=== PATIENT | female | born 1985 | race Caucasian/White ===

== ENCOUNTER 2023-09-23 21:33 | Emergency (ER) | payer OTHER, SELFPAY ==
[2023-09-23 21:39] VITALS: BP 133/92; PULSE 106; RESP 18; TEMP 36.6; O2SAT 100
--- NOTE | 2023-09-23 22:32 | XR_ITS ---
[facility] [id number] Patient Name: JOSEFINA MOYA MRN: [id number] date: 1985 Sex: F Assigned Patient Location: ER Current Patient Location: ER Accession/Order Number: [id number] Exam Date: 09/23/2023 22:35 Report Date: 09/23/2023 23:09 At the request of: MAURA MARKER Procedure: XR hand LT 2V XR hand LT 2V 09/23/2023 10:35 PM EST CLINICAL INDICATION: Cat bite to thumb COMPARISON: None. TECHNIQUE: 2 views of the left hand. FINDINGS: The bones are intact. The alignment is anatomic. The joints are maintained. There is swelling and increased density involving the thumb pad. XR/XR hand LT 2V IMPRESSION: No acute osseous abnormality of the left hand. Swelling and increased density involving the thumb pad. Electronically authenticated by: CLARI MANZO Date: 09/23/2023 23:09
--- NOTE | 2023-09-23 22:34 | ED.ANIMALBI1 ---
HPI - Animal Bite General Chief Complaint: Animal Bite Stated Complaint: Bite - Cat Time Seen by Provider: 09/23/23 22:15 Source: patient Mode of arrival: walk-in Limitations: no limitations History of Present Illness HPI narrative: This 37-year-old female who is left-hand dominant presents for evaluation after she was bit by her cat on her left thumb. She has a small puncture wound on the pulp of the end of the left thumb and the lateral aspect of the distal phalanx. She states that her cat is an indoor cat and does not go outside and was immunized as a kitten. The heard earlier this evening and when her got home from work he told her to come to the hospital. She had soaked her hand in water and washed off with soap and water and applied some antibiotic ointment to the area. No additional injuries or complaints. She does not know the date of her last tetanus shot. Related Data Home Medications Medication Instructions Recorded Confirmed alprazolam 0.5 mg tablet mg 09/23/23 lisdexamfetamine 70 mg capsule mg 09/23/23 pantoprazole 40 mg tablet,delayed mg PO 09/23/23 release Allergies Allergy/AdvReac Type Severity Reaction Status Date / Time No Known Drug Allergies Allergy Verified 09/23/23 21:38 Review of Systems ROS Status of ROS 10 or more systems reviewed and unremarkable except as noted in history and below [facility] Medical History (Updated 09/23/23 @ 22:34 by Ami Joseph MD) Scoliosis ?M41.9 - Scoliosis, unspecified (ICD-10) Social History Smoking status: Former smoker Exam Narrative Exam Narrative: Nurses note and vital signs reviewed and patient is not hypoxic. She is tachycardic with a pulse of 106. General: The patient appears well and in no apparent distress. Patient is resting comfortably on cart. Skin: Warm, dry, no pallor noted. There is no rash noted. Head: Normocephalic, atraumatic Eye: Normal conjunctiva, no drainage, EOMI. PERRL Ears, Nose, Mouth, and Throat: oral mucosa is moist. Nares patent. Mouth without vesicles. Ear canals patent. Tm's without Erythema Cardiovascular: Regular Rate and Rhythm Respiratory: Patient is in no distress, no accessory muscle use, lungs are clear to auscultation, no wheezing, rales or rhonchi Musculoskeletal: The left thumb has a puncture wound on the lateral aspect of the distal phalanx and on the palmar surface of the distal phalanx. There is no active bleeding. No sign of active infection. Patient is able to approximate thumb and all fingers. Neurological: A&O x4, normal speech Psychiatric: Cooperative Constitutional Vital Signs, click to edit/add: Last Vital Signs Temp 98 F 09/23/23 21:39 Pulse 106 H 09/23/23 21:39 Resp 18 09/23/23 21:39 BP 133/92 H 09/23/23 21:39 Pulse Ox 100 09/23/23 21:39 O2 Del Method Room Air 09/23/23 21:39 Course Vital Signs Vital signs: Vital Signs Temperature 98 F 09/23/23 21:39 Pulse Rate 106 H 09/23/23 21:39 Respiratory Rate 18 09/23/23 21:39 Blood Pressure 133/92 H 09/23/23 21:39 Pulse Oximetry 100 09/23/23 21:39 Oxygen Delivery Method Room Air 09/23/23 21:39 Temperature 98 F 09/23/23 21:39 Pulse Rate 106 H 09/23/23 21:39 Respiratory Rate 18 09/23/23 21:39 Blood Pressure 133/92 H 09/23/23 21:39 Pulse Oximetry 100 09/23/23 21:39 Oxygen Delivery Method Room Air 09/23/23 21:39 MDM - Animal Bite MDM Narrative Medical decision making narrative: This 37-year-old female is left-hand dominant presents for evaluation of 2 puncture wounds from her cat. She has an indoor cat was vaccinated as a kitten. There is little to no risk of rabies in this animal. She presents with 2 small puncture wounds on the left thumb. She does not of the date of her last tetanus shot. She had applied some antibiotic ointment to the thumb after washing her hands with soap and water. Her hand was soaked in betadine solution and an x-ray was ordered. The x-ray does not show any bony deformity or foreign body. She was medicated in the ER with 875mg Augmentin, ibuprofen and Tetanus was updated. A sterile non-stick dressing was applied by the nursing staff and she was discharged home with Rx for Augmentin 875mg BID for the next 7 days. Certainly to come to the emergency department for severe pain, increasing redness swelling or lymphangitic streaking. She was also instructed to soak her hand in warm Betadine solution or epsom salt water for at least 20-30 minutes for at least 3-4 times daily. Discharge Plan Discharge Chief Complaint: Animal Bite Clinical Impression: Cat bite Patient Disposition: Home, Self-Care Time of Disposition Decision: 22:34 Condition: Good Prescriptions / Home Meds: No Action alprazolam 0.5 mg tablet pantoprazole 40 mg tablet,delayed release (DR/EC) PO lisdexamfetamine 70 mg capsule Instructions: Animal Bite (ED) Stand Alone Forms: Portal Instructions Referrals: Sonia Hollingsworth MD [Primary Care Provider] - 1 week
[2023-09-23] MEDS: ADACEL DIPH,PERTUSS(ACELL),TET VAC/PF 0.5 ML ADULT SYRINGE IM (22:52)
[2023-09-23] MEDS: IBUPROFEN 600 MG TABLET PO (22:52)
[2023-09-23] MEDS: AMOXICILLIN/POTASSIUM CLAV 1 TAB TABLET PO (22:52)
[2023-09-23 23:13] VITALS: BP 130/84; PULSE 88; O2SAT 98
== END 2023-09-23 23:15 | disposition home or self-care (01) ==
PROVIDERS: Emergency Provider Emergency Medicine; PCP Family Medicine
DX: S61.052A Open bite of left thumb without damage to nail, initial encounter (principal); W55.01XA Bitten by cat, initial encounter; Z23 Encounter for immunization; Z79.899 Other long term (current) drug therapy; Z87.891 Personal history of nicotine dependence; M41.9 Scoliosis, unspecified
CPT/HCPCS: 73120; 90471; 90715; 99284

== ENCOUNTER 2023-10-22 08:25 | Outpatient (OUT) | payer OTHER, SELFPAY ==
--- OUTSIDE RECORDS SUMMARY | 2023-10-22 08:31 | XMS_ITS | CCD ---
Author Name Unknown Address [address] [facility] [address] [place] [address] Organization [facility] Care Team Providers Care Scientific Software Developer Name Role Phone MD Sonia Stoner Primary Care Provider MD Meera Bolden Admit Provider MD Meera Bolden Attending Provider MD Bairon Saba Other Provider [phone] MD Arturo Kumar Attending Provider [phone] Sonia Stoner Primary Care Unavailable Arturo Kumar Admitting Unavailable Arturo Kumar Attending Unavailable Sonia Stoner Primary Care Unavailable Arturo Kumar Admitting Unavailable Arturo Kumar Attending Unavailable Meera Bolden Attending Unavailable Bairon Saba Consulting Unavailabl e Sonia Stoner Primary Care Unavailable Meera Bolden Admitting Unavailable Arturo Kumar Unavailable Sonia Stoner Unavailable DR LIANNE LUI Admitting Unavailable SANIA, DR LIANNE Marquez Attending Unavailable SANIA, DR LIANNE Marquez Consulting Unavailable HERBIE, DR SONIA Mcdaniel Primary Care Unavailable HERBIE, DR SONIA Mcdaniel Primary Care Unavailable HERBIE, DR SONIA Mcdaniel Admitting Unavailable HERBIE, DR SONIA Mcdaniel Attending Unavailable LU, DR AZEB Ortiz Consulting Unavailable HERBIE, DR SONIA Mcdaniel Consulting Unavailable HERBIE, DR SONIA Mcdaniel Primary Care Unavailable HERBIE, DR SONIA Mcdaniel Admitting Unavailable HERBIE, DR SONIA Mcdaniel Attending Unavailable HERBIE, DR SONIA Mcdaniel Consulting Unavailable Allergies Allergy Classification Reported Allergen(s) Allergy Type Date of Onset Reaction(s) Facility (2 sources) Ibuprofen; Translations: [ibuprofen] Drug Allergy 2 Difficulty Breathing [facility] (3 sources) Ibuprofen; Translations: [Motrin] Drug Allergy anaphylaxis [facility] Medications Current Medications Medication Drug Class(es) Dates Sig (Normalized) Sig (Original) lisdexamfetamine dimesylate 70 mg oral capsule (3 sources) Central Nervous System Stimulant Start: 04-21-2022 take 1 capsule by mouth once daily Lisdexamfetamine (Vyvanse) 70 mg capsule Active 70 MG PO Daily April 21, 2022 12:00am pantoprazole 40 mg delayed release oral tablet (3 sources) Proton Pump Inhibitor Start: 04-22-2022 take 40 mg by mouth once daily Pantoprazole Active 40 MG PO Daily 42 42 April 22, 2022 12:00am take 1 tablet by jane th every twelve hours Pantoprazole Sodium 40 MG 1 tablet Orall y twice a day Active spironolactone 50 mg oral tablet (2 sources) Aldosterone Antagonist take 1 tablet by mouth every twenty-four hours Spironolactone 50 MG 1 tablet Orally Once a day Active Problems Active Problems Problem Classification Problem Date Documented Da te Episodic/Chronic Abdominal pain (1 source) Pelvic and perineal pain Episodic Esophageal disorders (3 sources) Gastroesophageal reflux disease; Translations: [Gastro-esophageal reflux disease without esophagitis] Chronic Esophageal disorders (2 sources) Esophagitis; Translations: [Esophagitis] Episodic Other gastrointestinal disorders (2 sources) Dysphagia; Translations: [Dysphagia, unspecified] Episodic Other gastrointestinal disorders (1 source) Dysphagia, unspecified Episodic Other injuries and conditions due to external causes (1 source) Food lodged in esophagus; Translations: [Food in esophagus causing other injury, initial encounter] 04-22-2022 Episodic Other nutritional; endocrine; and metabolic disorders (2 sources) Body mass index 40+ - severely obese; Translations: [Body mass index (BMI) 45.0-49.9, adult] Chronic Unclassified (1 source) Esophagitis, unspecified without bleeding; Translations: [Esophagitis, unspecified without bleeding] Onset: 2 Unclassified (1 source) Encounter for preprocedural laboratory examination; Translations: [Encounter for preprocedural laboratory examination] Onset: 2 Unclassified (1 source) Food in esophagus causing other injury, initial encounter; Translations: [Food in esophagus causing other injury, initial encounter] Onset: 2 Unclassified (4 sources) CONTACT W/AND (SUSP) EXPOS COVID-19; Translations: [CONTACT W/AND (SUSP) EXPOS COVID-19] Onset: 2 Past or Other Problems Problem Classification Problem Date Documented Da te Episodic/Chronic Other injuries and conditions due to external causes (5 sources) Food in esophagus causing other injury, initial encounter; Translations: [Foreign body in esophagus] Onset: 04-21-2022 04-22-2022 Episodic Screening and history of mental health and substance abuse codes (1 source) Personal history of nicotine dependence; Translations: [PERSONAL HISTORY OF NICOTINE DEPEND] Onset: 04-23-2022 Episodic Unclassified (1 source) Esophagitis K20.90 Unclassified (1 source) CONTACT W/AND (SUSP) EXPOS COVID-19; Translations: [CONTACT W/AND (SUSP) EXPOS COVID-19] Onset: 04-29-2022 Results Test Name Value Interpretation Reference Range Facility US PELVIS AND TRANSVAGon US PELVIS AND TRANSVAG EXAMINATION: US PELVIS AND TRANSVAG HISTORY: Pelvic and perineal pain COMPARISON: No relevant comparison available. FINDINGS: Transabdominal and transvaginal images The uterus is normal in size, contour and myometrial echotexture measuring 9.2 x 5.2 x 4.2 cm. Anteverted. Area of anechoic echogenicity along the right uterus margin, this appears to be external to the uterus, indeterminate. Possibly a mesenteric cyst or loop of bowel The endometrium measures 5.3 mm, normal. Multiple areas of anechoic echogenicity in the cervix largest measuring 2.1 cm, nabothian cysts are favored. The right ovary is normal in size, contour and echotexture measuring 2.9 x 2.2 x 2.0 cm. Normal color and Doppler flow. The left ovary is normal in size, contour and echotexture measuring 3.0 x 2.8 x 2.1 cm. Normal color and Doppler flow No free fluid Identified in the area the patient's palpable abnormality, in the perineum is a 3 cm complex mass with multiple dilated vessels, demonstrating increased flow with Valsalva IMPRESSION: 3 cm complex vascular mass corresponding to the patient's perineum palpable mass with increased flow during Valsalva. CT exam without and with contrast is recommended for further characterization Electronically authenticated by: AZEB LEIGH Date: 2023-02-04 08:55 Normal [facility] HCG,Urineon 06-27-2022 Beta HCG ( test) Ql (U) Negative Normal [facility] Comment on above: Result Comment: PERF ORMED BY: [address] [place] [id number] PATHOLOGIST MANIFEST/ORDER ORGANIZER PRINT ORDERS SHIMA RIVERA M.D. Performed By: #### U HCG #### [place] [id number] [facility] Kwame 06-27-2022 L Specimen: [id number] Received: 06/27/22 Status: MARA Fitzpatrick Num: [id number] Spec Type: Surgical Subm Dr: Arturo Kumar MD Tissues: A Esophagus Biopsy (ESOSPHAGEAL BX) Procedures: HE Stain/2, Gross/Micro L4 Age/ Patient Sex Location Account Attending Physician Josefina Moya/F [id number] Arturo Kumar MD SPEC NUM: [id number] RECD: 06/27/22 STATUS: WILMANNinfa FITZPATRICK NUM: [id number] SACHI: 06/27/22 [facility] DR: Arturo Kumar MD ENTERED: 06/27/22 [facility] DR: SPEC TYPE: Surgical DEPT: S ORDERED: HE Stain/2, Gross/Micro L4 ORDERED: HE Stain/2, Gross/Micro L4 Pathological Diagnosis Esophagus, biopsy: Squamous mucosa with reflux-like esophagitis. Negative for intestinal metaplasia or dysplasia. Negative for eosinophilic or neutrophilic inflammation. Clinical Information Esophagitis Gross Description Received in formalin labeled with the patient's name, number and esophagus biopsy EOE are three fragments of soft tellez tissue each measuring 0.2 cm. Entirely submitted in one cassette labeled A1. Microscopic Description Two glass slides with H E stained material have been examined. The microscopic findings support the above pathologic diagnosis. Specimen: [id number] Received: 06/27/22 Status: MARA Fitzpatrick Num: [id number] Spec Type: Surgical Subm Dr: Arturo Kumar MD Tissues: A Esophagus Biopsy (ESOSPHAGEAL BX) Procedures: HE Stain/2, Gross/Micro L4 Patient: Josefina Moya Yolanda [id number] (Continued) Specimen: [id number] Received: 06/27/22 (Continued) Signed (signature on file) Rosana Lucas MD 06/28/22 1257 Specimen: [id number] Received: 06/27/22 Status: MARA Fitzpatrick Num: [id number] Spec Type: Surgical Subm Dr: Arturo Kumar MD Tissues: A Esophagus Biopsy (ESOSPHAGEAL BX) Procedures: HE Stain/2, Gross/Micro L4 Patient: Josefina Moya Yolanda [id number] (Continued) Specimen: [id number] Received: 06/27/22 (Continued) CPT Codes 71046 Specimen: [id number] Received: 06/27/22 Status: MARA Nanette Num: [id number] Spec Type: Surgical Subm Dr: Arturo Kumar MD Tissues: A Esophagus Biopsy (ESOSPHAGEAL BX) Procedures: HE Stain/2, Gross/Micro L4 Patient: YueChelyJosefina Yolanda [id number] (Continued) Signed (signature on file) Rosana Lucas MD 06/28/22 1257 Normal [facility] SARS-CoV-2 (COVID-19) RNA SANJEEV+probe Ql (Unsp spec) Negative Normal Negative [facility] Comment on above: Order Comment: Healt hcare Worker?: N Result Comment: Testing for SARS-CoV-2 by RT-PCR This test was developed and its performance characteristics determined by [employer] and validated at the [facility]. This test has not been FDA cleared or approved. This test has been authorized by FDA under an Emergency Use Authorization (EUA). This test has been validated in accordance with the FDA's Guidance Document (Policy for Diagnostics Testing in Laboratories Certified to Perform High Complexity Testing under CLIA prior to Emergency Use Authorization for Coronavirus Disease-2019 during the Public Health Emergency) issued on December 23, 2019. This test is only authorized for the duration of time the declaration that circumstances exist justifying the authorization of the emergency use of in vitro diagnostic tests for detection of SARS-CoV-2 virus and/or diagnosis of COVID-19 infection under section 564(b)(1) of the Act, 21 U.S.C. 360bbb-3(b)(1), unless the authorization is terminated or revoked sooner. PERFORMED BY: [facility] [address] [place] [address] PATHOLOGIST MANIFEST/ORDER ORGANIZER PRINT ORDERS SHIMA RIVERA M.D. Performed By: #### C OVID 19 [facility] #### [facility] [address] COVID-19 Positive/NegativeOr dered By: Arturo Kumar on 06-25-2022 SARS-CoV-2 (COVID-19) N gene SANJEEV+probe Ql (Resp) Negative Negative [facility] Comment on above: Testing for SARS-CoV -2 by RT-PCRThis test was developed and its performance characteristics determined by [employer]) and validated at the [facility]. This test has not been FDA cleared or approved. This test has been authorized by FDA under an Emergency Use Authorization (EUA). This test has been validated in accordance with the FDA's Guidance Document (Policy for Diagnostics Testing in Laboratories Certified to Perform High Complexity Testing under CLIA prior to Emergency Use Authorization for Coronavirus Disease-2019 during the Public Health Emergency) issued on December 23, 2019. This test is only authorized for the duration of time the declaration that circumstances exist justifying the authorization of the emergency use of in vitro diagnostic tests for detection of SARS-CoV-2 virus and/or diagnosis of COVID-19 infection under section 564(b)(1) of the Act, 21 U.S.C. 360bbb-3(b)(1), unless the authorization is terminated or revoked sooner. Covid-19 PCR ([facility])on SARS-CoV-2 (COVID-19) RNA SANJEEV+probe Ql (Unsp spec) Not detected Normal NOT DETECTED [facility] Comment on above: Result Comment: This test is not yet approved or cleared by the [place] FDA. When there are no FDA-approved or cleared tests available, and other criteria are met, FDA can make tests available under an emergency access mechanism called an Emergency Use Authorization (EUA). The EUA for this test is supported by the Floral [employer] Teacher of Health and Human Service's (HHS's) declaration that circumstances exist to justify the emergency use of in vitro diagnostics for the detection and/or diagnosis of the virus that causes COVID-19. This EUA will remain in effect (meaning this test can be used) for the duration of the COVID-19 declaration justifying emergency of IVDs, unless it is terminated or revoked by FDA (after which the test may no longer be used). When diagnostic testing is negative, the possibility of a false negative should be considered in the context of a patient's recent exposures and the presence of clinical signs and symptoms consistent with SARS-CoV-2. Performed By: #### [facility] #### [facility] [address] [place] [address] [address] Skyler Saldivar Basic Metabolic Panelon 08-0 Calcium [Mass/Vol] 8.2 mg/dL Normal 8.2-10.2 [facility] Comment on above: Performed By: #### B MP, CBC #### [facility] [address] [place] [address] [place] Chloride [Moles/Vol] 109 mmol/L Normal 95-114 [facility] Comment on above: Performed By: #### B MP, CBC #### [facility] [address] CO2 [Moles/Vol] 25.1 mmol/L Normal 22.0-30.0 [facility] Comment on above: Performed By: #### B MP, CBC #### [facility] [address] Creatinine [Mass/Vol] 1.06 mg/dL High 0.44-1.03 [facility] Comment on above: Performed By: #### B MP, CBC #### [facility] [address] [place] [address] [place] Creatinine Clr Calc Pharmacy 89.25 [facility] Comment on above: Result Comment: PERF ORMED BY: [place] [address] PATHOLOGIST MANIFEST/ORDER ORGANIZER PRINT ORDERS SHIMA RIVERA M.D. Performed By: #### B MP, CBC #### [facility] [address] Estimated GFR ( Nicole > 60 [facility] Comment on above: Result Comment: GFR estimated reference range: According to KDOQI guidelines, <60 ml/min/1.73m2 is sufficient to diagnose a patient with chronic kidney disease. Performed By: #### B MP, CBC #### [facility] [address] [place] [id number] [place] Estimated GFR (Non- Am 58 [facility] Comment on above: Performed By: #### B MP, CBC #### [facility] [address] [place] [address] [place] Glucose [Mass/Vol] 96 mg/dL Normal 70-100 [facility] Comment on above: Result Comment: [facility] Glucose Reference Range is dependent on time and content of last meal. Glucose of more than 200 mg/dL in a nonstressed, ambulatory subject supports the diagnosis of Diabetes Mellitus. ADA recommended reference range Performed By: #### B MP, CBC #### [facility] [address] Potassium Normal 3.5-5.1 [facility] Comment on above: Result Comment: Unac ceptable specimen due to hemolysis. Redraw reordered. Performed By: #### B MP, CBC #### [facility] [address] Sodium [Moles/Vol] 138 mmol/L Normal 136-146 [facility] Comment on above: Performed By: #### B MP, CBC #### [facility] [address] Urea nitrogen [Mass/Vol] 12 mg/dL Normal 9-23 [facility] Comment on above: Performed By: #### B MP, CBC #### [facility] [address] Basophils Auto (Bld) [#/Vol] Ordered By: Meera Bolden on 04-22-2022 Basophils (Bld) [#/Vol] 0.1 10*3/uL 0.0-0.2 [facility] Basophils/100 WBC Auto (Bld) Ordered By: Meera Bolden on 04-22-2022 Basophils/100 WBC (Bld) 0.9 % . F [facility] Blood hemoglobin measurement (mass/volume)Ordered By: Meera Bolden on 04-22-2022 Hemoglobin (Bld) [Mass/Vol] 12.6 g/dL 11.8-15.4 [facility] Blood leukocytes automated c ount (number/volume)Ordered By: Meera Bolden on 04-22-2022 WBC (Bld) [#/Vol] 9.0 10*3/uL 4.5-11.0 [facility] Complete Blood Count Auto Di ffon 04-22-2022 Basophils (Bld) [#/Vol] 0.1 10*3/uL Normal 0.0-0.2 [facility] Comment on above: Result Comment: PERF ORMED BY: [place] [address] PATHOLOGIST MANIFEST/ORDER ORGANIZER PRINT ORDERS SHIMA RIVERA M.D. Performed By: #### B MP, CBC #### [facility] [address] [place] [address] Basophils/100 WBC (Bld) 0.9 % Normal . F [facility] Comment on above: Performed By: #### B MP, CBC #### [facility] [address] [place] [address] Eosinophils (Bld) [#/Vol] 0.7 10*3/uL High 0.0-0.45 [facility] Comment on above: Performed By: #### B MP, CBC #### [address] Eosinophils/100 WBC (Bld) 7.3 % Normal . [facility] Comment on above: Performed By: #### B MP, CBC #### [address] Erythrocyte distribution width (RBC) [Ratio] 14.3 % Normal 11.9-15.3 [facility] Comment on above: Performed By: #### B MP, CBC #### [facility] [address] [place] [address] Hematocrit (Bld) [Volume fraction] 38.0 % Normal 34.0-46.4 [facility] Comment on above: Performed By: #### B MP, CBC #### [facility] [address] [place] [address] [place] Hemoglobin (Bld) [Mass/Vol] 12.6 g/dL Normal 11.8-15.4 [facility] Comment on above: Performed By: #### B MP, CBC #### [place] [address] [place] Lymphocytes (Bld) [#/Vol] 1.9 10*3/uL Normal 1.00-4.8 [facility] Comment on above: Performed By: #### B MP, CBC #### [facility] [address] Lymphocytes/100 WBC (Bld) 21.2 % Normal . [facility] Comment on above: Performed By: #### B MP, CBC #### [facility] [address] MCH (RBC) [Entitic mass] 29.9 pg Normal 24.7-34.3 [facility] Comment on above: Performed By: #### B MP, CBC #### [facility] [address] MCV (RBC) [Entitic vol] 90.0 fL Normal 80-[address] [facility] Comment on above: Performed By: #### B MP, CBC #### [facility] [address] Mean Corpuscular HGB Conc 33.3 g/dL Normal 32.0-35.0 [facility] Comment on above: Performed By: #### B MP, CBC #### [facility] [address] [place] [address] [place] Monocytes (Bld) [#/Vol] 0.5 10*3/uL Normal 0.0-0.8 [facility] Comment on above: Performed By: #### B MP, CBC #### [facility] [address] [place] [address] [place] Monocytes/100 WBC (Bld) 5.6 % Normal . F [facility] Comment on above: Performed By: #### B MP, CBC #### [facility] [address] [place] [address] [place] Neutrophils (Bld) [#/Vol] 5.8 10*3/uL Normal 1.8-7.7 [facility] Comment on above: Performed By: #### B MP, CBC #### [facility] [address] [place] [address] [place] Neutrophils/100 WBC (Bld) 65.0 % Normal . [facility] Comment on above: Performed By: #### B MP, CBC #### [facility] [address] Nucleated RBC/100 WBC (Bld) [Ratio] 0.0 % Normal 0-0.5 [facility] Comment on above: Performed By: #### B MP, CBC #### [facility] [address] Platelet mean volume (Bld) [Entitic vol] 9.9 fL Normal 6.3-10.7 [facility] Comment on above: Performed By: #### B MP, CBC #### [facility] [address] Platelets (Bld) [#/Vol] 243 10*3/uL Normal 150-450 [facility] Comment on above: Performed By: #### B MP, CBC #### [address] RBC (Bld) [#/Vol] 4.22 10*6/uL Normal 3.60-5.00 [facility] Comment on above: Performed By: #### B MP, CBC #### [facility] [address] WBC (Bld) [#/Vol] 9.0 10*3/uL Normal 4.5-11.0 [facility] Comment on above: Performed By: #### B MP, CBC #### [address] Creatinine and Glomerular fi ltration rate.predicted panel (S/P/Bld)Ordered By: Meera Bolden on 04-22-2022 Creatinine [Mass/Vol] 1.06 mg/dL 0.44-1.03 [facility] Eosinophils Auto (Bld) [#/Vo l]Ordered By: Meera Bolden on 04-22-2022 Eosinophils (Bld) [#/Vol] 0.7 10*3/uL 0.0-0.45 [facility] Eosinophils/100 WBC Auto (Bl d)Ordered By: Meera Bolden on 04-22-2022 Eosinophils/100 WBC (Bld) 7.3 % . [facility] Erythrocyte distribution wid th Auto (RBC) [Ratio]Ordered By: Meera Bolden on 04-22-2022 Erythrocyte distribution width (RBC) [Ratio] 14.3 % 11.9-15.3 [facility] Estimated glomerular filtrat ion rate (GFR) non- AmericanOrdered By: Meera Bolden on 04-22-2022 GFR/1.73 sq M.predicted among non-blacks MDRD (S/P/Bld) [Vol rate/Area] 58 mL/Min [facility] Hematocrit Auto (Bld) [Volum e fraction]Ordered By: Meera Bolden on 04-22-2022 Hematocrit (Bld) [Volume fraction] 38.0 % 34.0-46.4 [facility] Laboratory - Hematology and Cell countsOrdered By: Meera Bolden on 04-22-2022 Nucleated RBC/100 WBC (Bld) [Ratio] 0.0 % 0-0.5 [facility] Lymphocytes Auto (Bld) [#/Vo l]Ordered By: Meera Bolden on 04-22-2022 Lymphocytes (Bld) [#/Vol] 1.9 10*3/uL 1.00-4.8 [facility] Lymphocytes/100 WBC Auto (Bl d)Ordered By: Meera Bolden on 04-22-2022 Lymphocytes/100 WBC (Bld) 21.2 % . [facility] MCH Auto (RBC) [Entitic mass ]Ordered By: Meera Bolden on 04-22-2022 MCH (RBC) [Entitic mass] 29.9 pg 24.7-34.3 [facility] MCHC Auto (RBC) [Mass/Vol]Or dered By: Meera Bolden on 04-22-2022 MCHC (RBC) [Mass/Vol] 33.3 g/dL 32.0-35.0 Fir [facility] MCV Auto (RBC) [Entitic vol] Ordered By: Meera Bolden on 04-22-2022 MCV (RBC) [Entitic vol] 90.0 fL 80-[address] [facility] Monocytes Auto (Bld) [#/Vol] Ordered By: Meera Bolden on 04-22-2022 Monocytes (Bld) [#/Vol] 0.5 10*3/uL 0.0-0.8 [facility] Monocytes/100 WBC Auto (Bld) Ordered By: Meera Bolden on 04-22-2022 Monocytes/100 WBC (Bld) 5.6 % . F [facility] Neutrophils Auto (Bld) [#/Vo l]Ordered By: Meera Bolden on 04-22-2022 Neutrophils (Bld) [#/Vol] 5.8 10*3/uL 1.8-7.7 [facility] Neutrophils/100 WBC Auto (Bl d)Ordered By: Meera Bolden on 04-22-2022 Neutrophils/100 WBC (Bld) 65.0 % . [facility] No Panel InformationOrdered By: Meera Bolden on 04-22-2022 Estimated GFR () > 60 mL/Min [facility] Comment on above: GFR estimated refere nce range: According to KDOQI guidelines, <60 ml/min/1.73m2 is sufficient to diagnose a patient with chronic kidney disease. Pharmacy Creatinine Clearance (Chem 89.25 [facility] Platelet mean volume Auto (B ld) [Entitic vol]Ordered By: Meera Bolden on 04-22-2022 Platelet mean volume (Bld) [Entitic vol] 9.9 fL 6.3-10.7 [facility] Platelets Auto (Bld) [#/Vol] Ordered By: Meera Bolden on 04-22-2022 Platelets (Bld) [#/Vol] 243 10*3/uL 150-450 [facility] RBC Auto (Bld) [#/Vol]Ordere d By: Meera Bolden on 04-22-2022 RBC (Bld) [#/Vol] 4.22 10*6/uL 3.60-5.00 [facility] Redraw Potassiumon 2 Potassium [Moles/Vol] 3.3 mmol/L Low 3.5-5.1 [facility] Comment on above: Order Comment: REDRA W Result Comment: PERF ORMED BY: [facility] [address] [place] [address] PATHOLOGIST MANIFEST/ORDER ORGANIZER PRINT ORDERS SHIMA RIVERA M.D. Performed By: #### R DIANA Prajapati #### [facility] [address] Serum or plasma calcium bill urement (mass/volume)Ordered By: Meera Bolden on 04-22-2022 Calcium [Mass/Vol] 8.2 mg/dL 8.2-10.2 [facility] Serum or plasma chloride apple surement (moles/volume)Ordered By: Meera Bolden on 04-22-2022 Chloride [Moles/Vol] 109 mmol/L 95-114 [facility] Serum or plasma glucose bill urement (mass/volume)Ordered By: Meera Bolden on 04-22-2022 Glucose [Mass/Vol] 96 mg/dL 70-100 [facility] Comment on above: ADA recommended refe rence rangeRandom Glucose Reference Range is dependent on time and content of last meal. Glucose of more than 200 mg/dL in a nonstressed, ambulatory subject supports the diagnosis of Diabetes Mellitus. Serum or plasma potassium me asurement (moles/volume)Ordered By: Meera Bolden on 04-22-2022 Potassium [Moles/Vol] 3.3 mmol/L 3.5-5.1 [facility] Serum or plasma sodium measu rement (moles/volume)Ordered By: Meera Bolden on 04-22-2022 Sodium [Moles/Vol] 138 mmol/L 136-146 [facility] Serum or plasma total carbon dioxide measurement (moles/volume)Ordered By: Meera Bolden on 04-22-2022 CO2 [Moles/Vol] 25.1 mmol/L 22.0-30.0 [facility] Serum or plasma urea nitroge n measurement (mass/volume)Ordered By: Meera Bolden on 04-22-2022 Urea nitrogen [Mass/Vol] 12 mg/dL 9-23 [facility] CBC AUTO DIFFon 04-21-2022 BASO # 0.2 103/ul Critically high 0.0-0.1 [facility] Comment on above: Performed By: #### C BC #### [facility] [address] [address] [address] Skyler Saldivar Basophils/100 WBC (Bld) 1.5 % Normal 0.2-2.0 [facility] Comment on above: Performed By: #### C BC #### [facility] [address] [address] [address] Skyler Saldivar EO # 0.7 103/ul Normal 0.0-0.7 [facility] Comment on above: Performed By: #### C BC #### [facility] [address] [address] [address] Skyler Saldivar Eosinophils/100 WBC (Bld) 6.4 % Normal 0.9-7.0 [facility] Comment on above: Performed By: #### C BC #### [facility] [address] [place] [address] Dr. Skyler Saldivar Erythrocyte distribution width (RBC) [Ratio] 13.7 % Normal 11.0-15.0 [facility] Comment on above: Performed By: #### C BC #### [facility] [address] [place] [address] Dr. Skyler Saldivar Hematocrit (Bld) [Volume fraction] 43.3 % Normal 36.0-48.0 [facility] Comment on above: Performed By: #### C BC #### [facility] [address] [place] [address] Dr. Skyler Saldivar Hemoglobin (Bld) [Mass/Vol] 13.9 g/dL Normal 12.0-16.0 [facility] Comment on above: Performed By: #### C BC #### [facility] [address] [place] [address] Dr. Skyler Saldivar IG # 0.03 10e3/ul Normal 0.00-0.03 [facility] Comment on above: Performed By: #### C BC #### [facility] [address] [place] [address] Dr. Skyler Saldivar IG % 0.3 % Normal 0.0-0.5 [facility] Comment on above: Performed By: #### C BC #### [facility] [address] [place] [address] Dr. Skyler Saldivar LYMPH # 2.5 103/ul Normal 1.2-3.8 [facility] Comment on above: Performed By: #### C BC #### [facility] [address] [place] [address] Dr. Skyler Saldivar Lymphocytes/100 WBC (Bld) 24.1 % Normal 20.5-60.0 [facility] Comment on above: Performed By: #### C BC #### [facility] [address] [place] [address] Dr. Skyler Saldivar MANUAL DIFF REQ NO Normal [facility] Comment on above: Performed By: #### C BC #### [facility] [address] [place] [address] Dr. Skyler Saldivar MCH (RBC) [Entitic mass] 28.9 pg Normal 26.7-34.0 [facility] Comment on above: Performed By: #### C BC #### [facility] [address] [place] [address] Dr. Skyler Saldivar MCHC (RBC) [Mass/Vol] 32.1 g/dL Normal 29.9-35.2 [facility] Comment on above: Performed By: #### C BC #### [facility] [address] [place] [address] Dr. Skyler Saldivar MCV (RBC) [Entitic vol] 90.0 fL Normal 81.0-99.0 [facility] Comment on above: Performed By: #### C BC #### [facility] [address] [place] [address] Dr. Skyler Saldivar MONO # 0.4 103/ul Normal 0.3-0.8 [facility] Comment on above: Performed By: #### C BC #### [facility] [address] [place] [address] Dr. Skyler Saldivar Monocytes/100 WBC (Bld) 4.3 % Normal 1.7-12.0 [facility] Comment on above: Performed By: #### C BC #### [facility] [address] [place] [address] Dr. Skyler Saldivar NEUT # 6.6 103/ul Critically high 1.4-6.5 [facility] Comment on above: Performed By: #### C BC #### [facility] [address] [place] [address] Dr. Skyler Saldivar Neutrophils/100 WBC (Bld) 63.4 % Normal 43.0-75.0 [facility] Comment on above: Performed By: #### C BC #### [facility] [address] [place] [address] Dr. Skyler Saldivar Platelet mean volume (Bld) [Entitic vol] 11.3 fL Normal 9.5-13.5 [facility] Comment on above: Performed By: #### C BC #### [facility] [address] [place] [address] Dr. Skyler Saldivar PLT 317 103/ul Normal 150-450 [facility] Comment on above: Performed By: #### C BC #### [facility] [address] [place] [address] Dr. Skyler Saldivar RBC 4.81 106/ul Normal 4.20-5.40 [facility] Comment on above: Performed By: #### C BC #### [facility] [address] [place] [address] Dr. Skyler Saldivar WBC 10.3 103/ul Normal 4.0-11.0 [facility] Comment on above: Performed By: #### C BC #### [facility] [address] [place] [address] Dr. Skyler Saldivar [facility] SARS-CoV-2 (COVID-19) RNA SANJEEV+probe Ql (Unsp spec) Not detected Normal NOT DETECTED [facility] Comment on above: Result Comment: When diagnostic testing is negative, the possibility of a false negative should be considered in the context of a patient's recent exposures and the presence of clinical signs and symptoms consistent with SARS-CoV-2. This test is not yet approved or cleared by the [place] FDA. When there are no FDA-approved or cleared tests available, and other criteria are met, FDA can make tests available under an emergency access mechanism called an Emergency Use Authorization (EUA). The EUA for this test is supported by the [employer] of Health and Human Service's declaration that circumstances exist to justify the emergency use of in vitro diagnostics for the detection and/or diagnosis of the virus that causes COVID-19. This EUA will remain in effect for the duration of the COVID-19 declaration justifying emergency of IVDs, unless it is terminated or revoked by the FDA (after which the test may no longer be used). Performed By: #### C VDTB #### [facility] [address] [place] [address] Dr. Skyler Saldivar PROF 14(COMP METB)on 022 Albumin [Mass/Vol] 3.9 g/dL Normal 3.4-5.0 [facility] Comment on above: Performed By: #### C MP #### [facility] [address] [place] [address] Dr. Skyler Saldivar Albumin/Globulin [Mass ratio] 0.9 {ratio} Normal [facility] Comment on above: Performed By: #### C MP #### [facility] [address] [place] [address] Dr. Skyler Saldivar ALP [Catalytic activity/Vol] 73 U/L Normal 46-116 [facility] Comment on above: Performed By: #### C MP #### [facility] [address] [place] [address] Dr. Skyler Saldivar ALT [Catalytic activity/Vol] 20 U/L Normal 14-59 [facility] Comment on above: Performed By: #### C MP #### [facility] [address] [place] [address] Dr. Skyler Saldivar Anion gap [Moles/Vol] 13.8 mmol/L Normal [facility] Comment on above: Performed By: #### C MP #### [facility] [address] [place] [address] Dr. Skyler Saldivar AST [Catalytic activity/Vol] 14 U/L Critically low 15-37 [facility] Comment on above: Performed By: #### C MP #### [facility] [address] [address] [address] Skyler Saldivar Bilirubin [Mass/Vol] 0.3 mg/dL Normal 0.2-1.0 [facility] Comment on above: Performed By: #### C MP #### [facility] [address] [address] [address] Skyler Saldivar Calcium [Mass/Vol] 9.1 mg/dL Normal 8.5-10.1 [facility] Comment on above: Performed By: #### C MP #### [facility] [address] [address] [address] Skyler Saldivar Chloride [Moles/Vol] 105 mmol/L Normal 98-107 [facility] Comment on above: Performed By: #### C MP #### [facility] [address] [address] [address] Skyler Saldivar CO2 [Moles/Vol] 23.8 mmol/L Normal 21.0-32.0 [facility] Comment on above: Performed By: #### C MP #### [facility] [address] [address] [address] Skyler Saldivar Creatinine [Mass/Vol] 1.11 mg/dL Critically high 0.55-1.02 [facility] Comment on above: Performed By: #### C MP #### [facility] [address] [address] [address] Skyler Saldivar EGFR-AF [place] >60 Normal >=60 [facility] Comment on above: Performed By: #### C MP #### [facility] [address] [address] [address] Skyler Saldivar EGFR-NON AF [place] 55 mL/min/1.73m2 Critically low >=60 [facility] Comment on above: Performed By: #### C MP #### [facility] [address] [address] [address] Skyler Saldivar Globulin (S) [Mass/Vol] 4.2 g/dL Normal T [facility] Comment on above: Performed By: #### C MP #### [facility] [address] [address] [address] Skyler Saldivar Glucose [Mass/Vol] 94 mg/dL Normal 74-106 [facility] Comment on above: Performed By: #### C MP #### [facility] [address] [address] [address] Skyler Saldivar Potassium [Moles/Vol] 3.6 mmol/L Normal 3.5-5.1 [facility] Comment on above: Performed By: #### C MP #### [facility] [address] [address] [address] Skyler Saldivar Protein [Mass/Vol] 8.1 g/dL Normal 6.4-8.2 [facility] Comment on above: Performed By: #### C MP #### [facility] [address] [address] [address] Skyler Saldivar Sodium [Moles/Vol] 139 mmol/L Normal 136-145 [facility] Comment on above: Performed By: #### C MP #### [facility] [address] [address] [address] Skyler Saldivar Urea nitrogen [Mass/Vol] 15.0 mg/dL Normal 7.0-18.0 [facility] Comment on above: Performed By: #### C MP #### [facility] [address] [address] [address] Skyler Saldivar Urea nitrogen/Creatinine [Mass ratio] 13.5 mg/mg Normal [facility] Comment on above: Performed By: #### C MP #### [facility] [address] [address] [address] Skyler Saldivar Comprehensive Metabolic Empo n 07-27-2021 Albumin [Mass/Vol] 3.6 g/dL Normal 3.2-5.5 [facility] Comment on above: Performed By: #### E BS LIPID, EBS CMP #### [facility] [address] Albumin/Globulin [Mass ratio] 1.1 {ratio} Normal [facility] Comment on above: Performed By: #### E BS LIPID, EBS CMP #### [facility] [address] [place] [address] [place] ALP [Catalytic activity/Vol] 52 U/L Normal 32-92 [facility] Comment on above: Performed By: #### E BS LIPID, EBS CMP #### [facility] [address] [id number] [place] ALT [Catalytic activity/Vol] 31 U/L Normal 10-60 [facility] Comment on above: Performed By: #### E BS LIPID, EBS CMP #### [facility] [address] [place] [address] [place] AST [Catalytic activity/Vol] 23 U/L Normal 10-42 [facility] Comment on above: Performed By: #### E BS LIPID, EBS CMP #### [facility] [address] [place] [address] [place] Bilirubin [Mass/Vol] 0.5 mg/dL Normal 0.3-1.2 [facility] Comment on above: Performed By: #### E BS LIPID, EBS CMP #### [facility] [address] [place] [address] [place] Calcium [Mass/Vol] 9.0 mg/dL Normal 8.2-10.2 [facility] Comment on above: Performed By: #### E BS LIPID, EBS CMP #### [facility] [address] [id number] [place] Chloride [Moles/Vol] 103 mmol/L Normal 95-114 [facility] Comment on above: Performed By: #### E BS LIPID, EBS CMP #### [facility] [address] [id number] [place] CO2 [Moles/Vol] 22.9 mmol/L Normal 22.0-30.0 [facility] Comment on above: Performed By: #### E BS LIPID, EBS CMP #### [facility] [address] [id number] [place] Creatinine [Mass/Vol] 0.93 mg/dL Normal 0.44-1.03 [facility] Comment on above: Performed By: #### E BS LIPID, EBS CMP #### [facility] [address] [place] [address] [place] Estimated GFR ( Nicole > 60 Normal [facility] Comment on above: Result Comment: GFR estimated reference range: According to KDOQI guidelines, <60 ml/min/1.73m2 is sufficient to diagnose a patient with chronic kidney disease. Performed By: #### E BS LIPID, EBS CMP #### [facility] [address] [place] [address] [place] Estimated GFR (Non- Am > 60 Normal [facility] Comment on above: Performed By: #### E BS LIPID, EBS CMP #### [address] Globulin (S) [Mass/Vol] 3.3 g/dL Normal F [facility] Comment on above: Performed By: #### E BS LIPID, EBS CMP #### [address] Glucose [Mass/Vol] 80 mg/dL Normal 70-100 [facility] Comment on above: Performed By: #### E BS LIPID, EBS CMP #### [place] [address] [place] Potassium [Moles/Vol] 4.1 mmol/L Normal 3.5-5.1 [facility] Comment on above: Performed By: #### E BS LIPID, EBS CMP #### [place] [address] [place] Protein [Mass/Vol] 6.9 g/dL Normal 6.1-7.9 [facility] Comment on above: Performed By: #### E BS LIPID, EBS CMP #### [place] [address] [place] Sodium [Moles/Vol] 135 mmol/L Low 136-146 [facility] Comment on above: Performed By: #### E BS LIPID, EBS CMP #### [place] [address] [place] Urea nitrogen [Mass/Vol] 11 mg/dL Normal 9-23 [facility] Comment on above: Performed By: #### E BS LIPID, EBS CMP #### [facility] [address] Lipid Profileon 07-27-2021 Cholesterol [Mass/Vol] 173 mg/dL Normal 140-200 [facility] Comment on above: Result Comment: Chol less than 200 mg/dl low risk Chol 201-239 mg/dl borderline risk Chol 240 mg/dl and greater high risk Performed By: #### E BS LIPID, EBS CMP #### [facility] [address] Cholesterol in HDL [Mass/Vol] 46 mg/dL Normal 35-85 [facility] Comment on above: Result Comment: HDL CHOL ATP-III CLASSIFICATION Cardiovascular Risk HDL > or equal to 60 mg/dL LOW HDL < 40 mg/dL HIGH Performed By: #### E BS LIPID, EBS CMP #### [facility] [address] Cholesterol.total/Rachel sterol in HDL [Mass ratio] 3.8 {ratio} Normal <5.0 [facility] Comment on above: Result Comment: PERF ORMED BY: [place] [address] PATHOLOGIST MANIFEST/ORDER ORGANIZER [employer]DERS SHIMA RIVERA M.D. Performed By: #### E BS LIPID, EBS CMP #### [facility] [address] LDL Cholesterol,Calculated 109 mg/dL High 0-100 [facility] Comment on above: Result Comment: LDL ATP III CLASSIFICATION LDL less than 100 mg/dL Optimal LDL 100-129 mg/dL Near or above optimal LDL 130-159 mg/dL Borderline high LDL 160-189 mg/dL High LDL greater than 189 mg/dL Very high Performed By: #### E BS LIPID, EBS CMP #### [facility] [address] [place] [address] [place] Triglyceride w/Reflex 90 mg/dL Normal 35-149 [facility] Comment on above: Result Comment: TRIG ATP III CLASSIFICATION TRIG less than 150 mg/dL Normal TRIG 150-199 mg/dL Borderline high TRIG 200-500 mg/dL High TRIG greater than 500 mg/dL Very high Standard traceable to the Center for Disease Conrtrol and Prevention (CDC) test method. Performed By: #### E BS LIPID, EBS CMP #### [facility] [address] VLDL CHOLESTEROL 18 mg/dL Normal [facility] Comment on above: Performed By: #### E BS LIPID, EBS CMP #### [facility] [address] Hep Bs Abon 01-06-2019 HBV surface Ab Ql (S) Reactive [facility] Comment on above: Result Comment: Non Reactive: Inconsistent with immunity, less than 10 mIU/mL Reactive: Consistent with immunity, greater than 9.9 mIU/mL Verified by repeat analysis Performed at: [facility] [id number] PhD William Nelson Performed By: #### 2 [id number] #### [facility] [address] [place] [address] Varic IgGon 01-06-2019 VZV IgG IA Qn (S) 3354 Immune >165 [facility] Comment on above: Result Comment: Nega tive <135 Equivocal 135 - 165 Positive >165 A positive result generally indicates exposure to the pathogen or administration of specific immunoglobulins, but it is not indication of active infection or stage of disease. Performed at: [facility] [id number] PhD William Nelson Performed By: #### 2 [id number] #### [facility] [address] [place] [address] Vital Signs Date Time Vital Sign Value Performing Clinician Facility 10-10-2022 16:30-0500 Body height 163.83 cm Arturo Kumar Other [facility] Other 10-10-2022 16:30-0500 Body mass index (BMI) [Ratio] 38.7 kg/m2 Arturo Kumar Other [facility] [employer] Other 10-10-2022 16:30-0500 Body weight 103.87 kg Arturo Kumar Other [facility] [employer] Other 10-10-2022 16:30-0500 Diastolic blood pressure 90 mm[Hg] Arturo Kumar Other [facility] [employer] Other 10-10-2022 16:30-0500 Systolic blood pressure 129 mm[Hg] Arturo Kumar Other [facility] [employer] Other 04-22-2022 11:40-0400 Body temperature 97.8 [degF] MD Sonia Stoner Work Phone: [facility] 04-22-2022 11:40-0400 Diastolic blood pressure 86 mm[Hg] MD Sonia Stoner Work Phone: [facility] 04-22-2022 11:40-0400 Heart rate 80 /min MD Sonia Stoner Work Phone: [facility] 04-22-2022 11:40-0400 Respiratory rate 22 /min MD Sonia Stoner Work Phone: [facility] 04-22-2022 11:40-0400 SaO2% (BldA) [Mass fraction] 100 % MD Sonia Stoner Work Phone: [facility] 04-22-2022 11:40-0400 Systolic blood pressure 136 mm[Hg] MD Sonia Stoner Work Phone: [facility] 04-22-2022 07:51-0400 Body height 165.1 cm MD Sonia Stoner Work Phone: [facility] 04-22-2022 07:51-0400 Body weight 108.4 kg MD Sonia Stoner Work Phone: [facility] Encounters Encounter Date Encounter Type Care Provider Facility Start: 02-04-2023 End: 02-05-[address] SONIA STONER Facility:[facility] Start: 01-30-2023 End: 01-30-2023 ambulatory Sonia Stoner Other [facility] [employer] Other Start: 01-30-2023 Telephone encounter Sonia Stoner [facility] Start: 10-10-2022 End: 10-10-2022 ambulatory Arturo Kumar Other [facility] [employer] Other Start: 10-10-2022 Patient encounter procedure Arturo Kumar [facility] Start: 06-27-2022 End: 06-27-2022 ambulatory Sonia Stoner Facility:[facility] Start: 06-25-2022 End: 06-25-2022 ambulatory Sonia Stoner Facility:[facility] Start: 06-25-2022 End: 06-25-2022 ambulatory MD Sonia Stoner Work Phone: [facility] Work Phone: Start: 06-25-2022 End: 06-25-2022 Patient encounter procedure MD Sonia Stoner Work Phone: [facility] Start: 04-29-2022 End: 04-29-[address] SONIA STONER Facility:[facility] Start: 04-22-2022 End: 04-22-2022 ambulatory Meera Bolden Facility:[facility] Start: 04-21-2022 End: 04-22-2022 Evaluation and management of inpatient MD Sonia Stoner Work Phone: [facility] Start: 04-21-2022 End: 04-22-[address] LIANNE LUI Facility:[facility] Procedures Date Procedure Procedure Detail Performing Clinician Start: 04-22-2022 Esophagogastroduodenoscopy MD Sonia Stoner Work Phone: Plan of Treatment Date Care Activity Detail Author Start: 04-22-2022 [facility] Start: 04-22-2022 Hospital admission [facility] Start: 04-22-2022 Referral to grab driver [facility] Patient referral [facility] Work Phone: Payers Date Payer Category Payer Self-pay 1985 Unknown [id number] 1985 Unknown [id number] 1985 Unknown [id number] 1960 [employer] ( and others) [id number] Unknown [id number] Unknown [id number] Unknown [id number] Social History Date Type Detail Facility Start: 04-22-2022 Tobacco smoking status NHIS Ex-smoker (finding) [facility] Start: 1985 Sex Assigned At Female F [facility] Sex Assigned At Sex Assigned At Bir th [employer] Other Goals Date Patient Goal Desired Activity /State Functional Status Date Assessment Result Facility 04-22-2022 Functional status Patient at Baseline [facility] Work Phone: Mental Status Date Assessment Result Facility 04-22-2022 Cognitive function Cognitive Sta tus Patient at Baseline [facility] Work Phone: Evaluation note 01-30-2023 Note Date & Type Note Facility 01-30-2023 Evaluation note Encounter Date Diagnosis Assessment Notes January, Pelvic pain (ICD-10 - R10.2) [facility] [employer] Other Evaluation note 10-10-2022 Note Date & Type Note Facility 10-10-2022 Evaluation note Encounter Date Diagnosis Assessment Notes Sep, GERD (gastroesophag eal reflux disease) (ICD-10 - K21.9) Continue Pantoprazole 40mg twice a day Follow up in 1 year Sep, Esophagitis (ICD-10 - K20.90) Sep, Dysphagia (ICD-10 - R13.10) Pt to call if symptoms return [employer] Other Evaluation note Note Date & Type Note Facility Evaluation note Diagnosis Onset Date Food impaction of esophagus acute [facility] Work Phone: History general Narrative - Reported Note Date & Type Note Facility History general Narrative - Reported Type Medical History seizures Medical History polycystic ovaries Surgical History tonsillectomy and adenoidectomy Surgical History wisdom teeth Surgical History CTS b/l Surgical History elbow surgery b/l Surgical History C section Hospitalization History seizures from he ad injury as a child. Has not had seizures since age 8 [employer] Other Summary Purpose Family History No Family History Records Found Relationship Condition Age at Onset Recorded Date/T carlos grandparent Malignant neoplasm of breast Unknown Not Specified Acute Crohn's disease Unknown Advance Directives No Advanced Directives Records Found Advance Directive Response Recorded Date/ Time Advance Directives No April 21 10:54pm Chief Complaint and Reason for Visit Chief Complaint FB Esophagas Esophagitis Reason for Visit Food impaction of es ophagus Additional Source Comments INFORMATION SOURCE (unrecogn ized section and content) DATE CREATED AUTHOR 08/04/2019 [facility] DATE CREATED AUTHOR AUTHOR'S ORGANIZ ATION 07/03/2022 [facility] DATE CREATED AUTHOR AUTHOR'S ORGANIZ ATION 02/05/2023 [facility] Care Teams (unrecognized sec tion and content) Team Status: Inactive Member Role Status Dates Sonia Stoner MD Primary Care Provider Active Arturo Kumar MD Attending Provider Active Team Status: Inactive Member Role Status Dates Sonia Stoner MD Primary Care Provider Active Meera Bolden MD Admit Provider, Attending Provider A ctrebekah Saba MD Other Provider Active Team Status: Active Member Role Status Dates Sonia Stoner MD Primary Care Provider Active REASON FOR VISIT (unrecogniz ed section and content) PATIENT HERE FOR 3 MONTH FOL LOW UP EGD.No Information FOR RECORDS PERTAINING TO PATIENTS WHO ARE OR HAVE BEEN ENROLLED IN A CHEMICAL DEPENDENCY/SUBSTANCEABUSE PROGRAM, SOME INFORMATION MAY BE OMITTED. This clinical summary was aggregated from multiple sources. Caution should be exercised in using it in the provision of clinical care. This summary normalizes information from multiple sources, and as a consequence, information in this document may materially change the coding, format and clinical context of patient data. In addition, data may be omitted in some cases. CLINICAL DECISIONS SHOULD BE BASED ON THE PRIMARY CLINICAL RECORDS. [facility]. provides no warranty or guarantee of the accuracy or completeness of information in this document.
[2023-10-22 08:50] LABS: Basophils Absolute Auto 0.2 10^3/uL (0.0-0.1); Basophils Percent Auto 2.5 % (0.2-2.0); Eosinophils Absolute Auto 0.9 10^3/uL (0.0-0.7); Eosinophils Percent Auto 11.8 % (0.9-7.0); Hematocrit 41.5 % (36.0-48.0); Hemoglobin 13.3 g/dL (12.0-16.0); Immature Granulocytes Abs Auto 0.02 10^3/uL (0.00-0.03); Immature Granulocytes Pct Auto 0.3 % (0.0-0.5); Lymphocytes Percent Auto 26.1 % (20.5-60.0); Mean Corpuscular Volume 93.7 fL (81.0-99.0); Mean Platelet Volume 10.6 fL (9.5-13.5); Monocytes Absolute Auto 0.3 10^3/uL (0.3-0.8); Monocytes Percent Auto 4.4 % (1.7-12.0); Neutrophils Absolute Auto 4.2 10^3/uL (1.4-6.5); Neutrophils Percent Auto 54.9 % (43.0-75.0); Platelet Count 297 10^3/uL (150-450); Red Blood Count 4.43 10^6/uL (4.20-5.40); White Blood Count 7.7 10^3/uL (4.0-11.0)
[2023-10-22 11:47] LABS: Alanine Aminotransferase 26 U/L (14-59); Albumin Globulin Ratio 0.8; Albumin Level 3.1 g/dL (3.4-5.0); Alkaline Phosphatase 67 U/L (46-116); Anion Gap 11.7; Aspartate Amino Transferase 14 U/L (15-37); BUN Creatinine Ratio 8.5; Bilirubin Total 0.4 mg/dL (0.2-1.0); Calcium 8.2 mg/dL (8.5-10.1); Carbon Dioxide 27.1 mmol/L (21.0-32.0); Chloride 105 mmol/L (98-107); Chol HDL Ratio 2.6; Cholesterol 191 mg/dL (<=200); Estimated GFR (African America >60 (>=60); Estimated GFR (Non-African Ame 58 (>=60); Globulin 3.9 g/dL; Glucose 92 mg/dL (74-106); HDL Cholesterol 74 mg/dL (40-60); Potassium 3.8 mmol/L (3.5-5.1); Sodium 140 mmol/L (136-145); Triglycerides 53 mg/dL (<=150); VLDL CHOLESTEROL 10.6 mg/dL
[2023-10-22 12:32] LABS: Estimated Average Glucose 105 mg/dL; Glycohemoglobin A1C 5.3 % (4.5-6.2)
== END 2023-10-22 08:26 | disposition home or self-care (01) ==
LOC: LAB 08:28
PROVIDERS: PCP Family Medicine; Visit Provider Family Medicine
DX: Z00.00 Encounter for general adult medical examination without abnormal findings (principal)
CPT/HCPCS: 36415; 80053; 80061; 83036; 84443; 85025

== ENCOUNTER 2023-11-17 11:11 | Outpatient (OUT) | payer OTHER, SELFPAY ==
[2023-11-17 11:53] LABS: Creatine Kinase 48 U/L (26-192); Myoglobin 42 ng/mL (9-82)
[2023-11-18 14:09] LABS: ANA Direct Negative (Negative)
== END 2023-11-17 11:12 | disposition home or self-care (01) ==
LOC: LAB 11:13
PROVIDERS: PCP Family Medicine; Visit Provider Psychiatry & Neurology Neurology
DX: Z79.899 Other long term (current) drug therapy (principal)
CPT/HCPCS: 36415; 82550; 83874; 86038

== ENCOUNTER 2024-01-06 10:56 | Outpatient (OUT) | payer OTHER, SELFPAY ==
--- NOTE | 2024-01-06 | CONS_ITS ---
CONSULTATION DATE: 01/06/2024 TO: Sonia Hollingsworth M.D. CHIEF COMPLAINT: Includes severe mid thoracic pain, as well as lower back pain HISTORY: She reports the pain as starting in 2019. It occurs suddenly and spontaneously, and progressed to the point it altered her quality of life, level of functioning and at times her sleep pattern. Rates it between 3-7/10 pain, described as a deep aching pain, increased with standing and walking, usually worse in the evening time. She feels most comfortable laying with a pillow. Lifting maneuvers are also quite uncomfortable, and she has significant improvement with the application of heat. She denies any change in bowel and bladder habits or new sensorimotor changes in the lower extremities. Her SHANNAN on today?s visit was 25%. EXAMINATION: Notable for patient having mild dysesthesia and/or hyperesthesia along the distribution of T7 dermatome, occurring bilaterally. She had a moderate amount of myofascial spasm of the thoracic paravertebral muscles, mainly the thoracic iliocostalis muscle. It appeared to be most severe again at approximately T7-T8 level. She had no clinical signs consistent with myelopathy or radiculopathy involving the lower extremities. 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 RECOMMENDATIONS: I recommend she consider trialing a TENS unit. Placed her on Zonegran 50 mg 1-2 at h.s. as tolerated, baclofen 10 mg pills, half to one at h.s. as tolerated. She is to follow up via telephone in 10 days time to update us on her response to the medication added to her regimen. As part of providing excellent, safe, comprehensive care, the following was completed at our patient's visit: 1. A medication reconciliation and review to ensure accurate knowledge of current/active medications, including asking our patients to inform us about any [id number] medications or herbal remedies/nutritional supplements/alternative remedies. 2. A review to specifically ensure our patients have had annual screening for: elevated body mass index (BMI, see intake chart for exact total), tobacco use, screening for depression, and screening for unhealthy alcohol use. When screening is concerning, patients are provided with education and the specific recommendation to discuss the concerning health issue and treatment options with their primary care provider. RITA
== END 2024-01-06 10:57 | disposition home or self-care (01) ==
LOC: PM 10:57
PROVIDERS: PCP Family Medicine; Visit Provider Anesthesiology Pain Medicine
DX: M51.14 Intervertebral disc disorders with radiculopathy, thoracic region (principal); G89.29 Other chronic pain; M62.830 Muscle spasm of back
CPT/HCPCS: G0463

== ENCOUNTER 2024-01-09 18:55 | Emergency (ER) | payer OTHER, SELFPAY ==
--- OUTSIDE RECORDS SUMMARY | 2024-01-09 19:01 | XMS_ITS | CCD ---
Author Organization [facility] Care Team Providers Care Flour Broker Name Role Phone MD Sonia Stoner Primary Care Provider MD Meera Bolden Admit Provider MD Meera Bolden Attending Provider MD Bairon Saba Other Provider MD Arturo Kumar Attending Provider Arturo Kumar Unavailable Sonia Stoner Unavailable DR LIANNE LUI Admitting Unavailable SANIA, DR LIANNE Marquez Attending Unavailable SANIA, DR LIANNE Marquez Consulting Unavailable HERBIE, DR SONIA Mcdaniel Primary Care Unavailable HERBIE, DR SONIA Mcdaniel Primary Care Unavailable HERBIE, DR SONIA Mcdaniel Admitting Unavailable HERBIE, DR SONIA Mcdaniel Attending Unavailable EARLIMART, DR AZEB Ortiz Consulting Unavailable HERBIE, DR SONIA Mcdaniel Consulting Unavailable HERBIE, DR SONIA Mcdaniel Primary Care Unavailable HERBIE, DR SONIA Mcdaniel Admitting Unavailable STONER, DR SONIA Mcdaniel Attending Unavailable HERBIE, DR SONIA Mcdaniel Consulting Unavailable MD Sonia Stoner Primary Care Provider MD Sonia Stoner Attending Provider MD Sonia Stoner Primary Care Provider MD Sonia Stoner Attending Provider DO Rohit Ortiz Attending Provider [phone] JOCELYN Stout-Christy Mcdaniel Attending Provider Sonia Stoner Admitting Unavailable Sonia Stoner Primary Care Unavailable Sonia Stoner Attending Unavailable Rohit Ortiz Admitting UnavailRohit Guo Attending UnavailSonia Rodriguez Primary Care Unavailable Tania Stout Attending Unavailable Sonia Stoner Primary Care Unavailable Tania Stout Admitting Unavailable Allergies Allergy Classification Reported Allergen(s) Allergy Type Date of Onset Reaction(s) Facility (5 sources) Ibuprofen; Translations: [ibuprofen] Drug Allergy 2 Difficulty Breathing, Unknown [facility] (6 sources) Ibuprofen; Translations: [Motrin] Drug Allergy anaphylaxis [facility] Rep[facility] (3 sources) Allergies Reconciled Propensity to adverse reactions Unknown [facility] Other Medications Current Medications Medication Drug Class(es) Dates Sig (Normalized) Sig (Original) lisdexamfetamine dimesylate 70 mg oral capsule (8 sources) Central Nervous System Stimulant Start: 04-21-2022 take 1 capsule by mouth once daily Lisdexamfetamine (Vyvanse) 70 mg capsule Active 70 MG PO Daily April 21, 2022 12:00am pantoprazole 40 mg delayed release oral tablet (10 sources) Proton Pump Inhibitor Start: 06-27-2022 take 40 mg by mouth twice daily Pantoprazole Active 40 MG PO Twice daily 60 June 27, 2022 12:00am Start: 04-22-2022 End: 06-27-2022 take 40 mg by mouth once daily Pantoprazole Discontinu ed 40 MG PO Daily 42 42 April 22, 2022 12:00am June 27, 2022 9:19am spironolactone 50 mg oral tablet (3 sources) Aldosterone Antagonist take 1 tablet by mouth every twenty-four hours Spironolactone 50 MG 1 tablet Orally Once a day Active Problems Active Problems Problem Classification Problem Date Documented Da te Episodic/Chronic Abdominal pain (1 source) Pelvic and perineal pain Episodic Acute bronchitis (3 sources) Acute bronchitis; Translations: [Acute bronchitis, unspecified] Episodic Anxiety disorders (3 sources) Generalized anxiety disorder; Translations: [Generalized anxiety disorder] Chronic Esophageal disorders (6 sources) Gastroesophageal reflux disease; Translations: [Gastro-esophageal reflux disease without esophagitis] Chronic Esophageal disorders (5 sources) Esophagitis; Translations: [Esophagitis] Episodic Nonmalignant breast conditions (3 sources) Lump in left breast; Translations: [Unspecified lump in the left breast, unspecified quadrant] Episodic Other acquired deformities (1 source) Scoliosis deformity of spine; Translations: [Scoliosis, unspecified] 12-26-2023 Chronic Other circulatory disease (3 sources) Elevated blood-pressure reading without diagnosis of hypertension; Translations: [Elevated blood-pressure reading, without diagnosis of hypertension] Episodic Other connective tissue disease (2 sources) Other symptoms and signs involving the musculoskeletal system; Translations: [Other symptoms and signs involving the musculoskeletal system] Onset: 4 Episodic Other endocrine disorders (3 sources) Polycystic ovaries; Translations: [Polycystic ovarian syndrome] Chronic Other gastrointestinal disorders (5 sources) Dysphagia; Translations: [Dysphagia, unspecified] Episodic Other gastrointestinal disorders (1 source) Dysphagia, unspecified Episodic Other injuries and conditions due to external causes (3 sources) Food lodged in esophagus; Translations: [Food in esophagus causing other injury, initial encounter] 04-22-2022 Episodic Other injuries and conditions due to external causes (3 sources) Esophageal injury; Translations: [Food in esophagus causing other injury, initial encounter] Episodic Other nervous system disorders (2 sources) Paresthesia; Translations: [Paresthesia of skin] Episodic Other nervous system disorders (2 sources) Paresthesia of skin; Translations: [Paresthesia of skin] Onset: 4 Episodic Other nutritional; endocrine; and metabolic disorders (11 sources) Body mass index 40+ - severely obese; Translations: [Body mass index (BMI) 45.0-49.9, adult] Chronic Other upper respiratory infections (3 sources) Chronic sinusitis; Translations: [Chronic sinusitis, unspecified] Chronic Spondylosis; intervertebral disc disorders; other back problems (6 sources) Low back pain; Translations: [Low back pain, unspecified] Episodic Unclassified (4 sources) CONTACT W/AND (SUSP) EXPOS [...] Test Name Value Interpretation Reference Range Facility XR pre/post mri xrayon 12-30 XR pre/post mri xray [facility] Main [place] [address] [place] [address] MRI Report Signed Patient: Heidi Turner MR#: [id number] : 1985 Acct:[id number] Age/Sex: 38 / F ADM Date: 12/31/23 Loc: MR Room: Type: [facility] Attending Dr: Tania MCFADDEN Copies to: BOGDAN Love Ordering Provider: BOGDAN Love Date of Service: 12/31/23 MR/MR lumbar spine wo/w con: R29.898 ([id number]) XR/XR pre/post mri xray: R29.898 MR lumbar spine wo/w con, XR pre/post mri xray 12/31/2023 6:49 PM SIGNS AND SYMPTOMS: Chronic low back pain PROTOCOL: Multiplanar multisequence MR images of the lumbar spine were obtained with and without IV contrast. Frontal and lateral graphs of the lumbar spine were obtained. CONTRAST: 20 mL of intravenous ProHance COMPARISON: None. FINDINGS: Radiograph the lumbar spine: There is a mild levoconvex curvature. There is preservation of vertebral body heights. There is mild disc height loss at L5-S1. No fracture or subluxation. The sacroiliac joints are preserved. MRI lumbar spine: Alignment is as noted above. There is preservation of vertebral body heights. There is disc desiccation and mild disc height loss at L5-S1. The marrow signal is within normal limits. The conus terminates at the superior endplate of the L1 vertebral body level. No epidural or paraspinous fluid collection is appreciated. There is no abnormal postcontrast enhancement. At T12-L1: There is a normal disc, central canal, and neural foramen. At L1-L2: There is a normal disc, central canal, and neural foramen. At L2-L3: There is a normal disc, central canal, and neural foramen. At L3-L4: There is a normal disc, central canal, and neural foramen. At L4-L5: There is a normal disc, central canal, and neural foramen. At L5-S1: There is a mild broad-based disc bulge. There is mild facet hypertrophy with a small right-sided facet effusion. There is no significant stenosis. MR/MR lumbar spine wo/w con IMPRESSION: No significant spinal canal or neural foraminal narrowing. No abnormal postcontrast enhancement. At L5-S1: There is a mild broad-based disc bulge. There is mild facet hypertrophy with a small right-sided facet effusion. There is no significant stenosis. Impression dictated by: Lianne Barillas M.D.12/31/2023 8:04 PM Dictation Location: [place] [address] Transcribed By: [facility] 12/31/232003 Dictated By: Lianne Barillas II, MD 12/31/231955 Signed By: 12/31/232003 Normal [facility] MR thoracic spine wo/w conon 11-30-2023 MR thoracic spine wo/w con [facility] [place] [address] MRI Report Signed Patient: Heidi Turner MR#: [id number] : 1985 Acct:[id number] Age/Sex: 38 / F ADM Date: 11/29/23 Loc: MR Room: Type: [facility] Attending Dr: Rohit Ortiz DO Copies to: Rohit Ortiz DO Ordering Provider: Rohit Ortiz DO Date of Service: 11/29/23 MR/MR thoracic spine wo/w con: R29.898 MRI THORACIC SPINE WITHOUT AND WITH IMAGES CONTRAST CLINICAL DATA: Numbness and tingling at the back, arms, legs and face. COMPARISON: None Multiecho imaging in the axial and sagittal plane was performed before and after intravenous administration of 20 mL of ProHance. There is artifact on the axial T1 pre and post gadolinium sequences. There is normal alignment of the vertebral bodies on the sagittal sequences. There are no acute compression fractures or marrow edema. There is minor left parasagittal disc bulging at T7-8 with subtle thecal sac effacement. No additional significant disc disease or stenosis is noted. The thoracic cord is normal in caliber, position and signal intensity throughout its imaged course. No abnormal enhancement is identified. No paraspinal soft tissue abnormalities are present. MR/MR thoracic spine wo/w con IMPRESSION: NO SIGNIFICANT DISC DISEASE OR STENOSIS. NO OBVIOUS CORD ABNORMALITIES. Impression dictated by: Angela Murillo M.D.11/30/2023 12:54 PM Dictation Location: [place] [address] Transcribed By: KITTY 11/30/23 1254 Dictated By: Angela Murillo MD 11/30/23 1248 Signed By: 11/30/23 1254 Normal [facility] Laboratory - Chemistry and C hemistry - challengeon 11-17-2023 CK [Catalytic activity/Vol] 48 U/L 26192 [facility] Serum or plasma free cefurox carlos measurement (mass/volume)on 11-17-2023 Cefuroxime free [Mass/Vol] Negative Negative [facility] Comment on above: Performed at: [address] Director: Omar Thomas PhD, Phone: [phone] Serum or plasma myoglobin me asurement (mass/volume)on 11-17-2023 Myoglobin [Mass/Vol] 42 ng/mL [facility] MR head/brain wo/w conon MR head/brain wo/w con [place] [address] MRI Report Signed Patient: Heidi Turner MR#: [id number] : 1985 Acct:[id number] Age/Sex: 38 / F ADM Date: 11/08/23 Loc: Room: Type: [facility] Attending Dr: Sonia Stoner MD Copies to: Sonia Stoner MD Ordering Provider: Sonia Stoner MD Date of Service: 11/08/23 MR/MR head/brain wo/w con: Paresthesias MRI brain with and without IV contrast. Reason for exam: Numbness into going to thoracic spine area arms and face since 2019. COMPARISON: None. TECHNIQUE: Multisequence, multiplanar imaging of the brain was performed with and without IV contrast. FINDINGS: No evidence of restriction diffusion is an diffusion-weighted imaging. No evidence of blood products are seen on susceptibility weighted imaging. Subtle punctate areas of abnormal white matter signal is seen on the T2 FLAIR imaging. Midbrain, jose, medulla and cerebellum all appear unremarkable. Intraorbital contents appear grossly unremarkable. Partially visualized maxillary sinus disease. Postcontrast imaging demonstrates no abnormal enhancement. MR/MR head/brain wo/w con IMPRESSION: Subtle punctate areas of abnormal white matter signal is seen on the T2 FLAIR imaging. Finding is nonspecific in this age group. Demyelinating process cannot BE excluded given the history. Impression dictated by: Mt Smith Jr., D.O.11/08/2023 1:41 PM Dictation Location: [place] [address] Transcribed By: [facility] 11/08/23 1341 Dictated By: Mt Smith Jr, DO 11/08/23 1338 Signed By: 11/08/23 1341 Normal [facility] US PELVIS AND TRANSVAGon US PELVIS AND [...] by: AZEB LEIGH Date: 2023-02-04 08:55 Normal [facility] COVID-19 Positive/NegativeOr dered By: Arturo Kumar on 06-25-2022 SARS-CoV-2 (COVID-19) N gene SANJEEV+probe Ql (Resp) Negative Negative [facility] Comment on above: Testing for SARS-CoV -2 by RT-PCRThis test was developed and its performance characteristics determined by [employer] [facility] and validated at the [facility]. This test has not been FDA cleared [...] is terminated or revoked sooner. Covid-19 PCR ([facility])on SARS-CoV-2 (COVID-19) RNA SANJEEV+probe Ql (Unsp spec) Not detected Normal NOT DETECTED [facility] Comment on above: Result Comment: This test is not yet approved or cleared by the [place] FDA. When there are no FDA-approved or cleared tests available, and other criteria are met, FDA can make tests available under an emergency access mechanism called an Emergency Use Authorization (EUA). The EUA for this test is supported by the [place] of Health and Human Service's (HHS's) declaration [...] consistent with SARS-CoV-2. Performed By: #### C [facility] #### [facility] [address] [place] [address] Dr. Skyler Saldivar Basophils Auto (Bld) [#/Vol] Ordered By: Meera Bolden on 04-22-2022 Basophils (Bld) [#/Vol] 0.1 10*3/uL 0.0-0.2 [facility] Basophils/100 WBC Auto (Bld) Ordered By: Meera Bolden on 04-22-2022 Basophils/100 WBC (Bld) 0.9 % . [facility] Blood hemoglobin measurement (mass/volume)Ordered By: Meera Bolden on 04-22-2022 Hemoglobin (Bld) [Mass/Vol] 12.6 g/dL 11.8-15.4 [facility] Blood leukocytes automated c ount (number/volume)Ordered By: Meera Bolden on 04-22-2022 WBC (Bld) [#/Vol] 9.0 10*3/uL 4.5-11.0 [facility] Creatinine and Glomerular fi ltration rate.predicted panel (S/P/Bld)Ordered By: Meera Bolden on 04-22-2022 Creatinine [Mass/Vol] 1.06 mg/dL 0.44-1.03 [facility] Eosinophils Auto (Bld) [#/Vo l]Ordered By: Meera Bolden on 04-22-2022 Eosinophils (Bld) [#/Vol] 0.7 10*3/uL 0.0-0.45 [facility] Eosinophils/100 WBC Auto (Bl d)Ordered By: Meera Bolden on 04-22-2022 Eosinophils/100 WBC (Bld) 7.3 % . [facility] Erythrocyte distribution wid th Auto (RBC) [Ratio]Ordered By: Meera Bolden on 04-22-2022 Erythrocyte distribution width (RBC) [Ratio] 14.3 % 11.9-15.3 [facility] Estimated glomerular filtrat ion rate (GFR) non- AmericanOrdered By: Meera Bolden on 04-22-2022 GFR/1.73 sq M.predicted among non-blacks MDRD (S/P/Bld) [Vol rate/Area] 58 mL/Min [facility] Hematocrit Auto (Bld) [Volum e fraction]Ordered By: Meera Bolden on 04-22-2022 Hematocrit (Bld) [Volume fraction] 38.0 % 34.0-46.4 [facility] Laboratory - Hematology and Cell countsOrdered By: Meera Bolden on 04-22-2022 Nucleated RBC/100 WBC (Bld) [Ratio] 0.0 % 0-0.5 [facility] Lymphocytes Auto (Bld) [#/Vo l]Ordered By: Meera Bolden on 04-22-2022 Lymphocytes (Bld) [#/Vol] 1.9 10*3/uL 1.00-4.8 [facility] Lymphocytes/100 WBC Auto (Bl d)Ordered By: Meera Bolden on 04-22-2022 Lymphocytes/100 WBC (Bld) 21.2 % . [facility] MCH Auto (RBC) [Entitic mass ]Ordered By: Meera Bolden on 04-22-2022 MCH (RBC) [Entitic mass] 29.9 pg 24.7-34.3 [facility] MCHC Auto (RBC) [Mass/Vol]Or dered By: Meera Bolden on 04-22-2022 MCHC (RBC) [Mass/Vol] 33.3 g/dL 32.0-35.0 [facility] MCV Auto (RBC) [Entitic vol] Ordered By: Meera Bolden on 04-22-2022 MCV (RBC) [Entitic vol] 90.0 fL 80-100 [facility] Monocytes Auto (Bld) [#/Vol] Ordered By: Meera Bolden on 04-22-2022 Monocytes (Bld) [#/Vol] 0.5 10*3/uL 0.0-0.8 [facility] Monocytes/100 WBC Auto (Bld) Ordered By: Meera Bolden on 04-22-2022 Monocytes/100 WBC (Bld) 5.6 % . [facility] Neutrophils Auto (Bld) [#/Vo l]Ordered By: Meera Bolden on 04-22-2022 Neutrophils (Bld) [#/Vol] 5.8 10*3/uL 1.8-7.7 [facility] Neutrophils/100 WBC Auto (Bl d)Ordered By: Meera Bolden on 04-22-2022 Neutrophils/100 WBC (Bld) 65.0 % . [facility] No Panel InformationOrdered By: Meera Bolden on 04-22-2022 Estimated GFR () > 60 mL/Min [facility] Comment on above: GFR estimated refere nce range: According to KDOQI guidelines, <60 ml/min/1.73m2 is sufficient to diagnose a patient with chronic kidney disease. Pharmacy Creatinine Clearance (Chem 89.25 [facility] Platelet mean volume Auto (B ld) [Entitic vol]Ordered By: Meera Bolden on 04-22-2022 Platelet mean volume (Bld) [Entitic vol] 9.9 fL 6.3-10.7 [facility] Platelets Auto (Bld) [#/Vol] Ordered By: Meera Bolden on 04-22-2022 Platelets (Bld) [#/Vol] 243 10*3/uL 150-450 [facility] RBC Auto (Bld) [#/Vol]Ordere d By: Meera Bolden on 04-22-2022 RBC (Bld) [#/Vol] 4.22 10*6/uL 3.60-5.00 [facility] Serum or plasma calcium bill urement (mass/volume)Ordered By: Meera Bolden on 04-22-2022 Calcium [Mass/Vol] 8.2 mg/dL 8.2-10.2 [facility] Serum or plasma chloride apple surement (moles/volume)Ordered By: Meera Bolden on 04-22-2022 Chloride [Moles/Vol] 109 mmol/L 95-114 [facility] Serum or plasma glucose bill urement (mass/volume)Ordered By: Meera Bolden on 04-22-2022 Glucose [Mass/Vol] 96 mg/dL 70-100 [facility] Comment on above: ADA recommended refe rence rangeRandom Glucose Reference Range is dependent on time and content of last meal. Glucose of more than 200 mg/dL in a nonstressed, ambulatory subject supports the diagnosis of Diabetes Mellitus. Serum or plasma potassium me asurement (moles/volume)Ordered By: Meera Bolden on 04-22-2022 Potassium [Moles/Vol] 3.3 mmol/L 3.5-5.1 [facility] Serum or plasma sodium measu rement (moles/volume)Ordered By: Meera Bolden on 04-22-2022 Sodium [Moles/Vol] 138 mmol/L 136-146 [facility] Serum or plasma total carbon dioxide measurement (moles/volume)Ordered By: Meera Bolden on 04-22-2022 CO2 [Moles/Vol] 25.1 mmol/L 22.0-30.0 [facility] Serum or plasma urea nitroge n measurement (mass/volume)Ordered By: Meera Bolden on 04-22-2022 Urea nitrogen [Mass/Vol] 12 mg/dL 9-23 [facility] CBC AUTO DIFFon 04-21-2022 BASO # 0.2 103/ul Critically high 0.0-0.1 [facility] Comment on above: Performed By: #### C BC #### [facility] [address] [place], [place] [address] Dr. Skyler Saldivar Basophils/100 WBC (Bld) 1.5 % Normal 0.2-2.0 [facility] Comment on above: Performed By: #### C BC #### [facility] [address] [place], [place] [address] Dr. Skyler Saldivar EO # 0.7 103/ul Normal 0.0-0.7 [facility] Comment on above: Performed By: #### C BC #### [facility] [address] [place] [address] Dr. Skyler Saldivar Eosinophils/100 WBC (Bld) 6.4 % Normal 0.9-7.0 [facility] Comment on above: Performed By: #### C BC #### [facility] [address] [place] [address] Dr. Skyler Saldivar Erythrocyte distribution width (RBC) [Ratio] 13.7 % Normal 11.0-15.0 [facility] Comment on above: Performed By: #### C BC #### [facility] [address] [place] [address] Dr. Skyler Saldivar Hematocrit (Bld) [Volume fraction] 43.3 % Normal 36.0-48.0 [facility] Comment on above: Performed By: #### C BC #### [facility] [address] [place] [address] Dr. Skyler Saldivar Hemoglobin (Bld) [Mass/Vol] 13.9 g/dL Normal 12.0-16.0 [facility] Comment on above: Performed By: #### C BC #### [facility] [address] [place] [address] Dr. Skyler Saldivar IG # 0.03 10e3/ul Normal 0.00-0.03 [facility] Comment on above: Performed By: #### C BC #### [facility] [address] [place] [address] Dr. Skyler Saldivar IG % 0.3 % Normal 0.0-0.5 [facility] Comment on above: Performed By: #### C BC #### [facility] [address] [place] [address] Dr. Skyler Saldivar LYMPH # 2.5 103/ul Normal 1.2-3.8 [facility] Comment on above: Performed By: #### C BC #### [facility] [address] [place] [address] Dr. Skyler Saldivar Lymphocytes/100 WBC (Bld) 24.1 % Normal 20.5-60.0 [facility] Comment on above: Performed By: #### C BC #### [facility] [address] [place] [address] Dr. Skyler Saldivar MANUAL DIFF REQ NO Normal [facility] Comment on above: Performed By: #### C BC #### [facility] [address] [place] [address] Dr. Skyler Saldivar MCH (RBC) [Entitic mass] 28.9 pg Normal 26.7-34.0 [facility] Comment on above: Performed By: #### C BC #### [facility] [address] [place] [address] Dr. Skyler Saldivar MCHC (RBC) [Mass/Vol] 32.1 g/dL Normal 29.9-35.2 [facility] Comment on above: Performed By: #### C BC #### [facility] [address] [place] [address] Dr. Skyler Saldivar MCV (RBC) [Entitic vol] 90.0 fL Normal 81.0-99.0 [facility] Comment on above: Performed By: #### C BC #### [facility] [address] [place] [address] Dr. Skyler Saldivar MONO # 0.4 103/ul Normal 0.3-0.8 [facility] Comment on above: Performed By: #### C BC #### [facility] [address] [place] [address] Dr. Skyler Saldivar Monocytes/100 WBC (Bld) 4.3 % Normal 1.7-12.0 [facility] Comment on above: Performed By: #### C BC #### [facility] [address] [place] [address] Dr. Skyler Saldivar NEUT # 6.6 103/ul Critically high 1.4-6.5 [facility] Comment on above: Performed By: #### C BC #### [facility] [address] [place] [address] Dr. Skyler Saldivar Neutrophils/100 WBC (Bld) 63.4 % Normal 43.0-75.0 [facility] Comment on above: Performed By: #### C BC #### [facility] [address] [place] [address] [address] Skyler Saldivar Platelet mean volume (Bld) [Entitic vol] 11.3 fL Normal 9.5-13.5 [facility] Comment on above: Performed By: #### C BC #### [facility] [address] [place] [address] Dr. Skyler Saldivar PLT 317 103/ul Normal 150-450 [facility] Comment on above: Performed By: #### C BC #### [facility] [address] [place] [address] Dr. Skyler Saldivar RBC 4.81 106/ul Normal 4.20-5.40 [facility] Comment on above: Performed By: #### C BC #### [facility] [address] [place] [address] Dr. Skyler Saldivar WBC 10.3 103/ul Normal 4.0-11.0 [facility] Comment on above: Performed By: #### C BC #### [facility] [address] [place] [address] Dr. Skyler Saldivar Covid-19 PCR [facility]on 03-24 SARS-CoV-2 (COVID-19) RNA SANJEEV+probe Ql (Unsp spec) Not detected Normal NOT DETECTED [facility] Comment on above: Result Comment: When diagnostic [...] for this test is supported by the [place] of Health and Human Service's declaration that [...] longer be used). Performed By: #### C [facility] #### [facility] [address] [place] [address] Dr. Skyler Saldivar PROF 14(COMP METB)on 022 Albumin [Mass/Vol] 3.9 g/dL Normal 3.4-5.0 [facility] Comment on above: Performed By: #### C MP #### [facility] [address] [place] [address] Dr. Skyler Saldivar Albumin/Globulin [Mass ratio] 0.9 {ratio} Normal [facility] Comment on above: Performed By: #### C MP #### [facility] [address] [place] [address] Dr. Skyler Saldivar ALP [Catalytic activity/Vol] 73 U/L Normal 46-116 [facility] Comment on above: Performed By: #### C MP #### [facility] [address] [place] [address] Dr. Skyler Saldivar ALT [Catalytic activity/Vol] 20 U/L Normal 14-59 [facility] Comment on above: Performed By: #### C MP #### [facility] [address] [place] [address] Dr. Skyler Saldivar Anion gap [Moles/Vol] 13.8 mmol/L Normal Th [facility] Comment on above: Performed By: #### C MP #### [facility] [address] [place] [address] Dr. Skyler Saldivar AST [Catalytic activity/Vol] 14 U/L Critically low 15-37 [facility] Comment on above: Performed By: #### C MP #### [facility] [address] [place] [address] Dr. Skyler Saldivar Bilirubin [Mass/Vol] 0.3 mg/dL Normal 0.2-1.0 [facility] Comment on above: Performed By: #### C MP #### [facility] [address] [place] [address] Dr. Skyler Saldivar Calcium [Mass/Vol] 9.1 mg/dL Normal 8.5-10.1 [facility] Comment on above: Performed By: #### C MP #### [facility] [address] [address] [address] Skyler Saldivar Chloride [Moles/Vol] 105 mmol/L Normal 98-107 [facility] Comment on above: Performed By: #### C MP #### [facility] [address] [address] [address] Skyler Saldivar CO2 [Moles/Vol] 23.8 mmol/L Normal 21.0-32.0 [facility] Comment on above: Performed By: #### C MP #### [facility] [address] [address] [address] Skyler Saldivar Creatinine [Mass/Vol] 1.11 mg/dL Critically high 0.55-1.02 [facility] Comment on above: Performed By: #### C MP #### [facility] [address] [address] [address] Skyler Saldivar EGFR-AF JORDANIAN >60 Normal >=60 [facility] Comment on above: Performed By: #### C MP #### [facility] [address] [address] [address] Skyler Saldivar EGFR-NON AF JORDANIAN 55 mL/min/1.73m2 Critically low >=60 [facility] Comment on above: Performed By: #### C MP #### [facility] [address] [address] [address] Skyler Saldivar Globulin (S) [Mass/Vol] 4.2 g/dL Normal [facility] Comment on above: Performed By: #### C MP #### [facility] [address] [address] [address] Skyler Saldivar Glucose [Mass/Vol] 94 mg/dL Normal 74-106 [facility] Comment on above: Performed By: #### C MP #### [facility] [address] [address] [address] Skyler Saldivar Potassium [Moles/Vol] 3.6 mmol/L Normal 3.5-5.1 [facility] Comment on above: Performed By: #### C MP #### [facility] [address] [address] [address] Skyler Saldivar Protein [Mass/Vol] 8.1 g/dL Normal 6.4-8.2 [facility] Comment on above: Performed By: #### C MP #### [facility] [address] [address] [address] Skyler Saldivar Sodium [Moles/Vol] 139 mmol/L Normal 136-145 [facility] Comment on above: Performed By: #### C MP #### [facility] [address] [address] [address] Skyler Saldivar Urea nitrogen [Mass/Vol] 15.0 mg/dL Normal 7.0-18.0 [facility] Comment on above: Performed By: #### C MP #### [facility] [address] [address] [address] Skyler Saldivar Urea nitrogen/Creatinine [Mass ratio] 13.5 mg/mg Normal [facility] Comment on above: Performed By: #### C MP #### [facility] [address] [address] [address] Skyler Saldivar Hep Bs Abon 01-06-2019 HBV surface Ab Ql (S) Reactive [facility] Comment on above: Result Comment: Non Reactive: Inconsistent with immunity, less than 10 mIU/mL Reactive: Consistent with immunity, greater than 9.9 mIU/mL Verified by repeat analysis Performed at: [facility] [address] [place] [address] [id number] PhD William Nelson Performed By: #### 2 [id number] #### [facility] [address] [place] [address] Varic IgGon 01-06-2019 VZV IgG IA Qn (S) 3354 Immune >165 [facility] Comment on above: Result Comment: Nega tive <135 Equivocal 135 - 165 Positive >165 A positive result generally indicates exposure to the pathogen or administration of specific immunoglobulins, but it is not indication of active infection or stage of disease. Performed at: [facility] [address], [place] [id number] PhD William Nelson Performed By: #### 2 [id number], [id number] #### [facility] [address] [place] [address] Vital Signs Date Time Vital Sign Value Performing Clinician Facility 12-31-2023 06:58-0400 Body height 162.56 cm MD Sonia Stoner Work Phone: [facility] 12-31-2023 06:58-0400 Body weight 108.86 kg MD Sonia Stoner Work Phone: [facility] 11-08-2023 08:02-0500 Body height 162.56 cm MD Sonia Stoner Work Phone: [facility] 11-08-2023 08:02-0500 Body weight 107.95 kg MD Sonia Stoner Work Phone: [facility] 10-22-2023 09:00-0500 Body height 163.83 cm Sonia Stoner Other [facility] 10-22-2023 09:00-0500 Body mass index (BMI) [Ratio] 41.16 kg/m2 Sonia Stoner Other [facility] Other 10-22-2023 09:00-0500 Body weight 110.5 kg Sonia Stoner Other [facility] Other 10-22-2023 09:00-0500 Body weight 110.49 kg MD Sonia Stoner Work Phone: [facility] 10-22-2023 09:00-0500 Diastolic blood pressure 85 mm[Hg] Sonia Stoner Other [facility] 10-22-2023 09:00-0500 Systolic blood pressure 137 mm[Hg] Sonia Stoner Other [facility] 10-10-2022 16:30-0500 Body height 163.83 cm Arturo Kumar Other [facility] Other 10-10-2022 16:30-0500 Body mass index (BMI) [Ratio] 38.7 kg/m2 Arturo Kumar Other [facility] Other 10-10-2022 16:30-0500 Body weight 103.87 kg Arturo Kumar Other [facility] Other 10-10-2022 16:30-0500 Diastolic blood pressure 90 mm[Hg] Arturo Kumar Other [facility] Other 10-10-2022 16:30-0500 Systolic blood pressure 129 mm[Hg] Arturo Kumar Other [facility] Other 04-22-2022 11:40-0400 Body temperature 97.8 [degF] MD Sonia Stoner Work Phone: [facility] 04-22-2022 11:40-0400 Diastolic blood pressure 86 mm[Hg] MD Sonia Stoner Work Phone: [facility] 04-22-2022 11:40-0400 Heart rate 80 /min MD Sonia Stoner Work Phone: [facility] 04-22-2022 11:40-0400 Respiratory rate 22 /min MD Sonia Stoner Work Phone: [facility] 04-22-2022 11:40-0400 SaO2% (BldA) [Mass fraction] 100 % MD Sonia Stoner Work Phone: [facility] 04-22-2022 11:40-0400 Systolic blood pressure 136 mm[Hg] MD Sonia Stoner Work Phone: [facility] 04-22-2022 07:51-0400 Body height 165.1 cm MD Sonia Stoner Work Phone: [facility] 04-22-2022 07:51-0400 Body weight 108.4 kg MD Sonia Stoner Work Phone: [facility] Encounters Encounter Date Encounter Type Care Provider Facility Start: 12-31-2023 End: 12-31-2023 ambulatory Tania Stout Facility:[facility] Start: 12-31-2023 End: 12-31-2023 ambulatory MD Sonia Stoner Work Phone: [facility] Work Phone: Start: 12-31-2023 End: 12-31-2023 Patient encounter procedure MD Sonia Stoner Work Phone: [facility] [place] Work Phone: Start: 11-29-2023 End: 11-29-2023 ambulatory Rohit Ortiz Facility:[facility] Start: 11-29-2023 End: 11-29-2023 Patient encounter procedure MD Sonia Stoner Work Phone: [facility] [place] Work Phone: Start: 11-17-2023 Non-patient / Non-visit MD Sonia Stoner Work Phone: [facility] Work Phone: Start: 11-08-2023 End: 11-08-2023 ambulatory Sonia Stoner Facility:[facility] Start: 11-08-2023 End: 11-08-2023 ambulatory MD Sonia Stoner Work Phone: [facility] Work Phone: Start: 11-08-2023 End: 11-08-2023 Patient encounter procedure MD Sonia Stoner Work Phone: [facility] [place] Work Phone: Start: 10-28-2023 End: 10-28-2023 ambulatory Sonia Stoner Other [facility] Other Start: 10-28-2023 Telephone encounter Sonia Stoner [facility] Start: 10-22-2023 End: 10-22-2023 ambulatory Sonia Stoner Other [facility] Other Start: 10-22-2023 Encounter for genera l adult medical examination without abnormal findings Sonia Stoner [facility] Start: 10-22-2023 Periodic preventive med est patient 18-39 yrs Sonia Stoner [facility] Start: 10-22-2023 End: 10-22-2023 Patient encounter procedure MD Sonia Stoner Work Phone: [facility]- Start: 10-21-2023 End: 10-21-2023 ambulatory Sonia Stoner Other [facility] Other Start: 10-21-2023 Encounter for genera l adult medical examination without abnormal findings Sonia Stoner [facility] Start: 10-21-2023 Telephone encounter Sonia Stoner [facility] Start: 02-04-2023 End: 02-05-[address] SONIA STONER Facility: Start: 01-30-2023 End: 01-30-2023 ambulatory Sonia Stoner Other [facility] Other Start: 01-30-2023 Telephone encounter Sonia Stoner [facility] Start: 10-10-2022 End: 10-10-2022 ambulatory Arturo Kumar Other [facility] Other Start: 10-10-2022 Patient encounter procedure Arturo Kumar [facility] Start: 06-25-2022 End: 06-25-2022 ambulatory MD Sonia Stoner Work Phone: [facility] Work Phone: Start: 06-25-2022 End: 06-25-2022 Patient encounter procedure MD Sonia Stoner Work Phone: [facility] Start: 04-29-2022 End: 04-29-[address] SONIA STONER Facility:[facility] Start: 04-21-2022 End: 04-22-2022 Evaluation and management of inpatient MD Sonia Stoner Work Phone: [facility] Start: 04-21-2022 End: 04-22-[address] LIANNE LUI Facility:[facility] Start: 10-18-2020 Adult health examination Sonia Stoner Other [facility] Other Procedures Date Procedure Procedure Detail Performing Clinician Start: 12-31-2023 XR pre/post mri xray MD Sonia Stoner Work Phone: Start: 12-31-2023 MRI of lumbar spine with contrast MD Kenya Stoner Work Phone: Start: 11-29-2023 MRI of thoracic spine with contrast MD Shaunna Stoner Work Phone: Start: 11-08-2023 MRI of head MD Sonia Stoner Work Phone: Start: 04-22-2022 Esophagogastroduodenoscopy MD Sonia bowles Work Phone: Plan of Treatment Date Care Activity Detail Author Start: 04-22-2022 [facility] Start: 04-22-2022 Hospital admission [facility] Start: 04-22-2022 Referral to [employer]icer [employer] [facility] Patient referral [facility] Work Phone: Immunizations Immunization Date Immunization Notes Care Provider Fa cility 09-23-2023 tetanus toxoid, redu leticia diphtheria toxoid, and acellular pertussis vaccine, adsorbed Sonia Stoner Other [facility] Payers Date Payer Category Payer Self-pay 1985 Unknown [id number] 1985 Unknown [id number] 1985 Unknown [id number] 1960 [employer] ( and others) [id number] [employer] ( and others) [id number] 3.19 Unknown [id number] Unknown [id number] Unknown [id number] Social History Date Type Detail Facility Start: 04-22-2022 End: 06-27-2022 Tobacco smoking status NHIS Ex-smoker (finding) [facility] Start: 1985 Sex Assigned At Female F [facility] Sex Assigned At Sex Assigned At Bir [facility] [employer] Other Goals Date Patient Goal Desired Activity /State Functional Status Date Assessment Result Facility 04-22-2022 Functional status Patient at Baseline [facility] Work Phone: Mental Status Date Assessment Result Facility 04-22-2022 Cognitive function Cognitive Sta tus Patient at Baseline [facility] Work Phone: Evaluation note 10-22-2023 Note Date & Type Note Facility 10-22-2023 Evaluation note Encounter Date Diagnosis Assessment Notes Sep, Well adult exam (ICD-10 - Z00.00) We have discussed the necessity of following up with PCP regularly as well as specialists, as needed. Discussed F/U with dentistry and optometry at least yearly. Discussed all preventative measures/ cancer screenings as applicable to this patient. Emphasized the importance of a reduced fat, low carb diet to promote heart health and controlled blood sugars. Reviewed social history and ensured patient is safe within the home today. Pt denies any abuse of alcohol, nicotine, caffeine or recreational drugs. I have ensured patient is of stable mental and physical health today. We have discussed appropriate F/U schedule as well as blood work and vaccinations that apply. All questions answered and patient is sent home pleased, without concerns. 31 Randy, 2024 Paresthesias (ICD-10 - R20.2) Pt agrees to MRI - discussed potential MSMan Does have a family with that problem. See HPI, she has had years of intermittent lumbar issues and now w issues with paresthesias and thoracic pain/numbness. Agrees to Neurology referral as well. [facility] Other Evaluation note 10-21-2023 Note Date & Type Note Facility 10-21-2023 Evaluation note Encounter Date Diagnosis Assessment Notes Sep, Wellness examination (ICD-10 - Z00.00) [facility] Other Evaluation note 01-30-2023 Note Date & Type Note Facility 01-30-2023 Evaluation note Encounter Date Diagnosis Assessment Notes January, Pelvic pain (ICD-10 - R10.2) [facility] Other Evaluation note 10-10-2022 Note Date & Type Note Facility 10-10-2022 Evaluation note Encounter Date Diagnosis Assessment Notes Sep, GERD (gastroesophag eal reflux disease) (ICD-10 - K21.9) Continue Pantoprazole 40mg twice a day Follow up in 1 year Sep, Esophagitis (ICD-10 - K20.90) Sep, Dysphagia (ICD-10 - R13.10) Pt to call if symptoms return [facility] Other Evaluation note Note Date & Type Note Facility Evaluation note Diagnosis Onset Date Food impaction of esophagus acute [facility] Work Phone: Evaluation note Note Date & Type Note Facility Evaluation note No Information [facility] [employer] Other Evaluation note Note Date & Type Note Facility Evaluation note No assessment information availa [facility] Work Phone: History general Narrative - [...] Has not had seizures since age 8 [facility] Other Summary Purpose Family History No Family History Records Found Relationship Condition Age at Onset Recorded Date/T carlos grandparent Malignant neoplasm of breast Unknown Not Specified Acute Crohn's disease Unknown Relationship Condition Age at Onset Recorded Date/T carlos grandparent Malignant neoplasm of breast Unknown Not Specified Acute Crohn's disease Unknown father Heart disease Unknown History of stroke Unknown Advance Directives No Advanced Directives Records Found Advance Directive Response Recorded Date/ Time Advance Directives No April 21 10:54pm Advance Directive Response Recorded Date/ Time Advance Directives No April 21 9:54pm Chief Complaint and Reason for Visit Chief Complaint FB Esophagas Esophagitis Reason for Visit Food impaction of es ophagus Chief Complaint Wellness R20.2 Chief Complaint Wellness R20.2 r29.898 r29.898 Reason for Referral Reason Pt works in [place] - paresthesias, numbness, thoracic and lumbar issues. MRI brain is pending. Diagnosis 1 Paresthesias (R20.2) Referral Organization [facility] sue Referring Provider First Name Sonia Referring Provider Last Name Herbie Referring Provider Specialty Family [facility] Referred Organization [facility] Referred Address [address] [place] [id number] Referred Provider Specialty Neurology Referral Priority Routine Additional Source Comments INFORMATION SOURCE (unrecogn ized section and content) DATE CREATED AUTHOR 08/04/2019 [facility] DATE CREATED AUTHOR AUTHOR'S ORGANIZ ATION 02/05/2023 [facility] DATE CREATED AUTHOR AUTHOR'S ORGANIZ ATION 01/06/2024 [facility] y[facility] Care Teams (unrecognized sec tion and content) [...] Sonia Stoner MD Primary Care Provider Active Team Status: Inactive Member Role Status Dates Sonia Stoner MD Attending Provider Active St art: October 22, 2023 End: October 22, 2023 Team Status: Inactive Member Role Status Dates Sonia Stoner MD Primary Care Provide r, Attending Provider Active Start: November 08, 2023 End: November 08, 2023 Team Status: Active Member Role Status Dates Sonia Stoner MD Primary Care Provide r, Attending Provider Active Start: November 17, 2023 Team Status: Inactive Member Role Status Dates Sonia Stoner MD Primary Care Provider Active Start: November 29, 2023 End: November 29, 2023 Rohit Ortiz DO Attending Provider Active Start: November 29, 2023 End: November 29, 2023 Team Status: Inactive Member Role Status Dates Sonia Stoner MD Primary Care Provider Active Start: December 31, 2023 End: December 31, 2023 Tania Stout APRN-NAILING MACHINE OPERATOR [employer] Attending Provider Active Start: December 31, 2023 End: December 31, 2023 REASON FOR VISIT (unrecogniz ed section and content) PATIENT HERE FOR 3 MONTH FOL LOW UP EGD.No InformationNo InformationWellnesslabs Goals (unrecognized section and content) Goals may be documented in a n alternate section FOR RECORDS PERTAINING TO PATIENTS WHO ARE [...] BE BASED ON THE PRIMARY CLINICAL RECORDS. [facility] [employer] [facility]. provides no warranty or guarantee of the accuracy or completeness of information in this document.
[2024-01-09 19:05] VITALS: BP 140/100; PULSE 98; TEMP 37.2; O2SAT 98; BMI 42.6
[2024-01-09 19:08] VITALS: PULSE 76
--- NOTE | 2024-01-09 19:31 | ECG_ITS ---
The [facility] Test Date: 2024-01-09 Pat Name: JOSEFINA MOYA Department: Room: - Gender: Female Emts: : 1985 Requested By: [id number] Order Number: [id number] Reading MD: KENNEDY FARRAR Measurements Intervals [place] Rate: 76 P: 58 NJ: 156 QRS: 42 QRSD: 90 T: 46 QT: 366 QTc: 397 Interpretive Statements 1100 Sinus rhythm 8102 Low QRS voltage in chest leads 9120 atypical ECG Compared to ECG 04/21/2022 19:19:52 No significant changes Electronically Signed On 01-11-2024 7:25:40 EDT by KENNEDY FARRAR
--- NOTE | 2024-01-09 19:42 | XR_ITS ---
The [address] [address] Patient Name: JOSEFINA MOYA MRN: [id number] date: 1985 Sex: F Assigned Patient Location: ER Current Patient Location: ER Accession/Order Number: [id number] Exam Date: 01/09/2024 19:50 Report Date: 01/09/2024 20:08 At the request of: RACHEL FLORES Procedure: XR chest 1V EXAM: XR chest 1V at 1950 hours HISTORY: chest pain COMPARISON: 10/07/2019 TECHNIQUE: AP upright portable chest x-ray FINDINGS: The heart is not enlarged and the vasculature is not distended. No acute infiltrate, effusion or pneumothorax is identified. The osseous structures are grossly intact. XR/XR chest 1V IMPRESSION: No acute infiltrate or evidence of cardiac decompensation. The overall appearance of the chest is essentially unchanged. Electronically authenticated by: EB RAYO Date: 01/09/2024 20:08
--- NOTE | 2024-01-09 19:44 | ED.GENADUL1 ---
HPI HPI - General Adult General Chief complaint: Chest Pain Stated complaint: Chest Pain Time Seen by Provider: 01/09/24 19:21 Source: patient Mode of arrival: walk-in Limitations: no limitations History of Present Illness HPI narrative: Patient is a 38-year-old female presents to the ER with concerns of left-sided chest pain, she is mainly concerned about a possible medication reaction or side effects. Patient was seen by pain management and placed on baclofen 10 mg at night and Zonegram. Patient notes after taking the Zonegram For the past 2 nights she has noticed chest pain, patient notes pain currently sharp left side of her chest worse with deep breath.Patient reports pain does radiate to the left side of her neck. She denies feeling overly short of breath. She had trouble breathing while eating this evening prompting family to bring her to the ER for evaluation. She currently appears in no distress, she reports a complicated symptom of numbness in her spine and has had MRIs neurology workup and was referred to pain management for possible injections. Patient states her biological father she did not know but believes he had a cardiac history at a younger age. She does not know specifics. She declines the need for any medication at this time and admits that she has some underlying anxiety and does take Vyvanse in the a.m. Patient calm and easily discusses symptoms during medical interview. Onset (ago): day(s) Location: Reports chest Severity: mild Quality: Reports stabbing and sharp Pain Consistency: Reports constant Relieving factors: Reports none Exacerbating factors: Reports other (deep breath) Associated symptoms: Reports chest pain Treatments prior to arrival: Reports none Related Data Home Medications ?Medication ?Instructions ?Recorded ?Confirmed alprazolam 0.5 mg tablet 0.5 mg PO DAILY 09/23/23 01/09/24 lisdexamfetamine 70 mg capsule 70 mg PO DAILY 09/23/23 01/09/24 pantoprazole 40 mg tablet,delayed 40 mg PO Q12H 09/23/23 01/09/24 release baclofen 10 mg tablet 10 mg PO DAILY 01/06/24 01/09/24 spironolactone 50 mg tablet 50 mg PO DAILY 01/06/24 01/09/24 zonisamide 100 mg capsule 100 mg PO DAILY 01/06/24 01/09/24 (Zonegran) Allergies Allergy/AdvReac Type Severity Reaction Status Date / Time No Known Drug Allergies Allergy Verified 09/23/23 21:38 Opioid HPI Opioid Management Most Recent Opioid Data: Last Pain Scale 6 01/09/24 19:28 Last ED Pain Assessment 01/09/24 19:28 Review of Systems ROS Constitutional Denies: fever or chills Ears, nose, mouth, and throat Denies: throat pain or neck pain Cardiovascular Reports: chest pain; Denies: palpitations Respiratory Denies: wheezing Gastrointestinal Denies: abdominal pain, nausea or vomiting Musculoskeletal Reports: back pain (Chronic numbness sensation in her mid thoracic region unchanged from baseli) Integumentary/Breast Denies: rash or itching Neurological Denies: headache Psychiatric Denies: anxiety [facility] Medical History (Updated 01/09/24 @ 20:47 by JESSICA Wong) Scoliosis ?M41.9 - Scoliosis, unspecified (ICD-10) Social History Smoking status: Former smoker Exam Narrative Exam Narrative: Nurses notes and vital signs reviewed and patient is not hypoxic. General: The patient appears well and in no apparent distress. Patient is resting comfortably on cart. Skin: Warm, dry, no pallor noted. Head: Normocephalic, atraumatic Neck: Supple, trachea mid-line, no tenderness, no lymphadenopathy Eye: Pupils are equal, round and reactive to light, EOMI Ears, Nose, Mouth, and Throat: TM are clear, normal light reflex, oral mucosa is moist, no posterior oropharynx erythema or hypertrophy, uvula is mid-line Cardiovascular: Regular Rate and Rhythm Respiratory: Patient is in no distress, no accessory muscle use, lungs are clear to auscultation, no wheezing, rales or rhonchi. Chest Wall: Positive tenderness left chest wall Back: non-tender, no CVA tenderness Musculoskeletal: normal ROM, no tenderness, no swelling GI: Normal bowel sounds, no tenderness to palpation, no masses appreciated. No rebound, guarding, or rigidity noted. Neurological: A&O x4 Psychiatric: Cooperative Constitutional Vital Signs, click to edit/add: Last Vital Signs Temp 98.9 F 01/09/24 19:05 Pulse 93 H 01/09/24 20:32 Resp 16 01/09/24 20:32 BP 132/91 01/09/24 20:32 Pulse Ox 98 01/09/24 20:32 O2 Del Method Room Air 01/09/24 20:32 Course Vital Signs Vital signs: Vital Signs Temperature 98.9 F 01/09/24 19:05 Pulse Rate 98 H 01/09/24 19:05 Respiratory Rate 16 01/09/24 19:05 Blood Pressure 140/100 H 01/09/24 19:05 Pulse Oximetry 98 01/09/24 19:05 Oxygen Delivery Method Room Air 01/09/24 19:05 Temperature 98.9 F 01/09/24 19:05 Pulse Rate 93 H 01/09/24 20:32 Respiratory Rate 16 01/09/24 20:32 Blood Pressure 132/91 01/09/24 20:32 Pulse Oximetry 98 01/09/24 20:32 Oxygen Delivery Method Room Air 01/09/24 20:32 Medical Decision Making MDM Narrative Medical decision making narrative: Patient presents with left-sided chest pain possible medication reaction, patient admits that she has underlying anxiety but with constellation of symptoms felt it was better to come in to get checked out of which I agree. We discussed using the baclofen but holding on the zonogram with her symptoms. Contacting her Pain management doctor to discuss symptoms. Patient had a EKG, chest x-ray and lab evaluation. She declined the need for any medications. She describes pleuritic left-sided chest pain. Patient's labs reviewed, D-dimer within normal limits, she has no significant risk factors for PE. We discussed her stable vitals. Recommend Tylenol for pain, avoid NSAIDs with her kidney function discussed. She will likely hold her Zonegran medication pending follow-up with her pain management doctor to discuss symptoms. Patient had no further concerns The patient is to followup with primary care physician in next 2-3 days or to return to the emergency department should any of the signs or symptoms worsen or new symptoms develop. Patient had questions answered. The patient agrees with the following Diagnosis and Treatment plan and the patient will be discharged home. Lab Data Lab results reviewed: Yes I reviewed the patient's lab results Labs: Lab Results 01/09/24 Range/Units 19:54 WBC 10.4 (4.0-11.0) 10^3/uL RBC 4.55 (4.20-5.40) 10^6/uL Hgb 13.7 (12.0-16.0) g/dL Hct 41.9 (36.0-48.0) % MCV 92.1 (81.0-99.0) fL MCH 30.1 (26.7-34.0) pg MCHC 32.7 (29.9-35.2) g/dL RDW 13.4 (11.0-15.0) % Plt Count 321 (150-450) 10^3/uL MPV 10.9 (9.5-13.5) fL Neut % (Auto) 61.2 (43.0-75.0) % Lymph % (Auto) 24.1 (20.5-60.0) % [place] % (Auto) 5.2 (1.7-12.0) % Eos % (Auto) 7.5 H (0.9-7.0) % Baso % (Auto) 1.7 (0.2-2.0) % Neut # (Auto) 6.3 (1.4-6.5) 10^3/uL Lymph # (Auto) 2.5 (1.2-3.8) 10^3/uL [place] # (Auto) 0.5 (0.3-0.8) 10^3/uL Eos # (Auto) 0.8 H (0.0-0.7) 10^3/uL Baso # (Auto) 0.2 H (0.0-0.1) 10^3/uL Abs Immat Gran (auto) 0.03 (0.00-0.03) 10^3/uL Imm/Tot Granulo (auto) 0.3 (0.0-0.5) % D-Dimer 0.56 (<=0.59) mg/L FEU Sodium 139 (136-145) mmol/L Potassium 3.7 (3.5-5.1) mmol/L Chloride 103 (98-107) mmol/L Carbon Dioxide 27.2 (21.0-32.0) mmol/L Anion Gap 12.5 BUN 13.0 (7.0-18.0) mg/dL Creatinine 1.09 H (0.55-1.02) mg/dL Est GFR ( Amer) >60 (>=60) Est GFR (Non-Af Amer) 56 L (>=60) BUN/Creatinine Ratio 11.9 Glucose 89 (74-106) mg/dL Calcium 9.4 (8.5-10.1) mg/dL Total Bilirubin 0.4 (0.2-1.0) mg/dL AST 10 L (15-37) U/L ALT 21 (14-59) U/L Alkaline Phosphatase 73 (46-116) U/L Troponin I High Sens <4.0 L (4.0-51.3) pg/mL Total Protein 7.1 (6.4-8.2) g/dL Albumin 3.4 (3.4-5.0) g/dL Globulin 3.7 g/dL Albumin/Globulin Ratio 0.9 Lipase 36.0 (16.0-77.0) U/L Serum HCG, Qual Negative (NEGATIVE) Imaging Data Chest x-ray: Radiologist's impression: ITS Impressions Chest X-Ray 01/09/24 19:42 IMPRESSION: No acute infiltrate or evidence of cardiac decompensation. The overall appearance of the chest is essentially unchanged. Electronically authenticated by: EB RAYO Date: 01/09/2024 20:08 ECG Data Attestation: I personally reviewed and interpreted this ECG as follows: Interpretation: EKG interpretation: Emergency Department physician interpretation, normal sinus rhythm 76, no ectopy, no ST segment elevation, normal axis. Discharge Plan Discharge Stand Alone Forms: Portal Instructions Chief Complaint: Chest Pain Clinical Impression: Medication adverse effect, Chest pain, Pleurisy Patient Disposition: Home, Self-Care Time of Disposition Decision: 20:46 Condition: Good Prescriptions / Home Meds: No Action alprazolam 0.5 mg tablet 0.5 mg PO DAILY pantoprazole 40 mg tablet,delayed release (DR/EC) 40 mg PO Q12H lisdexamfetamine 70 mg capsule 70 mg PO DAILY spironolactone 50 mg tablet 50 mg PO DAILY zonisamide [Zonegran] 100 mg capsule 100 mg PO DAILY baclofen 10 mg tablet 10 mg PO DAILY Print Language: Estonian Instructions: Pleurisy (ED) Referrals: Sonia Hollingsworth MD [Primary Care Provider] - 1 week Giana Escobar MD [Physician] - 01/12/24 Discharge Date/Time: 01/09/24 20:53
[2024-01-09 20:06] LABS: Basophils Absolute Auto 0.2 10^3/uL (0.0-0.1); Basophils Percent Auto 1.7 % (0.2-2.0); Eosinophils Absolute Auto 0.8 10^3/uL (0.0-0.7); Eosinophils Percent Auto 7.5 % (0.9-7.0); Hematocrit 41.9 % (36.0-48.0); Hemoglobin 13.7 g/dL (12.0-16.0); Immature Granulocytes Abs Auto 0.03 10^3/uL (0.00-0.03); Immature Granulocytes Pct Auto 0.3 % (0.0-0.5); Lymphocytes Absolute Auto 2.5 10^3/uL (1.2-3.8); Lymphocytes Percent Auto 24.1 % (20.5-60.0); Mean Corpuscular HGB Conc 32.7 g/dL (29.9-35.2); Mean Corpuscular Hemoglobin 30.1 pg (26.7-34.0); Mean Corpuscular Volume 92.1 fL (81.0-99.0); Mean Platelet Volume 10.9 fL (9.5-13.5); Monocytes Absolute Auto 0.5 10^3/uL (0.3-0.8); Monocytes Percent Auto 5.2 % (1.7-12.0); Neutrophils Absolute Auto 6.3 10^3/uL (1.4-6.5); Neutrophils Percent Auto 61.2 % (43.0-75.0); Platelet Count 321 10^3/uL (150-450); Red Blood Count 4.55 10^6/uL (4.20-5.40); Red Cell Distribution Width 13.4 % (11.0-15.0); White Blood Count 10.4 10^3/uL (4.0-11.0)
[2024-01-09 20:15] LABS: HCG Qualitative NEGATIVE (NEGATIVE)
[2024-01-09 20:26] LABS: Alanine Aminotransferase 21 U/L (14-59); Albumin Globulin Ratio 0.9; Albumin Level 3.4 g/dL (3.4-5.0); Alkaline Phosphatase 73 U/L (46-116); Anion Gap 12.5; Aspartate Amino Transferase 10 U/L (15-37); BUN Creatinine Ratio 11.9; Bilirubin Total 0.4 mg/dL (0.2-1.0); Calcium 9.4 mg/dL (8.5-10.1); Carbon Dioxide 27.2 mmol/L (21.0-32.0); Chloride 103 mmol/L (98-107); Estimated GFR (African America >60 (>=60); Estimated GFR (Non-African Ame 56 (>=60); Globulin 3.7 g/dL; Glucose 89 mg/dL (74-106); Potassium 3.7 mmol/L (3.5-5.1); Sodium 139 mmol/L (136-145); Total Protein 7.1 g/dL (6.4-8.2); Troponin I High Sensitivity <4.0 pg/mL (4.0-51.3)
[2024-01-09 20:31] LABS: D Dimer 0.56 mg/L FEU (<=0.59)
[2024-01-09 20:32] VITALS: BP 132/91; PULSE 93; O2SAT 98
== END 2024-01-09 20:53 | disposition home or self-care (01) ==
PROVIDERS: Personal Emergency Response Attendant; Emergency Provider Internal Medicine; PCP Family Medicine
DX: R07.9 Chest pain, unspecified (principal); R09.1 Pleurisy; T42.6X5A Adverse effect of other antiepileptic and sedative-hypnotic drugs, initial encounter; M41.9 Scoliosis, unspecified; Z79.899 Other long term (current) drug therapy; Z87.891 Personal history of nicotine dependence
CPT/HCPCS: 36415; 71045; 80053; 83690; 84484; 84703; 85025; 85378; 93005; 99285

== ENCOUNTER 2025-06-16 07:36 | Outpatient (OUT) | payer OTHER, SELFPAY ==
--- OUTSIDE RECORDS SUMMARY | 2025-06-16 07:41 | XMS_ITS | CCD ---
Author Organization [facility] Care Team Providers Care Sleeve Tailor Name Role Phone MD Kelsey Stoner Primary Care Provider MD Meera Bolden Admit Provider MD Meera Bolden Attending Provider [phone] MD Bairon Saba Other Provider MD Arturo Kumar Attending Provider Arturo Kumar Unavailable Kelsey Stoner Unavailable DR LIANNE LUI Admitting Unavailable SANIA, DR LIANNE Marquez Attending Unavailable SANIA, DR LIANNE Marquez Consulting Unavailable HERBIE, DR KELSEY Mcdaniel Primary Care Unavailable STONER, DR KELSEY Mcdaniel Primary Care Unavailable HERBIE, DR KELSEY Mcdaniel Admitting Unavailable HERBIE, DR KELSEY Mcdaniel Attending Unavailable BELFAST, DR AEZB Ortiz Consulting Unavailable HERBIE, DR KELSEY Mcdaniel Consulting Unavailable HERBIE, DR KELSEY Mcdaniel Primary Care Unavailable HERBIE, DR KELSEY Mcdaniel Admitting Unavailable STONER, DR KELSEY Mcdaniel Attending Unavailable HERBIE, DR KELSEY Mcdaniel Consulting Unavailable MD Kelsey Stoner Primary Care Provider MD Kelsey Stoner Attending Provider MD Kelsey Stoner Primary Care Provider MD Kelsey Stoner Attending Provider DO Yasmin Ortiz Attending Provider PRESLEY Stout-ENVELOPE STUFFER-C Tania Mcdaniel Attending Provider ISABEL Saleem Attending Provider [phone] LAMAR HERMAN Attending Unavailable MELYSSA CAMPBELL Referring Unavailable KELSEY STONER Primary Care Unavailable LAMAR HERMAN Referring Unavailable KELSEY STONER Primary Care Unavailable Roberto Browne Unavailable MD Kelsey Stoner Primary Care Provider [phone] PRESLEY Stout-ENVELOPE STUFFER-C Tania Mcdaniel Attending Provider DO Navjot Mendoza Emergency Provider Tania Stout APRN Unavailable Kelsey Stoner MD Primary Care Provider Kelsey Stoner MD Primary Care Provider Kelsey Stoner MD Primary Care Provider Kelsey Stoner MD Primary Care Provider Thuan Jack PA-C Emergency Provider Merlin Lockhart DO Attending Provider Kelsey Stoner MD Primary Care Provider [phone] Yasmin Ortiz DO Unavailable [phone] TANIA STOUT Attending Unavailable YASMIN ORTIZ Attending Unavailable ROBERTO BROWNE Attending Unavailable KELSEY STONER Referring Unavailable TANIA STOUT Attending Unavailable TANIA STOUT Attending Unavailable YASMIN ORTIZ Attending Unavailable Arturo Kumar MD Attending Provider [phone] Randi Willis CMA Attending Provider Unavail Arturo Uriarte MD Other Provider Baldo Long APRN Attending Provider Kelsey Stoner MD Primary Care Provider Merlin Lockhart DO Attending Provider [phone] Kelsey Stoner Primary Care Unavailable Navjot Mendoza Admitting Unavailable Nvajot Mendoza Attending Unavailable Kelsey Stoner Primary Care Unavailable Thuan Jack Admitting Unavailable Thuan Jack Attending Unavailable Kelsey Stoner Primary Care Unavailable Girish, Tania E Admitting Unavailable Tania Stout E Attending Unavailable Kelsey Stoner Primary Care Unavailable Merlin Lockhart Admitting Unavailable Merlin Lockhart Attending Unavailable Kelsey Stoner Primary Care Unavailable Merlin Lockhart Admitting Unavailable Merlin Lockhart Attending Unavailable Kelsey Stoner Primary Care Unavailable Arturo Kumar Admitting Unavailable Arturo Kumar Attending Unavailable Kelsey Stoner MD Primary Care Provider [phone] Merlin Lockhart DO Attending Provider KELSEY STONER Primary Care Unavailable NAYELY, SAGARIKA M Referring Unavailable NAYELY, SAGARIKA M Attending Unavailable KELSEY STONER Primary Care Unavailable NAYELY, SAGARIKA M Referring Unavailable NAYELY, SAGARIKA M Attending Unavailable TANIA STOUT Referring Unavailable NAYELY, SAGARIKA M Referring Unavailable LULY LEONE Attending Unavailable KELSEY STONER Primary Care Unavailable LULY LEONE Referring Unavailable KELSEY STONER Primary Care Unavailable Allergies Allergy Classification Reported Allergen(s) Allergy Type Date of Onset Reaction(s) Facility (20 sources) Ibuprofen; Translations: [ibuprofen] Drug Allergy 01-04-20 16 Anaphylaxis, Angioedema, Swelling, Facial Swelling [facility] (6 sources) Ibuprofen; Translations: [Motrin] Drug Allergy anaphylaxis [facility] (3 sources) Allergies Reconciled Propensity to adverse reactions Unknown [place] Other (20 sources) Baclofen; Translations: [BACLOFEN] Drug Allergy 01-19-20 24 Diarrhea, GI Upset, Shortness of Breath [facility] Rep[facility] (20 sources) zonisamide; Translations: [ZONISAMIDE] Drug Allergy 01-09-20 24 Cough, Intolerance, Unknown, Shortness of Breath, Headache, Palpitations [facility] (12 sources) DIMETAPP COLD/COUGH; Translations: [DIMETAPP COLD/COUGH] Propensity to adverse reactions to drug (disorder) 07-08-20 16 Angioedema [facility] (8 sources) Dimetapp Children[facility] Cold-Cough Drug Intolerance 07-08-20 16 [facility] Healthcare Work Phone: Medications Current Medications Medication Drug Class(es) Dates Sig (Normalized) Sig (Original) acetylcholine 10% solution - [facility] (2 sources) Start: 06-03-2025 acetylcholine 10% solution - [facility] ALPRAZolam 0.5 mg oral tablet (8 sources) Benzodiazepine Start: 11-22-2023 ALPRAZolam (Xanax) 0.5 MG tablet take 1/2 take 1 tablet by mouth twice a day if needed 11/22/2023 Active cholecalciferol 0.025 mg oral capsule (18 sources) Vitamin D Start: 03-15-2025 take 1 capsule by mouth once daily Cholecalciferol (Vitamin D3) 25 mcg (1,000 unit) capsule Active 25 MCG PO Daily March 15, 2025 12:00am Complies with drug therapy Start: 01-08-2024 End: 06-03-2025 Cholecalciferol, Vitamin D3, 50 mcg (2,000 unit) cap Take 50 mcg by mouth. 01/08/2024 06/03/2025 Discontinued (Course of therapy completed) 2 ml dupilumab 150 mg/ml auto-injector (2 sources) Interleukin-4 Receptor alpha Antagonist DUPIXENT PEN 300 mg/2 mL pen injection Active 120 actuat fluticasone propionate 0.22 mg/actuat metered dose inhaler (12 sources) Corticosteroid Start: 025 take 1 puff(s) by inhalation twice daily Fluticasone Propionate 220 mcg/actuation HFA aerosol inhaler Active 1 PUFF INHALATION Twice daily March 15, 2025 12:00am Complies with drug therapy Start: 09-23-2023 fluticasone (F lonase) 50 MCG/ACT nasal spray USE 2 SPRAYS IN EACH NOSTRIL TODAY, THEN 1 SPRAY IN EACH NOSTRIL DAILY 09/23/2023 Active Start: 05-22-2019 take 1 spray(s) nasa l route once daily fluticasone propionate (FLONASE) 50 mcg/actuation nasal spray USE 1 SPRAY(S) IN EACH NOSTRIL ONCE DAILY FOR 21 DAYS 0 05/22/2019 Active iv contrast (will be provided with radiology test) (1 source) Start: 07-02-2024 End: 07-03-2024 inject 1 dose intravenously once iv contrast (will be provided with radiology test) Indications: Demyelinating disease of central nervous system (HCC) , Paresthesia of skin , Abnormal MRI MRI Brain Inject, intravenously, once for 1 dose.No IV access, insert saline lock prior to beginning of sedation, infusion, injection of imaging exam.Discontinue saline lock post exam. If Pt. has a central line or IVAD, may access for administration according to line specific nursing protocol.Once exam is complete flush line and de-access according to line specific nursing protocol in the MR contrast administration guidelines link 1 Each 07/02/2024 07/03/2024 Active lisdexamfetamine dimesylate 70 mg oral capsule (20 sources) Central Nervous System Stimulant Start: 04-21-2022 take 1 capsule by mouth once daily Lisdexamfetamine (Vyvanse) 70 mg capsule Active 70 MG PO Daily April 21, 2022 12:00am Complies with drug therapy Magnesium (3 sources) Start: 03-15-2025 take 1 tablet by mouth once daily Magnesium 250 mg tablet Active 250 MG PO Daily March 15, 2025 12:00am Complies with drug therapy Start: 03-15-2025 take 1 tablet by mouth once da maxim Multiple Vitamin (multivitamin) tablet (8 sources) take 1 tablet by mouth once daily Multiple Vitamin (multivitamin) tablet Take 1 tablet by mouth Daily Active multivit,calc,mins/iro n/folic (ONE-A-DAY WOMENS FORMULA ORAL) (1 source) multivit,calc,mi ns/ir on/folic (ONE-A-DAY WOMENS FORMULA ORAL) Take by mouth. Active multivit-min/ferrous fumarate (MULTI VITAMIN PO) (2 sources) multivit-min/mark matias fumarate (MULTI VITAMIN PO) Take by mouth. Active omeprazole 40 mg delayed release oral capsule (9 sources) Proton Pump Inhibitor Start: 12-28-19 25 End: 03-15-20 25 take 1 capsule by mouth twice daily Omeprazole 40 mg capsule,delayed release(DR/EC) Active 40 MG PO Twice daily 180 90 March 15, 2025 10:42am Complies with drug therapy omeprazole 40 mg / sodium bicarbonate 1100 mg oral capsule (2 sources) Proton Pump Inhibitor omeprazole sodium bicarbonate (ZEGERID) 40-1.1 mg-gram per capsule Active spironolactone 50 mg oral tablet (7 sources) Aldosterone Antagonist Start: 12-25-19 23 spironolactone (ALDACTONE) 50 mg tablet 12/24/2022 Active Completed/Discontinued Medications Medication Drug Class(es) Dates Sig (Normalized) Sig (Original) cyclobenzaprine hydrochloride 10 mg oral tablet (9 sources) Muscle Relaxant Start: 10-23-2024 End: 12-23-2024 take 1 tablet by mouth three times daily as needed for muscle spasms Cyclobenzaprine 10 mg tablet Discontinued 10 MG PO Three times daily as needed for muscle spasm 03 02October 23, 2024 1:00am December 23, 2024 5:16pm lidocaine 0.05 mg/mg medicated patch (8 sources) Antiarrhythmic, Amide Local Anesthetic Start: 10-23-2024 End: 12-23-2024 apply 1 dose topically once daily Lidocaine 5 % adhesive patch,medicated Discontinued 1 PATCH TOPICAL Daily October 23, 2024 1:00am December 23, 2024 5:16pm leave on most painful area for up to 12 hrs multivitamin with minerals (MULTIPLE VITAMIN-MINERALS) tablet (3 sources) End: 07-02-2024 take 1 tablet by mouth once daily multivitamin with minerals (MULTIPLE VITAMIN-MINERALS) tablet Take 1 tablet by mouth once daily. 07/02/2024 Discontinued (Course of therapy completed) take 1 tablet by mouth once nabil y multivitamin with minerals (MULTIPLE VITAMIN-MINERALS) tablet Take 1 tablet by mouth once daily. Active take 1 tablet by mouth once nabil y multivitamin with minerals (MULTIPLE VITAMIN-MINERALS) tablet Take 1 tablet by mouth once daily. 0 Active naproxen 500 mg oral tablet (9 sources) Nonsteroidal Anti-inflammatory Drug Start: 10-23-2024 End: 12-23-2024 take 1 tablet by mouth twice daily as needed for pain Naproxen 500 mg tablet Discontinued 500 MG PO Twice daily as needed for pain October 23, 2024 1:00am December 23, 2024 5:16pm Nirmatrelvir-Ri tonavir (3 sources) Start: 06-01-2024 End: 10-23-2024 Nirmatrelvir-Riton avir (Paxlovid) 300 mg (150 mg x 2)-100 mg tablets,dose pack Discontinued 0 PO .COMPLEX June 01, 2024 12:00am October 23, 2024 12:05pm take TWO 150 mg tablets of nirmatrelvir with ONE 100 mg tablet of ritonavir twice daily for 5 days PO Nirmatrelvir-Ri tonavir (Paxlovid) 300 mg (150 mg x 2)-100 mg tablets,dose pack (7 sources) Start: 06-01-2024 End: 10-23-2024 Nirmatrelvir-Riton avir (Paxlovid) 300 mg (150 mg x 2)-100 mg tablets,dose pack Discontinued 0 PO .COMPLEX June 01, 2024 12:00am October 23, 2024 12:05pm take TWO 150 mg tablets of nirmatrelvir with ONE 100 mg tablet of ritonavir twice daily for 5 days PO Start: 06-01-2024 End: 10-23-2024 Nirmatrelvir-Ritonavir (Paxl ovid) 300 mg (150 mg x 2)-100 mg tablets,dose pack Discontinued 0 PO .COMPLEX May 31, 2024 11:00pm October 23, 2024 11:05am take TWO 150 mg tablets of nirmatrelvir with ONE 100 mg tablet of ritonavir twice daily for 5 days PO Start: 06-01-2024 Nirmatrelvir-R itonavir (Paxlovid) 300 mg (150 mg x 2)-100 mg tablets,dose pack Active 0 PO .COMPLEX June 01, 2024 12:00am take TWO 150 mg tablets of nirmatrelvir with ONE 100 mg tablet of ritonavir twice daily for 5 days PO pantoprazole 40 mg delayed release oral tablet (20 sources) Proton Pump Inhibitor Start: 06-27-2022 End: 10-23-2024 take 1 tablet by mouth twice daily Pantoprazole 40 mg tablet,delayed release (DR/EC) Discontinued 40 MG PO Twice daily 60 June 27, 2022 12:00am October 23, 2024 12:12pm Start: 04-22-2022 End: 06-27-2022 take 1 tablet by mouth once daily Pantoprazole 40 mg tablet,delayed release (DR/EC) Discontinued 40 MG PO Daily 42 April 22, 2022 12:00am June 27, 2022 9:19am pregabalin 50 mg oral capsule (19 sources) Start: 07-26-2024 End: 03-15-2025 take 1 capsule by mouth once daily at bedtime Pregabalin (Lyrica) 50 mg capsule Discontinued 50 MG PO Daily at bedtime January 17, 2025 12:00am March 15, 2025 10:08am Start: 06-09-2024 End: 06-03-2025 LYRICA 25 mg capsule 024 06/03/2025 Discontinued (Course of therapy completed) vitamin b12 1 mg oral tablet (15 sources) Vitamin B12 End: 06-03-2025 cyanocobalamin (VITAMIN B-12 ) 1,000 mcg tab Take 1,000 mcg by mouth. 06/03/2025 Discontinued (Course of therapy completed) Problems Active Problems Problem Classification Problem Date Documented Da te Episodic/Chronic Abdominal hernia (2 sources) Female perineal hernia; Translations: [Other specified abdominal hernia without obstruction or gangrene] 04-26-2024 Episodic Abdominal pain (7 sources) Pelvic and perineal pain; Translations: [Indigestion] Episodic Acute bronchitis (3 sources) Acute bronchitis; Translations: [Acute bronchitis, unspecified] Episodic Anxiety disorders (3 sources) Generalized anxiety disorder; Translations: [Generalized anxiety disorder] Chronic Esophageal disorders (19 sources) Gastroesophageal reflux disease; Translations: [Gastro-esophageal reflux disease without esophagitis] Resolved: Chronic Esophageal disorders (5 sources) Esophagitis; Translations: [Esophagitis] Episodic Lymphadenitis (15 sources) Inguinal lymphadenopathy; Translations: [Localized enlarged lymph nodes] 01-20-2024 Episodic Malaise and fatigue (12 sources) Asthenia; Translations: [Weakness] Onset: 4 05-29-2024 Episodic Nonmalignant breast conditions (3 sources) Lump in left breast; Translations: [Unspecified lump in the left breast, unspecified quadrant] Episodic Other acquired deformities (16 sources) Scoliosis deformity of spine; Translations: [Scoliosis, unspecified] Onset: 6 12-26-2023 Chronic Other acquired deformities (1 source) Scoliosis of cervical spine; Translations: [Scoliosis, unspecified] 07-02-2024 Chronic Other and ill-defined cerebrovascular disease (1 source) Small vessel cerebrovascular disease; Translations: [Other cerebrovascular disease] 06-03-2025 Chronic Other and ill-defined cerebrovascular disease (1 source) Other cerebrovascular disease; Translations: [Cerebral microvasculopathy] Onset: Chronic Other circulatory disease (3 sources) Elevated blood-pressure reading without diagnosis of hypertension; Translations: [Elevated blood-pressure reading, without diagnosis of hypertension] Episodic Other connective tissue disease (13 sources) Neuralgia; Translations: [Neuralgia and neuritis, unspecified] 01-20-2024 Episodic Other connective tissue disease (2 sources) Neuralgia and neuritis, unspecified; Translations: [Neuralgia, neuritis, and radiculitis, unspecified] 01-20-2024 Episodic Other connective tissue disease (1 source) Female pelvic floor dysfunction; Translations: [Other specified disorders of muscle] 04-26-2024 Episodic Other endocrine disorders (3 sources) Polycystic ovaries; Translations: [Polycystic ovarian syndrome] Chronic Other gastrointestinal disorders (5 sources) Dysphagia; Translations: [Dysphagia, unspecified] Episodic Other gastrointestinal disorders (2 sources) Dysphagia, unspecified; Translations: [Dysphagia, unspecified] Onset: 5 Episodic Other injuries and conditions due to external causes (20 sources) Food lodged in esophagus; Translations: [Food in esophagus causing other injury, initial encounter] 04-22-2022 Episodic Other injuries and conditions due to external causes (3 sources) Esophageal injury; Translations: [Food in esophagus causing other injury, initial encounter] Episodic Other nervous system disorders (3 sources) Demyelinating disease of central nervous system; Translations: [Demyelinating disease of central nervous system, unspecified] 07-02-2024 Chronic Other nervous system disorders (1 source) Demyelinating disease of central nervous system, unspecified; Translations: [Demyelinating disease of central nervous system (HCC)] Onset: 5 Chronic Other nervous system disorders (20 sources) Paresthesia; Translations: [Paresthesia of skin] Onset: 4 05-29-2024 Episodic Other nervous system disorders (6 sources) Numbness; Translations: [Anesthesia of skin] 07-26-2024 Episodic Other non-traumatic joint disorders (12 sources) Derangement of left shoulder joint; Translations: [Other specific joint derangements of left shoulder, not elsewhere classified] 12-27-2024 Chronic Other non-traumatic joint disorders (6 sources) Other specific joint derangements of left shoulder, not elsewhere classified; Translations: [Other specified disorders of joint, shoulder region] Onset: 5 12-27-2024 Chronic Other non-traumatic joint disorders (12 sources) Pain in left shoulder; Translations: [Left shoulder pain] Onset: 5 10-23-2024 Episodic Other nutritional; endocrine; and metabolic disorders (11 sources) Body mass index 40+ - severely obese; Translations: [Body mass index (BMI) 45.0-49.9, adult] Chronic Other screening for suspected conditions (not mental disorders or infectious disease) (4 sources) MRI scan abnormal; Translations: [Abnormal findings on diagnostic imaging of other specified body structures] Onset: 5 07-02-2024 Chronic Other screening for suspected conditions (not mental disorders or infectious disease) (20 sources) Magnetic resonance imaging of brain abnormal; Translations: [Other abnormal findings on diagnostic imaging of central nervous system] Onset: 4 01-20-2024 Episodic Other upper respiratory infections (3 sources) Chronic sinusitis; Translations: [Chronic sinusitis, unspecified] Chronic Prolapse of female genital organs (9 sources) Disorder of rectum; Translations: [Rectocele] Onset: 4 04-26-2024 Chronic Residual codes; unclassified (1 source) Family history of malignant neoplasm of ovary; Translations: [Family history of malignant neoplasm of ovary] Onset: 4 Episodic Residual codes; unclassified (1 source) Family history of malignant neoplasm of breast; Translations: [Family history of malignant neoplasm of breast] Onset: 4 Episodic Residual codes; unclassified (12 sources) FH: Rheumatoid arthritis; Translations: [Family history of arthritis] Onset: 4 01-16-2024 Episodic Spondylosis; intervertebral disc disorders; other back problems (4 sources) Degeneration of thoracic intervertebral disc; Translations: [Other intervertebral disc degeneration, thoracic region] 06-14-2024 Chronic Unclassified (4 sources) CONTACT W/AND (SUSP) EXPOS COVID-19; Translations: [CONTACT W/AND (SUSP) EXPOS COVID-19] Onset: 2 Unclassified (1 source) Gynecologic Exam Onset: 4 Unclassified (1 source) Established Patient Onset: 5 Viral infection (9 sources) Disease caused by 2019-nCoV; Translations: [COVID-19] 06-01-2024 Episodic Past or Other Problems Problem Classification Problem Date Documented Date Episodic/Chronic Mood disorders (1 source) Mood disorders Onset: 04-09-2024 04-09-2024 Other aftercare (7 sources) Long-term current use of drug therapy; Translations: [Other long distance operator (current) drug therapy] Onset: 01-16-2024 01-16-2024 Episodic Other aftercare (1 source) Patient encounter status; Translations: [Other [place] [facility] (current) drug therapy] Onset: 01-16-2024 01-16-2024 Episodic Other connective tissue disease (8 sources) Other symptoms and signs involving the musculoskeletal system; Translations: [Other musculoskeletal symptoms referable to limbs] Onset: 01-16-2024 01-16-2024 Episodic Other female genital disorders (1 source) Pelvic congestion syndrome; Translations: [Other specified conditions associated with female genital organs and menstrual cycle] Onset: 05-01-2023 05-01-2023 Episodic Other injuries and conditions due to external causes (6 sources) Food in esophagus causing other injury, initial encounter; Translations: [Foreign body in esophagus] Onset: 04-21-2022 04-22-2022 Episodic Other nervous system disorders (2 sources) Paresthesia of skin; Translations: [Paresthesia of skin] Onset: 12-06-2024 Episodic Other nervous system disorders (1 source) White matter disease, unspecified; Translations: [White matter disease, unspecified] Onset: 05-21-2024 Episodic Residual codes; unclassified (1 source) Family history of malignant neoplasm of ovary; Translations: [Family history of malignant neoplasm of ovary] 04-09-2024 Episodic Residual codes; unclassified (1 source) Family history of breast cancer; Translations: [Family history of malignant neoplasm of breast] 04-09-2024 Episodic Screening and history of mental health and substance abuse codes (1 source) Personal history of nicotine dependence; Translations: [PERSONAL HISTORY OF NICOTINE DEPEND] Onset: 04-23-2022 Episodic Spondylosis; intervertebral disc disorders; other back problems (20 sources) Low back pain; Translations: [Low back pain, unspecified] Onset: 01-12-2025 01-20-2024 Episodic Unclassified (1 source) Esophagitis K20.90 Unclassified (1 source) CONTACT W/AND (SUSP) EXPOS COVID-19; Translations: [CONTACT W/AND (SUSP) EXPOS COVID-19] Onset: 04-29-2022 Results Test Name Value Interpretation Reference Range Facility [facility] 06-03-2025 CNOV Office Visit (DANELLE ) HEIDI MOYA ([id number]) 1985 F Date Time Provider Department 06/03/25 1:00 PM LULY LEONE During your visit today, we recorded the following information about you: Temperature Pulse Blood pressure Weight 97.4 degrees 79/minute 121/84 120.5 kg Height Last Period 1.655 m 05/17/25 Luly Leone DO 06/03/2025 1:51 PM Signed [facility] New Patient Evaluation Consulting Provider: [facility] Adler [id number] [facility] [address] Individuals who were included in, or assisted with the encounter were: Heidi Moya Luly Leone DO Chief Complaint/Issues: Heidi Moya is a 39 year old female seen in the [facility] for: Former patient of Dr. Adler Seen for abnormal MRI Brain showing remote injury/contusion. MS workup completed and ruled out. 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 MRI Brain w/wo contrast 12/06/2024: MR BRAIN: Parenchymal Findings: Multiple foci of scattered T2/FLAIR white matter parenchymal hyperintensity, nonspecific finding which could reflect prior changes from microvascular ischemia but could also be seen in the setting of underlying demyelinating process. New T2 Lesions: None Site(s) of New/Larger T2 Lesion(s): Not applicable Interval Improvement: None. New Enhancing Lesions: None T2 [place] of Disease: Mild. Parenchymal Volume Loss: None. Other Significant Findings: None. IMPRESSION: Scattered intracranial white matter lesions which are nonspecific. While could be seen in the setting of multiple sclerosis, this could also relate to a remote insult. No new T2 lesions and no new enhancing lesions. No significant parenchymal volume loss. Other Significant Intracranial Findings: None MRI C spine 05/21/2024: MRI cervical spine with and without contrast 05/21/2024 completed at [facility]. There is normal alignment to the sagittal sequences. There are no acute compression fractures or marrow edema. The cord is within normal limits for caliber position and signal intensity. There is no abnormal enhancement. [place] cervical lymph nodes are present. C2-3: No disc disease or stenosis C3-4: Minimal disc osteophyte bulging with subtle thecal sac effacement. There is no foraminal encroachment. C4-5: There is no disc disease or stenosis C5-6: Mild disco osteophytic bulging which is slightly asymmetric in the right parasagittal region extending toward the lateral recess. There is effacement of the thecal sac approaching the not compressing the cord. The neuroforamen are patent. C6-7: There is minor disco-osteophytic bulging without associated stenosis. C7-T1: No MRI abnormalities noted MRI T spine 11/29/2023: Subtle thecal sac effacement at T7-T8 but was otherwise generally unremarkable. MRI L spine 12/31/2023: HPI: LHF Recording using Uanbai software for draft documentation of the visit was discussed with the patient/authorized artist representative; all questions welcomed and answered. Patient/authorized artist representative agreed to proceed The patient is a 39-year-old female with PCOS, depression, anxiety, and eosinophilic esophagitis, presenting for evaluation of progressive thoracic numbness with burning dysesthesias in the bilateral hands, bilateral feet, and facial tingling. The patient is a 39-year-old female with a history of TBI, depression, anxiety, and EoE, presenting for evaluation of numbness and tingling. The patient, who is left-hand dominant, reports numbness in the thoracic region of her back since 2019. She describes an inability to feel pinpricks along her spine, though sensation is intact in the cervical and lumbar areas. She has a known history of scoliosis since eighth grade and was diagnosed with degenerative disc disease and a herniated disc in the lumbar region in 2019. Physical therapy did not alleviate her symptoms, and she declined pain management options, preferring to understand the underlying cause. She also experiences tingling, pressure, and a burning sensation in the back of her neck, accompanied by dull headaches. A tingling sensation described as fingers crawling up extends to her face, causing flushing and warmth. These symptoms began over a year ago and are worse during the day, particularly when looking down or sittin (more content not included)... Normal [facility] Vit B12 SerPl-mCncon 025 Cobalamin (Vitamin B12) [Mass/Vol] 1012 pg/mL Normal 232-1245 [facility] Comment on above: Order Comment: Speci men Type: BLOOD SPECIMEN Ordering Facility: [facility] Address: [address] [place] [address] Performed By: #### 2 132-9 #### [facility] CLIA [id number] [address] [place] [address] [place] [address] [place] MR shoulder LT wo conon - [place] [address] MRI Report Signed Patient: Heidi Moya MR#: [id number] : 1985 Acct:[id number] Age/Sex: 39 / F ADM Date: 03/17/25 Loc: [facility] Room: Type: [facility] CLI Attending Dr: Merlin Lockhart DO Copies to: Merlin Lockhart DO Ordering Provider: Merlin Lockhart DO Date of Service: 03/17/25 MR/MR shoulder LT wo con: eval for any internal derangement MR LEFT SHOULDER CLINICAL INFORMATION: Superior left shoulder pain, recent popping sensation. COMPARISON: 12/27/2024. PROCEDURE: Axial, oblique coronal, and oblique sagittal long TR images of the shoulder were obtained. FINDINGS: ROTATOR CUFF AND ASSOCIATED STRUCTURES Biceps Tendon: The biceps tendon is normally situated within the bicipital groove. No complete or partial biceps tendon tear is present. Rotator cuff: There is no complete or bursal/articular sided partial rotator cuff tear. The subscapularis constituent of the rotator cuff is intact. Subtle increased signal intensity is noted along the bursal surface fibers of the supraspinatus tendon suggesting tendinopathy. Musculature: There is no muscular tear, contusion, or atrophy. Bursa: No bursal effusion or thickening is seen. OSSEOUS STRUCTURES Acromioclavicular joint: There are mild degenerative changes of the acromioclavicular joint. A type 2 acromion configuration is noted. There is no anterior or lateral acromial downsloping. Bones: No Hill-Sachs, reverse Hill-Sachs, or bony Bankart lesions are seen. There are no fractures or regions. There is marrow edema on both sides of the acromioclavicular joint. GLENOHUMERAL JOINT Joint: There is no glenohumeral joint effusion. Cartilage: No focal hyaline cartilage defects are noted. Labrum: The labrum is not optimally evaluated. Other support structures: No capsular or ligamentous abnormality is seen. MR/MR shoulder LT wo con IMPRESSION: 1. Edema is noted in the acromioclavicular joint with mild hypertrophic change. 2. Subtle increased signal intensity is noted along the bursal surface fibers of the supraspinatus tendon suggesting tendinopathy. Impression dictated by: Lianne Barillas M.D. 03/17/2025 9:40 AM Dictation Location: [place] [address] Transcribed By: [facility] 03/17/25 0940 Dictated By: Lianne Barillas II, MD 03/17/25 0918 Signed By: 03/17/25 0940 Normal [facility] Magnetic resonance imaging r eportOrdered By: Lianne Barillas on 03-17-2025 Study report [facility] Main [place] [address] [place] [address] MRI Report Signed Patient: Heidi Moya MR#: [id number] : 1985 Acct:[id number] Age/Sex: 39 / F ADM Date: 5 [facility] Room: Type: REG CLI Attending Dr: Merlin Lockhart DO Copies to: Merlin Lockhart DO~ Ordering Provider: Merlin Lockhart DO Date of Service: 03/17/25 MR/MR shoulder LT wo con: eval for any internal derangement MR LEFT SHOULDER CLINICAL INFORMATION: Superior left shoulder pain, recent popping sensation. COMPARISON: 12/27/2024. PROCEDURE: Axial, oblique coronal, and oblique sagittal long TR images of the shoulder were obtained. FINDINGS: ROTATOR CUFF AND ASSOCIATED STRUCTURES Biceps Tendon: The biceps tendon is normally situated within the bicipital groove. No complete or partial biceps tendon tear is present. Rotator cuff: There is no complete or bursal/articular sided partial rotator cuff tear. The subscapularis constituent of the rotator cuff is intact. Subtle increased signal intensity is noted along the bursal surface fibers of the supraspinatus tendon suggesting tendinopathy. Musculature: There is no muscular tear, contusion, or atrophy. Bursa: No bursal effusion or thickening is seen. OSSEOUS STRUCTURES Acromioclavicular joint: There are mild degenerative changes of the acromioclavicular joint. A type 2 acromion configuration is noted. There is no anterior or lateral acromial downsloping. Bones: No Hill-Sachs, reverse Hill-Sachs, or bony Bankart lesions are seen. There are no fractures or regions. There is marrow edema on both sides of the acromioclavicular joint. GLENOHUMERAL JOINT Joint: There is no glenohumeral joint effusion. Cartilage: No focal hyaline cartilage defects are noted. Labrum: The labrum is not optimally evaluated. Other support structures: No capsular or ligamentous abnormality is seen. MR/MR shoulder LT wo con IMPRESSION: 1. Edema is noted in the acromioclavicular joint with mild hypertrophic change. 2. Subtle increased signal intensity is noted along the bursal surface fibers ofthe supraspinatus tendon suggesting tendinopathy. Impression dictated by: Lianne Barillas M.D. 03/17/2025 9:40 AM Dictation Location: [place] [address] Transcribed By: [facility] 03/17/25 0999 Dictated By: Lianne Barillas II, MD 03/17/2518 Signed By: 03/17/25 0940 [facility] Work Phone: HCG ( test) Emerson garcia Ql (U)Ordered By: Arturo Kumar on 01-25-2025 HCG ( test) Ql (U) Urine human chorionic gonadotropin (hCG) detection by immunoassay [facility] HCG ( test) Ql (U) Negative [facility] HCG,Urineon 01-25-2025 Beta HCG ( test) Ql (U) Negative Normal [facility] Comment on above: Result Comment: PERF ORMED BY: [place] [address] PATHOLOGIST GASOLINE [employer]UCK CRANE OPERATOR VIBHA COPELAND M.D. Performed By: #### U HCG #### [address] 01-25-2025 L -- ---- Specimen: [id number] Received: 01/25/25 Status: MARA Nanette Num: [id number] Spec Type: Surgical Subm Dr: Arturo Kumar MD Tissues: A Esophagus Biopsy (ESOPHAGEAL BX) Procedures: HE/2, Gross/Micro L4, GMS II Dark ---- Age/ Patient Sex Location Account Attending Physician ---- Heidi Moya 39/F [id number] Arturo Kumar MD ---- SPEC NUM: [id number] RECD: 01/25/25 STATUS: MARA EPSINAL NUM: [id number] SACHI: 01/25/25 [facility] DR: Arturo Kumar MD ENTERED: 01/25/25 [facility] DR: ADRIEN TYPE: Surgical DEPT: S ENTERED BY: [id number] RECV BY: [id number] ORDERED: HE/2, Gross/Micro L4, GMS II Dark ORDERED: HE/2, Gross/Micro L4, GMS II Dark Pathological Diagnosis A. Esophagus, NOS (mucosal biopsies): Active esophagitis with marked eosinophilia No glandular epithelium or dysplasia seen See comment and microscopic description Comment: Eosinophils number 30-40/hpf within the biopsy. Areas of surface erosion and microabscess formation are noted. The histologic features are consistent with eosinophilic esophagitis Clinical Information Dysphagia, rule out eosinophilic esophagitis Gross Description Part A is received in formalin labeled with the patients name, date of , and esophagus BX are 3 pale patel, focally erythematous, feathery, 0.2, 0.2 and 0.4 cm in greatest dimension tissue bits. The specimen is entirely submitted in a single cassette. (1, ns, [id number] A) CAMI ---- Specimen: Received: 01/25/25 Status: MARA Espinal Num: [id number] Spec Type: Surgical Subm Dr: Arturo Kumar MD Tissues: A Esophagus Biopsy (ESOPHAGEAL BX) Procedures: HE/2, Gross/Micro L4, S II Dark ---- Patient: Heidi Moya [id number] (Continued) ---- Specimen: Received: 01/25/25 (Continued) Signed (signature on file) Jim Irene Jr., MD 01/28/25 1702 ---- Specimen: Received: 01/25/25 Status: MARA Espinal Num: [id number] Spec Type: Surgical Subm Dr: Arturo Kumar MD Tissues: A Esophagus Biopsy (ESOPHAGEAL BX) Procedures: HE/2, Gross/Micro L4, GMS II Dark ---- Patient: Heidi Moya [id number] (Continued) ---- Specimen: [id number] Received: 01/25/25 (Continued) Microscopic Description A. A GMS stain for fungal organisms is negative. The control stains appropriately. CPT Codes 42424, 99314 ---- ---- Specimen: [id number] Received: 01/25/25 Status: MARA Espinal Num: [id number] Spec Type: Surgical Subm Dr: Arturo Kumar MD Tissues: A Esophagus Biopsy (ESOPHAGEAL BX) Procedures: HE/2, Gross/Micro L4, GMS II Dark ---- Patient: Heidi Moya [id number] (Continued) ---- Signed (signature on file) Jim Irene Jr., MD 01/28/25 1702 Normal [facility] CNCOon 01-12-2025 CNCO Letter Text Normal [facility] CNOVon 01-12-2025 CNOV Office Visit (DANELLE ) HEIDI MOYA ([id number]) 1985 F Date Time Provider Department 01/12/25 12:00 PM HARINI ADLER During your visit today, we recorded the following information about you: Temperature Pulse Blood pressure Weight 98.3 degrees 92/minute 126/77 116.1 kg Height Last Period 1.63 m 12/13/24 Harini Adler MD 01/12/2025 1:51 PM Signed [facility] Follow up/ Established patient visit Individuals who were included in, or assisted with the encounter were: Heidi Moya Harini Adler MD Chief Complaint/Issues: Heidi Moya is a 39 year old female seen in the [facility] for: Abnormal MRI head Most Recent Neurological Assessment and Plan: Last Filed Values Date of Most Recent Assessment and Plan 01/12/25 (P) Specialty General Neurology (P) Assessment C5-6 herniated disc, right of midline that may be causing her upper back pain and paresthesias. 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 Abnormal MRI brain: more likely secondary to remote injury and does not correlate with Multiple Sclerosis. Fatigue but no symptoms of ANSELMO at present, went over blood work. Encouraged her to continue with her exercises and working to lose weight. (P) Plan She does not want injections but she wants to monitor her cervical spine with a general neurology as she already has curvature in her back and she wants to not be disabled which is understandable. Recommend she establish care with Dr. Leone. (P) HPI/Interval History: fatigued lately and on weekends she is sleeping. The numbness and tingling in the upper back is going on. She is borderline low on Vitamin D and has not been anemic since she gave to her daughter. Periods are regular so far. She is sleeping most nights and other nights stays up and her mind is racing. She does not know if she snores and feels rested when she wakes up. If she sits and is not active then she will fall asleep. She had a tear in her left shoulder with trying to reach back had sudden pain and pop. Now that is slowly getting better. She feels a grinding pain when she turns her head at times and she is worried about her sensory symptoms in the neck and radiates down to the thoracic. No recent falls. No new symptoms. She does walk on the treadmill with her daughter everyday. She was looking at losing some weight. 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 She comes home and she is spent. She takes Lyrica 25 mg at hs. Went over the MRI scan of brain and answered her questions and no signs of MS. This is now her second MRI as she had another one previously outside. Went over imaging study of Cspine and she has a herniated disc abutting on to her spinal cord but not denting it much in C5-6 region and more to the right side. This is causing probably some of the numbness and pain in that region and since the PSP muscles interdigitate the symptoms can seem like they are coming from lower down. General Examination: BP 126/77 (BP Site: Right Arm, BP Position: Sitting, BP Cuff Size: Large Adult) Pulse 92 Temp 36.8 ?C (98.3 ?F) (Temporal Artery) Ht 163 cm (5' 4.17 ) Wt 116.1 kg (255 lb 15.3 oz) LMP 12/13/2024 (Approximate) BMI 43.70 kg/m? General: Awake, alert, interactive, no acute distress, good nutritional status, normal development, well-kept Neurological Exam Mental Status Alert, fully oriented, attentive, with normal cognition, memory, speech and affect. Cranial Nerves Visual welch intact. Pupils reactive. Extraocular movements conjugate and full. No ptosis. No nystagmus. Facial sensation intact. Face symmetric and strong. Palate and tongue normal. XI normal. Motor Examination and Coordination Motor examination with normal bulk, strength and tone. No drift. Normal rapid alternating movements and coordination. No adventitious movements or significant tremor. Reflexes Deep tendon reflexes graded by MRC Deep Tendon Reflexes Right Left Biceps 2 2 Triceps 2 2 Brachioradialis 2 2 Patellar 1+ 1+ Achilles 0 0 Plantar Downgoing Downgoing Sensation Sensation intact to light touch, pinprick, proprioception and vibration. She is sensitive to palpation on the left side but feels the pain on the right side at C6-7. Gait Arises easily. Casual gait, tandem, and Romberg are normal. Can rise on heels and toes. CV: RRR without any murmurs and no carotid bruit Assessment AND Plan 01/12/2025 - General Neurology, Harini Adler MD ASSESSMENT C5-6 herniated disc, right of midline that may be causing her upper back pain and paresthesias with PSP radiculopathy but no myelopathy noted at this time. She has changed h (more content not included)... Normal [facility] X-ray reportOrdered By: Tiago Smith on 12-27-2024 Study report [facility] [address] [place] [address] XRay Report Signed Patient: Heidi oMya MR#: [id number] : 1985 Acct:[id number] Age/Sex: 39 / F ADM Date: 5 Loc: [facility] Room: Type: REG CLI Attending Dr: Merlin Lockhart DO Copies to: Merlin Lockhart DO~ Ordering Provider: Merlin Lockhart DO Date of Service: 12/27/24 XR/XR shoulder LT min 2V*: M25.512 - Pain in left shoulder LEFT SHOULDER - - 4 views CLINICAL HISTORY: Left shoulder pain for weeks COMPARISON: None FINDINGS: Mild degenerative changes of the AC joint without acute bony process. XR/XR shoulder LT min 2V* IMPRESSION: MILD DEGENERATIVE CHANGES OF THE AC JOINT WITHOUT ACUTE BONY PROCESS. Impression dictated by: Mt Smith Jr., Gene12/27/2024 3:27 PM Dictation Location: [place] [address] Transcribed By: [facility] 12/27/24 1527 Dictated By: Mt Smith Jr, DO 12/27/24 1527 Signed By: 12/27/24 1527 [facility] XR shoulder LT min 2V*on XR shoulder LT min 2V* [facility] [address] [place] [address] XRay Report Signed Patient: Heidi Moya MR#: [id number] : 1985 Acct:[id number] Age/Sex: 39 / F ADM Date: 12/27/24 Loc: [facility] Room: Type: REG CLI Attending Dr: Merlin Lockhart DO Copies to: Merlin Lockhart DO Ordering Provider: Merlin Lockhart DO Date of Service: 12/27/24 XR/XR shoulder LT min 2V*: M25.512 - Pain in left shoulder LEFT SHOULDER - - 4 views CLINICAL HISTORY: Left shoulder pain for weeks COMPARISON: None FINDINGS: Mild degenerative changes of the AC joint without acute bony process. XR/XR shoulder LT min 2V* IMPRESSION: MILD DEGENERATIVE CHANGES OF THE AC JOINT WITHOUT ACUTE BONY PROCESS. Impression dictated by: Mt Smith Jr., D.OMan12/27/2024 3:27 PM Dictation Location: [place] [address] Transcribed By: [facility] 12/27/24 1527 Dictated By: Mt Smith Jr DO 12/27/24 1527 Signed By: 12/27/24 1527 Normal [facility] BRAIN & CERVICAL SPINE MRI D [facility] 12-06-2024 Brain Enhancing Lesions None C [facility] Brain Interval Improvement None [facility] Brain New T2 Lesions None Site [facility] Brain Other Significant MRI Findings None. [facility] Brain Parenchymal Volume Loss None [facility] Brain T2 [place] of Disease Mild [facility] Radiology Study observation (narrative) [facility] MR Brain WO and W contrast I Von 12-06-2024 IMPRESSION: Scattered intracranial white matter lesions which are nonspecific. While could be seen in the setting of multiple sclerosis, this could also relate to a remote insult. No new T2 lesions and no new enhancing lesions. No significant parenchymal volume loss. Other Significant Intracranial Findings: None Gold Prospector: PSCRivera Transcribe Date/Time: Dec 06 2024 10:04A Dictated by : ZAYDA LUI MD This examination was interpreted and the report reviewed and electronically signed by: ZAYDA LUI MD on Dec 06 2024 10:14AM [facility] DIVISION OF RADIOLOGY * * *Final Report* * * DATE OF EXAM: Dec 06 2024 9:10AM M2M 0295 - MRI BRAIN WO/W IVCON / PROCEDURE REASON: multiple diagnoses * * * * Physician Interpretation * * * * EXAMINATION: MRI BRAIN WO/W IVCON HISTORY: Multiple sclerosis. Routine follow-up TECHNIQUE: Brain MRI with demyelinating disease protocol with and without IV gadolinium. MQ: [id number] Contrast: 10 mL Elucirem IV COMPARISON: MRI brain 05/21/2024. RESULT: MR BRAIN: Parenchymal Findings: Multiple foci of scattered T2/FLAIR white matter parenchymal hyperintensity, nonspecific finding which could reflect prior changes from microvascular ischemia but could also be seen in the setting of underlying demyelinating process. New T2 Lesions: None Site(s) of New/Larger T2 Lesion(s): Not applicable Interval Improvement: None. New Enhancing Lesions: None T2 [place] of Disease: Mild. Parenchymal Volume Loss: None. Other Significant Findings: None. *Note:? The definition of new T2 Lesions includes both new and enlarging plaques on T2-weighted FLAIR images (new lesions greater than or equal to 5mm3 or an increase in diameter of an existing lesion by greater than or equal to 2mm). DIVISION OF RADIOLOGY Provider, [facility] - 12/06/2024 * * *Final Report* * * DATE OF EXAM: Dec 06 2024 9:10AM M2M 0295 - MRI BRAIN WO/W IVCON / PROCEDURE REASON: multiple diagnoses * * * * Physician Interpretation * * * * EXAMINATION: MRI BRAIN WO/W IVCON HISTORY: Multiple sclerosis. Routine follow-up TECHNIQUE: Brain MRI with demyelinating disease protocol with and without IV gadolinium. MQ: [id number]_2 Contrast: 10 mL Elucirem IV COMPARISON: MRI brain 05/21/2024. RESULT: MR BRAIN: Parenchymal Findings: Multiple foci of scattered T2/FLAIR white matter parenchymal hyperintensity, nonspecific finding which could reflect prior changes from microvascular ischemia but could also be seen in the setting of underlying demyelinating process. New T2 Lesions: None Site(s) of New/Larger T2 Lesion(s): Not applicable Interval Improvement: None. New Enhancing Lesions: None T2 [place] of Disease: Mild. Parenchymal Volume Loss: None. Other Significant Findings: None. *Note:? The definition of new T2 Lesions includes both new and enlarging plaques on T2-weighted FLAIR images (new lesions greater than or equal to 5mm3 or an increase in diameter of an existing lesion by greater than or equal to 2mm). IMPRESSION IMPRESSION: Scattered intracranial white matter lesions which are nonspecific. While could be seen in the setting of multiple sclerosis, this could also relate to a remote insult. No new T2 lesions and no new enhancing lesions. No significant parenchymal volume loss. Other Significant Intracranial Findings: None Gold Prospector: GUILLERMO Transcribe Date/Time: Dec 06 2024 10:04A Dictated by : ZAYDA LUI MD This examination was interpreted and the report reviewed and electronically signed by: ZAYDA LUI MD on Dec 06 2024 10:14AM EST [facility] Radiology Study observation (narrative) Helene garcia [facility] MR Brain WO and W contrast I VOrdered By: [facility] Provider on 12-06-2024 [facility] MRI BRAIN WO/W IVCONon 12-06 MRI BRAIN WO/W IVCON * * *Final Report* * * DATE OF EXAM: Dec 06 2024 9:10AM M2M 0295 - MRI BRAIN WO/W IVCON / PROCEDURE REASON: multiple diagnoses * * * * Physician Interpretation * * * * EXAMINATION: MRI BRAIN WO/W IVCON HISTORY: Multiple sclerosis. Routine follow-up TECHNIQUE: Brain MRI with demyelinating disease protocol with and without IV gadolinium. MQ: [id number]_2 Contrast: 10 mL Elucirem IV COMPARISON: MRI brain 05/21/2024. RESULT: MR BRAIN: Parenchymal Findings: Multiple foci of scattered T2/FLAIR white matter parenchymal hyperintensity, nonspecific finding which could reflect prior changes from microvascular ischemia but could also be seen in the setting of underlying demyelinating process. New T2 Lesions: None Site(s) of New/Larger T2 Lesion(s): Not applicable Interval Improvement: None. New Enhancing Lesions: None T2 [place] of Disease: Mild. Parenchymal Volume Loss: None. Other Significant Findings: None. *Note:? The definition of new T2 Lesions includes both new and enlarging plaques on T2-weighted FLAIR images (new lesions greater than or equal to 5mm3 or an increase in diameter of an existing lesion by greater than or equal to 2mm). IMPRESSION: Scattered intracranial white matter lesions which are nonspecific. While could be seen in the setting of multiple sclerosis, this could also relate to a remote insult. No new T2 lesions and no new enhancing lesions. No significant parenchymal volume loss. Other Significant Intracranial Findings: None Gold Prospector: PSCB Transcribe Date/Time: Dec 06 2024 10:04A Dictated by : ZAYDA LUI MD This examination was interpreted and the report reviewed and electronically signed by: ZAYDA LUI MD on Dec 06 2024 10:14AM EST [id number] Normal [facility] CNOVon 07-02-2024 CNOV Office Visit (NUMBHT ) HEIDI MOYA ([id number]) 1985 F Date Time Provider Department 07/02/24 2:00 PM HARINI ADLER During your visit today, we recorded the following information about you: Temperature Pulse Blood pressure Weight 99.7 degrees 98/minute 118/83 112.3 kg Height 1.635 m Harini Adler MD 07/02/2024 4:39 PM S[address] [facility] New Patient Evaluation Consulting Provider: Tania Stout SISAL PICKER [id number] [address] [place] [address] The patient presents with a chief complaint as listed below, and is seen in consultation requested by Dr. Tania Stout for an opinion regarding these symptoms. My final recommendations will be communicated back to the requesting physician by way of shared medical record or letter via US mail. Dear Ms. Stout, Thank you for the referral. Please let me know if you have any questions. Individuals who were included in, or assisted with the encounter were: Heidi Moya Harini Adler MD Chief Complaint/Issues: Heidi Moya is a 38 year old female with ADHD, DJD of the spine and scoliosis, seen in the [facility] for General Neurology for: Second opinion on MS HPI: For one year she has been having numbness in the middle of her back midline to the base of neck. She has tingling from the neck to the head, tingling in the face bilaterally and this is more when she has her head down and working on the computer. 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 More sensitive now. She turns and turns at sleep. 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 Hx of scoliosis. She has had lower back pain and also had lumbar spine and thoracic spine MRI. She has DJD in both cervical and lumbar spine. EMG/NCS done of upper and lower extremities and did not show anything. She had blood work done more recently - CMP, CBC, Vitamin D (19), B12, Folate not done Maternal cousin with diagnosis of MS Reviewed MRI of brain and Cspine as well as T spine. Blood work, Vitamin D slightly low and she is on a supplement B12, TSH, RIVKA all normal. CBC and CMP normal General Examination: BP 118/83 (BP Site: Right Arm, BP Position: Sitting, BP Cuff Size: Extra Large Adult) Pulse 98 Temp 37.6 ?C (99.7 ?F) (Oral) Ht 163.5 cm (5' 4.37 ) Wt 112.3 kg (247 lb 9.2 oz) LMP 03/31/2024 (Exact Date) BMI 42.01 kg/m? General: Awake, alert, interactive, no acute distress, good nutritional status, normal development, well-kept Neurological Exam Mental Status Alert, fully oriented, attentive, with normal cognition, memory, speech and affect. Cranial Nerves Visual welch intact. Fundi with normal discs and vasculature. Pupils reactive. Extraocular movements conjugate and full. No ptosis. No nystagmus. Facial sensation intact. Face symmetric and strong. Palate and tongue normal. XI normal. Hearing is normal Motor Examination and Coordination Motor examination with normal bulk, strength and tone. No drift. Normal rapid alternating movements and coordination. No adventitious movements or significant tremor. Reflexes Deep tendon reflexes graded by MRC Deep Tendon Reflexes Right Left Biceps 2 2 Triceps 2 2 Brachioradialis 2 2 Patellar 1+ 1+ Achilles 0 0 Plantar Downgoing Downgoing Sensation Sensation intact to light touch, pinprick, proprioception and vibration. Gait Arises easily. Casual gait, tandem, and Romberg are normal. Can rise on heels and toes. Assessment AND Plan 07/02/2024 - General Neurology, Harini Adler MD ASSESSMENT 1) Abnormal MRI with Nonspecific T2 lesions, not enhancing and more consistent with head injury as a child or her migraine history. Exam is normal which it can be in MS early on. Went over the MRI brain images and Cspine and Tspine images and do not see any typical lesions. No previous MRI to compare with. No need for LP unless we see progression of the T2 lesions on a future MRI brain. PLAN Repeat MRI of brain with contrast in 6 months on MS protocol, and as discussed with patient if it is MS we should see changes. Has scoliosis, I told her to start Eleazar Chi to get into stretching and better posture. NO pain but more numbness at this time. Encounter Diagnosis ICD-10-CM 1. Demyelinating disease of central nervous system (HCC) G37.9 MRI BRAIN WO/W IVCON Return in about 6 months (around 12/31/2024). Data Review Objective Current Outpatient Medications Medication Sig LYRICA 25 mg capsule Cholecalciferol, Vitamin D3, 50 mcg (2,000 unit) cap Take 50 mcg (more content not included)... Normal [facility] Automated basophil %Ordered By: Navjot Mendoza on 05-29-2024 Basophils/100 WBC (Bld) 1.2 % Normal . [facility] Comment on above: Performed By: #### B MP, CBC #### [address] Automated basophil countOrde red By: Navjot Mendoza on 05-29-2024 Basophils (Bld) [#/Vol] 0.1 10*3/uL Normal 0.0-0.2 [facility] Comment on above: Result Comment: PERF ORMED BY: [place] [address] PATHOLOGIST GASOLINE TRUCK CRANE OPERATOR SHIMA RIVERA M.D. Performed By: #### B MP, CBC #### [facility] [address] [place] [address] Automated blood monocyte cou ntOrdered By: Navjot Mendoza on 05-29-2024 Monocytes (Bld) [#/Vol] 0.3 10*3/uL Normal 0.0-0.8 [facility] Comment on above: Performed By: #### B MP, CBC #### [facility] [address] [place] [address] Automated eosinophil %Ordere d By: Navjot Mendoza on 05-29-2024 Eosinophils/100 WBC (Bld) 5.1 % Normal . [facility] Comment on above: Performed By: #### B MP, CBC #### [address] Automated eosinophil countOr dered By: Navjot Mendoza on 05-29-2024 Eosinophils (Bld) [#/Vol] 0.2 10*3/uL Normal 0.0-0.45 [facility] Comment on above: Performed By: #### B MP, CBC #### [address] Automated monocyte %Ordered By: Navjot Mendoza on 05-29-2024 Monocytes/100 WBC (Bld) 6.0 % Normal . [facility] Comment on above: Performed By: #### B MP, CBC #### [address] Automated neutrophil %Ordere d By: Navjot Mendoza on 05-29-2024 Neutrophils/100 WBC (Bld) 79.9 % Normal . [facility] Comment on above: Performed By: #### B MP, CBC #### [address] Bacteria [Presence] in Urine by AutomatedOrdered By: Navjot Mendoza on 05-29-2024 Bacteria Auto Ql (U) None seen [HPF] None Seen [facility] Basic Metabolic Panelon Creatinine Clr Calc Pharmacy 89.90 Normal [facility] Comment on above: Result Comment: PERF ORMED BY: [place] [address] PATHOLOGIST GASOLINE TRUCK CRANE OPERATOR SHIMA RIVERA M.D. Performed By: #### B MP, CBC #### [address] GFR/1.73 sq M.predicted MDRD (S/P/Bld) [Vol rate/Area] mL/min/{1.73_m2} Normal [facility] Comment on above: Performed By: #### B MP, CBC #### [address] Bilirubin Test strip Ql (U)O rdered By: Navjot Mendoza on 05-29-2024 Bilirubin Ql (U) Negative Negative [facility] Calcium [Mass/volume] in Ser um or PlasmaOrdered By: Navjot Mendoza on 05-29-2024 Calcium [Mass/Vol] 8.6 mg/dL Normal 8.6-10.3 [facility] Comment on above: Performed By: #### B MP, CBC #### [address] Carbon dioxide, total [Moles /volume] in Serum or PlasmaOrdered By: Navjot Mendoza on 05-29-2024 CO2 [Moles/Vol] 27.2 mmol/L Normal 21.0-31.0 [facility] Comment on above: Performed By: #### B MP, CBC #### [address] Chloride [Moles/volume] in S kisha or PlasmaOrdered By: Navjot Mendoza on 05-29-2024 Chloride [Moles/Vol] 104 mmol/L Normal 98-107 [facility] Comment on above: Performed By: #### B MP, CBC #### [address] Color of Urine by AutoOrdere d By: Navjot Mendoza on 05-29-2024 Color (U) Light-yellow Normal Yellow [facility] Comment on above: Order Comment: Name Collection Type:: Clean-Voided Midstream Performed By: #### U HCG, ADDONUAPLUS #### [address] Complete Blood Count Auto Di ffon 05-29-2024 Mean Corpuscular HGB Conc 33.6 g/dL Normal 32.0-35.0 [facility] Comment on above: Performed By: #### B MP, CBC #### [place] [address] [place] Monocytes/100 WBC (Bld) 23.00 % High 0.00-20.00 T [facility] Comment on above: Result Comment: For adults in ED, MDW > 20.0 may be associated with a higher risk of sepsis during the first 12 hrs of hospital admission Performed By: #### B MP, CBC #### [facility] [address] [place] [address] [place] NRBC% 0.1 /100{WBC} Normal 0-0.5 [facility] Comment on above: Performed By: #### B MP, CBC #### [facility] [address] [place] [address] [place] Creatinine [Mass/volume] in Serum or PlasmaOrdered By: Navjot Mendoza on 05-29-2024 Creatinine [Mass/Vol] 1.03 mg/dL Normal 0.60-1.20 [facility] Comment on above: Performed By: #### B MP, CBC #### [facility] [address] [place] [address] [place] Dipstick and Microscopicon 0 05-29-2024 Bacteria,Urine None Seen Normal None Seen [facility] Comment on above: Order Comment: Name Collection Type:: Clean-Voided Midstream Performed By: #### U HCG, ADDONUAPLUS #### [facility] [address] [place] [address] [place] Bilirubin,Urine Negative Normal Negative [facility] Comment on above: Order Comment: Name Collection Type:: Clean-Voided Midstream Performed By: #### U HCG, ADDONUAPLUS #### [facility] [address] [place] [address] [place] Glucose Ql (U) Normal Normal Normal [facility] Comment on above: Order Comment: Name Collection Type:: Clean-Voided Midstream Performed By: #### U HCG, ADDONUAPLUS #### [facility] [address] [place] [address] [place] Hyaline Casts,Urine 0-8 Normal 0-8 [facility] Comment on above: Order Comment: Name Collection Type:: Clean-Voided Midstream Performed By: #### U HCG, ADDONUAPLUS #### [place] [address] [place] Nitrite,Urine Negative Normal Negative [facility] Comment on above: Order Comment: Name Collection Type:: Clean-Voided Midstream Performed By: #### U HCG, ADDONUAPLUS #### [address] Occult Blood,Urine 1+ High Negative [facility] Comment on above: Order Comment: Name Collection Type:: Clean-Voided Midstream Performed By: #### U HCG, ADDONUAPLUS #### [address] Protein,Urine Negative Normal Negative [facility] Comment on above: Order Comment: Name Collection Type:: Clean-Voided Midstream Performed By: #### U HCG, ADDONUAPLUS #### [address] RBC,Urine None Seen Normal 0-4 [facility] Comment on above: Order Comment: Name Collection Type:: Clean-Voided Midstream Performed By: #### U HCG, ADDONUAPLUS #### [address] Specificy [place],Urine 1.010 Normal 1.001-1.030 [facility] Comment on above: Order Comment: Name Collection Type:: Clean-Voided Midstream Performed By: #### U HCG, ADDONUAPLUS #### [address] Squamous Epithelial Cell,Urine 1-2 Normal 0-2 [facility] Comment on above: Order Comment: Name Collection Type:: Clean-Voided Midstream Performed By: #### U HCG, ADDONUAPLUS #### [address] Urobilinogen,Urine Normal Normal Normal [facility] Comment on above: Order Comment: Name Collection Type:: Clean-Voided Midstream Performed By: #### U HCG, ADDONUAPLUS #### [place] [address] [place] WBC,Urine 1-2 Normal 0-4 [facility] Comment on above: Order Comment: Name Collection Type:: Clean-Voided Midstream Performed By: #### U HCG, ADDONUAPLUS #### [facility] [address] [place] [address] [place] Epithelial cells.squamous [# /area] in Urine sediment by Automated countOrdered By: Navjot Mendoza on 05-29-2024 Epithelial cells.squamous Auto (Urine sed) [#/Area] 1-2 [HPF] 0-2 [facility] Erythrocyte distribution wid th [Ratio] by Automated countOrdered By: Navjot Mendoza on 05-29-2024 Erythrocyte distribution width (RBC) [Ratio] 14.2 % Normal 11.9-15.3 [facility] Comment on above: Performed By: #### B MP, CBC #### [place] [address] [place] Erythrocytes [#/area] in Uri ne sediment by Automated countOrdered By: Navjot Mendoza on 05-29-2024 RBC Auto (Urine sed) [#/Area] None seen [HPF] 0-4 [facility] Erythrocytes [#/volume] in B lood by Automated countOrdered By: Navjot Mendoza on 05-29-2024 RBC (Bld) [#/Vol] 4.44 10*6/uL Normal 3.60-5.00 [facility] Comment on above: Performed By: #### B MP, CBC #### [place] [address] [place] Glucose [Mass/volume] in Ser um or PlasmaOrdered By: Navjot Mendoza on 05-29-2024 Glucose [Mass/Vol] 101 mg/dL High 70-100 [facility] Comment on above: ADA recommended refe rence rangeRandom Glucose Reference Range is dependent on time and content of last meal. Glucose of more than 200 mg/dL in a nonstressed, ambulatory subject supports the diagnosis of Diabetes Mellitus. Result Comment: [place] om Glucose Reference Range is dependent on time and content of last meal. Glucose of more than 200 mg/dL in a nonstressed, ambulatory subject supports the diagnosis of Diabetes Mellitus. ADA recommended reference range Performed By: #### B MP, CBC #### [place] [address] [place] Glucose [Mass/volume] in Uri ne by Test stripOrdered By: Navjot Mendoza on 05-29-2024 Glucose Test strip (U) [Mass/Vol] Normal mg/dL Normal [facility] HCG ( test) [place].rapi d Ql (U)Ordered By: Navjot Mendoza on 05-29-2024 HCG ( test) Ql (U) Negative [facility] HCG,Urineon 05-29-2024 Beta HCG ( test) Ql (U) Negative Normal [facility] Comment on above: Order Comment: Name Collection Type:: Clean-Voided Midstream Result Comment: PERF ORMED BY: [place] [address] PATHOLOGIST GASOLINE TRUCK CRANE OPERATOR SHIMA RIVERA M.D. Performed By: #### U HCG, ADDONUAPLUS #### [address] Hematocrit [Volume Fraction] of Blood by Automated countOrdered By: Navjot Mendoza on 05-29-2024 Hematocrit (Bld) [Volume fraction] 39.7 % Normal 34.0-46.4 [facility] Comment on above: Performed By: #### B MP, CBC #### [address] Hemoglobin Test strip Ql (U) Ordered By: Navjot Mendoza on 05-29-2024 Hemoglobin Ql (U) 1+ High Negative [facility] Hemoglobin [Mass/volume] in BloodOrdered By: Navjot Mendoza on 05-29-2024 Hemoglobin (Bld) [Mass/Vol] 13.4 g/dL Normal 11.8-15.4 [facility] Comment on above: Performed By: #### B MP, CBC #### [address] Hyaline casts [#/area] in Ur ine sediment by Automated countOrdered By: Navjot Mendoza on 05-29-2024 Hyaline casts Auto (Urine sed) [#/Area] 0-8 [LPF] 0-8 [facility] Ketones [Presence] in Urine by Test stripOrdered By: Navjot Mendoza on 05-29-2024 Ketones Ql (U) Negative Normal Negative [facility] Comment on above: Order Comment: Name Collection Type:: Clean-Voided Midstream Performed By: #### U HCG, ADDONUAPLUS #### [place] [address] [place] Leukocyte esterase [Presence ] in Urine by Test stripOrdered By: Navjot Mendoza on 05-29-2024 Leukocyte esterase Test strip Ql (U) Negative Normal Negative [facility] Comment on above: Order Comment: Name Collection Type:: Clean-Voided Midstream Performed By: #### U HCG, ADDONUAPLUS #### [place] [address] [place] Leukocytes [#/area] in Urine sediment by Automated countOrdered By: Navjot Mendoza on 05-29-2024 WBC Auto (Urine sed) [#/Area] 1-2 [HPF] 0-4 [facility] Leukocytes [#/volume] correc devan for nucleated erythrocytes in Blood by Automated counOrdered By: Navjot Mendoza on 05-29-2024 WBC corrected for nucl RBC Auto (Bld) [#/Vol] 4.7 10*3/uL 3.8-11.6 [facility] Leukocytes [#/volume] in Blo od by Automated countOrdered By: Navjot Mendoza on 05-29-2024 WBC (Bld) [#/Vol] 4.7 10*3/uL Normal 3.8-11.6 [facility] Comment on above: Performed By: #### B MP, CBC #### [facility] [address] [place] [address] [place] Lymphocytes [#/volume] in Bl ood by Automated countOrdered By: Navjot Mendoza on 05-29-2024 Lymphocytes (Bld) [#/Vol] 0.4 10*3/uL Low 1.00-4.8 [facility] Comment on above: Performed By: #### B MP, CBC #### [facility] [address] [place] [address] [place] Lymphocytes/100 leukocytes i n Blood by Automated countOrdered By: Navjot Mendoza on 05-29-2024 Lymphocytes/100 WBC (Bld) 7.8 % Normal . [facility] Comment on above: Performed By: #### B MP, CBC #### [facility] [address] [place] [address] MCH [Entitic mass] by Automa devan countOrdered By: Navjot Mendoza on 05-29-2024 MCH (RBC) [Entitic mass] 30.1 pg Normal 24.7-34.3 [facility] Comment on above: Performed By: #### B MP, CBC #### [address] MCHC Auto (RBC) [Mass/Vol]Or dered By: Navjot Mendoza on 05-29-2024 MCHC (RBC) [Mass/Vol] 33.6 g/dL 32.0-35.0 [facility] MCV [Entitic volume] by Auto mated countOrdered By: Navjot Mendoza on 05-29-2024 MCV (RBC) [Entitic vol] 89.5 fL Normal 80-100 [facility] Comment on above: Performed By: #### B MP, CBC #### [address] Monocyte distribution width [Entitic volume] in Blood by AutomatedOrdered By: Navjot Mendoza on 05-29-2024 Monocyte distribution width Auto (Bld) [Entitic vol] 23.00 % High 0.00-20.00 [facility] Comment on above: For adults in ED, MD W > 20.0 may be associated with a higher risk of sepsis during the first 12 hrs of hospital admission Neutrophils [#/volume] in Bl ood by Automated countOrdered By: Navjot Mendoza on 05-29-2024 Neutrophils (Bld) [#/Vol] 3.7 10*3/uL Normal 1.8-7.7 [facility] Comment on above: Performed By: #### B MP, CBC #### [facility] [address] [place] [address] Nitrite Test strip Ql (U)Ord ered By: Navjot Mendoza on 05-29-2024 Nitrite Ql (U) Negative Negative [facility] No Panel InformationOrdered By: Navjot Mendoza on 05-29-2024 Estimated GFR (CKD-EPI) > 60.0 mL/Min [facility] Creatinine Clearance (Chem 89.90 [facility] Nucleated erythrocytes [Pres ence] in Blood by Automated countOrdered By: Navjot Mendoza on 05-29-2024 Nucleated RBC Auto Ql (Bld) 0.1 /100{WBC} 0-0.5 [facility] Platelet mean volume [Entiti c volume] in Blood by Automated countOrdered By: Navjot Mendoza on 05-29-2024 Platelet mean volume (Bld) [Entitic vol] 9.6 fL Normal 6.3-10.7 [facility] Comment on above: Performed By: #### B MP, CBC #### [facility] [address] [place] [address] Platelets [#/volume] in Bloo d by Automated countOrdered By: Navjot Mendoza on 05-29-2024 Platelets (Bld) [#/Vol] 227 10*3/uL Normal 150-450 [facility] Comment on above: Performed By: #### B MP, CBC #### [facility] [address] [place] [address] Potassium [Moles/volume] in Serum or PlasmaOrdered By: Navjot Mendoza on 05-29-2024 Potassium [Moles/Vol] 3.5 mmol/L Normal 3.5-5.1 [facility] Comment on above: Performed By: #### B MP, CBC #### [address] Protein Test strip (U) [Mass /Vol]Ordered By: Navjot Mendoza on 05-29-2024 Protein (U) [Mass/Vol] Negative Negative [facility] Serum or plasma anion gap de terminationOrdered By: Navjot Mendoza on 05-29-2024 Anion gap [Moles/Vol] 10.3 mmol/L Normal 6.0-15.0 [facility] Comment on above: Performed By: #### B MP, CBC #### [address] [address] [place] Sodium [Moles/volume] in Ser um or PlasmaOrdered By: Navjot Mendoza on 05-29-2024 Sodium [Moles/Vol] 138 mmol/L Normal 136-145 [facility] Comment on above: Performed By: #### B MP, CBC #### [facility] [address] [place] [address] Specific gravity Test strip (U) [Rel density]Ordered By: Navjot Mendoza on 05-29-2024 Specific gravity (U) [Rel density] 1.010 1.001-1.030 [facility] Urea nitrogen [Mass/volume] in Serum or PlasmaOrdered By: Navjot Mendoza on 05-29-2024 Urea nitrogen [Mass/Vol] 7 mg/dL Normal 7-25 [facility] Comment on above: Performed By: #### B MP, CBC #### [address] Urine appearanceOrdered By: Navjot Mendoza on 05-29-2024 Appearance (U) Clear Normal Clear [facility] Comment on above: Order Comment: Name Collection Type:: Clean-Voided Midstream Performed By: #### U HCG, ADDONUAPLUS #### [address] Urobilinogen Test strip (U) [Mass/Vol]Ordered By: Navjot Mendoza on 05-29-2024 Urobilinogen (U) [Mass/Vol] Normal mg/dL Normal [facility] pH of Urine by Test stripOrd ered By: Navjot Mendoza on 05-29-2024 pH (U) 7.5 [pH] Normal 5.0-9.0 [facility] Comment on above: Order Comment: Name Collection Type:: Clean-Voided Midstream Performed By: #### U HCG, ADDONUAPLUS #### [address] MR cervical spine wo/w conon 05-21-2024 MR cervical spine wo/w con [facility] Main [place] [address] [place] [address] MRI Report Signed Patient: Heidi Moya MR#: [id number] : 1985 Acct:[id number] Age/Sex: 38 / F ADM Date: 05/21/24 Loc: Room: Type: [facility] Attending Dr: Tania MCFADDEN Copies to: BOGDAN Love Ordering Provider: BOGADN Love Date of Service: 05/21/24 MR/MR cervical spine wo/w con: R90.82 MRI CERVICAL SPINE WITHOUT AND WITH INTRAVENOUS CONTRAST COMPARISON: None CLINICAL DATA: Numbness and tingling at the hands, legs and feet. Multiecho imaging in the axial and sagittal plane was performed before and after intravenous administration of 20 mild ProHance. There is normal alignment to the sagittal sequences. There are no acute compression fractures or marrow edema. The cord is within normal limits for caliber, position and signal intensity. There is no abnormal enhancement. Shotty cervical lymph nodes are present. At C2-3, there is no disc disease or stenosis. At C3-4, there is minimal disco-osteophytic bulging with subtle thecal sac effacement. There is no foraminal encroachment. At C4-5, there is no disc disease or stenosis. At C5-6, there is mild disco-osteophytic bulging which is slightly asymmetric in the right parasagittal region extending toward the lateral recess. There is effacement of thecal sac approaching though not compressing the cord. The neural foramen are patent. At C6-7, there is minor disco-osteophytic bulging, without associated stenosis. At the cervicothoracic junction, no MRI abnormalities are noted. MR/MR cervical spine wo/w con IMPRESSION: MINOR DISCOVERTEBRAL DEGENERATIVE CHANGES, GREATEST AT C5-6 . NO SUSPECTED CORD DEMYELINATION. Impression dictated by: Angela Murillo M.D.05/21/2024 8:12 PM Dictation Location: [place] [address] Transcribed By: [facility] 05/21/242011 Dictated By: Angela Murillo MD 05/21/242005 Signed By: 05/21/242011 [facility] MR head/brain wo/w conon MR head/brain wo/w con [facility] Main [place] [address] [place] [address] MRI Report Signed Patient: Heidi Moya MR#: [id number] : 1985 Acct:[id number] Age/Sex: 38 / F ADM Date: 05/21/24 Loc: MR Room: Type: [facility] Attending Dr: Tania MCFADDEN Copies to: BOGDAN Love Ordering Provider: BOGDAN Love Date of Service: 05/21/24 MR/MR head/brain wo/w con: R90.82 MRI BRAIN WITHOUT AND WITH INTRAVENOUS CONTRAST CLINICAL DATA: Follow-up white matter disease. Numbness and tingling at the hands, legs and feet. COMPARISON: 11/08/2023 Multiecho, multiplanar imaging of the brain was performed before and after intravenous administration of 20 mL of ProHance. The ventricles are normal in size and position. Similar foci of increased T2 and FLAIR signal are seen within the white matter. Although nonspecific, in patient's age group, this could be multiple sclerosis plaque. There are no developing areas of abnormal signal intensity or enhancement within the supra or infratentorial brain. There is no restricted diffusion to suggest a recent ischemic event. No extra-axial collections or mass effect are seen. No midline abnormalities are noted. The imaged paranasal sinuses are clear. MR/MR head/brain wo/w con IMPRESSION: SIMILAR WHITE MATTER CHANGES, POTENTIALLY MULTIPLE SCLEROSIS. NO ACUTE INTRACRANIAL FINDINGS. Impression dictated by: Angela Murillo M.D.05/21/2024 7:43 PM Dictation Location: [place] [address] Transcribed By: [facility] 05/21/241942 Dictated By: Angela Murillo MD 05/21/241928 Signed By: 05/21/241942 Normal [facility] RF Gastrointestinal tract up per Views W water soluble contrast Violet 04-26-2024 IMPRESSION: CINEDEFECOGRAPHY DESCRIBED -- SEE SYNOPTIC REPORT FOR DETAILS. Gold Prospector: GUILLERMO Transcribe Date/Time: Apr 26 2024 9:36A Dictated by : HAIM CORLEY MD This examination was interpreted and the report reviewed and electronically signed by: HAIM CORLEY MD on Apr 26 2024 9:45AM [facility] DIVISION OF RADIOLOGY * * *Final Report* * * DATE OF EXAM: Apr 26 2024 9:28AM [id number] - XR DEFECOGRAPHY / PROCEDURE REASON: 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 * * * * Physician Interpretation * * * * CINEDEFECOGRAPHY CLINICAL HISTORY: Perineal bulge/pressure TECHNIQUE: Cinedefecography was performed with vaginal, enteric, and rectal contrast. Recorded real-time fluoroscopy and spot imaging were used, including the following maneuvers: rest, squeeze, strain, evacuation, and post-evacuation. Contrast: ORAL: 500 ml of EZPAQUE RECTAL: 250 ml of EZPAQUE RECTAL: 120 ml of VARIBAR PUDDING Fluoroscopy radiation summary: Fluoroscopy time: 1:54 (min:sec). Air kerma: 97.3 mGy. COMPARISON: None RESULT: Initiation and ease of evacuation: Difficult and slow Change in anorectal angle during defecation: Normal straightening Development of rectocele: Yes Size of rectocele: Medium Emptying of rectocele: Partial, no obvious contributing etiology evident Widening of rectovaginal septum: Enterocele: None Sigmoidocele: None Rectal intussusception: None Post-evacuation recoil: Normal recoil to original position Vaginal length/support: Maintained length and support DIVISION OF RADIOLOGY Provider, [facility] - 04/26/2024 * * *Final Report* * * DATE OF EXAM: Apr 26 2024 9:28AM [id number] - XR DEFECOGRAPHY / PROCEDURE REASON: 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 * * * * Physician Interpretation * * * * CINEDEFECOGRAPHY CLINICAL HISTORY: Perineal bulge/pressure TECHNIQUE: Cinedefecography was performed with vaginal, enteric, and rectal contrast. Recorded real-time fluoroscopy and spot imaging were used, including the following maneuvers: rest, squeeze, strain, evacuation, and post-evacuation. Contrast: ORAL: 500 ml of EZPAQUE RECTAL: 250 ml of EZPAQUE RECTAL: 120 ml of VARIBAR PUDDING Fluoroscopy radiation summary: Fluoroscopy time: 1:54 (min:sec). Air kerma: 97.3 mGy. COMPARISON: None RESULT: Initiation and ease of evacuation: Difficult and slow Change in anorectal angle during defecation: Normal straightening Development of rectocele: Yes Size of rectocele: Medium Emptying of rectocele: Partial, no obvious contributing etiology evident Widening of rectovaginal septum: Enterocele: None Sigmoidocele: None Rectal intussusception: None Post-evacuation recoil: Normal recoil to original position Vaginal length/support: Maintained length and support IMPRESSION IMPRESSION: CINEDEFECOGRAPHY DESCRIBED -- SEE SYNOPTIC REPORT FOR DETAILS. Gold Prospector: PSCB Transcribe Date/Time: Apr 26 2024 9:36A Dictated by : HAIM CORLEY MD This examination was interpreted and the report reviewed and electronically signed by: HAIM CORLEY MD on Apr 26 2024 9:45AM EST [facility] Radiology Study observation (narrative) Helene garcia [facility] RF Gastrointestinal tract up per Views W water soluble contrast POOrdered By: Ccf Provider on 04-26-2024 [facility] MAMM SCREENING BILATERAL W C business continuity specialist 04-20-2024 MAMM SCREENING BILATERAL W CAD MAMM SCREENING BILATERAL W CAD EXAM: MAMM SCREENING BILATERAL W CAD, 04/19/2024 2:19 PM CLINICAL INDICATIONS: Screening, Visit for screening mammogram COMPARISON: 02/14/2023 TECHNIQUE: Bilateral digital tomosynthesis MLO and CC views of the breasts were obtained, with creation of synthetic 2D views. Computer aided detection was utilized. FINDINGS: There are scattered areas of fibroglandular density. There are no suspicious masses, calcifications, or areas of architectural distortion. IMPRESSION: No mammographic evidence of malignancy. BI-RADS: BI-RADS 1 - Negative Recommendation: Recommend supplemental MRI evaluation in addition to annual mammography.. Given personal elevated risk of malignancy greater than 20% lifetime risk (specifically 29 % TC life time risk), MRI may be considered for supplemental screening. This is recommended to be performed at alternating 6 month intervals with screening mammography. Finalized by Siva Bailey MD on 04/20/2024 8:31 AM 1 b BREAST MRI Normal [facility] Serum Ermias Rausch virus cap karey IgG antibody assay (units/volume)Ordered By: Melyssa Saleem on 01-14-2024 EBV capsid IgG Qn (S) 412.0 [arb'U]/mL 0.0-17.9 [facility] Comment on above: Negative <18.0 Equiv ocal 18.0 - 21.9 Positive >21.9 EBV capsid IgG Qn (S) [arb'U]/mL 0.0-35.9 [facility] Comment on above: Negative <36.0 Equiv ocal 36.0 - 43.9 Positive >43.9Performed at: - [facility] [address] [id number] Director: Omar Thomas PhD, Phone: [phone] Serum Ermias Rausch virus nuc lear IgG antibody assay (units/volume)Ordered By: Melyssa Saleem on 01-14-2024 EBV nuclear IgG Qn (S) 80.6 U/mL 0.0-17.9 [facility] Comment on above: Negative <18.0 Equiv ocal 18.0 - 21.9 Positive >21.9 Vitamin D+Metabolites [Mass/ volume] in Serum or PlasmaOrdered By: Melyssa Saleem on 01-14-2024 Vitamin D+Metabolites [Mass/Vol] 19.1 ng/mL 30-100 [facility] Comment on above: Hemolysis is present at a level that could interfere with the result.VITAMIN D STATUS 25(OH)VITAMIN D RANGE (ng/mL) Deficient <20 Insufficient 20 to <30Sufficient 30 to 100Reference: Carlo MF,Linda NC, Saira MCGEE, et al. Evaluation,treatment, and prevention of vitamin D deficiency; an Endocrine Society clinical practice guideline. JCEM. 2010; 96(7):1911-30. Basophils Auto (Bld) [#/Vol] on 01-09-2024 Basophils (Bld) [#/Vol] 0.2 10 3/uL 0.0-0.1 [facility] Basophils/100 WBC Auto (Bld) on 01-09-2024 Basophils/100 WBC (Bld) 1.7 % 0.2-2.0 [facility] Eosinophils/100 WBC Auto (Bl d)on 01-09-2024 Eosinophils/100 WBC (Bld) 7.5 % 0.9-7.0 [facility] Erythrocyte distribution wid th Auto (RBC) [Ratio]on 01-09-2024 Erythrocyte distribution width (RBC) [Ratio] 13.4 % 11.0-15.0 [facility] Estimated glomerular filtrat ion rate (GFR) non- Americanon 01-09-2024 GFR/1.73 sq M.predicted among non-blacks MDRD (S/P/Bld) [Vol rate/Area] 56 mL/min/{1.73_m2} >=60 [facility] Fibrin D-dimer [Presence] in Platelet poor plasma by Latex agglutinationon 01-09-2024 Fibrin D-dimer LA Ql (PPP) 0.56 mg/L FEU <=0.59 [facility] Comment on above: Increases in D-Dimer concentration observed withthromboembolic events can be variable due to localization,size, and age of the thrombus. Therefore, a thromboembolicevent cannot be diagnosed with certainty on the basis of thereference range. D-Dimers may also be elevated for a varietyof disorders including advanced age, , coronarydisease, cancer, liver disease, infection, inflammation,hematoma, DIC, trauma, post-surgery, diabetes, thrombolyticor anticoagulant therapy, stress, and generalizedhospitalization. Globulin Calc (S) [Mass/Vol] on 01-09-2024 Globulin (S) [Mass/Vol] 3.7 g/dL [facility] HCG ( test) IA.rapi d Ql (U)on 01-09-2024 HCG ( test) Ql (U) Negative NEGATIVE [facility] Hematocrit Auto (Bld) [Volum e fraction]on 01-09-2024 Hematocrit (Bld) [Volume fraction] 41.9 % 36.0-48.0 [facility] Hemoglobin [Mass/volume] in Bloodon 01-09-2024 Hemoglobin (Bld) [Mass/Vol] 13.7 g/dL 12.0-16.0 [facility] Laboratory - Chemistry and C hemistry - challengeon 01-09-2024 Albumin [Mass/Vol] 3.4 g/dL 3.4-5.0 [facility] ALP [Catalytic activity/Vol] 73 U/L 46-116 [facility] ALT [Catalytic activity/Vol] 21 U/L 14-59 [facility] AST [Catalytic activity/Vol] 10 U/L 15-37 [facility] Bilirubin [Mass/Vol] 0.4 mg/dL 0.2-1.0 [facility] Calcium [Mass/Vol] 9.4 mg/dL 8.5-10.1 [facility] Chloride [Moles/Vol] 103 mmol/L 98-107 [facility] CO2 [Moles/Vol] 27.2 mmol/L 21.0-32.0 [facility] Creatinine [Mass/Vol] 1.09 mg/dL 0.55-1.02 [facility] GFR/1.73 sq M.predicted MDRD (S/P/Bld) [Vol rate/Area] mL/min/{1.73_m2} >=60 [facility] Glucose [Mass/Vol] 89 mg/dL 74-106 [facility] Lipase [Catalytic activity/Vol] 36.0 U/L 16.0-77.0 [facility] Potassium [Moles/Vol] 3.7 mmol/L 3.5-5.1 [facility] Protein [Mass/Vol] 7.1 g/dL 6.4-8.2 [facility] Sodium [Moles/Vol] 139 mmol/L 136-145 [facility] Urea nitrogen [Mass/Vol] 13.0 mg/dL 7.0-18.0 [facility] Urea nitrogen/Creatinine [Mass ratio] 11.9 mg/mg [facility] Laboratory - Hematology and Cell countson 01-09-2024 Immature granulocytes/100 WBC (Bld) 0.3 % 0.0-0.5 [facility] Leukocytes [#/volume] correc devan for nucleated erythrocytes in Blood by Automated counon 01-09-2024 WBC corrected for nucl RBC Auto (Bld) [#/Vol] 10.4 10 3/uL 4.0-11.0 [facility] Lymphocytes Auto (Bld) [#/Vo l]on 01-09-2024 Lymphocytes (Bld) [#/Vol] 2.5 10 3/uL 1.2-3.8 [facility] Lymphocytes/100 WBC Auto (Bl d)on 01-09-2024 Lymphocytes/100 WBC (Bld) 24.1 % 20.5-60.0 [facility] MCH Auto (RBC) [Entitic mass ]on 01-09-2024 MCH (RBC) [Entitic mass] 30.1 pg 26.7-34.0 [facility] MCHC Auto (RBC) [Mass/Vol]on 01-09-2024 MCHC (RBC) [Mass/Vol] 32.7 g/dL 29.9-35.2 [facility] MCV Auto (RBC) [Entitic vol] on 01-09-2024 MCV (RBC) [Entitic vol] 92.1 fL 81.0-99.0 [facility] Monocytes Auto (Bld) [#/Vol] on 01-09-2024 Monocytes (Bld) [#/Vol] 0.5 10 3/uL 0.3-0.8 [facility] Monocytes/100 WBC Auto (Bld) on 01-09-2024 Monocytes/100 WBC (Bld) 5.2 % 1.7-12.0 [facility] Neutrophils Auto (Bld) [#/Vo l]on 01-09-2024 Neutrophils (Bld) [#/Vol] 6.3 10 3/uL 1.4-6.5 [facility] Neutrophils/100 WBC Auto (Bl d)on 01-09-2024 Neutrophils/100 WBC (Bld) 61.2 % 43.0-75.0 [facility] No Panel Informationon 01-08 Eosinophils # (Auto) 0.8 10 3/uL 0.0-0.7 [facility] Immature Granulocyte # (Auto) 0.03 10 3/uL 0.00-0.03 [facility] Troponin I High Sensitivity <4.0 pg/mL 4.0-51.3 [facility] Comment on above: CUT-OFF POINTS HAVE BEEN ESTABLISHED BASED ON THE FOURTHUNIVERSAL DEFINITION OF MYOCARDIAL INFARCTION. THE UPPERREFERENCE LIMIT (URL) OF TROPONIN, DEFINED THE 99THPERCENTILE OF cTnI DISTRIBUTION IN A REFERENCE POPULATION,HAS BEEN CONFIRMED THE DECISION THRESHOLD FOR MIDIAGNOSIS.99TH PERCENTILE = 51.4 PG/MLNOTE: HIGH-SENSITIVITY TROPONIN ASSAY IS NOT INTENDED TO BEUSED IN ISOLATION BUT SHOULD BE INTERPRETED IN CONJUNCTIONWITH OTHER DIAGNOSTIC AND CLINICAL INFORMATION. Platelet mean volume Auto (B ld) [Entitic vol]on 01-09-2024 Platelet mean volume (Bld) [Entitic vol] 10.9 fL 9.5-13.5 [facility] Platelets Auto (Bld) [#/Vol] on 01-09-2024 Platelets (Bld) [#/Vol] 321 10 3/uL 150-450 [facility] RBC Auto (Bld) [#/Vol]on RBC (Bld) [#/Vol] 4.55 10 6/uL 4.20-5.40 [facility] Serum or plasma albumin/glob ulin mass ratioon 01-09-2024 Albumin/Globulin [Mass ratio] 0.9 {ratio} [facility] Serum or plasma anion gap de terminationon 01-09-2024 Anion gap [Moles/Vol] 12.5 mmol/L [facility] Laboratory - Chemistry and C hemistry - challengeon 11-17-2023 CK [Catalytic activity/Vol] 48 U/L 26192 [facility] Serum or plasma free cefurox carlos measurement (mass/volume)on 11-17-2023 Cefuroxime free [Mass/Vol] Negative Negative [facility] Comment on above: Performed at: [address] [id number] Director: Omar Thomas PhD, Phone: [phone] Serum or plasma myoglobin me asurement (mass/volume)on 11-17-2023 Myoglobin [Mass/Vol] 42 ng/mL [facility] US PELVIS AND TRANSVAGon US PELVIS AND TRANSVAG EXAMINATION: US P CHAZ AND TRANSVAG HISTORY: Pelvic and perineal pain [...] AZEB LEIGH Date: 2023-02-04 08:55 Normal [facility] COVID-19 Positive/NegativeOr dered By: Arturo Kumar on 06-25-2022 SARS-CoV-2 (COVID-19) N gene SANJEEV+probe Ql (Resp) Negative Negative [facility] Comment on above: Testing for SARS-CoV -2 by RT-PCRThis test was developed and its performance characteristics determined by [employer] ([employer]) and validated at the [facility]. This test has not been FDA [...] is terminated or revoked sooner. Covid-19 PCR (CVDTB)on SARS-CoV-2 (COVID-19) RNA SANJEEV+probe Ql (Unsp spec) Not detected Normal NOT DETECTED [facility] Comment on above: Result Comment: This test is not yet approved or cleared by the [place] FDA. When there are no FDA-approved or cleared tests available, and other criteria are met, FDA can make tests available under an emergency access mechanism called an Emergency Use Authorization (EUA). The EUA for this test is supported by the [place] of Health and Human Service's (HHS's) declaration [...] consistent with SARS-CoV-2. Performed By: #### [facility] #### [facility] [address] [place] [address] Dr. Skyler Saldivar Basophils Auto (Bld) [#/Vol] Ordered By: Meera Bolden on 04-22-2022 Basophils (Bld) [#/Vol] 0.1 10*3/uL 0.0-0.2 [facility] Basophils/100 WBC Auto (Bld) Ordered By: Meera Bolden on 04-22-2022 Basophils/100 WBC (Bld) 0.9 % . [facility] Blood hemoglobin measurement (mass/volume)Ordered By: Meera Bolden on 04-22-2022 Hemoglobin (Bld) [Mass/Vol] 12.6 g/dL 11.8-15.4 [facility] Blood leukocytes automated c ount (number/volume)Ordered By: Meera Bolden on 04-22-2022 WBC (Bld) [#/Vol] 9.0 10*3/uL 4.5-11.0 [facility] Creatinine and Glomerular fi ltration rate.predicted panel (S/P/Bld)Ordered By: Meera Bolden on 04-22-2022 Creatinine [Mass/Vol] 1.06 mg/dL 0.44-1.03 [facility] Eosinophils Auto (Bld) [#/Vo l]Ordered By: Meera Bolden on 04-22-2022 Eosinophils (Bld) [#/Vol] 0.7 10*3/uL 0.0-0.45 [facility] Eosinophils/100 WBC Auto (Bl d)Ordered By: Meera Bolden on 04-22-2022 Eosinophils/100 WBC (Bld) 7.3 % . [facility] Erythrocyte distribution wid th Auto (RBC) [Ratio]Ordered By: Meera Bolden on 04-22-2022 Erythrocyte distribution width (RBC) [Ratio] 14.3 % 11.9-15.3 [facility] Estimated glomerular filtrat ion rate (GFR) non- AmericanOrdered By: Meera Bolden on 04-22-2022 GFR/1.73 sq M.predicted among non-blacks MDRD (S/P/Bld) [Vol rate/Area] 58 mL/Min [facility] Hematocrit Auto (Bld) [Volum e fraction]Ordered By: Meera Bolden on 04-22-2022 Hematocrit (Bld) [Volume fraction] 38.0 % 34.0-46.4 [facility] Laboratory - Hematology and Cell countsOrdered By: Meera Bolden on 04-22-2022 Nucleated RBC/100 WBC (Bld) [Ratio] 0.0 % 0-0.5 [facility] Lymphocytes Auto (Bld) [#/Vo l]Ordered By: Meera Bolden on 04-22-2022 Lymphocytes (Bld) [#/Vol] 1.9 10*3/uL 1.00-4.8 [facility] Lymphocytes/100 WBC Auto (Bl d)Ordered By: Meera Bolden on 04-22-2022 Lymphocytes/100 WBC (Bld) 21.2 % . [facility] MCH Auto (RBC) [Entitic mass ]Ordered By: Meera Bolden on 04-22-2022 MCH (RBC) [Entitic mass] 29.9 pg 24.7-34.3 [facility] MCHC Auto (RBC) [Mass/Vol]Or dered By: Meera Bolden on 04-22-2022 MCHC (RBC) [Mass/Vol] 33.3 g/dL 32.0-35.0 [facility] MCV Auto (RBC) [Entitic vol] Ordered By: Meera Bolden on 04-22-2022 MCV (RBC) [Entitic vol] 90.0 fL 80-100 [facility] Monocytes Auto (Bld) [#/Vol] Ordered By: Meera Bolden on 04-22-2022 Monocytes (Bld) [#/Vol] 0.5 10*3/uL 0.0-0.8 [facility] Monocytes/100 WBC Auto (Bld) Ordered By: Meera Bolden on 04-22-2022 Monocytes/100 WBC (Bld) 5.6 % . [facility] Neutrophils Auto (Bld) [#/Vo l]Ordered By: Meera Bolden on 04-22-2022 Neutrophils (Bld) [#/Vol] 5.8 10*3/uL 1.8-7.7 [facility] Neutrophils/100 WBC Auto (Bl d)Ordered By: Meera Bolden on 04-22-2022 Neutrophils/100 WBC (Bld) 65.0 % . [facility] No Panel InformationOrdered By: Meera Bolden on 04-22-2022 Estimated GFR () > 60 mL/Min [facility] Comment on above: GFR estimated refere nce range: According to KDOQI guidelines, <60 ml/min/1.73m2 is sufficient to diagnose a patient with chronic kidney disease. Pharmacy Creatinine Clearance (Chem 89.25 [facility] Platelet mean volume Auto (B ld) [Entitic vol]Ordered By: Meera Bolden on 04-22-2022 Platelet mean volume (Bld) [Entitic vol] 9.9 fL 6.3-10.7 [facility] Platelets Auto (Bld) [#/Vol] Ordered By: Meera Bolden on 04-22-2022 Platelets (Bld) [#/Vol] 243 10*3/uL 150-450 [facility] RBC Auto (Bld) [#/Vol]Ordere d By: Meera Bolden on 04-22-2022 RBC (Bld) [#/Vol] 4.22 10*6/uL 3.60-5.00 [facility] Serum or plasma calcium bill urement (mass/volume)Ordered By: Meera Bolden on 04-22-2022 Calcium [Mass/Vol] 8.2 mg/dL 8.2-10.2 [facility] Serum or plasma chloride apple surement (moles/volume)Ordered By: Meera Bolden on 04-22-2022 Chloride [Moles/Vol] 109 mmol/L 95-114 [facility] Serum or plasma glucose bill urement (mass/volume)Ordered By: Meera Bolden on 04-22-2022 Glucose [Mass/Vol] 96 mg/dL 70-100 [facility] Comment on above: ADA recommended refe rence rangeRandom Glucose Reference Range is dependent on time and content of last meal. Glucose of more than 200 mg/dL in a nonstressed, ambulatory subject supports the diagnosis of Diabetes Mellitus. Serum or plasma potassium me asurement (moles/volume)Ordered By: Meera Bolden on 04-22-2022 Potassium [Moles/Vol] 3.3 mmol/L 3.5-5.1 [facility] Serum or plasma sodium measu rement (moles/volume)Ordered By: Meera Bolden on 04-22-2022 Sodium [Moles/Vol] 138 mmol/L 136-146 [facility] Serum or plasma total carbon dioxide measurement (moles/volume)Ordered By: Meera Bolden on 04-22-2022 CO2 [Moles/Vol] 25.1 mmol/L 22.0-30.0 [facility] Serum or plasma urea nitroge n measurement (mass/volume)Ordered By: Meera Bolden on 04-22-2022 Urea nitrogen [Mass/Vol] 12 mg/dL 9-23 [facility] CBC AUTO DIFFon 04-21-2022 BASO # 0.2 103/ul Critically high 0.0-0.1 [facility] Comment on above: Performed By: #### C BC #### [facility] [address] [address] [address] Skyler Saldivar Basophils/100 WBC (Bld) 1.5 % Normal 0.2-2.0 [facility] Comment on above: Performed By: #### C BC #### [facility] [address] [address] [address] Skyler Saldivar EO # 0.7 103/ul Normal 0.0-0.7 [facility] Comment on above: Performed By: #### C BC #### [facility] [address] [place] [address] Dr. Skyler Saldivar Eosinophils/100 WBC (Bld) 6.4 % Normal 0.9-7.0 [facility] Comment on above: Performed By: #### C BC #### [facility] [address] [place] [address] Dr. Skyler Saldivar Erythrocyte distribution width (RBC) [Ratio] 13.7 % Normal 11.0-15.0 [facility] Comment on above: Performed By: #### C BC #### [facility] [address] [place] [address] Dr. Skyler Saldivar Hematocrit (Bld) [Volume fraction] 43.3 % Normal 36.0-48.0 [facility] Comment on above: Performed By: #### C BC #### [facility] [address] [place] [address] Dr. Skyler Saldivar Hemoglobin (Bld) [Mass/Vol] 13.9 g/dL Normal 12.0-16.0 [facility] Comment on above: Performed By: #### C BC #### [facility] [address] [place] [address] Dr. Skyler Saldivar IG # 0.03 10e3/ul Normal 0.00-0.03 [facility] Comment on above: Performed By: #### C BC #### [facility] [address] [place] [address] Dr. Skyler Saldivar IG % 0.3 % Normal 0.0-0.5 [facility] Comment on above: Performed By: #### C BC #### [facility] [address] [place] [address] Dr. Skyler Saldivar LYMPH # 2.5 103/ul Normal 1.2-3.8 [facility] Comment on above: Performed By: #### C BC #### [facility] [address] [place] [address] Dr. Skyler Saldivar Lymphocytes/100 WBC (Bld) 24.1 % Normal 20.5-60.0 [facility] Comment on above: Performed By: #### C BC #### [facility] [address] [place] [address] Dr. Skyler Saldivar MANUAL DIFF REQ NO Normal [facility] Comment on above: Performed By: #### C BC #### [facility] [address] [place] [address] Dr. Skyler Saldivar MCH (RBC) [Entitic mass] 28.9 pg Normal 26.7-34.0 [facility] Comment on above: Performed By: #### C BC #### [facility] [address] [place] [address] Dr. Skyler Saldivar MCHC (RBC) [Mass/Vol] 32.1 g/dL Normal 29.9-35.2 [facility] Comment on above: Performed By: #### C BC #### [facility] [address] [place] [address] Dr. Skyler Saldivar MCV (RBC) [Entitic vol] 90.0 fL Normal 81.0-99.0 [facility] Comment on above: Performed By: #### C BC #### [facility] [address] [place] [address] Dr. Skyler Saldivar MONO # 0.4 103/ul Normal 0.3-0.8 [facility] Comment on above: Performed By: #### C BC #### [facility] [address] [place] [address] Dr. Skyler Saldivar Monocytes/100 WBC (Bld) 4.3 % Normal 1.7-12.0 [facility] Comment on above: Performed By: #### C BC #### [facility] [address] [place] [address] Dr. Skyler Saldivar NEUT # 6.6 103/ul Critically high 1.4-6.5 [facility] Comment on above: Performed By: #### C BC #### [facility] [address] [place] [address] Dr. Skyler Saldivar Neutrophils/100 WBC (Bld) 63.4 % Normal 43.0-75.0 [facility] Comment on above: Performed By: #### C BC #### [facility] [address] [place] [address] Dr. Skyler Saldivar Platelet mean volume (Bld) [Entitic vol] 11.3 fL Normal 9.5-13.5 [facility] Comment on above: Performed By: #### C BC #### [facility] [address] [place] [address] Dr. Skyler Saldivar PLT 317 103/ul Normal 150-450 [facility] Comment on above: Performed By: #### C BC #### [facility] [address] [place] [address] Dr. Skyler Saldivar RBC 4.81 106/ul Normal 4.20-5.40 [facility] Comment on above: Performed By: #### C BC #### [facility] [address] [place] [address] Dr. Skyler Saldivar WBC 10.3 103/ul Normal 4.0-11.0 [facility] Comment on above: Performed By: #### C BC #### [facility] [address] [place] [address] Dr. Skyler Saldivar Covid-19 PCR ([facility]on 03-24 SARS-CoV-2 (COVID-19) RNA SANJEEV+probe Ql (Unsp spec) Not detected Normal NOT DETECTED [facility] Comment on above: Result Comment: When [...] for this test is supported by the Commanding Officer [employer] of [employer] and Human Service's declaration that [...] longer be used). Performed By: #### [facility] #### [facility] [address] [place] [address] Dr. Skyler Saldivar PROF 14(COMP METB)on 022 Albumin [Mass/Vol] 3.9 g/dL Normal 3.4-5.0 [facility] Comment on above: Performed By: #### C MP #### [facility] [address] [place] [address] Dr. Skyler Saldivar Albumin/Globulin [Mass ratio] 0.9 {ratio} Normal [facility] Comment on above: Performed By: #### C MP #### [facility] [address] [place] [address] Dr. Skyler Saldivar ALP [Catalytic activity/Vol] 73 U/L Normal 46-116 [facility] Comment on above: Performed By: #### C MP #### [facility] [address] [place] [address] Dr. Skyler Saldivar ALT [Catalytic activity/Vol] 20 U/L Normal 14-59 [facility] Comment on above: Performed By: #### C MP #### [facility] [address] [place] [address] Dr. Skyler Saldivar Anion gap [Moles/Vol] 13.8 mmol/L Normal [facility] Comment on above: Performed By: #### C MP #### [facility] [address] [place] [address] Dr. Skyler Saldivar AST [Catalytic activity/Vol] 14 U/L Critically low 15-37 [facility] Comment on above: Performed By: #### C MP #### [facility] [address] [address] [address] Skyler Saldivar Bilirubin [Mass/Vol] 0.3 mg/dL Normal 0.2-1.0 [facility] Comment on above: Performed By: #### C MP #### [facility] [address] [address] [address] Skyler Saldivar Calcium [Mass/Vol] 9.1 mg/dL Normal 8.5-10.1 [facility] Comment on above: Performed By: #### C MP #### [facility] [address] [address] [address] Skyler Saldivar Chloride [Moles/Vol] 105 mmol/L Normal 98-107 [facility] Comment on above: Performed By: #### C MP #### [facility] [address] [address] [address] Skyler Saldivar CO2 [Moles/Vol] 23.8 mmol/L Normal 21.0-32.0 [facility] Comment on above: Performed By: #### C MP #### [facility] [address] [address] [address] Skyler Saldivar Creatinine [Mass/Vol] 1.11 mg/dL Critically high 0.55-1.02 [facility] Comment on above: Performed By: #### C MP #### [facility] [address] [address] [address] Skyler Saldivar EGFR-AF VIET[place]ESE >60 Normal >=60 [facility] Comment on above: Performed By: #### C MP #### [facility] [address] [address] [address] Skyler Saldivar EGFR-NON AF VIET[place]ESE 55 mL/min/1.73m2 Critically low >=60 [facility] Comment on above: Performed By: #### C MP #### [facility] [address] [address] [address] Skyler Saldivar Globulin (S) [Mass/Vol] 4.2 g/dL Normal T [facility] Comment on above: Performed By: #### C MP #### [facility] [address] [place] [address] Dr. Skyler Saldivar Glucose [Mass/Vol] 94 mg/dL Normal 74-106 [facility] Comment on above: Performed By: #### C MP #### [facility] [address] [address] [address] Skyler Saldivar Potassium [Moles/Vol] 3.6 mmol/L Normal 3.5-5.1 [facility] Comment on above: Performed By: #### C MP #### [facility] [address] [place] [address] Dr. Skyler Saldivar Protein [Mass/Vol] 8.1 g/dL Normal 6.4-8.2 [facility] Comment on above: Performed By: #### C MP #### [facility] [address] [place] [address] Dr. Skyler Saldivar Sodium [Moles/Vol] 139 mmol/L Normal 136-145 [facility] Comment on above: Performed By: #### C MP #### [facility] [address] [place] [address] Dr. Skyler Saldivar Urea nitrogen [Mass/Vol] 15.0 mg/dL Normal 7.0-18.0 [facility] Comment on above: Performed By: #### C MP #### [facility] [address] [place] [address] Dr. Skyler Saldivar Urea nitrogen/Creatinine [Mass ratio] 13.5 mg/mg Normal [facility] Comment on above: Performed By: #### C MP #### [facility] [address] [place] [address] Dr. Skyler Saldivar Hep Bs Abon 01-06-2019 HBV surface Ab Ql (S) Reactive [facility] Comment on above: Result Comment: Non Reactive: Inconsistent with immunity, less than 10 mIU/mL Reactive: Consistent with immunity, greater than 9.9 mIU/mL Verified by repeat analysis Performed at: [address] [place] [id number] PhD William Nelson Performed By: #### 2 [id number] #### Roger [facility] [address] [place] [address] Varic IgGon 01-06-2019 VZV IgG IA Qn (S) 3354 Immune >165 [facility] Comment on above: Result Comment: Nega tive <135 Equivocal 135 - 165 Positive >165 A positive result generally indicates exposure to the pathogen or administration of specific immunoglobulins, but it is not indication of active infection or stage of disease. Performed at: [facility] [address] [id number] PhD William Nelson Performed By: #### 2 [id number] #### Dur[place] [facility] [address] [place] [address] Vital Signs Date Time Vital Sign Value Performing Clinician Facility 06-03-2025 12:43-0400 Body height 165.5 cm Luly Leone DO Work Phone: [facility] 06-03-2025 12:43-0400 Body mass index (BMI) [Ratio] 43.99 kg/m2 Luly Leone DO Work Phone: [facility] 06-03-2025 12:43-0400 Body temperature 97.39 [degF] Luly Leone DO Work Phone: [facility] 06-03-2025 12:43-0400 Body weight 120.5 kg Luly Leone DO Work Phone: [facility] 06-03-2025 12:43-0400 Diastolic blood pressure 84 mm[Hg] Luly Leone DO Work Phone: [facility] 06-03-2025 12:43-0400 Heart rate 79 /min Luly Leone DO Work Phone: [facility] 06-03-2025 12:43-0400 Systolic blood pressure 121 mm[Hg] Luly Leone DO Work Phone: [address] [place] [address]-19-2025 15:02-0400 Body height 162.56 cm Kelsey Stoner MD Work Phone: [facility] 05-10-2025 15:02-0400 Body mass index (BMI) [Ratio] 43.9 kg/m2 Kelsey Stoner MD Work Phone: [facility] 05-10-2025 15:02-0400 Body weight 116.11 kg Kelsey Stoner MD Work Phone: [facility] 04-04-2025 15:00-0400 Body height 162.56 cm Kelsey Stoner MD Work Phone: [facility] 04-04-2025 15:00-0400 Body mass index (BMI) [Ratio] 43.4 kg/m2 Kelsey Stoner MD Work Phone: [facility] 04-04-2025 15:00-0400 Body weight 115 kg Kelsey Stoner MD Work Phone: [facility] 03-15-2025 10:07-0400 Body height 162.56 cm Kelsey Stoner MD Work Phone: [facility] 03-15-2025 10:07-0400 Body mass index (BMI) [Ratio] 43.6 kg/m2 Kelsey Stoner MD Work Phone: [facility] 03-15-2025 10:07-0400 Body weight 115.21 kg Kelsey Stoner MD Work Phone: [facility] 03-15-2025 10:07-0400 Diastolic blood pressure 73 mm[Hg] Kelsey Stoner MD Work Phone: [facility] 03-15-2025 10:07-0400 Heart rate 83 /min Kelsey Stoner MD Work Phone: [facility] 03-15-2025 10:07-0400 Systolic blood pressure 130 mm[Hg] Kelsey Stoner MD Work Phone: [facility] 01-25-2025 13:45-0400 Diastolic blood pressure 88 mm[Hg] Kelsey Stoner MD Work Phone: [facility] 01-25-2025 13:45-0400 Heart rate 78 /min Kelsey Stoner MD Work Phone: [facility] 01-25-2025 13:45-0400 Respiratory rate 16 /min Kelsey Stoner MD Work Phone: [facility] 01-25-2025 13:45-0400 SaO2% (BldA) [Mass fraction] 96 % Kelsey Stoner MD Work Phone: [facility] 01-25-2025 13:45-0400 Systolic blood pressure 116 mm[Hg] Kelsey Stoner MD Work Phone: [facility] 01-25-2025 13:15-0400 Inhaled oxygen flow rate 5 L/min Kelsey Stoner MD Work Phone: [facility] 01-25-2025 12:11-0400 Body height 162.56 cm Kelsey Stoner MD Work Phone: [facility] 01-25-2025 12:11-0400 Body weight 112.49 kg Kelsey Stoner MD Work Phone: [facility] 01-12-2025 11:51-0400 Body height 163 cm Hariin Adler MD Work Phone: [facility] 01-12-2025 11:51-0400 Body mass index (BMI) [Ratio] 43.7 kg/m2 Harini Adler MD Work Phone: [facility] 01-12-2025 11:51-0400 Body temperature 98.29 [degF] Harini Adler MD Work Phone: [facility] 01-12-2025 11:51-0400 Body weight 116.1 kg Harini Adler MD Work Phone: [facility] 01-12-2025 11:51-0400 Diastolic blood pressure 77 mm[Hg] Harini Adler MD Work Phone: [facility] 01-12-2025 11:51-0400 Heart rate 92 /min Harini Adler MD Work Phone: [facility] 01-12-2025 11:51-0400 Systolic blood pressure 126 mm[Hg] Harini Adler MD Work Phone: [facility] 01-10-2025 08:25-0400 Body mass index (BMI) [Ratio] 43.67 kg/m2 Tania Stout [employer] Work Phone: [facility] 01-10-2025 08:25-0400 Body weight 115.39 kg Tania Stout [employer] Work Phone: [facility] 01-10-2025 08:25-0400 Diastolic blood pressure 88 mm[Hg] Tania Stout [employer] Work Phone: [facility] 01-10-2025 08:25-0400 Heart rate 104 /min Tania Stout [employer] Work Phone: [facility] 01-10-2025 08:25-0400 SaO2% (BldA) [Mass fraction] 99 % Tania Stout [employer] Work Phone: [facility] 01-10-2025 08:25-0400 Systolic blood pressure 140 mm[Hg] Tania Stout [employer] Work Phone: [facility] 12-27-2024 10:40-0400 Diastolic blood pressure 101 mm[Hg] Kelsey Stoner MD Work Phone: [facility] 12-27-2024 10:40-0400 Systolic blood pressure 138 mm[Hg] Kelsey Stoner MD Work Phone: [facility] 12-23-2024 20:56-0400 Diastolic blood pressure 94 mm[Hg] Kelsey Stoner MD Work Phone: [facility] 12-23-2024 20:56-0400 Heart rate 99 /min Kelsey Stoner MD Work Phone: [facility] 12-23-2024 20:56-0400 Respiratory rate 20 /min Kelsey Stoner MD Work Phone: [facility] 12-23-2024 20:56-0400 SaO2% (BldA) [Mass fraction] 100 % Kelsey Stoner MD Work Phone: [facility] 12-23-2024 20:56-0400 Systolic blood pressure 146 mm[Hg] Kelsey Stoner MD Work Phone: [facility] 12-23-2024 17:16-0400 Body height 162.56 cm Kelsey Stoner MD Work Phone: [facility] 12-23-2024 17:16-0400 Body temperature 98.6 [degF] Kelsey Stoner MD Work Phone: [facility] 12-23-2024 17:16-0400 Body weight 115 kg Kelsey Stoner MD Work Phone: [facility] 10-23-2024 11:12-0500 Body height 162.56 cm [facility] 10-23-2024 11:12-0500 Body mass index (BMI) [Ratio] 43.8 kg/m2 [facility] 10-23-2024 11:12-0500 Body temperature 97.9 [degF] [facility] 10-23-2024 11:12-0500 Body weight 115.89 kg [facility] 10-23-2024 11:12-0500 Diastolic blood pressure 79 mm[Hg] [facility] 10-23-2024 11:12-0500 Heart rate 63 /min [facility] 10-23-2024 11:12-0500 Respiratory rate 19 /min [facility] 10-23-2024 11:12-0500 SaO2% (BldA) [Mass fraction] 97 % [facility] 10-23-2024 11:12-0500 Systolic blood pressure 119 mm[Hg] [facility] 07-26-2024 12:00-0500 Body mass index (BMI) [Ratio] 42.4 kg/m2 Yasmin Ortiz DO Work Phone: [facility] 07-26-2024 12:00-0500 Body weight 112.04 kg Christopher Diana DO Work Phone: [facility] 07-26-2024 12:00-0500 Diastolic blood pressure 82 mm[Hg] Christopher Diana DO Work Phone: [facility] 07-26-2024 12:00-0500 Heart rate 80 /min Christopher Diana DO Work Phone: [facility] 07-26-2024 12:00-0500 SaO2% (BldA) [Mass fraction] 99 % Christopher Diana DO Work Phone: [facility] 07-26-2024 12:00-0500 Systolic blood pressure 129 mm[Hg] Christopher Diana DO Work Phone: [facility] 07-02-2024 13:58-0400 Body height 163.5 cm Harini Adler MD Work Phone: [facility] 07-02-2024 13:58-0400 Body mass index (BMI) [Ratio] 42.01 kg/m2 Harini Adler MD Work Phone: [facility] 07-02-2024 13:58-0400 Body temperature 99.7 [degF] Harini Adler MD Work Phone: [facility] 07-02-2024 13:58-0400 Body weight 112.3 kg Harini Adler MD Work Phone: [facility] 07-02-2024 13:58-0400 Diastolic blood pressure 83 mm[Hg] Harini Adler MD Work Phone: [facility] 07-02-2024 13:58-0400 Heart rate 98 /min Harini Adler MD Work Phone: [facility] 07-02-2024 13:58-0400 Systolic blood pressure 118 mm[Hg] Harini Adler MD Work Phone: [facility] 06-07-2024 10:59-0400 Body height 162.6 cm Tania Stout [employer] Work Phone: [facility] 06-07-2024 10:59-0400 Body mass index (BMI) [Ratio] 42.62 kg/m2 Tania Stout [employer] Work Phone: [facility] 06-07-2024 10:59-0400 Body weight 112.63 kg Tania Stout [employer] Work Phone: [facility] 06-07-2024 10:59-0400 Diastolic blood pressure 82 mm[Hg] Tania Stout [employer] Work Phone: [facility] 06-07-2024 10:59-0400 Heart rate 94 /min Tania Stout [employer] Work Phone: [facility] 06-07-2024 10:59-0400 SaO2% (BldA) [Mass fraction] 98 % Tania Stout [employer] Work Phone: [facility] 06-07-2024 10:59-0400 Systolic blood pressure 138 mm[Hg] Tania Stout [employer] Work Phone: [facility] 06-01-2024 16:31-0400 Body height 162.56 cm MD Kelsey Stoner Work Phone: [facility] 05-29-2024 13:13-0400 Diastolic blood pressure 77 mm[Hg] MD Kelsey Stoner Work Phone: [facility] 05-29-2024 13:13-0400 Heart rate 85 /min MD Kelsey Stoner Work Phone: [facility] 05-29-2024 13:13-0400 Respiratory rate 18 /min MD Kelsey Stoner Work Phone: [facility] 05-29-2024 13:13-0400 SaO2% (BldA) [Mass fraction] 94 % MD Kelsey Stoner Work Phone: [facility] 05-29-2024 13:13-0400 Systolic blood pressure 118 mm[Hg] MD Kelsey Stoner Work Phone: [facility] 05-29-2024 10:42-0400 Body height 162.56 cm MD Kelsey Stoner Work Phone: [facility] 05-29-2024 10:42-0400 Body temperature 99.2 [degF] MD Kelsey Stoner Work Phone: [facility] 05-29-2024 10:42-0400 Body weight 112.1 kg MD Kelsey Stoner Work Phone: [facility] 04-26-2024 11:43-0400 Body height 162.6 cm Eml Otilia DO Work Phone: [facility] 04-26-2024 11:43-0400 Body mass index (BMI) [Ratio] 42.36 kg/m2 Mel Otilia DO Work Phone: [facility] 04-26-2024 11:43-0400 Body temperature 98.29 [degF] Mel Otilia DO Work Phone: [facility] 04-26-2024 11:43-0400 Body weight 111.95 kg Mel Otilia DO Work Phone: [facility] 04-26-2024 11:43-0400 Diastolic blood pressure 86 mm[Hg] Mel Otilia DO Work Phone: [facility] 04-26-2024 11:43-0400 Heart rate 90 /min Mel Otilia DO Work Phone: [facility] 04-26-2024 11:43-0400 SaO2% (BldA) [Mass fraction] 98 % Mel Otilia DO Work Phone: [facility] 04-26-2024 11:43-0400 Systolic blood pressure 118 mm[Hg] Mel Otilia DO Work Phone: [facility] 04-09-2024 08:25-0400 Body height 162.6 cm Lamar PAZ [facility] 04-09-2024 08:25-0400 Body mass index (BMI) [Ratio] 42.72 kg/m2 Lamar Herman [employer] O[employer]ATOR Work Phone: [facility] 04-09-2024 08:25-0400 Body weight 112.95 kg Lamar Herman [employer] MACHINE OPERATOR Work Phone: [facility] 04-09-2024 08:25-0400 Diastolic blood pressure 82 mm[Hg] Lamar Herman [employer] MACHINE OPERATOR Work Phone: [facility] 04-09-2024 08:25-0400 Systolic blood pressure 122 mm[Hg] Lamar Herman [employer]AL [employer] MACHINE OPERATOR Work Phone: [facility] 01-20-2024 14:35-0400 Body height 162.56 cm MD Kelsey Stoner Work Phone: [facility] 12-31-2023 06:58-0400 Body height 162.56 cm MD Kelsey Stoner Work Phone: [facility] 12-31-2023 06:58-0400 Body weight 108.86 kg MD Kelsey Stoner Work Phone: [facility] 11-08-2023 08:02-0500 Body height 162.56 cm MD Kelsey Stoner Work Phone: [facility] 11-08-2023 08:02-0500 Body weight 107.95 kg MD Kelsey Stoner Work Phone: [facility] 10-22-2023 09:00-0500 Body height 163.83 cm Kelsey Stoner Other [facility] 10-22-2023 09:00-0500 Body mass index (BMI) [Ratio] 41.16 kg/m2 Kelsey Stoner Other [facility] [employer] Other 10-22-2023 09:00-0500 Body weight 110.5 kg Kelsey Stoner Other [employer] Other 10-22-2023 09:00-0500 Body weight 110.49 kg MD Kelsey Stoner Work Phone: [facility] 10-22-2023 09:00-0500 Diastolic blood pressure 85 mm[Hg] Kelsey Stoner Other [facility] 10-22-2023 09:00-0500 Systolic blood pressure 137 mm[Hg] Kelsey Stoner Other [facility] 10-10-2022 16:30-0500 Body height 163.83 cm Arturo Kumar Other [employer] [facility] [employer] Other 10-10-2022 16:30-0500 Body mass index (BMI) [Ratio] 38.7 kg/m2 Arturo Kumar Other [employer] Other 10-10-2022 16:30-0500 Body weight 103.87 kg Arturo José Other [employer] Other 10-10-2022 16:30-0500 Diastolic blood pressure 90 mm[Hg] Arturo Linnanniepeter Other [employer] Other 10-10-2022 16:30-0500 Systolic blood pressure 129 mm[Hg] Arturo Linnanniey Other [facility] [employer] Other 04-22-2022 11:40-0400 Body temperature 97.8 [degF] MD Kelsey Stoner Work Phone: [facility] 04-22-2022 11:40-0400 Diastolic blood pressure 86 mm[Hg] MD Kelsey Stoner Work Phone: [facility] 04-22-2022 11:40-0400 Heart rate 80 /min MD Kelsey Stoner Work Phone: [facility] 04-22-2022 11:40-0400 Respiratory rate 22 /min MD Kelsey Stoner Work Phone: [facility] 04-22-2022 11:40-0400 SaO2% (BldA) [Mass fraction] 100 % MD Kelsey Stoner Work Phone: [facility] 04-22-2022 11:40-0400 Systolic blood pressure 136 mm[Hg] MD Kelsey Stoner Work Phone: [facility] 04-22-2022 07:51-0400 Body height 165.1 cm MD Kelsey Stoner Work Phone: [facility] 04-22-2022 07:51-0400 Body weight 108.4 kg MD Kelsey Stoner Work Phone: [facility] Encounters Encounter Date Encounter Type Care Provider Facility Start: 06-04-2025 End: 06-04-2025 Follow-up encounter Luly Leone DO Work Phone: [facility] Start: 06-03-2025 End: 06-03-2025 ambulatory LULY LEONE Facility:[facility] Start: 06-03-2025 End: 06-03-2025 Patient encounter procedure Luly Leone DO Work Phone: [facility] Comment on above: Cerebral microvascul opathy (Primary Dx); Paresthesia of skin Start: 06-03-2025 End: 06-03-2025 ambulatory HARINI ADLER Facility:[facility] Start: 05-10-2025 End: 05-10-2025 ambulatory Kelsey Stoner MD Work Phone: [facility] Work Phone: Start: 05-10-2025 End: 05-10-2025 Patient encounter procedure Baldo Maza APRN -[facility] Work Phone: Start: 04-04-2025 End: 04-04-2025 ambulatory Kelsey Stoner MD Work Phone: [facility] Work Phone: Start: 04-04-2025 End: 04-04-2025 Patient encounter procedure Merlin Lockhart DO -[facility] Work Phone: Start: 03-17-2025 End: 03-17-2025 Patient encounter procedure Merlin Lockhart DO -[facility] [address] Cl[facility] Work Phone: Start: 03-17-2025 End: 03-17-2025 ambulatory Kelsey Stoner MD Work Phone: [facility] Work Phone: Start: 03-15-2025 End: 03-15-2025 Patient encounter procedure Baldo Maza SISAL PICKER -[facility] Work Phone: Start: 01-31-2025 End: 01-31-2025 ambulatory Kelsey Stoner MD Work Phone: [facility] Work Phone: Start: 01-31-2025 End: 01-31-2025 Patient encounter procedure Kelsey Stoner MD Work Phone: [facility] Work Phone: Start: 01-25-2025 Non-patient / Non-visit Kelsey Stoner MD Work Phone: [facility] Work Phone: Start: 01-25-2025 End: 01-25-2025 Admission to same day surgery center Kelsey Stoner MD Work Phone: [facility] Work Phone: Start: 01-25-2025 End: 01-25-2025 ambulatory Kelsey Stoner MD Work Phone: [facility] Work Phone: Start: 01-12-2025 End: 01-12-2025 Patient encounter procedure Harini Adler MD Work Phone: [facility] Comment on above: Spinal stenosis of c ervical region with radiculopathy (Primary Dx) Start: 01-12-2025 End: 01-12-2025 ambulatory KELSEY STONER Facility:[facility] Start: 01-10-2025 End: 01-10-2025 ambulatory TANIA STOUT Not Available Start: 01-10-2025 End: 01-10-2025 Office outpatient visit 15 minutes Tania Girish BUTTERMAKER CONTINUOUS CHURN Work Phone: [facility] Comment on above: DDD (degenerative di sc disease), thoracic (Primary Dx); Numbness; White matter abnormality on MRI of brain; Family history of rheumatoid arthritis Start: 01-02-2025 End: 03-04-2025 Follow-up encounter Harini Adler MD Work Phone: Neurology [facility] Start: 12-28-2024 Non-patient / Non-visit Kelsey tSoner MD Work Phone: [facility] Work Phone: Start: 12-27-2024 End: 12-27-2024 ambulatory Kelsey Stoner MD Work Phone: [facility] Work Phone: Start: 12-27-2024 End: 12-27-2024 Patient encounter procedure Kelsey Stoner MD Work Phone: [facility] Work Phone: Start: 12-27-2024 End: 12-27-2024 Patient encounter procedure Kelsey Stoner MD Work Phone: [facility] Start: 12-27-2024 End: 12-27-2024 ambulatory Kelsey Stoner MD Work Phone: [facility] Work Phone: Start: 12-23-2024 End: 12-23-2024 Emergency department patient visit Kelsey Stoner MD Work Phone: [facility] Work Phone: Start: 12-06-2024 End: 12-06-2024 ambulatory KELSEY STONER Facility:[facility] Start: 12-06-2024 End: 12-06-2024 Subsequent hospital visit by physician Mri [facility] (I-Stat/1.5t) MRI [facility] Comment on above: Demyelinating diseas e of central nervous system (HCC) [G37.9] Start: 10-23-2024 End: 10-23-2024 ambulatory [facility] Work Phone: Start: 10-23-2024 End: 10-23-2024 Patient encounter procedure [facility] Work Phone: Start: 07-26-2024 End: 07-26-2024 Bamboo flowsheet Yasmin Ortiz DO Work Phone: [facility] [address] Start: 07-26-2024 End: 07-26-2024 Bamboo flowsheet Yasmin Ortiz DO Work Phone: [facility] [address] Start: 07-26-2024 End: 07-26-2024 Office outpatient visit 25 minutes Yasmin Ortiz DO Work Phone: [facility] [address] [address] Comment on above: Numbness Start: 07-26-2024 End: 07-26-2024 ambulatory YASMIN ORTIZ Not Available Start: 07-02-2024 End: 07-02-2024 ambulatory HARINI ADLER Facility:[facility] Start: 07-02-2024 End: 07-02-2024 Patient encounter procedure Harini Adler MD Work Phone: [facility] Comment on above: Demyelinating diseas e of central nervous system (HCC) (Primary Dx); Scoliosis of cervical spine, unspecified scoliosis type; Paresthesia of skin; Abnormal MRI Start: 06-07-2024 End: 06-07-2024 Bamboo flowsheet Tania Stout BUTTERMAKER CONTINUOUS CHURN Work Phone: [facility] [address] [address] Start: 06-07-2024 End: 06-07-2024 Bamboo flowsheet Tania Stout BUTTERMAKER CONTINUOUS CHURN Work Phone: [facility] [address] [facility] Start: 06-07-2024 End: 06-07-2024 Office outpatient visit 25 minutes Tania Stout BUTTERMAKER CONTINUOUS CHURN Work Phone: [facility] Comment on above: DDD (degenerative di sc disease), thoracic (Primary Dx); Numbness; White matter abnormality on MRI of brain; Family history of rheumatoid arthritis Start: 06-07-2024 End: 06-07-2024 ambulatory TANIA STOUT Not Available Start: 06-02-2024 End: 06-07-2024 Telephone encounter Neurology Provider Neurology Comment on above: Received Outside Med ical Records (External referral to [facility]) Start: 06-01-2024 End: 06-01-2024 ambulatory MD Kelsey Stoner Work Phone: [facility] Work Phone: Start: 06-01-2024 End: 06-01-2024 Patient encounter procedure MD Kelsey Stoner Work Phone[facility] Work Phone: Start: 05-29-2024 End: 05-29-2024 Emergency department patient visit MD Kelsey Stoner Work Phone: [facility]-Emergency Room Work Phone: Start: 05-21-2024 End: 05-21-2024 Patient encounter procedure MD Kelsey Stoner Work Phone: [facility] [place] Work Phone: Start: 05-21-2024 End: 05-21-2024 ambulatory Kelsey Stoner Facility:[facility] Start: 04-26-2024 End: 04-26-2024 Admission to same day surgery center Sherron Campa APRN.ROLL COATING MACHINE OPERATOR Work Phone: Colorectal Surgery Comment on above: Manometry Start: 04-26-2024 End: 04-26-2024 Patient encounter procedure Sherron Campa APRN.ROLL COATING MACHINE OPERATOR Work Phone: Colorectal Surgery Comment on above: Rectocele (Primary D x) Start: 04-26-2024 End: 04-26-2024 Subsequent hospital visit by physician [facility] Qb[facility] (I-Stat) Radiology Comment on above: Perineal hernia in lucia valdez [K45.8] Start: 04-19-2024 End: 04-19-2024 ambulatory [facility] Start: 04-12-2024 End: 04-12-2024 ambulatory TANIA STOUT Not Available Start: 04-09-2024 End: 04-09-2024 Patient encounter status Lamar Herman SISAL PICKER-ROLL COATING MACHINE OPERATOR Work Phone: [facility] [employer] [facility] Start: 04-09-2024 End: 04-09-2024 Periodic preventive med est patient 18-39 yrs Lamar Herman SISAL PICKER-ROLL COATING MACHINE OPERATOR Work Phone: [facility] Comment on above: Encounter for gyneco logical examination without abnormal finding (Primary Dx); Visit for screening mammogram; Family history of ovarian cancer; Family history of breast cancer Start: 04-09-2024 End: 04-09-2024 ambulatory [facility] Start: 03-09-2024 Orders Only Mel Bingham DO Work Phone: Colorectal Surgery Comment on above: Perineal hernia in lucia valdez (Primary Dx) Start: 02-19-2024 End: 02-19-2024 ambulatory ROBERTO BROWNE Not Available Start: 01-26-2024 End: 01-26-2024 ambulatory MD Kelsey Stoner Work Phone: [facility] Work Phone: Start: 01-26-2024 End: 01-26-2024 Patient encounter procedure MD Kelsey Stoner Work Phone: [facility] [place] Work Phone: Start: 01-20-2024 End: 01-20-2024 ambulatory MD Kelsey Stoner Work Phone: [facility] Work Phone: Start: 01-20-2024 End: 01-20-2024 Patient encounter procedure MD Kelsey Stoner Work Phone: [facility] Work Phone: Start: 01-19-2024 End: 01-19-2024 ambulatory YASMIN ORTIZ Not Available Start: 01-14-2024 End: 01-14-2024 ambulatory MD Kelsey Stoner Work Phone: [facility] Work Phone: Start: 01-14-2024 End: 01-14-2024 Patient encounter procedure MD Kelsey Stoner Work Phone: [facility] [place] Work Phone: Start: 01-09-2024 Non-patient / Non-visit MD Kenya Stoner Work Phone: [facility] Work Phone: Start: 12-31-2023 End: 12-31-2023 ambulatory MD Kelsey Stoner Work Phone: [facility] Work Phone: Start: 12-31-2023 End: 12-31-2023 Patient encounter procedure MD Kelsey Stoner Work Phone: [facility] [place] Work Phone: Start: 11-29-2023 End: 11-29-2023 Patient encounter procedure MD Kelsey Stoner Work Phone: [facility] [place] Work Phone: Start: 11-17-2023 Non-patient / Non-visit MD Kenya Stoner Work Phone: [facility] Work Phone: Start: 11-08-2023 End: 11-08-2023 ambulatory MD Kelsey Stoner Work Phone: [facility] Work Phone: Start: 11-08-2023 End: 11-08-2023 Patient encounter procedure MD Kelsey Stoner Work Phone: [facility] [place] Work Phone: Start: 10-28-2023 End: 10-28-2023 ambulatory Kelsey Stoner Other [employer] Other Start: 10-28-2023 Telephone encounter Kelsey Stoner [facility] Start: 10-22-2023 End: 10-22-2023 ambulatory Kelsey Stoner Other [employer] Other Start: 10-22-2023 Encounter for genera l adult medical examination without abnormal findings Kelsey Stoner [facility] Start: 10-22-2023 Periodic preventive med est patient 18-39 yrs Kelsey Stoner [facility] Start: 10-22-2023 End: 10-22-2023 Patient encounter procedure MD Kelsey Stoner Work Phone: [facility] Start: 10-21-2023 End: 10-21-2023 ambulatory Kelsey Stoner Other [employer] Other Start: 10-21-2023 Encounter for genera l adult medical examination without abnormal findings Kelsey Stoner [facility] Start: 10-21-2023 Telephone encounter Kelesy Stoner [facility] Start: 02-04-2023 End: 02-05-[address] KELSEY STONER Facility: Start: 01-30-2023 End: 01-30-2023 ambulatory Kelsey Stoner Other [employer] Other Start: 01-30-2023 Telephone encounter Kelsey Stoner [facility] Start: 10-10-2022 End: 10-10-2022 ambulatory Arturo Kumar Other [employer] Other Start: 10-10-2022 Patient encounter procedure Arturo Kumar [facility] Gastroenterology Start: 06-25-2022 End: 06-25-2022 ambulatory MD Kelsey Stoner Work Phone: [facility] Work Phone: Start: 06-25-2022 End: 06-25-2022 Patient encounter procedure MD Kelsey Stoner Work Phone: [facility] Start: 04-29-2022 End: 04-29-[address] KELSEY STONER Facility:[facility] Start: 04-21-2022 End: 04-22-2022 Evaluation and management of inpatient MD Kelsey Stoner Work Phone: [facility] Start: 04-21-2022 End: 04-22-[address] LIANNE LUI Facility:[facility] Start: 10-18-2020 Adult health examination Cindy Stoner Other [facility] [employer] Other Procedures Date Procedure Procedure Detail Performing Clinician Start: 03-17-2025 MRI of left shoulder Kelsey Stoner MD Work Phone: Start: 01-25-2025 Esophagogastroduodenoscopy Kelsey Stoner MD Work Phone: Start: 12-27-2024 Plain X-ray of left shoulder Kelsey espinoza MD Work Phone: Start: 12-06-2024 BRAIN & CERVICAL SPINE MRI [facility] [facility] Provider Start: 12-06-2024 Mri brain brain stem w/o w/contrast material Harini Adler MD Work Phone: Start: 05-21-2024 MRI of cervical spine with contrast MD Shaunna Stoner Work Phone: Start: 05-21-2024 MRI of head MD Kelsey Stoner Work Phone: Start: 04-26-2024 ADULT [place] [facility] Sherron huerta SISAL PICKER.ROLL COATING MACHINE OPERATOR Work Phone: Start: 04-26-2024 Radiologic exam colon single contrast study Mel Bingham DO Work Phone: Start: 04-19-2024 Mammography Tania Stout BUTTERMAKER CONTINUOUS CHURN Work Phone: Start: 04-09-2024 Adult depression screening assessment Lamar Herman SISAL PICKER-ROLL COATING MACHINE OPERATOR Work Phone: Start: 01-26-2024 Ultrasonography of abdomen MD Kelsey Evans un Work Phone: Start: 12-31-2023 XR pre/post mri xray MD Kelsey Stoner Work Phone: Start: 12-31-2023 MRI of lumbar spine with contrast MD Kenya Stoner Work Phone: Start: 11-29-2023 MRI of thoracic spine with contrast MD Shaunna Stoner Work Phone: Start: 11-08-2023 MRI of head MD Kelsey Stoner Work Phone: Start: 01-23-2023 Microscopic observation [Identifier] in Cervix by Cyto stain Lamar Herman SISAL PICKER-ROLL COATING MACHINE OPERATOR Work Phone: Start: 04-22-2022 Esophagogastroduodenoscopy MD Kelsey Evans un Work Phone: Plan of Treatment Date Care Activity Detail Author Start: 09-23-2033 DTaP,Tdap and Td Vac cines (8 - Td or Tdap) DTaP,Tdap and Td Vaccines (8 - Td or Tdap) [facility] Start: 09-23-2033 Urine microalbumin profile DTa P,Tdap,Td Vaccine (8 - Td or Tdap) [facility] Start: 01-23-2026 Screening for malign ant neoplasm of cervix Pap Smear [facility] Start: 09-02-2025 End: 09-02-2025 Patient encounter procedure 09/02/2025 11:15 AM EST Office Visit [facility] [address] [place] [address] Lamar Herman APRN-CNP [address] [place] [address] [facility] Start: 07-13-2025 End: 07-13-2025 ambulatory Neurology Comment on above: QSART Start: 06-06-2025 End: 06-06-2025 Patient encounter procedure 06/06/2025 9:40 AM EDT Office Visit [facility] [address] [place] [address] Tania Stout NP [address] [place] [address] [facility] Start: 06-03-2025 End: 09-02-2025 Cobalamin (Vitamin B12) [Mass/volume] in Serum or Plasma [facility] Comment on above: Expected: 06/03/2025 , Expires: 09/02/2025 Start: 06-03-2025 End: 06-03-2025 Patient encounter procedure 06/03/2025 1:00 PM EDT Office Visit Neurology [facility] [address] [place] [address] Luly Leone DO [address] [place], [place] [id number] F/U per Cheli check out Notes Neurology [facility] Comment on above: F/U per Nayaks check out Notes Start: 05-23-2025 Influenza vaccination [facility] Start: 04-19-2025 Screening for malign ant neoplasm of breast [facility] Start: 04-09-2025 Adult BMI Screening Adult BMI Screen ing [facility] Start: 04-09-2025 Depression Screening Depression Scre ening [facility] Start: 04-09-2025 Tobacco Screening Tobacco Screening [facility] Start: 01-31-2025 Urine microalbumin profile [facility] Start: 01-25-2025 [facility] Start: 01-12-2025 End: 01-12-2025 Patient encounter procedure 01/12/2025 12:00 PM EDT Office Visit Neurology [facility] [address] [place] [address] [place] [address] [place] [address] Demyelinating disease of central nervous system Neurology [facility] Comment on above: Demyelinating diseas e of central nervous system Start: 01-10-2025 End: 01-10-2025 Patient encounter procedure 01/10/2025 8:20 AM EDT Office Visit [facility] [address] [place] [address] Tania Stout NP [address] [place] [address] [facility] [address] Start: 12-31-2024 End: 12-31-2024 Patient encounter procedure 12/31/2024 11:30 AM EDT Office Visit Neurology [facility] [address] [place], [place] [id number] [place] [address] [place] [address] Follow up Neurology [facility] Comment on above: Follow up Start: 12-27-2024 Plain X-ray of left shoulder XR shoulder LT min 2V* [facility] Start: 12-27-2024 XR Shoulder - left Views [facility] Start: 11-30-2024 End: 11-30-2024 Patient encounter procedure 11/30/2024 8:00 AM EDT Appointment MRI [facility] [address] [place] [address] Demyelinating disease of central nervous system (HCC) [G37.9] MRI [facility] Comment on above: Demyelinating diseas e of central nervous system (HCC) [G37.9] Start: 07-26-2024 End: 07-26-2024 Patient encounter procedure [facility] [address] Comment on above: Arrived Start: 06-07-2024 End: 06-07-2024 Patient encounter procedure 06/07/2024 11:00 AM EDT Office Visit [facility] [address] [place] [address] Tania Stout NP [address] [place] [address] Arrived [facility] [address] Comment on above: Arrived Start: 05-23-2024 Covid-19 Vaccine ( season) Covid-19 Vaccine ( season) [facility] Start: 05-23-2024 Covid-19 Vaccine ( season) Covid-19 Vaccine ( season) [facility] Start: 05-23-2024 Influenza vaccination [facility] Start: 04-26-2024 End: 04-26-2024 Admission to same day surgery center 04/26/2024 10:00 AM EDT Procedure Colorectal Surgery [address] [address] Sherron Campa APRN.ROLL COATING MACHINE OPERATOR [address] [place] [address] pelvic floor hernia Colorectal Surgery Comment on above: pelvic floor hernia Start: 04-26-2024 End: 04-26-2024 Patient encounter procedure 04/26/2024 9:30 AM EDT Office Visit Colorectal Surgery [address] [address] Mel Bingham DO [address] [place], [place] [id number] pelvic floor hernia Colorectal Surgery Comment on above: pelvic floor hernia Start: 04-26-2024 End: 04-26-2024 Patient encounter procedure 04/26/2024 8:20 AM EDT Appointment Radiology [address] [place] [address] XR DEFECOGRAPHY Radiology Comment on above: XR DEFECOGRAPHY Start: 04-09-2024 End: 04-09-2025 DBT Breast - bilateral screening Mammography screening bilateral with CAD Imaging Routine Visit for screening mammogram Expected: 04/09/2024, Expires: 04/09/2025 [facility] Work Phone: Comment on above: Expected: 04/09/2024 , Expires: 04/09/2025 Start: 01-20-2024 Patient referral [facility] Work Phone: Start: 09-22-2023 Behavioral Health Screening Be havioral Health Screening [facility] Start: 05-23-2023 Covid-19 Vaccine () Covid-19 Vaccine () [facility] Start: 05-23-2023 Covid-19 Vaccine () Covid-19 Vaccine () [facility] Start: 04-21-2023 Screening for malign ant neoplasm of cervix [facility] Start: 04-22-2022 [facility] Start: 04-22-2022 Hospital admission [facility] Start: 04-22-2022 Referral to picu nurse [facility] Start: 2011 HPV Vaccine (1 - 3-d ose SCDM series) HPV Vaccine (1 - 3-dose SCDM series) [facility] Start: 2005 Screening for malign ant neoplasm of cervix [facility] Start: 2003 Hepatitis B Vaccine (1 of 3 - 19+ 3-dose series) Hepatitis B Vaccine (1 of 3 - 19+ 3-dose series) [facility] Start: 2002 Adult BMI Follow Up Plan Adult BMI Follow Up Plan [facility] Start: 2002 Anxiety Screening Anxiety Screening [facility] Start: 2002 [facility] Start: 2002 Hepatitis C screening Hepatitis C Sc keren [facility] Start: 2002 HIV screening HIV Screening [facility] ADULT [place] [facility] ADULT [facility] [facility]OM[facility] Endoscopy Routine Pelvic floor dysfunction in female 04/26/2024 [facility] Work Phone: Ermias Rausch virus c apsid IgG Ab [Units/volume] in Serum [facility] Ermias Rausch virus n uclear IgG Ab [Units/volume] in Serum [facility] End: 08-01-2025 MR Brain WO and W contrast IV MRI BRAIN WO/W IVCON Radiology Routine Demyelinating disease of central nervous system (HCC) Paresthesia of skin Abnormal MRI 1 Occurrences starting 07/02/2024 until 08/01/2025 [facility] Work Phone: Comment on above: 1 Occurrences starti ng 07/02/2024 until 08/01/2025 NEURO QSART NEURO QSART Proc edures Routine Paresthesia of skin Ordered: 06/03/2025 [facility] Comment on above: Ordered: 06/03/2025 Patient Education [facility] Work Phone: Patient referral [facility] Work Phone: End: 04-08-2025 RF Gastrointestinal tract upper Views W water soluble contrast PO XR DEFECOGRAPHY Radiology Routine 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 1 Occurrences starting 03/09/2024 until 04/08/2025 [facility] Work Phone: Comment on above: 1 Occurrences starti ng 03/09/2024 until 04/08/2025 SKIN BIOPSY FOR NEUROPATHY/CNL SKIN BIOPSY FOR NEUROPATHY/CNL Procedures Routine Paresthesia of skin Ordered: 06/03/2025 [facility] Work Phone: Comment on above: Ordered: 06/03/2025 US Abdomen limited [facility] Immunizations Immunization Date Immunization Notes Care Provider Fa cility 09-23-2023 tetanus toxoid, redu leticia diphtheria toxoid, and acellular pertussis vaccine, adsorbed Kelsey Stoner Other [facility] 06-27-2018 influenza virus vaccine, unspecified formulation Lamar Herman SISAL PICKER-ROLL COATING MACHINE OPERATOR Work Phone: [employer] 01-04-2016 RHO(D) immune globul in- IV or IM Lamar Herman SISAL PICKER-ROLL COATING MACHINE OPERATOR Work Phone: [employer] 01-31-2015 tetanus toxoid, redu leticia diphtheria toxoid, and acellular pertussis vaccine, adsorbed Lamar Herman SISAL PICKER-ROLL COATING MACHINE OPERATOR Work Phone: [facility] [employer] Payers Date Payer Category Payer Self-pay 2023 Government (not [facility] care or Medicaid) [id number] 2023 Unknown [place] [id number] 2023-Present [phone] [address] [place] [address] Indemnity [id number] 2020 [employer] ( and others) [id number] 2020 [employer] ( and others) [id number] 2020 () [id number] 2020 [employer] ( and others) [id number] 1984 Unknown [id number] 2.840.1.911562.3.579.2 .593 1984 Unknown [id number] 2.16840.1.030089.3.579.2 .593 1984 Unknown [id number] 2.16840.1.932819.3.579.2 .593 1984 Unknown [id number] 2.16840.1.199309.3.579.2 .1286 1984 Unknown [id number] 2.16840.1.193303.3.579.2 .1286 1984 Unknown [id number] 2.16.840.1.427146.3.579.2 .1259 1984 Unknown [id number] 2.16.840.1.003386.3.579.2 .1259 1984 Unknown [id number] 2.16.840.1.089363.3.579.2 .1259 1984 Unknown [id number] 2.16.840.1.981075.3.579.2 .9 1984 Unknown [id number] 2.16.840.1.755472.3.579.2 .9 1984 Unknown [id number] 2.16.840.1.726567.3.579.2 .9 1959 Department of [facility] ( and others) [id number] Unknown [id number] 2.16.840.1.017291.3.579.2 .531 Unknown [id number] 2.16.840.1.577252.3.579.2 .531 Unknown [id number] 2.16.840.1.017079.3.579.2 .531 Unknown [id number] 2.16.840.1.827989.3.579.2 .531 Unknown [id number] 2.16.840.1.839753.3.579.2 .531 Unknown [id number] 2.16.840.1.801867.3.579.2 .531 Social History Date Type Detail Facility Start: 04-22-2022 End: 06-03-2025 Tobacco smoking status IDIS Ex-sm[facility] (finding) [facility] [facility] Start: 1985 Sex Assigned At Female F [facility] Start: 04-26-2024 End: 06-03-2025 Sex Assigned At [place] Other History of tobacco use Current smoker [facility] History of tobacco use Cigarette Smoker [facility] Start: 04-26-2024 End: 06-03-2025 Tobacco use and exposure Smokeless tobacco non-user [facility] Start: 04-26-2024 End: 06-03-2025 Alcohol intake Current drinker of alcohol (finding) [facility] Start: 04-26-2024 End: 06-03-2025 History of Social function [facility] Start: 02-25-2024 National Score (1-100), lower number is lower risk 76 [facility] Start: 04-26-2024 Alcohol Comment occasionally [facility] Start: 1985 Sex Assigned At Not on file C [facility] Start: 06-09-2024 End: 01-10-2025 Alcoholic beverage intake Ex-drinker (finding) [facility] How often to you hav e a drink containing alcohol? Monthly or less [facility] How many standard drinks containing alcohol do you have on a typical day? 1 or 2 [facility] How often do you hav e 6 or more drinks on 1 occasion? Never [facility] Start: 01-16-2024 Alcohol Comment caffeine: 1-2 cups per day [facility] Start: 02-04-2023 Gender identity Identifies as female gender (finding) [facility] Start: 02-04-2023 Sexual orientation Heterosexual (fin ding) [facility] Tobacco smoking status IDIS Tobacco smoking consumption unknown [facility] Start: 10-23-2024 End: 01-31-2025 Sex Female (finding) [facility] Start: 01-23-2023 Alcohol Comment social [facility] Start: 12-23-2024 Tobacco smoking status NHIS Never smoked tobacco (finding) [facility] History of tobacco use Passive smoker [facility] NEGATED: Highlighted row [facility] NEGATED: Highlighted row N [facility] Goals Date Patient Goal Desired Activity /State Functional Status Date Assessment Result Facility 06-03-2025 Total score [AUDIT-C] 1 06/03/20 25 12:43 PM Elisa Kendrick MA [facility] 04-22-2022 Functional status Patient at Baseline [facility] Work Phone: [facility] Mental Status Date Assessment Result Facility 04-22-2022 Cognitive function Cognitive Sta tus Patient at Baseline [facility] Work Phone: Clinical Notes 10-10-2022 to 06-03-2025 Patient InstructionsLuly Leoen DO - 06/03/2025 1:00 PM EDT Note Date & Type Note Facility 06-03-2025 Instructions Luly Leone DO - 06/03/2025 1:44 PM EDT - Discontinue Lyrica as it was not effective and caused fatigue. - Continue taking your daily multivitamin as before. - Obtain and provide copies of the EMG report from your neurology evaluation. - Schedule and complete both a QSART sweat test and a skin biopsy at the main campus (you can arrange to have both done on the same day) to evaluate for small fiber neuropathy. -Please have vitamin B12 level drawn. documented in this encounter [facility] 06-03-2025 History of Present illness Narrative Images from the original note were not included. [facility] New Patient Evaluation Consulting Provider: Harini Adler [id number] [facility] [address] Individuals who were included in, or assisted with the encounter were: Heidi Moya Luly Leone DO Chief Complaint/Issues: Heidi Moya is a 39 year old female seen in the [facility] for: Former patient of Dr. Adler Seen for abnormal MRI Brain showing remote injury/contusion. MS workup completed and ruled out. 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 MRI Brain w/wo contrast 12/06/2024: MR BRAIN: Parenchymal Findings: Multiple foci of scattered T2/FLAIR white matter parenchymal hyperintensity, nonspecific finding which could reflect prior changes from microvascular ischemia but could also be seen in the setting of underlying demyelinating process. New T2 Lesions: None Site(s) of New/Larger T2 Lesion(s): Not applicable Interval Improvement: None. New Enhancing Lesions: None T2 [place] of Disease: Mild. Parenchymal Volume Loss: None. Other Significant Findings: None. IMPRESSION: Scattered intracranial white matter lesions which are nonspecific. While could be seen in the setting of multiple sclerosis, this could also relate to a remote insult. No new T2 lesions and no new enhancing lesions. No significant parenchymal volume loss. Other Significant Intracranial Findings: None MRI C spine 05/21/2024: MRI cervical spine with and without contrast 05/21/2024 completed at [facility]. There is normal alignment to the sagittal sequences. There are no acute compression fractures or marrow edema. The cord is within normal limits for caliber position and signal intensity. There is no abnormal enhancement. Shotty cervical lymph nodes are present. C2-3: No disc disease or stenosis C3-4: Minimal disc osteophyte bulging with subtle thecal sac effacement. There is no foraminal encroachment. C4-5: There is no disc disease or stenosis C5-6: Mild disco osteophytic bulging which is slightly asymmetric in the right parasagittal region extending toward the lateral recess. There is effacement of the thecal sac approaching the not compressing the cord. The neuroforamen are patent. C6-7: There is minor disco-osteophytic bulging without associated stenosis. C7-T1: No MRI abnormalities noted MRI T spine 11/29/2023: Subtle thecal sac effacement at T7-T8 but was otherwise generally unremarkable. MRI L spine 12/31/2023: HPI: LHF Recording using Uanbai software for draft documentation of the visit was discussed with the patient/authorized artist representative; all questions welcomed and answered. Patient/authorized artist representative agreed to proceed The patient is a 39-year-old female with PCOS, depression, anxiety, and eosinophilic esophagitis, presenting for evaluation of progressive thoracic numbness with burning dysesthesias in the bilateral hands, bilateral feet, and facial tingling. The patient is a 39-year-old female with a history of TBI, depression, anxiety, and EoE, presenting for evaluation of numbness and tingling. The patient, who is left-hand dominant, reports numbness in the thoracic region of her back since 2019. She describes an inability to feel pinpricks along her spine, though sensation is intact in the cervical and lumbar areas. She has a known history of scoliosis since eighth grade and was diagnosed with degenerative disc disease and a herniated disc in the lumbar region in 2019. Physical therapy did not alleviate her symptoms, and she declined pain management options, preferring to understand the underlying cause. She also experiences tingling, pressure, and a burning sensation in the back of her neck, accompanied by dull headaches. A tingling sensation described as fingers crawling up extends to her face, causing flushing and warmth. These symptoms began over a year ago and are worse during the day, particularly when looking down or sitting for extended periods. She notes increased fatigue and difficulty sleeping due to neck discomfort when lying on her side. Additionally, she reports sensory coldness in her fingers and toes. She mentions elevated eosinophil levels since 2017, which her doctor attributed to seasonal allergies. She was recently diagnosed with eosinophilic esophagitis and is currently on Dupixent. She has a history of bilateral carpal and cubital tunnel release surgeries at age 28. She was previously taking Lyrica but discontinued it due to fatigue without symptom relief. She is currently taking a multivitamin. Past Diagnostic Results: - (12/31/2023) MRI Lumbar Spine: Normal disc, central canal, and neuroforamen from T12 to L5. Mild broad-based disc bulge at L5-S1 with mild facet hypertrophy and small right-sided facet effusion; no significant stenosis. - (11/29/2023) MRI Thoracic Spine: Minor left parasagittal disc bulge at T7-8 with subtle thecal sac effacement; no significant disc disease or stenosis. Thoracic cord normal in caliber, position, and signal intensity. - (04/2024) EMG: Normal. - (04/2024) MRI Cervical Spine: Minimal disc bulge at C3-4 without foraminal encroachment. Mild disc osteophyte bulge at C5-6 with effacement of the thecal sac; no cord compression. Minor disc osteophyte bulge at C6-7 without foraminal stenosis. No abnormalities at C2-3, C4-5, and C7-T1. - MRI Brain: White matter changes; no significant findings. ROS: Constitutional: (+) fatigue Head: (+) dull posterior headache Neck: (+) burning neck pain Cardiovascular: (+) facial flushing/warmth Gastrointestinal: (+) dysphagia Musculoskeletal: (+) decreased shoulder range of motion, (+) shoulder pain Skin: (+) cold sensation in fingers, (+) cold sensation in toes Neurological: (+) thoracic numbness, (+) tingling ascending to face, (+) hand tingling General Examination: BP 121/84 (BP Site: Right Arm, BP Position: Sitting, BP Cuff Size: Large Adult) Pulse 79 Temp 36.3 C (97.4 F) (Temporal) Ht 165.5 cm (5' 5.16 ) Wt 120.5 kg (265 lb 10.5 oz) LMP 05/17/2025 (Approximate) BMI 43.99 kg/m She is alone. General: Awake, alert, interactive, no acute distress, good nutritional status, normal development, well-kept Neurological Exam Mental Status Alert, fully oriented, attentive, with normal cognition, memory, speech and affect. - Neurological: - CNII: Pupils 2mm, symmetric, briskly reactive to light. - CNIII/CNIV/CNVI: Extraocular movements conjugate and full in all quadrants; no nystagmus or ptosis. - CNV: Sensation symmetric in V1-V3 dermatomes bilaterally. - CNVII: Symmetric and strong in all branches tested. - CNXII: Tongue protrusion midline, no fissures or fasciculations. - Motor: - Upper Extremities: Strength 5/5 in all muscle groups tested. - Lower Extremities: Strength 5/5 in all muscle groups tested. - Reflexes: - Arms: - Biceps: Left: 1+, Right: 1+ - Brachioradialis: Left: 1+, Right: 1+ - Lower Extremities: - Patella: Left: 1+, Right: 1+ - Babinski: Mute bilaterally. - Sensation: - Upper Extremities: Pinprick exam symmetric and sharp. - Lower Extremities: Pinprick exam symmetric. - Thoracic Spine: Decreased pinprick sensation midline from T5 to T10; paraspinal muscles detect pinprick appropriately. - Coordination: Tuning fork sensation increases moving distally in lower extremities. Assessment & Plan 39-year-old left handed female who presents today for continuity of care [facility] of my colleague Dr. Botello. She is here for atypical nonlength-dependent paresthesias that affect the midline thoracic spine from T5-T10, posterior occipital region, and bilateral hands and feet. History of PCOS, eosinophilic esophagitis, TBI in 1991, and bilateral carpal tunnel release surgery and cubital release surgery. We have extensively reviewed MRI of the neuro axis today including MRI brain with and without contrast, MRI C-spine with and without contrast, MRI thoracic spine, and MRI lumbar spine. She has also had an EMG which she reports is unremarkable although I do not have access to those records today and have asked her to please provide them. At this point I have explained that it is hard to know what the cause of her symptoms are but we need to rule out small fiber neuropathy since this could be the reason. I have ordered skin biopsy and QSART today. I will let her know results of soon as possible and MyChart 1. Cerebral microvasculopathy (I67.89) - Multiple prior brain MRIs showed small, stable white matter changes; no evidence of MS or other progressive PHOTOGRAPHIC SPECIALIST pathology. - MRI C-spine (April 2024): No cord lesions; mild degenerative changes without significant stenosis or nerve compression. - MRI T-spine (November 29, 2023): Minor left parasagittal disc bulge at T7-8 with subtle thecal sac effacement; no significant disc disease or stenosis. - MRI L-spine (December 31, 2023): Mild broad-based disc bulge at L5-S1 with mild facet hypertrophy and small right-sided facet effusion; no significant stenosis. - EMG of upper and lower extremities reportedly normal. - Central nervous system causes (MS, tumors, infections, vitamin deficiencies) ruled out. - Educated patient on MRI findings and explained that current symptoms are unlikely due to central nervous system pathology. 2. Paresthesia of skin (R20.2) - Chronic thoracic numbness and paresthesia since 2019, with additional tingling and burning sensations in the neck, head, and face over the past year. - Sensory exam: Decreased pinprick sensation midline from T5-T10; otherwise symmetric and sharp in upper and lower extremities. - Symptoms most pronounced during the day and with prolonged sitting or neck flexion. - Small fiber neuropathy suspected as a potential cause of persistent sensory symptoms. - Ordered skin biopsy and QSART sweat test to evaluate for small fiber neuropathy; instructed patient [facility] - Explained rationale for testing and provided education on small fiber neuropathy. - Requested patient obtain and provide copies of EMG, MRI T-spine, and MRI L-spine reports. AVS: - Discontinue Lyrica as it was not effective and caused fatigue. - Continue taking your daily multivitamin as before. - Obtain and provide copies of the EMG report from your neurology evaluation. - Schedule and complete both a QSART sweat test and [facility] (you can arrange to have both done on the same day) to evaluate for small fiber neuropathy. -Please have vitamin B12 level drawn. Encounter Diagnosis ICD-10-CM 1. Cerebral microvasculopathy I67.89 Return if symptoms worsen or fail to improve. Data Review Objective Current Outpatient Medications Medication Sig spironolactone (ALDACTONE) 50 mg tablet DUPIXENT PEN 300 mg/2 mL pen injection omeprazole sodium bicarbonate (ZEGERID) 40-1.1 mg-gram per capsule multivit-min/ferrous fumarate (MULTI VITAMIN PO) Take by mouth. VYVANSE 70 mg capsule Take 70 mg by mouth once daily. No current facility-administered medications for this visit. ACTIVE PROBLEM LIST Spinal Stenosis of Cervical Region With Radiculopathy PAST MEDICAL HISTORY Diagnosis Date Anemia Anxiety state Depression GERD (gastroesophageal reflux disease) Polycystic ovaries Traumatic brain injury (HCC) 1991 FRONTAL LOBE PAST SURGICAL HISTORY Procedure Laterality Date ADENOIDECTOMY PRIMARY <AGE 12 EGD - THERAPEUTIC, EUS, OR TUBE INTERVENTIONS PAST SURGICAL HISTORY OF CARPAL TUNNEL RELEASE (BILATERAL) PAST SURGICAL HISTORY OF SECTION, LOW TRANSVERSE TONSILLECTOMY & ADENOIDECTOMY <AGE 11 SOCIAL HISTORY[1] FAMILY HISTORY Problem Relation Age of Onset Crohn's Disease Mother Diabetes Paternal Grandmother Review of Systems Lab and Test Review: Results for orders placed or performed during the hospital encounter of 12/06/24 BRAIN & CERVICAL SPINE MRI DISCRETE DATA Result Value Ref Range Brain New T2 Lesions None Site Brain Interval Improvement None Brain Enhancing Lesions None Brain T2 [place] of Disease Mild Brain Parenchymal Volume Loss None Brain Other Significant MRI Findings None. Outside Data/Labs: Subjective Patient-Entered Data: 05/23/25 - GENERAL NEUROLOGY SCORES 06/30/2024 01/05/2025 PROMIS 10 Health, in general Good Good Quality of life, in general Good Good Physical health, in general Fair Good Mental health, in general Good Good Social activities satisfaction Good Good Performing ADL's Completely Moderately Social role satisfaction Good Good Pain, on average 5 3 Fatigue, on average Moderate Moderate Emotional problems Sometimes Sometimes PHYSICAL Score 42.3 (Good) 42.3 (Good) MENTAL Score 43.5 (Good) 43.5 (Good) 06/01/2025 Depression Screening PHQ-2 Score 0 PHQ-9 Score 2 06/30/2024 SLEEP APNEA SCORE Probability of moderate-severe sleep apnea (%) SAPS V2 17 (Sleep study not recommended) No data to display No data to display Medical Decision Making: Problems: Moderate: 2+ stable chronic illnesses and New problem with uncertain prognosis Data: Unique source(s) for external note(s) reviewed: 3+ Unique test result(s) reviewed: 3+ Unique test(s) ordered: 1 Risk: Low: Low risk from testing/treatment Medical Decision Making Level: 4 - Moderate I spent a total of 70 minutes on the date of the service which included preparing to see the patient, [id number] patient care, completing clinical documentation, obtaining and/or reviewing separately obtained history, performing a medically appropriate examination, counseling and educating the patient/family/caregiver, independently interpreting results (not separately reported), and communicating results to the patient/family/caregiver. Luly Leone DO [1] Social History Tobacco Use Smoking status: Former Types: Cigarettes Passive exposure: Past Smokeless tobacco: Never Vaping Use Vaping status: Never Used Substance Use Topics Alcohol use: Yes Comment: occasionally Drug use: Never documented in this encounter [facility] 06-03-2025 Note HNO ID: [id number] Author: LULY LEONE DO Service: ? Author Type: Physician Type: Progress Notes Filed: 06/03/2025 13:51 Note Text: [facility] New Patient Evaluation Consulting Provider: Harini Adler [id number] [facility] [id number] Individuals who were included in, or assisted with the encounter were: Heidi Moya Luly Leone DO Chief Complaint/Issues: Heidi Moya is a 39 year old female seen in the [facility] for: Former patient of Dr. Adler Seen for abnormal MRI Brain showing remote injury/contusion. MS workup completed and ruled out. 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 MRI Brain w/wo contrast 12/06/2024: MR BRAIN: Parenchymal Findings: Multiple foci of scattered T2/FLAIR white matter parenchymal hyperintensity, nonspecific finding which could reflect prior changes from microvascular ischemia but could also be seen in the setting of underlying demyelinating process. New T2 Lesions: None Site(s) of New/Larger T2 Lesion(s): Not applicable Interval Improvement: None. New Enhancing Lesions: None T2 [place] of Disease: Mild. Parenchymal Volume Loss: None. Other Significant Findings: None. IMPRESSION: Scattered intracranial white matter lesions which are nonspecific. While could be seen in the setting of multiple sclerosis, this could also relate to a remote insult. No new T2 lesions and no new enhancing lesions. No significant parenchymal volume loss. Other Significant Intracranial Findings: None MRI C spine 05/21/2024: MRI cervical spine with and without contrast 05/21/2024 completed at [facility]. There is normal alignment to the sagittal sequences. There are no acute compression fractures or marrow edema. The cord is within normal limits for caliber position and signal intensity. There is no abnormal enhancement. Shotty cervical lymph nodes are present. C2-3: No disc disease or stenosis C3-4: Minimal disc osteophyte bulging with subtle thecal sac effacement. There is no foraminal encroachment. C4-5: There is no disc disease or stenosis C5-6: Mild disco osteophytic bulging which is slightly asymmetric in the right parasagittal region extending toward the lateral recess. There is effacement of the thecal sac approaching the not compressing the cord. The neuroforamen are patent. C6-7: There is minor disco-osteophytic bulging without associated stenosis. C7-T1: No MRI abnormalities noted MRI T spine 11/29/2023: Subtle thecal sac effacement at T7-T8 but was otherwise generally unremarkable. MRI L spine 12/31/2023: HPI: LHF Recording using Uanbai software for draft documentation of the visit was discussed with the patient/authorized artist representative; all questions welcomed and answered. Patient/authorized artist representative agreed to proceed The patient is a 39-year-old female with PCOS, depression, anxiety, and eosinophilic esophagitis, presenting for evaluation of progressive thoracic numbness with burning dysesthesias in the bilateral hands, bilateral feet, and facial tingling. The patient is a 39-year-old female with a history of TBI, depression, anxiety, and EoE, presenting for evaluation of numbness and tingling. The patient, who is left-hand dominant, reports numbness in the thoracic region of her back since 2019. She describes an inability to feel pinpricks along her spine, though sensation is intact in the cervical and lumbar areas. She has a known history of scoliosis since eighth grade and was diagnosed with degenerative disc disease and a herniated disc in the lumbar region in 2019. Physical therapy did not alleviate her symptoms, and she declined pain management options, preferring to understand the underlying cause. She also experiences tingling, pressure, and a burning sensation in the back of her neck, accompanied by dull headaches. A tingling sensation described as fingers crawling up extends to her face, causing flushing and warmth. These symptoms began over a year ago and are worse during the day, particularly when looking down or sitting for extended periods. She notes increased fatigue and difficulty sleeping due to neck discomfort when lying on her side. Additionally, she reports sensory coldness in her fingers and toes. She mentions elevated eosinophil levels since 2017, which her doctor attributed to seasonal allergies. She was recentl (more content not included)... [facility] 03-15-2025 Evaluation note Diagnosis Onset Date Resolution Dyspepsia acute March 15 9:55am Eosinophilic esophagitis acute March 15, 2025 9:55am Food impaction of esophagus acute March 15, 2025 9:55am GERD (gastroesophageal reflux disease) acute March 15, 2025 9:55am Internal derangement of left shoulder acute April 04, 2025 2:54pm [facility] Work Phone: 1(543) 212-130605-12-2025 Evaluation note* Diagnosis Onset Date Resolution Status Admit Date Internal derangement of left shoulder acute January 31, 2025 9 :23am Dyspepsia acute March 15 9:55am Eosinophilic esophagitis acute March 15, 2025 9:55am Food impaction of esophagus acute March 15, 2025 9:55am GERD (gastroesophageal reflu x disease) acute March 15, 2025 9:55am Internal derangement of left shoulder acute April 04, 2025 2:54pm [facility] Work Phone: 1(257) 246-982605-06-2025 [place] [address] Gastroenterology H&P Signed Patient: Heidi Moya MR#: [id number] : 1985 Acct:[id number] Age/Sex: 39 / F Adm Date: 5 Loc: Room: Type: [facility] Attending Dr: Arturo Kumar MD Copies to: MD Kelsey Saavedra MD~ Date of Service: 01/25/2025 HISTORY & PHYSICAL: Patient's history with special attention to the cardiovascular, pulmonary systems and the current problem was reviewed with the patient immediately prior to the procedure. Present medications and doses reviewed in the EMR. Allergies and pertinent laboratory tests were also re viewedat this time in the EMR. The physical examination, as below, was then performed. Indication, assessment and HPI: 39-year-old female presents for EGD to evaluate dysphagia to solids, history of GERD with erosive esophagitis she was off PPI atthe time she had food impaction currently on PPI 40 twice daily Family history of GI malignancy? no PHYSICAL EXAMINATION Mouth and Pharynx : moist mucus membranes, normal dentition Eyes: EOM intact b/l, normal sclera Pulmonary: normal respiratory effort, able to speak in complete sentences Neurological: alert and oriented x3, moves all extremities Skin: non-jaundiced, warm and dry Abdomen: non-distended, normal to inspection Psych: Mental status and mood grossly normal REVIEW OF SYSTEMS Constitutional: Denies malaise, fevers Cardiovascular: Denies chest pain, palpitations Respiratory: Denies shortness of breath, wheezing Gastrointestinal: Per HPI Genitourinary: Denies dysuria, polyuria Musculoskeletal: Denies joint swelling, joint stiffness Neurological: Denies numbness, tingling Integumentary: Denies rashes, skin lesions Endocrine: Denies fatigue, weight loss Written informed consent obtained from the patient. Risks (including but not limited to perforation, infection, bloating, bleeding, need for emergent surgeryand loss of life), benefits and alternatives explained and questions answered. The patient verbalized understanding. Based on history patient is an appropriate candidate for the procedure. Arturo Kumar MD Documented By: Arturo Kumar MD 01/25/25 1303 Signed By: 01/25/[address] [place], [place] [id number] History and physical note Author Arturo Kumar [facility] Note Date/Time January 25, 2025 2:00pm [facility] [address] [place] [address] Gastroenterology H&P Signed Patient: Heidi Moya MR#: [id number] : 1985 Acct:[id number] Age/Sex: 39 / F Adm Date: Loc: Room: Type: [facility] Attending Dr: Arturo Kumar MD Copies to: MD Kelsey Saavedra MD~ Date of Service: 01/25/2025 HISTORY & PHYSICAL: Patient's history with special attention to the cardiovascular, pulmonary systems and the current problem was reviewed with the patient immediately prior to the procedure. Present medications and doses reviewed in the EMR. Allergies and pertinent laboratory tests were also reviewedat this time in the EMR. The physical examination, as below, was then performed. Indication, assessment and HPI: 39-year-old female presents for EGD to evaluate dysphagia to solids, history of GERD with erosive esophagitis she was off PPI atthe time she had food impaction currently on PPI 40 twice daily Family history of GI malignancy? no PHYSICAL EXAMINATION Mouth and Pharynx : moist mucus membranes, normal dentition Eyes: EOM intact b/l, normal sclera Pulmonary: normal respiratory effort, able to speak in complete sentences Neurological: alert and oriented x3, moves all extremities Skin: non-jaundiced, warm and dry Abdomen: non-distended, normal to inspection Psych: Mental status and mood grossly normal REVIEW OF SYSTEMS Constitutional: Denies malaise, fevers Cardiovascular: Denies chest pain, palpitations Respiratory: Denies shortness of breath, wheezing Gastrointestinal: Per HPI Genitourinary: Denies dysuria, polyuria Musculoskeletal: Denies joint swelling, joint stiffness Neurological: Denies numbness, tingling Integumentary: Denies rashes, skin lesions Endocrine: Denies fatigue, weight loss Written informed consent obtained from the patient. Risks (including but not limited to perforation, infection, bloating, bleeding, need for emergent surgeryand loss of life), benefits and alternatives explained and questions answered. The patient verbalized understanding. Based on history patient is an appropriate candidate for the procedure. Arturo Kumar MD Documented By: Arturo Kumar MD 01/25/25 1303 Signed By: <Electronically signed by Arturo Kumar MD> 01/25/[address] [place] [address] Work Phone: [phone] 587-365205-06-2025 [place] [address] EGD Procedure Note Signed Patient: Heidi Moya MR#: [id number] : 1985 Acct:[id number] Age/Sex: 39 / F Adm Date: 5 Loc: Room: Type: [facility] Attending Dr: Arturo Kumar MD Copies to: MD Kelsey Saavedra MD~ Esophagogastroduodenoscopy Date/Provider Date: 01/25/2025 Arturo Kumar MD Narrative Narrative: Procedure: EGD with Pino dilation, with biopsy Indication: 39-year-old female presents for EGD to evaluate dysphagia to solids,history of GERD with erosive esophagitis she was off PPI at the time she had food impaction currently on PPI 40 twice daily Pre-operative diagnosis: Dysphagia, GERD, history of food impaction Post-operative diagnosis: Esophageal stenosis Sedation: propofol per anesthesia dept O2 oximetry, hemodynamic monitoring was performed pre, during, and post procedure. Patient was identified, H&P completed, patient was given full explanation of the procedure as well as associatedrisks and written consent wasobtained prior to procedure. Patient expressed complete understanding of the procedure as well as alternatives to the procedure and to anesthesia and agreed to proceed with the procedure as indicated. Patient was immediately reassessed prior to IV sedation. Following IV sedation, patient was placed in the left lateral decubitus position. Bite block was inserted. Endoscope was passed through the mouth, into the esophagus. Endoscope was advanced into the stomach through the pyloricchannel and into the 2nd portion of duodenum by direct visualization. Endoscopewas withdrawn into the stomach and retroflexion was performed. The endoscope was straightened,the stomach was decompressed. Endoscope was withdrawn into the esophagus then completely removed with the findings as below. Findings: DUODENUM: bulb and descending portion appeared normal. STOMACH: pyloric channel, antrum, body, fundus and cardia, including retroflexedviews appear normal. ESOPHAGUS: Diaphragmatic hiatus was 34 cm from incisors. GE junction (upper margin of gastric folds) was at 34 cm from incisors. Squamocolumnar junction was at 34 cm from incisors. A 52 Italian Pino dilator was inserted into the esophagus, minimal resistance in the more proximal esophagus. The endoscope wasthen reinserted with significant proximal mucosal disruption noted. Hemostasis observed with no concern for perforation. Biopsies obtained from the proximal esophagus, bottle 1-assess for EOE. Biopsy taken: Yes Complications: None EBL: minimal Recommendations: -Follow up pathology for EOE. High-dose PPI therapy for an additional 8 weeks and then back down toonce daily. -Resume normal diet -Follow up in the office with GI nurse practitioner in 6 to 8 weeks -Follow up with PCP Following a period of recovery, patient was seen and given full explanation of the procedure. Patient tolerated the procedure well and will be discharged in satisfactory, stable condition. Arturo Kumar MD Documented By: Arturo Kumar MD 01/25/25 1309 Signed By: 01/25/25 1311 [facility]04-23-2025 History of Present illness Narrative * Harini Adler MD - 01/12/2025 12:00 PM EDT Images from the original note were not included. [facility] Follow up/ Established patient visit Individuals who were included in, or assisted with the encounter were: Heidi Moya Harini Adler MD Chief Complaint/Issues: Heidi Moya is a 39 year old female seen in the [facility] for: Abnormal MRI head Most Recent Neurological Assessment and Plan: Last Filed Values Date of Most Recent Assessment and Plan 01/12/25 (P) Specialty General Neurology (P) Assessment C5-6 herniated disc, right of midline that may be causing her upper back pain and paresthesias. 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 Abnormal MRI brain: more likely secondary to remote injury and does not correlate with Multiple Sclerosis. Fatigue but no symptoms of ANSELMO at present, went over blood work. Encouraged her to continue with her exercises and working to lose weight. (P) Plan She does not want injections but she wants to monitor her cervical spine with a general neurology as she already has curvature in her back and she wants to not be disabled which is understandable. Recommend she establish care with Dr. Leone. (P) HPI/Interval History: fatigued lately and on weekends she is sleeping. The numbness and tingling inthe upper back is going on. She is borderline low on Vitamin D and has not been anemic since she gave to her daughter. Periods are regular so far. She is sleeping most nights and other nights stays up and her mind is racing. She does not know if she snores and feels rested when she wakes up. If she sits and is not active then she will fall asleep. She had a tear in her left shoulder with trying to reach back had sudden pain and pop. Now that is slowly getting better. She feels a grinding pain when she turns her head at times and she is worried about her sensory symptoms in the neck and r adiates down to the thoracic. No recent falls. No new symptoms. She does walk on the treadmill with her daughter everyday. She was looking at losing some weight. 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 She comes home and she isspent. She takes Lyrica 25 mg at hs. Went over the MRI scan of brain and answered her questions and no signs of MS. This is now her second MRI as she had another one previously outside. Went over imaging study of Cspine and she has a herniated disc abutting on to her spinal cord but not denting it much in C5-6 region and more to the right side. This is causing probably some of the numbness and pain in that region and since the PSP muscles interdigitate the symptoms can seem like they are coming from lower down. General Examination: BP 126/77 (BP Site: Right Arm, BP Position: Sitting, BP Cuff Size: Large Adult) Pulse 92 Temp 36.8 C (98.3 F) (Temporal Artery) Ht 163 cm (5' 4.17 ) Wt 116.1 kg (255 lb 15.3 oz) LMP 12/13/2024 (Approximate) BMI 43.70 kg/m General: Awake, alert, interactive, no acute distress, good nutritional status, normal development,well-kept Neurological Exam Mental Status Alert, fully oriented, attentive, with normal cognition, memory, speech and affect. Cranial Nerves Visual welch intact. Pupils reactive. Extraocular movements conjugate and full. No ptosis. No nystagmus. Facial sensation intact. Face symmetric and strong. Palate and tongue normal. XI normal. Motor Examination and Coordination Motor examination with normal bulk, strength and tone. No drift. Normal rapid alternating movementsand coordination. No adventitious movements or significant tremor. Reflexes Deep tendon reflexes graded by MRC Deep Tendon Reflexes Right Left Biceps 2 2 Triceps 2 2 Brachioradialis 2 2 Patellar 1+ 1+ Achilles 0 0 Plantar Downgoing Downgoing Sensation Sensation intact to light touch, pinprick, proprioception and vibration. She is sensitive to palpation on the left side but feels the pain on the right side at C6-7. Gait Arises easily. Casual gait, tandem, and Romberg are normal. Can rise on heels and toes. CV: RRR without any murmurs and no carotid bruit Assessment & Plan 01/12/2025 - General Neurology, Harini Adler MD ASSESSMENT C5-6 herniated disc, right of midline that may be causing her upper back pain and paresthesias withPSP radiculopathy but no myelopathy noted at this time. 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 Abnormal MRI brain: more likely secondary to remote injury and does not correlate with Multiple Sclerosis. Fatigue but no symptoms of ANSELMO at present, went over blood work. Encouraged her to continue with her exercises and working to lose weight. PLAN She does not want injections but she wants to monitor her cervical spine with a general neurology as she already has curvature in her back and she wants to not be disabled which is understandable. Recommend she establish care with Dr. Leone. Encounter Diagnosis ICD-10-CM 1. Spinal stenosis of cervical region with radiculopathy M48.02 M54.12 Return in about 4 months (around 05/14/2025) for with Staff - Dr. Leone to establish with her forCervical Cord mild myelopathy. Data Review Objective Current Outpatient Medications Medication Sig Cholecalciferol, Vitamin D3, 50 mcg (2,000 unit) cap Take 50 mcg by mouth. cyanocobalamin (VITAMIN B-12) 1,000 mcg tab Take 1,000 mcg by mouth. VYVANSE 70 mg capsule Take 70 mg by mouth once daily. LYRICA 25 mg capsule No current facility-administered medications for this visit. There is no problem list on file for this patient. PAST MEDICAL HISTORY Diagnosis Date Anemia Anxiety state Depression GERD (gastroesophageal reflux disease) Polycystic ovaries Traumatic brain injury (HCC) 1991 FRONTAL LOBE PAST SURGICAL HISTORY Procedure Laterality Date ADENOIDECTOMY PRIMARY <AGE 11 EGD - THERAPEUTIC, EUS, OR TUBE INTERVENTIONS PAST SURGICAL HISTORY OF CARPAL TUNNEL RELEASE (BILATERAL) PAST SURGICAL HISTORY OF SECTION, LOW TRANSVERSE TONSILLECTOMY & ADENOIDECTOMY <AGE 11 Social History Tobacco Use Smoking status: Former Types: Cigarettes Smokeless tobacco: Never Substance Use Topics Alcohol use: Yes Comment: occasionally Drug use: Never FAMILY HISTORY Problem Relation Age of Onset Crohn's Disease Mother Diabetes Paternal Grandmother Review of Systems Constitutional: Negative. Skin: Negative. HENT: Positive for trouble swallowing. Has had dilatation of the throat x 3 Musculoskeletal: Positive for arthralgias, neck pain and neck stiffness. Eyes: Negative. Respiratory: Negative. Cardiovascular: Negative. Endocrine: Negative. Genitourinary: Negative. Hematologic/Lymphatic: Negative. Allergic/Immunologic: Negative. Psychiatric: Negative. Lab and Test Review: General Medical Labs: Last 3 sets of CBC, CMP, Lipids, HBA1C, TSH Latest Ref Rng & Units 04/22/2018 CMP Glucose 65 - 99 mg/dL 91 This result is from an external source. Common Neurology Labs: Last 3 sets of ESR, CRP, CK, Vitamin B12, MMA, Folate, Vitamin D, Copper MRI Head/Brain - Last 2 Impressions MRI BRAIN WO/W IVCON Exam End: 12/06/2024 9:10 AM (Final result) Impression: IMPRESSION: Scattered intracranial white matter lesions which are nonspecific. While could be seen in the setting of multiple sclerosis, this could also relate to a remote insult. No new T2 lesions and no new enhancing ... BRAIN & CERVICAL SPINE MRI DISCRETE DATA Collected: 12/06/2024 9:10 AM (Final result) MRI Cervical Spine - Last 2 Impressions BRAIN & CERVICAL SPINE MRI DISCRETE DATA Collected: 12/06/2024 9:10 AM (Final result) MRI Lumbar Spine - Last 2 Impressions No resulted procedures found. MRI Thoracic Spine - Last 2 Impressions No resulted procedures found. MRI Spine - Last 2 Impressions BRAIN & CERVICAL SPINE MRI DISCRETE DATA Collected: 12/06/2024 9:10 AM (Final result) CT Head/Brain - Last 2 Impressions No resulted procedures found. CTA Head and/or Neck - Last 2 No resulted procedures found. Outside Data/Labs: Subjective Patient-Entered Data: 01/09/25 - GENERAL NEUROLOGY SCORES 06/30/2024 01/05/2025 PROMIS 10 Health, in general Good Good Quality of life, in general Good Good Physical health, in general Fair Good Mental health, in general Good Good Social activities satisfaction Good Good Performing ADL's Completely Moderately Social role satisfaction Good Good Pain, on average 5 3 Fatigue, on average Moderate Moderate Emotional problems Sometimes Sometimes PHYSICAL Score 42.3 (Good) 42.3 (Good) MENTAL Score 43.5 (Good) 43.5 (Good) No data to display 06/30/2024 SLEEP APNEA SCORE Probability of moderate-severe sleep apnea (%) SAPS V2 17 (Sleep study not recommended) I spent a total of 30 minutes on the date of the service which included preparing to see the patient, [id number] patient care, completing clinical documentation, obtaining and/or reviewing separately obtained history, performing a medically appropriate examination, counseling and educating the pat ient/family/caregiver, communicating with other HCPs (not separately reported), independently interpreting results (not separately reported), communicating results to the patient/family/caregiver, and care coordination (not separately reported). Harini Adler MD [facility] NoteHNO ID: [id number] Author: HARINI ADLER MD Service: ? Author Type: Physician Type: Progress Notes Filed: 01/12/2025 13:51 Note Text: [facility] Follow up/ Established patient visit Individuals who were included in, or assisted with the encounter were: Heidi Moya Harini Adler MD Chief Complaint/Issues: Heidi Moya is a 39 year old female seen in the [facility] for: Abnormal MRI head Most Recent Neurological Assessment and Plan: Last Filed Values Date of Most Recent Assessment and Plan 01/12/25 (P) Specialty General Neurology (P) Assessment C5-6 herniated disc, right of midline that may be causing her upper back pain and paresthesias. 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 Abnormal MRI brain: more likely secondary to remote injury and does not correlate with Multiple Sclerosis. Fatigue but no symptoms of ANSELMO at present, went over blood work. Encouraged her to continue with her exercises and working to lose weight. (P) Plan She does not want injections but she wants to monitor her cervical spine with a general neurology as she already has curvature in her back and she wants to not be disabled which is understandable. Recommend she establish care with Dr. Loene. (P) HPI/Interval History: fatigued lately and on weekends she is sleeping. The numbness and tingling in the upper back is going on. She is borderline low on Vitamin D and has not been anemic since she gave to her daughter. Periods are regular so far. She is sleeping most nights and other nights stays up and her mind is racing. She does not know if she snores and feels rested when she wakes up. If she sits and is not active then she will fall asleep. She had a tear in her left shoulder with trying to reach back had sudden pain and pop. Now that is slowly getting better. She feels a grinding pain when she turns her head at times and she is worried about her sensory symptoms in the neck and radiates down to the thoracic. No recent falls. No new symptoms. She does walk on the treadmill with her daughter everyday. She was looking at losing some weight. 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 She comes home and she is spent. She takes Lyrica 25 mg at hs. Went over the MRI scan of brain and answered her questions and no signs of MS. This is now her second MRI as she had another one previously outside. Went over imaging study of Cspine and she has a herniated disc abutting on to her spinal cord but not denting it much in C5-6 region and more to the right side. This is causing probably some of the numbness and pain in that region and since the PSP muscles interdigitate the symptoms can seem like they are coming from lower down. General Examination: BP 126/77 (BP Site: Right Arm, BP Position: Sitting, BP Cuff Size: Large Adult) Pulse 92 Temp 36.8 ?C (98.3 ?F) (Temporal Artery) Ht 163 cm (5' 4.17 ) Wt 116.1 kg (255 lb 15.3 oz) LMP 12/13/2024 (Approximate) BMI 43.70 kg/m? General: Awake, alert, interactive, no acute distress, good nutritional status, normal development, well-kept Neurological Exam Mental Status Alert, fully oriented, attentive, with normal cognition, memory, speech and affect. Cranial Nerves Visual welch intact. Pupils reactive. Extraocular movements conjugate and full. No ptosis. No nystagmus. Facial sensation intact. Face symmetric and strong. Palate and tongue normal. XI normal. Motor Examination and Coordination Motor examination with normal bulk, strength and tone. No drift. Normal rapid alternating movements and coordination. No adventitious movements or significant tremor. Reflexes Deep tendon reflexes graded by MRC Deep Tendon Reflexes Right Left Biceps 2 2 Triceps 2 2 Brachioradialis 2 2 Patellar 1+ 1+ Achilles 0 0 Plantar Downgoing Downgoing Sensation Sensation intact to light touch, pinprick, proprioception and vibration. She is sensitive to palpation on the left side but feels the pain on the right side at C6-7. Gait Arises easily. Casual gait, tandem, and Romberg are normal. Can rise on heels and toes. CV: RRR without any murmurs and no carotid bruit Assessment AND Plan 01/12/2025 - General Neurology, Harini Adlre MD ASSESSMENT C5-6 herniated disc, right of midline that may be causing her upper back pain and paresthesias with PSP radiculopathy but no myelopathy noted at this time. 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 Abnormal MRI brain: more likely secondary to remote injury and does not correlate with Multiple Sclerosis. Fatigue but no symptoms of ANSELMO at present, went over blood work. Encouraged her to continue with her exercises a (more content not included)...[facility]04-21-2025 History of Present illness Narrative* Tania Girish, JOHANN - 01/10/2025 8:20 AM EDT Images from the original note were not included. Chief Complaint Patient presents with Numbness Subjective Heidi Moya is a 39 y.o. female. History of Present Illness The patient presents today for follow-up. At the prior appointment, Lyrica dose was increased to 50mg PO BID. She states she took this as prescribed for approximately 3-4 weeks but has only been taking it once daily now. She still has the numbness and tingling in her posterior thoracic region. This is subjectively unchanged since the prior neurology appointment. She can also experience intermittent numbness and tingling in the neck which can radiate up to the face/head. She denies numbness or paresthesias in any other locations. Lyrica has provided mild benefit. The patient has not followed up with pain management since the prior neurology appointment. She states they did not want to try injections and possibly make things worse. The patient denies saddle anesthesia, incontinence, painful vision loss, double vision, difficulty speaking, coordination difficulty, gait abnormality, or recent falls. She recently had an updated MRI of the brain completed via [facility] and has an appointment with their neurology team to discuss resultson 01/12/2025. Of note, the patient is currently following with orthopedic surgery for left SLAP tear and reports some subtle weakness in the left shoulder secondary to this. She otherwise denies weakness. She states she went to clasp her bra one day and felt a, pop, in her left shoulder. Imaging did not identify any displacement or fracture. The patient is also having some difficulty swallowing and states foods can become stuck in her throat rarely. She is following with gastroenterology for this and plansto undergo esophageal dilatation on 01/25/2025. This will be her third esophageal dilatation. She denies any further new concerns. Acute Neurological Problem This is a chronic problem. The current episode started more than 1 year ago. The problem has been unchanged. Associated symptoms include arthralgias, fatigue, numbness (and paresthesias) and weakness(left shoulder only; following with orthopedic surgery). Pertinent negatives include no abdominal pain, chest pain, chills, coughing, fever, headaches, myalgias, nausea, visual change or vomiting. Review of Systems Constitutional: Positive for fatigue. Negative for appetite change, chills, fever and unexpected weight change. HENT: Positive for trouble swallowing (following with GI). Negative for voice change. Eyes: Negative for pain. Negative for double vision or loss of vision Respiratory: Negative for cough, shortness of breath and wheezing. Cardiovascular: Negative for chest pain and palpitations. Gastrointestinal: Negative for abdominal pain, blood in stool, nausea and vomiting. Musculoskeletal: Positive for arthralgias. Negative for gait problem and myalgias. Neurological: Positive for weakness (left shoulder only; following with orthopedic surgery) and numbness (and paresthesias). Negative for dizziness, tremors, seizures, syncope, facial asymmetry, speech difficulty, light- headedness and headaches. Psychiatric/Behavioral: Negative for agitation, confusion, hallucinations and suicidal ideas. 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 Past Surgical History: Procedure Laterality Date ADENOIDECTOMY CARPAL TUNNEL RELEASE Bilateral SECTION, LOW TRANSVERSE ESOPHAGEAL DILATION OTHER SURGICAL HISTORY Bilateral Cubital tunnel surger TONSILLECTOMY Family History Problem Relation Name Age of Onset Diabetes Mother Jessie Andrade Hypertension Mother Jessie Andrade Migraines Mother Jessie Andrade Depression Father Pieter Leon Hypertension Father Pieter Leon Stroke Father Pieter Leon Depression Sister Vivian Leon Depression Brother Jacoby andrade Depression Brother Damien andrade Cancer Maternal Grandmother Leah Depression Sibling Social History Tobacco Use Smoking status: Former Types: Cigarettes Smokeless tobacco: Never Substance Use Topics Alcohol use: Not Currently Comment: caffeine: 1-2 cups per day Allergies: Baclofen, Zonisamide, Dimetapp children's cold-cough, and Ibuprofen Vitals: 01/10/25 0825 BP: 140/88 Pulse: 104 SpO2: 99% Body mass index is 43.67 kg/m . Weight: 254 lb 6.4 oz Neurologic exam: Mental status and general appearance: Awake and alert with unlabored respirations. Oriented to person, place, and time. Recent and remotememory are intact. Speech is clear and fluent without aphasia. Speech is non-dysarthric. Attention and concentration are normal. Fund of knowledge is appropriate for level of education. Obese. Pleasant. Cranial nerves: CN II: Visual acuity is normal. Visual welch full to confrontation. CN III, IV, : Pupils are equal, round, and reactive to light. Extraocular movements intact. No ptosis present. CN V: Facial sensation is normal. CN VII: Full and symmetric facial movement. CN VIII: Hearing is normal to finger rub bilaterally. CN IX and X: Palate elevates symmetrically. CN XI: Shoulder shrug is normal bilaterally. CN XII: Tongue is midline without atrophy or fasciculation. Motor: RUE strength deltoid , biceps , triceps , wrist extensors , wrist flexor , and speech language pathologist assistant strength 5/5. LUE strength deltoid strength 4/5 (seemingly some giveway weakness secondary to current left shoulder pain). Biceps , triceps , wrist extensors , wrist flexor , and speech language pathologist assistant strength 5/5. RLE strength iliopsoas, quadriceps, tibialis anterior, and plantar flexion strength 5/5. LLE strength iliopsoas, quadriceps, tibialis anterior, and plantar flexion strength 5/5. Tone and bulk are normal. Sensory: Sensation is intact to light touch throughout all four extremities. Sensation is intact to temperature in all extremities. Hyperesthesia in the posterior thoracic region. Reflexes: RUE biceps reflex 3+ , brachioradialis reflex 3+. LUE biceps reflex 3+ , brachioradialis reflex 3+. RLE knee reflex 2+. LLE knee reflex 2+. Dotson's sign negative. Coordination: [id number] testing normal. Rapid alternating movements are normal. Gait: Normal. Review and summary of old records: MRI of the brain with and without contrast at [facility] on 12/06/2024: Scattered intracranial white matter lesions which are nonspecific. While could be seen in the setting of multiple sclerosis, this could also relate to a remote insult. No new T2 lesions and no new enhancing lesions. No significant parenchymal volume loss. MRI of the head/brain w and w/o contrast at [facility] on 05/21/2024: Similar foci of increased T2 and FLAIR signal are seen within the white matter. Although nonspecific, and patient's age group, this could represent multiple sclerosis plaque. There are no developing areas of abnormal signal intensity or enhancement within the supra or infratentorial brain. No acute intracranial findings. MRI of the cervical spine w and w/o contrast at [facility] on 05/21/2024: No suspected cord demyelination. Mild minor disc vertebral degenerative changes, greatest at C5-C6. At C3-C4, there is minimal discosteophyte bulging with subtle of the thecal sac effacement. There is no foraminal encroachment. AtC5-C6, there is mild disc osteophyte bulging. There is effacement of the thecal sac approaching though not compressing the cord. The neural foramina are patent. At C6-C7, there is minor disco osteophytic bulging without associated stenosis. MRI of the lumbar spine without contrast on 12/31/2023: No significant canal or foraminal stenosis.There are mild changes at L5-S1. MRI of the thoracic spine w and w/o contrast on 11/29/23: No obvious cord abnormalities. There is minor left parasagittal disc bulging at T7-T8 with subtle thecal sac effacement. Otherwise, there is nosignificant disc disease or stenosis. EMG of the bilateral lower extremities on 11/27/23: Normal. No evidence of lumbar radiculopathy or a generalized process such as polyneuropathy. EMG of the bilateral upper extremities on 11/20/23: Normal. No evidence of a cervical radiculopathy,brachial plexopathy, or entrapment mononeuropathy. Labs at [facility] on 11/17/23: RIVKA negative. CK 48. Myoglobin 42. All within normal limits. MRI of the brain w and w/o contrast at [facility] on 11/08/23: Subtle punctate areas of abnormal white matter signal is seen on the T2 FLAIR imaging. Finding is nonspecific in this age group. Demyelinating process cannot be excluded given the history. - This does not demonstrate dissemination in time Labs on 10/22/23: GFR 58. Hgb A1C 5.3%. TSH 1.520. Assessment/Plan Diagnoses and all orders for this visit: DDD (degenerative disc disease), thoracic Numbness The patient reports chronic numbness and paresthesias in the posterior thoracic region. These seem to extend from the level of T2 to T8 based on her description. MRI of the thoracic spine on 11/29/23 revealed subtle thecal sac effacement at T7-T8 but was otherwise generally unremarkable and did not id entify a definitive cause for her symptoms. MRI of the cervical spine on 05/21/24 revealed thecal sac effacement at C3-C4 and C5-C6 without cord signal abnormality. Physical therapy did not provide subjective benefit in the past and actually worsened her symptoms. Baclofen and Zonisamide were not tolerated previously. The patient reports mild improvement in symptoms since starting Lyrica. PLAN: - Continue Lyrica 50 mg by mouth up to twice daily (she sometimes only takes this once a day but will take BID if needed). OARRS reviewed - I discussed possible dose increase of Lyrica and/or addition of another oral medication to try tohelp improve the patient's sensory symptoms. The patient politely declined for now, stating she does not wish to make any changes to the current regimen - I encouraged the patient to follow up with pain management for evaluation and consideration of procedural interventions to help further manage her symptoms. She states they recommended against injections, and she has not returned recently White matter abnormality on MRI of brain MRI of the brain on 11/08/23 revealed subtle punctate area of white matter changes. Repeat MRIs on 05/21/24 and 12/06/24 revealed stability of these lesions. These are nonspecific but could potentially represent chronic small vessel ischemic changes or demyelinating changes in a patient of this age. The patient does not meet Quintanilla criteria for multiple sclerosis at this time, and she denies history of clinical episodes consistent with a typical MS clinical attack. She denies history of diplopia, unilateral vision loss, coordination difficulty, or abnormal gait. She did get a second opinion [facility] neurology per our recommendations. Per documentation, they did not believe this was consistent with MS when they evaluated her on 07/02/2024. They plan to see her back on 01/12/2025 for further discussion and review of most recent MRI results. PLAN: - Monitor clinically - Will plan to see the patient back in approximately 4 to 6 months for serial observation and updated neurologic examination - Follow up with [facility] neurology per their recommendations for ongoing monitoring and management, consideration of lumbar puncture, etc. Family history of rheumatoid arthritis Positive family history of rheumatoid arthritis. The patient's RIVKA on 11/17/23 was negative, and CK and myoglobin were within normal limits. Diagnosis and treatment options discussed in detail. All questions answered. The patient verbalizesunderstanding and is agreeable to the plan. Discussion in layman's terms. Follow up in the office within 4 to 6 months; sooner if needed for new or worsening symptoms. Tania Stout NP [facility] documented in this [facility]04-21-2025 Instructions* Patient Instructions* Tania Stout NP - 01/10/2025 8:20 AM EDT - Continue Lyrica as prescribed - Follow up closely with [facility] neurology for ongoing evaluation of white matter changes in the brain documented in this [facility]04-13-2025 Progress note* Result Encounter Note - Harini Adler MD - 01/02/2025 11:54 AM EDT MRI is suspicious for MS and she has an appt with me on 01/12/25 to go over the MRI to discuss this and further workup. If she has had any other MRI of brain, ask her to get me the disc, especially if done at [facility]. [facility]04-13-2025 Miscellaneous Notes* Result Encounter Note - Harini Adler MD - 01/02/2025 11:54 AM EDT MRI is suspicious for MS and she has an appt with me on 01/12/25 to go over the MRI to discuss this and further workup. If she has had any other MRI of brain, ask her to get me the disc, especially if done at [facility]. [facility] Evaluation note* Diagnosis Onset Date Resolution Status Admit Date Internal derangement of left shoulder acute December 27, 2024 10:24am [facility] Work Phone: 1(684) 524-267304-07-2025 Evaluation note* Diagnosis Onset Date Resolution Status Admit Date Internal derangement of left shoulder acute December 27, 2024 10:24am Internal derangement of left shoulder acute January 31, 2025 9 :23am [facility] Work Phone: 1(675) 119-596204-07-2025 Evaluation note* Diagnosis Onset Date Resolution Status Admit Date Internal derangement of left shoulder acute December 27, 2024 10:24am Internal derangement of left shoulder acute January 31, 2025 9 :23am Dyspepsia acute March 15 9:55am Eosinophilic esophagitis acute March 15, 2025 9:55am Food impaction of esophagus acute March 15, 2025 9:55am GERD (gastroesophageal reflu x disease) acute March 15, 2025 9:55am [facility] Work Phone: 1(378) 908-368703-17-2025 History of Present illness Narrative* Jason Gonzalez RN - 12/06/2024 8:30 AM EDT Radiology Service Progress Note DATE OF SERVICE: December 06, 2024 TIME: 8:33 AM PATIENT WEIGHT: 247 LBS PATIENT IDENTITY VERIFICATION COMPLETED USING TWO (2) STANDARD IDENTIFIERS: Name and Date of confirmed by patient verbally. FALL SCREENING: Has the patient had 2 falls in the last year or 1 fall with injury or currently using an Ambulatory Assistive Device (Walker, Cane, Wheelchair, Crutches, etc.)? No PATIENT GENDER DATA: Assigned female at . status: : No status:NO. ALLERGIES: Reviewed and unchanged CONTRAST ALLERGY: No EXAM: MRI - CONTRAST TYPE: GROUP II IV SITE: Ambulatory: A peripheral IV was started in the Left hand with a Angio cath: 24 gauge. IV SITE APPEARANCE: Clean,Dry and Intact SIGNATURE: Jason Gonzalez RN PATIENT NAME: Heidi Moya DATE: December 06, 2024 TIME: 8:33 AM * Dariana Win RT(R) - 12/06/2024 8:30 AM EDT Radiology Service Progress Note PATIENT NAME: Heidi Moya DATE OF SERVICE: December 06, 2024 TIME: 8:46 AM PATIENT IDENTITY VERIFICATION COMPLETED USING TWO (2) IDENTIFIERS: Name and Date of confirmedby patient verbally. FALL SCREENING: Has the patient had 2 falls in the last year or 1 fall with injury or currently using an Ambulatory Assistive Device (Walker, Cane, Wheelchair, Crutches, etc.)? No PATIENT GENDER DATA: Assigned female at . status: : No status:NO. PATIENT RELEVANT IMPLANT DATA REVIEWED: Yes PATIENT PRESENTS WITH AN IMPLANTABLE OR ATTACHED ELECTROMECHANICAL TECHNICIAN: No RADIOLOGY DEPARTMENT: MR; Exam(s) Completed: Head: Multiple Sclerosis PERIPHERAL IV DATA: Site assessment: Clean,Dry and Intact, Site disposition Discontinued SIGNED BY: RT Rah(R) December 06, 2024 8:46 AM [facility]25 NoteHNO ID: [id number] Author: DARIANA WIN RT(R) Service: Radiology Author Type: Technologist Type: Progress Notes Filed: 12/06/2024 08:46 Note Text: Radiology Service Progress Note PATIENT NAME: Heidi Moya DATE OF SERVICE: December 06, 2024 TIME: 8:46 AM PATIENT IDENTITY VERIFICATION COMPLETED USING TWO (2) IDENTIFIERS: Name and Date of confirmed by patient verbally. FALL SCREENING: Has the patient had 2 falls in the last year or 1 fall with injury or currently using an Ambulatory Assistive Device (Walker, Cane, Wheelchair, Crutches, etc.)? No PATIENT GENDER DATA: Assigned female at . status: : No status: NO. PATIENT RELEVANT IMPLANT DATA REVIEWED: Yes PATIENT PRESENTS WITH AN IMPLANTABLE OR ATTACHED ELECTROMECHANICAL TECHNICIAN: No RADIOLOGY DEPARTMENT: MR; Exam(s) Completed: Head: Multiple Sclerosis PERIPHERAL IV DATA: Site assessment: Clean,Dry and Intact, Site disposition Discontinued SIGNED BY: RT Rah(Jimmy) December 06, 2024 8:46 [facility]03-17-2025 NoteHNO ID: [id number] Author: JASON GONZALEZ RN Service: Nursing Author Type: Registered Nurse Type: Progress Notes Filed: 12/06/2024 08:39 Note Text: Radiology Service Progress Note DATE OF SERVICE: December 06, 2024 TIME: 8:33 AM PATIENT WEIGHT: 247 LBS PATIENT IDENTITY VERIFICATION COMPLETED USING TWO (2) STANDARD IDENTIFIERS: Name and Date of confirmed by patient verbally. FALL SCREENING: Has the patient had 2 falls in the last year or 1 fall with injury or currently using an Ambulatory Assistive Device (Walker, Cane, Wheelchair, Crutches, etc.)? No PATIENT GENDER DATA: Assigned female at . status: : No status: NO. ALLERGIES: Reviewed and unchanged CONTRAST ALLERGY: No EXAM: MRI - CONTRAST TYPE: GROUP II IV SITE: Ambulatory: A peripheral IV was started in the Left hand with a Angio cath: 24 gauge. IV SITE APPEARANCE: Clean,Dry and Intact SIGNATURE: Jason Gonzalez RN PATIENT NAME: Heidi Moya DATE: December 06, 2024 TIME: 8:33 [facility]02-01-2025 Evaluation note* Diagnosis Onset Date Resolution Status Admit Date Left shoulder pain acute Februa 2024 10:36am [facility] Work Phone: 1(437) 704-630602-01-2025 Evaluation note* Diagnosis Onset Date Resolution Status Admit Date Left shoulder pain acute Februa 2024 10:36am Internal derangement of left shoulder acute December 27, 2024 10:24am [facility] Work Phone: 1(546) 932-563511-04-2024 History of Present illness Narrative* Yasmin Ortiz DO - 07/26/2024 12:00 PM EST Images from the original note were not included. Chief Complaint: back pain Subjective Heidi Moya, 38 y.o., female Patient presents today for a follow up for degenerative disk disease. She was started on [id number] mg BID at her last visit. She denies any negative side effects from this. She believes the firstfew weeks she got really good sleep. She was not waking up with her legs jerking. She states this is starting to come back a bit but not as bad. She reports an increase in cold sensitivity. She states walking on her hardwood floors her toes were going white and numb. Her fingers also will get whiteand start going numb. Review of systems is positive for paresthesias in the upper and lower extremities as well as some anxieties. Otherwise no complaints of chest pain, shortness of breath, abdominal pain, vision change,fever, chills, night sweats. Medication List Accurate as of July 26, 2024 12:16 PM. If you have any questions, ask your nurse or doctor. CONTINUE taking these medications ALPRAZolam 0.5 MG tablet; Commonly known as: Xanax cyanocobalamin 1000 MCG tablet; Commonly known as: Vitamin B-12 fluticasone 50 MCG/ACT nasal spray; Commonly known as: Flonase lisdexamfetamine 70 MG capsule; Commonly known as: Vyvanse multivitamin tablet pregabalin 25 MG capsule; Commonly known as: Lyrica; Take 1 capsule (25 mg) by mouth in the morning and 1 capsule (25 mg) before bedtime. 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 Past Surgical History: Procedure Laterality Date ADENOIDECTOMY CARPAL TUNNEL RELEASE Bilateral SECTION, LOW TRANSVERSE ESOPHAGEAL DILATION OTHER SURGICAL HISTORY Bilateral Cubital tunnel surger TONSILLECTOMY Family History Problem Relation Name Age of Onset Diabetes Mother Jessie Andrade Hypertension Mother Jessie Andrade Migraines Mother Jessie Andrade Depression Father Pieter Leon Hypertension Father Pieter Leon Stroke Father Pieter Leon Depression Sister Vivian Leon Depression Brother Jacoby andrade Depression Brother Damien andrade Cancer Maternal Grandmother Leah Depression Sibling Social History Tobacco Use Smoking status: Former Types: Cigarettes Smokeless tobacco: Never Substance Use Topics Alcohol use: Not Currently Comment: caffeine: 1-2 cups per day Allergies: Baclofen, Zonisamide, Dimetapp children's cold-cough, and Ibuprofen Vitals: 07/26/24 1200 BP: 129/82 Pulse: 80 SpO2: 99% Body mass index is 42.4 kg/m . weight: 247 lb Neurologic exam: Mental status: Awake and alert with unlabored respirations. Oriented to person, place and time. Recent and remote memory are intact. Speech is clear and fluent without aphasia. Attention and concentration are normal. Fund of knowledge is appropriate for level of education. Cranial nerves: CN II: Visual acuity is normal. Visual welch full to confrontation. CN III, IV, : Pupils are equal, round and reactive to light. Extraocular movements intact. No ptosis present. CN V: Facial sensation is normal. CN VII: Full and symmetric facial movement. CN VIII: Hearing is normal to finger rub bilaterally. CN IX and X: Palate elevates symmetrically. CN XI: Shoulder shrug is normal bilaterally. CN XII: Tongue is midline without atrophy or fasciculation. Motor: RUE strength deltoid , biceps , triceps , wrist extensors , wrist flexor , and speech language pathologist assistant strength 5/5. LUE strength deltoid , biceps , triceps , wrist extensors , wrist flexor , and speech language pathologist assistant strength 5/5. RLE strength iliopsoas, quadriceps, tibialis anterior, plantar flexion, and dorsiflexion strength 5/5. LLE strength iliopsoas, quadriceps, tibialis anterior, plantar flexion, and dorsiflexion strength 5/5. Tone and bulk are normal. Sensory: Sensation is intact to light touch throughout all four extremities. Sensation is intact to temperature in all extremities. Hyperesthesia in the posterior thoracic region. Reflexes: RUE biceps reflex 3+ , brachioradialis reflex 3+. LUE biceps reflex 3+ , brachioradialis reflex 3+. RLE Knee reflex 2+. LLE Knee reflex 2+. Coordination: [id number] testing normal. Rapid alternating movements are normal. Gait: Normal. Review and summary of old records: MRI of the head/brain w and w/o contrast at [facility] on 05/21/2024: Similar foci of increased T2 and FLAIR signal are seen within the white matter. Although nonspecific, and patient's age group, this could represent multiple sclerosis plaque. There are no developing areas of abnormal signal intensity or enhancement within the supra or infratentorial brain. No acute intracranial findings. MRI of the cervical spine w and w/o contrast at [facility] on 05/21/2024: No suspected cord demyelination. Mild minor disc vertebral degenerative changes, greatest at C5-C6. At C3-C4, there is minimal discosteophyte bulging with subtle of the thecal sac effacement. There is no foraminal encroachment. AtC5-C6, there is mild disc osteophyte bulging. There is effacement of the thecal sac approaching though not compressing the cord. The neural foramina are patent. At C6-C7, there is minor disco osteophytic bulging without associated stenosis. MRI of the lumbar spine without contrast on 12/31/2023: No significant canal or foraminal stenosis.There are mild changes at L5-S1. MRI of the thoracic spine w and w/o contrast on 11/29/23: No obvious cord abnormalities. There is minor left parasagittal disc bulging at T7-T8 with subtle thecal sac effacement. Otherwise, there is nosignificant disc disease or stenosis. EMG of the bilateral lower extremities on 11/27/23: Normal. No evidence of lumbar radiculopathy or a generalized process such as polyneuropathy. EMG of the bilateral upper extremities on 11/20/23: Normal. No evidence of a cervical radiculopathy,brachial plexopathy, or entrapment mononeuropathy. Labs at [facility] on 11/17/23: RIVKA negative. CK 48. Myoglobin 42. All within normal limits. MRI of the brain w and w/o contrast at [facility] on 11/08/23: Subtle punctate areas of abnormal white matter signal is seen on the T2 FLAIR imaging. Finding is nonspecific in this age group. Demyelinating process cannot be excluded given the history. - This does not demonstrate dissemination in time Labs on 10/22/23: GFR 58. Hgb A1C 5.3%. TSH 1.520. Assessment/Plan Diagnoses and all orders for this visit: DDD (degenerative disc disease), thoracic Numbness The patient reports persistent numbness and paresthesias in the posterior thoracic region. These seem to extend from the level of T2 to T8 based on her description. MRI of the thoracic spine on 11/29/23 revealed subtle thecal sac effacement at T7-T8 but was otherwise generally unremarkable. MRI of the cervical spine on 05/21/24 revealed thecal sac effacement at C3-C4 and C5-C6 without cord signal abnormality. Physical therapy did not provide subjective benefit in the past and actually worsened hersymptoms. Baclofen and Zonisamide were not tolerated due to side effects. The patient would like totrial an alternative medication for symptom management at this time. The patient has had very good response to Lyrica with improvement in her symptoms. However, there is seemingly a need for a mild increase in medication. PLAN: - Increase Lyrica 50 mg by mouth twice a day. I counseled the patient on potential side effects in detail. She verbalizes understanding and wishes to proceed. She understands to notify the office if she experiences any side effects - The patient did get a 2nd opinion at [facility] and as we suspected and felt, this was not thought to be consistent with demyelinating disease. White matter abnormality on MRI of brain MRI of the brain on 11/08/23 revealed subtle punctate area of white matter changes. Repeat MRI on 05/21/24 revealed stability of these lesions. These are nonspecific but could potentially represent chronic small vessel ischemic changes or demyelinating changes in a patient of this age. The patient does not meet Quintanilla criteria for multiple sclerosis at this time, and she denies history of clinical episodes consistent with a typical MS clinical attack. She denies history of diplopia, unilateral vision loss, coordination difficulty, or abnormal gait. She did get a 2nd opinion at [facility] as we had suggested. They did not feel this was related to MS at this time and we will reimage in 6 months. PLAN: - Follow up with [facility] in 6 months. They are ordering repeat imaging. Family history of rheumatoid arthritis Positive family history of rheumatoid arthritis. The patient's RIVKA on 11/17/23 was negative, and CK and myoglobin were within normal limits. Pt has been fully educated on their diagnosis, treatment options, follow up plan, and return instructions documented in [facility]- [id number] History of Present illness Narrative* Harini Adler MD - 07/02/2024 2:16 PM EDT Images from the original note were not included. [facility] for [facility] New Patient Evaluation Consulting Provider: Tania Stout APRN [address] [place] [address] The patient presents with a chief complaint as listed below, and is seen in consultation requested by Dr. Tania Stout for an opinion regarding these symptoms. My final recommendations will be communicated back to the requesting physician by way of shared medical record or letter via US mail. Dear Ms. Stout, Thank you for the referral. Please let me know if you have any questions. Individuals who were included in, or assisted with the encounter were: Heidi Yue Adler MD Chief Complaint/Issues: Heidi Moya is a 38 year old female with ADHD, DJD of the spine and scoliosis, seen in the [facility] for: Second opinion on MS HPI: For one year she has been having numbness in the middle of her back midline to the base of neck. She has tingling from the neck to the head, tingling in the face bilaterally and this is more when she has her head down and working on the computer. Mood has been weird but has had stress, husbandwas deployed and grandmother . More sensitive now. She turns and turns at sleep. 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 Hx of scoliosis. She has had lower back pain and also had lumbar spine and thoracic spine MRI. She has DJD in both cervical and lumbar spine. EMG/NCS done of upper and lower extremities and did not show anything. She had blood work done more recently - CMP, CBC, Vitamin D (19), B12, Folate not done Maternal cousin with diagnosis of MS Reviewed MRI of brain and Cspine as well as T spine. Blood work, Vitamin D slightly low and she is on a supplement B12, TSH, RIVKA all normal. CBC and CMP normal General Examination: BP 118/83 (BP Site: Right Arm, BP Position: Sitting, BP Cuff Size: Extra Large Adult) Pulse 98 Temp 37.6 C (99.7 F) (Oral) Ht 163.5 cm (5' 4.37 ) Wt 112.3 kg (247 lb 9.2 oz) LMP 03/31/2024 (Exact Date) BMI 42.01 kg/m General: Awake, alert, interactive, no acute distress, good nutritional status, normal development,well-kept Neurological Exam Mental Status Alert, fully oriented, attentive, with normal cognition, memory, speech and affect. Cranial Nerves Visual welch intact. Fundi with normal discs and vasculature. Pupils reactive. Extraocular movements conjugate and full. No ptosis. No nystagmus. Facial sensation intact. Face symmetric and strong. Palate and tongue normal. XI normal. Hearing is normal Motor Examination and Coordination Motor examination with normal bulk, strength and tone. No drift. Normal rapid alternating movementsand coordination. No adventitious movements or significant tremor. Reflexes Deep tendon reflexes graded by MRC Deep Tendon Reflexes Right Left Biceps 2 2 Triceps 2 2 Brachioradialis 2 2 Patellar 1+ 1+ Achilles 0 0 Plantar Downgoing Downgoing Sensation Sensation intact to light touch, pinprick, proprioception and vibration. Gait Arises easily. Casual gait, tandem, and Romberg are normal. Can rise on heels and toes. Assessment & Plan 07/02/2024 - General Neurology, Harini Adler MD ASSESSMENT 1) Abnormal MRI with Nonspecific T2 lesions, not enhancing and more consistent with head injury as a child or her migraine history. Exam is normal which it can be in MS early on. Went over the MRI brain images and Cspine and Tspine images and do not see any typical lesions. No previous MRI to compare with. No need for LP unless we see progression of the T2 lesions on a future MRI brain. PLAN Repeat MRI of brain with contrast in 6 months on MS protocol, and as discussed with patient if it is MS we should see changes. Has scoliosis, I told her to start Eleazar Chi to get into stretching and better posture. NO pain but more numbness at this time. Encounter Diagnosis ICD-10-CM 1. Demyelinating disease of central nervous system (HCC) G37.9 MRI BRAIN WO/W IVCON Return in about 6 months (around 12/31/2024). Data Review Objective Current Outpatient Medications Medication Sig LYRICA 25 mg capsule Cholecalciferol, Vitamin D3, 50 mcg (2,000 unit) cap Take 50 mcg by mouth. cyanocobalamin (VITAMIN B-12) 1,000 mcg tab Take 1,000 mcg by mouth. VYVANSE 70 mg capsule Take 70 mg by mouth once daily. iv contrast (will be provided with radiology test) MRI Brain Inject, intravenously, once for 1 dose.No IV access, insert saline lock prior to beginning of sedation, infusion, injection of imaging exam.Discontinue saline lock post exam. If Pt. has a central line or IVAD, may access for administration according to line specific nursing protocol.Once exam is complete flush line and de-access according to line specific nursing protocol in the MR contrast administration guidelines link multivitamin with minerals (MULTIPLE VITAMIN-MINERALS) tablet Take 1 tablet by mouth once daily. No current facility-administered medications for this visit. There is no problem list on file for this patient. PAST MEDICAL HISTORY Diagnosis Date Anemia Anxiety state Depression GERD (gastroesophageal reflux disease) Polycystic ovaries Traumatic brain injury (HCC) 1991 FRONTAL LOBE PAST SURGICAL HISTORY Procedure Laterality Date ADENOIDECTOMY PRIMARY <AGE 11 EGD - THERAPEUTIC, EUS, OR TUBE INTERVENTIONS PAST SURGICAL HISTORY OF CARPAL TUNNEL RELEASE (BILATERAL) PAST SURGICAL HISTORY OF SECTION, LOW TRANSVERSE TONSILLECTOMY & ADENOIDECTOMY <AGE 11 Social History Tobacco Use Smoking status: Former Types: Cigarettes Smokeless tobacco: Never Substance Use Topics Alcohol use: Yes Comment: occasionally Drug use: Never FAMILY HISTORY Problem Relation Age of Onset Crohn's Disease Mother Diabetes Paternal Grandmother Review of Systems Skin: Negative. HENT: Positive for trouble swallowing. Solids get stuck in throat and she has had esophagus stretched, she was tried on Protonix and this did not help. She knows her trigger foods and avoids them. Musculoskeletal: Positive for arthralgias, back pain, neck pain and neck stiffness. Eyes: Negative. Respiratory: Negative. Cardiovascular: Negative. Gastrointestinal: Positive for reflux. Gastroparesis and rectocele Endocrine: Negative. Genitourinary: Negative. Hematologic/Lymphatic: Negative. Allergic/Immunologic: Negative. Psychiatric: Positive for dysphoric mood and nervous/anxious. Lab and Test Review: General Medical Labs: Last 3 sets of CBC, CMP, Lipids, HBA1C, TSH No data to display Latest Ref Rng & Units 04/22/2018 CMP Glucose 65 - 99 mg/dL 91 This result is from an external source. No data to display Common Neurology Labs: Last 3 sets of ESR, CRP, CK, Vitamin B12, MMA, Folate, Vitamin D, Copper No data to display Outside Data/Labs: MRI CERVICAL SPINE WITHOUT AND WITH INTRAVENOUS CONTRAST COMPARISON: None CLINICAL DATA: Numbness and tingling at the hands, legs and feet. Multiecho imaging in the axial and sagittal plane was performed before and after intravenous administration of 20 mild ProHance. There is normal alignment to the sagittal sequences. There are no acute compression fractures or marrow edema. The cord is within normal limits for caliber, position and signal intensity. There is no abnormal enhancement. Shotty cervical lymph nodes are present. At C2-3, there is no disc disease or stenosis. At C3-4, there is minimal disco-osteophytic bulging with subtle thecal sac effacement. There is no foraminal encroachment. At C4-5, there is no disc disease or stenosis. At C5-6, there is mild disco-osteophytic bulging which is slightly asymmetric in the right parasagittal region extending toward the lateral recess. There is effacement of thecal sac approaching though not compressing the cord. The neural foramen are patent. At C6-7, there is minor disco-osteophytic bulging, without associated stenosis. At the cervicothoracic junction, no MRI abnormalities are noted. MR/MR cervical spine wo/w con IMPRESSION: MINOR DISCOVERTEBRAL DEGENERATIVE CHANGES, GREATEST AT C5-6 . NO SUSPECTED CORD DEMYELINATION. Impression dictated by: Angela Murillo M.D.05/21/2024 8:12 PM Dictation Location: [place] [address] Transcribed By: [facility] 05/21/242011 Dictated By: Angela Murillo MD 05/21/242005 Signed By: <Electronically signed by MD Angela Murillo in OV> 05/21/242011 Subjective Patient-Entered Data: 07/02/24 - GENERAL NEUROLOGY SCORES 06/30/2024 PROMIS 10 Health, in general Good Quality of life, in general Good Physical health, in general Fair Mental health, in general Good Social activities satisfaction Good Performing ADL's Completely Social role satisfaction Good Pain, on average 5 Fatigue, on average Moderate Emotional problems Sometimes PHYSICAL Score 42.3 (Good) MENTAL Score 43.5 (Good) 06/30/2024 SLEEP APNEA SCORE Probability of moderate-severe sleep apnea (%) SAPS V2 17 (Sleep study not recommended) I spent a total of 40 minutes on the date of the service which included preparing to see the patient, [id number] patient care, completing clinical documentation, obtaining and/or reviewing separately obtained history, performing a medically appropriate examination, counseling and educating the pat ient/family/caregiver, ordering medications, tests, or procedures, communicating with other HCPs (not separately reported), independently interpreting results (not separately reported), and communicating results to the patient/family/caregiver. Harini Adler MD [facility] NoteHNO ID: [id number] Author: HARINI ADLER MD Service: ? Author Type: Physician Type: Progress Notes Filed: 07/02/2024 16:39 Note Text: [facility] New Patient Evaluation Consulting Provider: Tania Stout SISAL PICKER [address] [place] [id number] The patient presents with a chief complaint as listed below, and is seen in consultation requested by Dr. Tania Stout for an opinion regarding these symptoms. My final recommendations will be communicated back to the requesting physician by way of shared medical record or letter via US mail. Dear Ms. Stout, Thank you for the referral. Please let me know if you have any questions. Individuals who were included in, or assisted with the encounter were: Heidi Moya Harini Adler MD Chief Complaint/Issues: Heidi Moya is a 38 year old female with ADHD, DJD of the spine and scoliosis, seen in the [facility] for: Second opinion on MS HPI: For one year she has been having numbness in the middle of her back midline to the base of neck. She has tingling from the neck to the head, tingling in the face bilaterally and this is more when she has her head down and working on the computer. 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 More sensitive now. She turns and turns at sleep. 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 Hx of scoliosis. She has had lower back pain and also had lumbar spine and thoracic spine MRI. She has DJD in both cervical and lumbar spine. EMG/NCS done of upper and lower extremities and did not show anything. She had blood work done more recently - CMP, CBC, Vitamin D (19), B12, Folate not done Maternal cousin with diagnosis of MS Reviewed MRI of brain and Cspine as well as T spine. Blood work, Vitamin D slightly low and she is on a supplement B12, TSH, RIVKA all normal. CBC and CMP normal General Examination: BP 118/83 (BP Site: Right Arm, BP Position: Sitting, BP Cuff Size: Extra Large Adult) Pulse 98 Temp 37.6 ?C (99.7 ?F) (Oral) Ht 163.5 cm (5' 4.37 ) Wt 112.3 kg (247 lb 9.2 oz) LMP 03/31/2024 (Exact Date) BMI 42.01 kg/m? General: Awake, alert, interactive, no acute distress, good nutritional status, normal development, well-kept Neurological Exam Mental Status Alert, fully oriented, attentive, with normal cognition, memory, speech and affect. Cranial Nerves Visual welch intact. Fundi with normal discs and vasculature. Pupils reactive. Extraocular movements conjugate and full. No ptosis. No nystagmus. Facial sensation intact. Face symmetric and strong. Palate and tongue normal. XI normal. Hearing is normal Motor Examination and Coordination Motor examination with normal bulk, strength and tone. No drift. Normal rapid alternating movements and coordination. No adventitious movements or significant tremor. Reflexes Deep tendon reflexes graded by MRC Deep Tendon Reflexes Right Left Biceps 2 2 Triceps 2 2 Brachioradialis 2 2 Patellar 1+ 1+ Achilles 0 0 Plantar Downgoing Downgoing Sensation Sensation intact to light touch, pinprick, proprioception and vibration. Gait Arises easily. Casual gait, tandem, and Romberg are normal. Can rise on heels and toes. Assessment AND Plan 07/02/2024 - General Neurology, Harini Adler MD ASSESSMENT 1) Abnormal MRI with Nonspecific T2 lesions, not enhancing and more consistent with head injury as a child or her migraine history. Exam is normal which it can be in MS early on. Went over the MRI brain images and Cspine and Tspine images and do not see any typical lesions. No previous MRI to compare with. No need for LP unless we see progression of the T2 lesions on a future MRI brain. PLAN Repeat MRI of brain with contrast in 6 months on MS protocol, and as discussed with patient if it is MS we should see changes. Has scoliosis, I told her to start Eleazar Chi to get into stretching and better posture. NO pain but more numbness at this time. Encounter Diagnosis ICD-10-CM 1. Demyelinating disease of central nervous system (HCC) G37.9 MRI BRAIN WO/W IVCON Return in about 6 months (around 12/31/2024). Data Review Objective Current Outpatient Medications Medication Sig LYRICA 25 mg capsule Cholecalciferol, Vitamin D3, 50 mcg (2,000 unit) cap Take 50 mcg by mouth. cyanocobalamin (VITAMIN B-12) 1,000 mcg tab Take 1,000 mcg by mouth. VYVANSE 70 mg capsule Take 70 mg by mouth once daily. iv contrast (will be provided with radiology test) MRI Brain Inject, intravenously, once for 1 dose.No IV access, insert saline lock prior to beginning of sedation, infus (more content not included)...[facility]09-16-2024 History of Present illness Narrative* Tania Stout NP - 06/07/2024 11:00 AM EDT Images from the original note were not included. Tania Stout NP Chief Complaint Patient presents with Numbness Subjective Heidi Moya is a 38 y.o. female. HPI The patient presents today for follow up. She had MRIs of the brain and cervical spine completed for review. She has not followed up with pain management since the prior neurology appointment. At theprior appointment, the patient was referred to [facility] neurology. She has not been evaluated by them yet. She was contacted by [facility] this morning to schedule a new patient appointment with their neurology team. The patient presented to [facility] emergency department on for bilateral low back pain and lower extremity paresthesias. She states she felt like her legs were, hooked up to a battery, and I was getting shocked, at the time. She also reports her body, overall, felt weak. She reports a history of scoliosis and degenerative disc disease. She denies any injuries closely preceding her emergency department visit. She states [facility] did not complete any imaging. Her symptoms improved with Dilaudid and magnesium, and they discharged her home. She reports she tested positive for COVID-19 on 05/30/2024. She states her back pain and lower extremity symptoms have significantly improved since that time. The patient states the numbness in her posterior thoracic region is unchanged since the prior neurology appointment. She denies saddle anesthesia, bowel/bladder dysfunction, coordination difficulty, imbalance, or falls. She has headaches approximately 3 to 4 times per month. These are located near the eyes or in the occipital region. She describes them as achy. They are associated with tingling in the cheeks and posterior head. They are also associated with increased sensitivity to lights and sounds. They are not a ssociated with nausea or vomiting. They last up to 1 day. She has tried ice and Tylenol for her symptoms, and these provide benefit. The patient believes her vision is gradually worsening. She sees an eye doctor and has a follow-up appointment scheduled with them soon. She denies eye pain, vision loss, or double vision. She denies any further concerns. Review of Systems Constitutional: Positive for fatigue. Negative for appetite change, chills, fever and unexpected weight change. HENT: Negative for trouble swallowing and voice change. Eyes: Negative for pain. Positive for gradually worsening vision (mild, bilateral). Negative for double vision or loss of vision Respiratory: Negative for cough, shortness of breath and wheezing. Cardiovascular: Negative for chest pain and palpitations. Gastrointestinal: Negative for abdominal pain, blood in stool, nausea and vomiting. Musculoskeletal: Positive for arthralgias. Negative for gait problem and myalgias. Neurological: Positive for numbness (and paresthesias) and headaches. Negative for dizziness, tremors, seizures, syncope, facial asymmetry, speech difficulty, weakness and light-headedness. Psychiatric/Behavioral: Negative for agitation, confusion, hallucinations and suicidal ideas. Positive for history of anxiety and depression Medication List cyanocobalamin 1000 MCG tablet; Commonly known as: Vitamin B-12 lisdexamfetamine 70 MG capsule; Commonly known as: Vyvanse multivitamin tablet Vitamin D 50 MCG (1999 UT) capsule Past Medical History: Diagnosis Date Abnormal Pap smear of cervix Anemia Anxiety Depression (CMS/HCC) GERD (gastroesophageal reflux disease) Polycystic ovaries Traumatic brain injury (CMS/HCC) to frontal lobe at age 6 years Past Surgical History: Procedure Laterality Date ADENOIDECTOMY CARPAL TUNNEL RELEASE Bilateral SECTION, LOW TRANSVERSE ESOPHAGEAL DILATION OTHER SURGICAL HISTORY Bilateral Cubital tunnel surger TONSILLECTOMY Family History Problem Relation Name Age of Onset Diabetes Mother Jessie Andrade Hypertension Mother Jessie Andrade Migraines Mother Jessie Andrade Depression Father Pieter Leon Hypertension Father Pieter Leon Stroke Father Pieter Leon Depression Sister Vivian Leon Depression Brother Jacoby andrade Depression Brother Damien raymond Cancer Maternal Grandmother Leah Depression Sibling Social History Tobacco Use Smoking status: Former Types: Cigarettes Smokeless tobacco: Never Substance Use Topics Alcohol use: Not Currently Comment: caffeine: 1-2 cups per day Allergies: Baclofen, Zonisamide, Dimetapp children's cold-cough, and Ibuprofen Vitals: 06/07/24 1059 BP: 138/82 Pulse: 94 SpO2: 98% Body mass index is 42.62 kg/m . weight: 248 lb 4.8 oz Neurologic exam: Mental status: Awake and alert with unlabored respirations. Oriented to person, place and time. Recent and remote memory are intact. Speech is clear and fluent without aphasia. Attention and concentration are normal. Fund of knowledge is appropriate for level of education. Cranial nerves: CN II: Visual acuity is normal. Visual welch full to confrontation. CN III, IV, : Pupils are equal, round and reactive to light. Extraocular movements intact. No ptosis present. CN V: Facial sensation is normal. CN VII: Full and symmetric facial movement. CN VIII: Hearing is normal to finger rub bilaterally. CN IX and X: Palate elevates symmetrically. CN XI: Shoulder shrug is normal bilaterally. CN XII: Tongue is midline without atrophy or fasciculation. Motor: RUE strength deltoid , biceps , triceps , wrist extensors , wrist flexor , and speech language pathologist assistant strength 5/5. LUE strength deltoid , biceps , triceps , wrist extensors , wrist flexor , and speech language pathologist assistant strength 5/5. RLE strength iliopsoas, quadriceps, tibialis anterior, plantar flexion, and dorsiflexion strength 5/5. LLE strength iliopsoas, quadriceps, tibialis anterior, plantar flexion, and dorsiflexion strength 5/5. Tone and bulk are normal. Sensory: Sensation is intact to light touch throughout all four extremities. Sensation is intact to temperature in all extremities. Hyperesthesia in the posterior thoracic region. Reflexes: RUE biceps reflex 3+ , brachioradialis reflex 3+. LUE biceps reflex 3+ , brachioradialis reflex 3+. RLE Knee reflex 2+. LLE Knee reflex 2+. Coordination: [id number] testing normal. Rapid alternating movements are normal. Gait: Normal. Review and summary of old records: MRI of the head/brain w and w/o contrast at [facility] on 05/21/2024: Similar foci of increased T2 and FLAIR signal are seen within the white matter. Although nonspecific, and patient's age group, this could represent multiple sclerosis plaque. There are no developing areas of abnormal signal intensity or enhancement within the supra or infratentorial brain. No acute intracranial findings. MRI of the cervical spine w and w/o contrast at [facility] on 05/21/2024: No suspected cord demyelination. Mild minor disc vertebral degenerative changes, greatest at C5-C6. At C3-C4, there is minimal discosteophyte bulging with subtle of the thecal sac effacement. There is no foraminal encroachment. AtC5-C6, there is mild disc osteophyte bulging. There is effacement of the thecal sac approaching though not compressing the cord. The neural foramina are patent. At C6-C7, there is minor disco osteophytic bulging without associated stenosis. MRI of the lumbar spine without contrast on 12/31/2023: No significant canal or foraminal stenosis.There are mild changes at L5-S1. MRI of the thoracic spine w and w/o contrast on 11/29/23: No obvious cord abnormalities. There is minor left parasagittal disc bulging at T7-T8 with subtle thecal sac effacement. Otherwise, there is nosignificant disc disease or stenosis. EMG of the bilateral lower extremities on 11/27/23: Normal. No evidence of lumbar radiculopathy or a generalized process such as polyneuropathy. EMG of the bilateral upper extremities on 11/20/23: Normal. No evidence of a cervical radiculopathy,brachial plexopathy, or entrapment mononeuropathy. Labs at [facility] on 11/17/23: RIVKA negative. CK 48. Myoglobin 42. All within normal limits. MRI of the brain w and w/o contrast at [facility] on 11/08/23: Subtle punctate areas of abnormal white matter signal is seen on the T2 FLAIR imaging. Finding is nonspecific in this age group. Demyelinating process cannot be excluded given the history. - This does not demonstrate dissemination in time Labs on 10/22/23: GFR 58. Hgb A1C 5.3%. TSH 1.520. Assessment/Plan Diagnoses and all orders for this visit: DDD (degenerative disc disease), thoracic Numbness The patient reports persistent numbness and paresthesias in the posterior thoracic region. These seem to extend from the level of T2 to T8 based on her description. MRI of the thoracic spine on 11/29/23 revealed subtle thecal sac effacement at T7-T8 but was otherwise generally unremarkable. MRI of the cervical spine on 05/21/24 revealed thecal sac effacement at C3-C4 and C5-C6 without cord signal abnormality. Physical therapy did not provide subjective benefit in the past and actually worsened hersymptoms. Baclofen and Zonisamide were not tolerated due to side effects. The patient would like totrial an alternative medication for symptom management at this time. I will order a low dose of Lyrica to monitor symptom response. PLAN: - Start Lyrica 25 mg by mouth twice a day. I counseled the patient on potential side effects in detail. She verbalizes understanding and wishes to proceed. She understands to notify the office if sheexperiences any side effects - Due to her persistent symptoms and largely unrevealing workup thus far, the patient has been referred to a tertiary care center ([facility] neurology) for further evaluation and treatment. She is hopeful that [facility] will be able to determine a clear etiology for her symptoms - I encouraged the patient to follow up with pain management for consideration of procedural interventions White matter abnormality on MRI of brain MRI of the brain on 11/08/23 revealed subtle punctate area of white matter changes. Repeat MRI on 05/21/24 revealed stability of these lesions. These are nonspecific but could potentially represent chronic small vessel ischemic changes or demyelinating changes in a patient of this age. The patient does not meet Quintanilla criteria for multiple sclerosis at this time, and she denies history of clinical episodes consistent with a typical MS clinical attack. She denies history of diplopia, unilateral vision loss, coordination difficulty, or abnormal gait. PLAN: - Monitor clinically - I recommended lumbar puncture for further evaluation (to evaluate for cerebrospinal fluid-specific oligoclonal bands and opening pressure given the patient's reports of headaches and progressively worsening vision). However, the patient declined this. She understands that underlying pathology maybe missed without lumbar puncture, and this could lead to worsening or debilitating symptoms Family history of rheumatoid arthritis Positive family history of rheumatoid arthritis. The patient's RIVKA on 11/17/23 was negative, and CK and myoglobin were within normal limits. Diagnosis and treatment options discussed in detail. All questions answered. The patient verbalizesunderstanding and is agreeable to the plan. Discussion in layman's terms. Follow up in the office within 1 to 2 months; sooner if needed for new or worsening symptoms. [facility] documented in this encounterF[facility]on [facility]- [id number] Instructions* Patient Instructions* Tania Stout NP - 06/07/2024 11:00 AM EDT - Start Lyrica 25 mg by mouth twice a day documented in this encounterFulton Medical Center- [id number] Telephone encounter Note* Telephone Encounter - Ely Arvizu - 06/07/2024 8:17 AM EDT Referral source: Tania Stout NP ([facility]) Reason for visit: neurology consult for numbness and paresthesias in her posterior thoracic spine region External [facility] 04/24/2024) MRI Thoracic Spine (11/29/23) MRI Brain (11/08/23) Triage: Not required Financial clearance: Not required to schedule [facility]09-16-2024 Miscellaneous Notes* Telephone Encounter - Ely Arvizu - 06/07/2024 8:17 AM EDT Referral source: Tania Stout NP ([facility]) Reason for visit: neurology consult for numbness and paresthesias in her posterior thoracic spine region External records: [facility], 04/24/2024) MRI Thoracic Spine (11/29/23) MRI Brain (11/08/23) Triage: Not required Financial clearance: Not required to schedule documented in this encounterE[facility] Instructions* Patient Instructions* OtiliaMel callesDO - 04/26/2024 2:20 PM EDT Images from the original note were not included. Below are resources to help you to locate a pelvic floor PT office/facility near you (you will be prompted to input your zipcode): [email or web address] Magnesium 400-500 mg Smooth move tea (senna) 2-3 a week Fleet enema // warm water GOAL: soft, easy to pass BM without straining or excessive toilet time, every 1- 3 days Your total daily fiber intake should be 25-35g Benefiber/metamcuil (soluble fiber): start with 1 teaspoon per day in 8oz of fluid (water, milk, applesauce, coffee). Start low and go slow. Increase fiber until you get to 1-2 tablespoons per day (3 teaspoons= 1 tablespoon). You may need to adjust your fiber dose based on reaching you goal of healthy, soft, easy to pass bowel movements. IT S NOT A PERFECT SCIENCE- EVERYONE IS DIFFERENT You MUST drink plenty of fluids when taking fiber Fluid intake of 64 ounces daily (8-8 oz glasses) Avoid straining with bowel movements Squatty potty/foot stool to aid with defecation (amazon, walmart, drugmart etc.) CEREAL FIBER (GMS) Kelloggs All Bran w/Extra Fiber 15 General Wong Fiber One 12 Kelloggs All Bran 9 Nabisco 100% Bran 8 John's All Bran Fruit and Almonds 6 Ogden's Bran and Oats 6 Muslim Pollok Bran 5 Ashutosh Bran Chex 5 Ashutosh High Fiber Hot Cereal 5 John's and Post Raisin Bran 4 Nabisco Shredded Wheat and bran 4 Post Fruit and Fiber 4 Wheatbix 4 Muslim Oats 2 FIBER FILLED FRUITS FIBER (GMS) Blackberries (1/2 cup) 4 Pears w/ skin (1 medium) 4 Apple w/ skin (1 medium) 4 Prunes 4 Honeydew (1 medium) 3 Hudson (1 medium) 3 Raisins (1/4 cup) 3 Raspberries (1/2 cup) 3 Strawberries (1 cup) 3 Apricots (3 medium) 2 Banana 2 Blueberries (1/2 cup) 2 Dates (3) 2 Bucks w/ skin (1 medium) 2 GREENS AND ESCALONA (1/2 cup) FIBER (GMS) Baked beans w/tomato sauce 9 Kidney Beans 7 Arriaza and Miller Beans 5 Small Peas 5 Lentils 5 Peas 4 Pollok (canned) 3 Potato w/ Skin (medium) 3 Sweet Potato (medium) 3 Broccoli 2 Brussel Sprouts 2 Carrots 2 Spinach 2 Zucchini 2 BEST BREAD AND PASTA FIBER (GMS) Natures Own Double Fiber Bread (1 slice) 5 Whole Wheat Spaghetti (1 cup cooked) 4 Bran Muffin (1) 3 Buckwheat Muffin (1) 3 Whole Wheat Bread (2 slices) 3 Whole Wheat Monegasque Muffin (1) 3 Whole Wheat Pancakes (2) 3 Whole Wheat Dinner Roll (1) 2 Brown Rice (1/2 cup cooked) 1 LOW CALORIE SNACKS FIBER (GMS) Apple w/ Skin 4 Pineapple (1 cup) 2 Popcorn (3 cups unbuttered) 2 Figs (3) 2 Pear w/ Skin 2 Whole Wheat Watson (1 slice) 2 Strawberries Fresh 3 Bucks w/ Skin 2 Raspberries (1/2 cup) 3 Celery (3 stalks) 1 DELICIOUS AND NUTRITIOUS DESERTS FIBER (GMS) Baked Apple 6 Blackberry Pie (1 slice) 6 Fruit Compote 4 Pineapple Whole (1/4 fresh) 3 [place] Rhubarb Pie (1 slice) 3 Whole Wheat Banana Nut Bread 3 Brown Rice Pudding (1/2 cup) 2 Fruit Kebab 2 Whole Wheat Oatmeal Cookie 2 Wheat germ and unprocessed bran make terrific fiber rich toppers for hot or cold cereal, fruit or yogurt desserts. You can mix with water or juice. 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 This consult was requested by Dr. Roberto Browne (general surgeon) and my final recommendations will be communicated to the requesting health care provider by way of the shared medical record for internal providers or letter via the [employer] for external providers. Chief Complaint: Perineal bulge, foreign body sensation. History of Present Illness: Heidi Moya is a 38 year old year old female who was referred to our clinic for perineal bulge and abnormal sensation. Since 1yr ago, she felt a perineal foreign body sensation and palpable bulge,R>L, for which she sought care from her primary care physician and admissions officer, obstetrics-oncology, vascular surgery, and general surgeon - after which she was referred to our clinic. The bulge is worse with walking/upright, constipation / straining. Occasionally accompanied by electric/shooting sensation down her upper thigh. 8.3 lbs baby -- prolonged stage 2 labor, c section . 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 No urethral diverticulum. Normal zonal anatomy of the uterus. Endometrium is normal thickness. Lower anterior uterine segmentcesarean section scar. Nabothian cysts are present in the cervix. No vaginal cysts identified. The ovaries are normal. No free fluid in the cul-de-sac. No bowel dilatation. Internal and external sphincters are unremarkable. No filling defects in the pelvic vasculature. No varices are identified. No adenopathy. No osseous lesions. IMPRESSION: * No MR evidence of pelvic mass or varices. GI Symptoms: Stool frequency: 1/day on average, but occasionally once every 2-3 days Stool type: Type 6: Fluffy pieces with ragged edges, a mushy stool + occasional hard stool Stool straining: no straining - avoids straining Frequency of straining: rarely Incomplete evacuation: usually Use of enemas or laxatives: never Vaginal perineal pressure: always Abdominal pressure/pain: sometimes Feelings of prolapse : No Do you have accidental bowel leakage, fecal incontinence, or urgency with bowel movements? No Prior pelvic surgery?: yes - C section, 2014 What bowel related medications do you take now? Used to take miralax and OTC fiber supplements What medications have you tried in the past? As above Previous trial of biofeedback: No Prior hysterectomy: No Prior rectopexy, sphincter repair or SNS surgery? No. Prior bowel resection or abdominal surgery: No. Urinary Symptoms: Urinary incontinence: none Urinary frequency: No Urinary urgency: Yes Incomplete evacuation Yes Obstetric history: 3 Para 1 Vaginal delivery: 1 (2014) Weight of largest baby: - Episiotomy: No - Tear: No - Forceps No Previous Testing Results include: Colonoscopy: No - random biopsies: No - polyps: No Manometry: Yes (April 26, 2024) Average Pressure Interpretation Rest: 76 mmHg This is above normal range. Normal range is 35-50 mmHg. Squeeze: 122 mmHg This is above normal range. Normal range is 75 - 100 mmHg. Resting and squeeze pressures well above normal may indicate high pelvic floor tension. There is minimal incremental change between resting and squeeze pressures which can indicate marginal pelvic floor movement with squeeze. Sensory: Sensation Volume First sensation : 20 mL / Normal Range: 40-80 mL First urge to defecate: 35 mL / Normal Range: 80-120 mL Maximum tolerable volume: 65 mL / Normal Range: 120-180 mL Recto-anal inhibitory reflex: Yes Balloon expulsion: No This exhibit hyperacute rectal sensation with at least 2/3 sensory tests. A recto-anal inhibitory reflex (RAIR) was present. This is a normal reflex. EMG Recruitment: EMG recruitment was performed. The patient shows a normal increase in activity with squeeze, and minimal change in activity with valsalva. This indicates no significant pelvic floor movement, which can be indicative of poor pelvic floor coordination. Defecography: Yes (April 26, 2024) Initiation and ease of evacuation: Difficult and slow Change in anorectal angle during defecation: Normal straightening Development of rectocele: Yes Size of rectocele: Medium Emptying of rectocele: Partial, no obvious contributing etiology evident Widening of rectovaginal septum: Enterocele: None Sigmoidocele: None Rectal intussusception: None Post-evacuation recoil: Normal recoil to original position Vaginal length/support: Maintained length and support MRI (March,): No MR evidence of pelvic mass or varices. Pelvic ultrasound (January 2024): Saclike asymmetry with vascularity and possible peristalsing bowel atright labia/perineum at site of palpable econcern. More apparent with valsalva and in uprihgt/seated position. 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 cyanocobalamin (VITAMIN B-12) 1,000 mcg tab Take 1,000 mcg by mouth. VYVANSE 70 mg capsule Take 70 mg by mouth once daily. multivitamin with minerals (MULTIPLE VITAMIN-MINERALS) tablet Take 1 tablet by mouth once daily. No current facility-administered medications for this visit. ALLERGIES Not on File FAMILY HISTORY Problem Relation Age of Onset Crohn's Disease Mother Diabetes Paternal Grandmother Social History Tobacco Use Smoking status: Former Types: Cigarettes Smokeless tobacco: Never Substance Use Topics Alcohol use: Yes Comment: occasionally Drug use: Never FUNCTIONAL STATUS: Run a short distance (8.00 METs) Review of Systems: GENERAL: Weight loss, possibly secondary to social stressors recently RESPIRATORY: Negative for cough, hemoptysis, wheezing, COPD, dyspnea or shortness of breath CARDIOVASCULAR: Negative for chest pain, leg swelling, hypertension, CHF or palpitations GI: No nausea, vomiting, or diarrhea and See HPI : No history of dysuria, frequency or incontinence, See HPI 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 deployed. HEMATOLOGY/LYMPHOLOGY: Negative for prolonged bleeding, bruising easily or swollen nodes ENDOCRINE: Negative for cold or heat intolerance, polyuria, polydipsia and goiter NEURO: No history of headaches, syncope, paralysis, seizures or tremors. ANEMIA: No A 12 point review of systems was performed. All other systems are negative, other than stated aboveand HPI. Physical Exam: 04/26/24 1143 BP: 118/86 BP Site: Left Arm BP Position: Sitting BP Cuff Size: Regular Adult Pulse: 90 Temp: 36.8 C (98.3 F) TempSrc: Temporal SpO2: 98% Weight: 111.9 kg (246 lb 12.8 oz) Height: 162.6 cm (5' 4 ) General Appearance: Well appearing, alert, in no acute distress, well-hydrated, well nourished. Psych: ORIENTATION: normal to time place, person and situation AFFECT AND MOOD: Normal Skin: Skin color, texture, turgor normal, no suspicious rashes or lesions Head: Normocephalic, no masses, lesions, tenderness or abnormalities Oropharynx: Lips, mucosa, and tongue normal, teeth and gums normal, oropharynx normal Lungs: Unlabored on room air Heart: Not examined Edema: no Extremities: No deformities, edema, skin discoloration, clubbing or cyanosis. Good capillary refill. Musculoskeletal: no weakness, no balance deficits, no coordination deficitsGAIT: Normal ASSIST DEVICE: None Neuro: normal memory Normal mood and affect. Abdomen: Normal abdominal exam, Abdomen soft, non-tender. Bowel sounds normal. No masses, organomegaly. Anorectal: Perianal skin is intact. No erythema, induration or excoriation. No fissure, fistula or external hemorrhoids. Digital Rectal Exam: Anus: closed Resting tone: NORMAL Squeeze tone: NORMAL Valsalva: pelvic floor relaxation is Normal. Paradox: No Puborectalis: non tender Rectocele: Present Vagina: cystocele Perineal descent: moderate Commode Exam: n/a Patient was examined in lithotomy, she has a moderate size rectocele, no intussusception appreciated, no enterocele Diagnostic tests reviewed for today's visit: Anorectal physiology Defecography All outside imaging and records were reviewed with the patient during consultation. Assessment Assessment and Plan: Heidi Moya is a 38 year old woman , defecography results were reviewed with the patient. She has a moderate-sized rectocele without intussusception and enterocele. She does not fully empty likelyfor luxation of the sphincter. She does not have dyssynergy contractions on physical exam however pelvic floor movement is not great. I discussed with the patient that she does not have a perineal hernia that she has a rectocele which she feels and when she is constipated she will feel it is a hard bulge. We discussed that this is not dangerous and will not get worse. I recommended starting with pelvic floor physical therapy and bowel regimen, she was given several recommendations. To start magnesium and smooth move tea. She can try fleets enemas with tapwater enemas. To help empty the rectocele. If she continues to be bothered by rectocele after physical therapy and optimizing her bowel regimen, I will refer her to urogynecology for perineal repair. Mel Bingham DO Pelvic Floor Colorectal Surgery Time Spent: 45 minutes, >50% of the time was spent in counseling and coordination of care. Specifically, 20 min were spent in reviewing outside records with the patient and discussing these findings and their symptoms, reviewing colonoscopy and pathology reports, reviewing manometry and EMG resul ts, reviewing defecography images, reviewing physical exam findings and discussing surgical and non-surgical treatment options. 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 This consult was requested by Dr. Roberto Browne (general surgeon) and my final recommendations will be communicated to the requesting health care provider by way of the shared medical record for internal providers or letter via the [employer] for external providers. Chief Complaint: Perineal bulge, foreign body sensation. History of Present Illness: Heidi Moya is a 38 year old year old female who was referred to our clinic for perineal bulge and abnormal sensation. Since 1yr ago, she felt a perineal foreign body sensation and palpable bulge,R>L, for which she sought care from her primary care physician and admissions officer, obstetrics-oncology, vascular surgery, and general surgeon - after which she was referred to our clinic. The bulge is worse with walking/upright, constipation / straining. Occasionally accompanied by electric/shooting sensation down her upper thigh. 8.3 lbs baby -- prolonged stage 2 labor, c section . 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 No urethral diverticulum. Normal zonal anatomy of the uterus. Endometrium is normal thickness. Lower anterior uterine segmentcesarean section scar. Nabothian cysts are present in the cervix. No vaginal cysts identified. The ovaries are normal. No free fluid in the cul-de-sac. No bowel dilatation. Internal and external sphincters are unremarkable. No filling defects in the pelvic vasculature. No varices are identified. No adenopathy. No osseous lesions. IMPRESSION: * No MR evidence of pelvic mass or varices. GI Symptoms: Stool frequency: 1/day on average, but occasionally once every 2-3 days Stool type: Type 6: Fluffy pieces with ragged edges, a mushy stool + occasional hard stool Stool straining: no straining - avoids straining Frequency of straining: rarely Incomplete evacuation: usually Use of enemas or laxatives: never Vaginal perineal pressure: always Abdominal pressure/pain: sometimes Feelings of prolapse : No Do you have accidental bowel leakage, fecal incontinence, or urgency with bowel movements? No Prior pelvic surgery?: yes - C section, 2014 What bowel related medications do you take now? Used to take miralax and OTC fiber supplements What medications have you tried in the past? As above Previous trial of biofeedback: No Prior hysterectomy: No Prior rectopexy, sphincter repair or SNS surgery? No. Prior bowel resection or abdominal surgery: No. Urinary Symptoms: Urinary incontinence: none Urinary frequency: No Urinary urgency: Yes Incomplete evacuation Yes Obstetric history: 3 Para 1 Vaginal delivery: 1 (2014) Weight of largest baby: - Episiotomy: No - Tear: No - Forceps No Previous Testing Results include: Colonoscopy: No - random biopsies: No - polyps: No Manometry: Yes (April 26, 2024) Average Pressure Interpretation Rest: 76 mmHg This is above normal range. Normal range is 35-50 mmHg. Squeeze: 122 mmHg This is above normal range. Normal range is 75 - 100 mmHg. Resting and squeeze pressures well above normal may indicate high pelvic floor tension. There is minimal incremental change between resting and squeeze pressures which can indicate marginal pelvic floor movement with squeeze. Sensory: Sensation Volume First sensation : 20 mL / Normal Range: 40-80 mL First urge to defecate: 35 mL / Normal Range: 80-120 mL Maximum tolerable volume: 65 mL / Normal Range: 120-180 mL Recto-anal inhibitory reflex: Yes Balloon expulsion: No This exhibit hyperacute rectal sensation with at least 2/3 sensory tests. A recto-anal inhibitory reflex (RAIR) was present. This is a normal reflex. EMG Recruitment: EMG recruitment was performed. The patient shows a normal increase in activity with squeeze, and minimal change in activity with valsalva. This indicates no significant pelvic floor movement, which can be indicative of poor pelvic floor coordination. Defecography: Yes (April 26, 2024) Initiation and ease of evacuation: Difficult and slow Change in anorectal angle during defecation: Normal straightening Development of rectocele: Yes Size of rectocele: Medium Emptying of rectocele: Partial, no obvious contributing etiology evident Widening of rectovaginal septum: Enterocele: None Sigmoidocele: None Rectal intussusception: None Post-evacuation recoil: Normal recoil to original position Vaginal length/support: Maintained length and support MRI (March,): No MR evidence of pelvic mass or varices. Pelvic ultrasound (January 2024): Saclike asymmetry with vascularity and possible peristalsing bowel atright labia/perineum at site of palpable econcern. More apparent with valsalva and in uprihgt/seated position. 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 cyanocobalamin (VITAMIN B-12) 1,000 mcg tab Take 1,000 mcg by mouth. VYVANSE 70 mg capsule Take 70 mg by mouth once daily. multivitamin with minerals (MULTIPLE VITAMIN-MINERALS) tablet Take 1 tablet by mouth once daily. No current facility-administered medications for this visit. ALLERGIES Not on File FAMILY HISTORY Problem Relation Age of Onset Crohn's Disease Mother Diabetes Paternal Grandmother Social History Tobacco Use Smoking status: Former Types: Cigarettes Smokeless tobacco: Never Substance Use Topics Alcohol use: Yes Comment: occasionally Drug use: Never FUNCTIONAL STATUS: Run a short distance (8.00 METs) Review of Systems: GENERAL: Weight loss, possibly secondary to social stressors recently RESPIRATORY: Negative for cough, hemoptysis, wheezing, COPD, dyspnea or shortness of breath CARDIOVASCULAR: Negative for chest pain, leg swelling, hypertension, CHF or palpitations GI: No nausea, vomiting, or diarrhea and See HPI : No history of dysuria, frequency or incontinence, See HPI 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 deployed. HEMATOLOGY/LYMPHOLOGY: Negative for prolonged bleeding, bruising easily or swollen nodes ENDOCRINE: Negative for cold or heat intolerance, polyuria, polydipsia and goiter NEURO: No history of headaches, syncope, paralysis, seizures or tremors. ANEMIA: No A 12 point review of systems was performed. All other systems are negative, other than stated aboveand HPI. Physical Exam: 04/26/24 1143 BP: 118/86 BP Site: Left Arm BP Position: Sitting BP Cuff Size: Regular Adult Pulse: 90 Temp: 36.8 C (98.3 F) TempSrc: Temporal SpO2: 98% Weight: 111.9 kg (246 lb 12.8 oz) Height: 162.6 cm (5' 4 ) General Appearance: Well appearing, alert, in no acute distress, well-hydrated, well nourished. Psych: ORIENTATION: normal to time place, person and situation AFFECT AND MOOD: Normal Skin: Skin color, texture, turgor normal, no suspicious rashes or lesions Head: Normocephalic, no masses, lesions, tenderness or abnormalities Oropharynx: Lips, mucosa, and tongue normal, teeth and gums normal, oropharynx normal Lungs: Unlabored on room air Heart: Not examined Edema: no Extremities: No deformities, edema, skin discoloration, clubbing or cyanosis. Good capillary refill. Musculoskeletal: no weakness, no balance deficits, no coordination deficitsGAIT: Normal ASSIST DEVICE: None Neuro: normal memory Normal mood and affect. Abdomen: Normal abdominal exam, Abdomen soft, non-tender. Bowel sounds normal. No masses, organomegaly. Anorectal: Perianal skin is intact. No erythema, induration or excoriation. No fissure, fistula or external hemorrhoids. Digital Rectal Exam: Anus: closed Resting tone: NORMAL Squeeze tone: NORMAL Valsalva: pelvic floor relaxation is Normal. Paradox: No Puborectalis: non tender Rectocele: Present Vagina: cystocele Perineal descent: moderate Commode Exam: n/a Patient was examined in lithotomy, she has a moderate size rectocele, no intussusception appreciated, no enterocele Diagnostic tests reviewed for today's visit: Anorectal physiology Defecography All outside imaging and records were reviewed with the patient during consultation. Assessment Assessment and Plan: Heidi Moya is a 38 year old woman , defecography results were reviewed with the patient. She has a moderate-sized rectocele without intussusception and enterocele. She does not fully empty likelyfor luxation of the sphincter. She does not have dyssynergy contractions on physical exam however pelvic floor movement is not great. I discussed with the patient that she does not have a perineal hernia that she has a rectocele which she feels and when she is constipated she will feel it is a hard bulge. We discussed that this is not dangerous and will not get worse. I recommended starting with pelvic floor physical therapy and bowel regimen, she was given several recommendations. To start magnesium and smooth move tea. She can try fleets enemas with tapwater enemas. To help empty the rectocele. If she continues to be bothered by rectocele after physical therapy and optimizing her bowel regimen, I will refer her to urogynecology for perineal repair. Mel Bingham DO Pelvic Floor Colorectal Surgery Time Spent: 45 minutes, >50% of the time was spent in counseling and coordination of care. Specifically, 20 min were spent in reviewing outside records with the patient and discussing these findings and their symptoms, reviewing colonoscopy and pathology reports, reviewing manometry and EMG resul ts, reviewing defecography images, reviewing physical exam findings and discussing surgical and non-surgical treatment options. [facility] History of Present illness Narrative* Tania Boyle RT(R) - 04/26/2024 8:20 AM EDT Radiology Service Progress Note PATIENT NAME: Heidi Moya DATE OF SERVICE: April 26, 2024 TIME: 9:10 AM PATIENT IDENTITY VERIFICATION COMPLETED USING TWO (2) IDENTIFIERS: Name and Date of confirmedby patient verbally. FALL SCREENING: Has the patient had 2 falls in the last year or 1 fall with injury or currently using an Ambulatory Assistive Device (Walker, Cane, Wheelchair, Crutches, etc.)? No PATIENT GENDER DATA: Female. status: : No status: N/A PATIENT RELEVANT IMPLANT DATA REVIEWED: Yes PATIENT PRESENTS WITH AN IMPLANTABLE OR ATTACHED ELECTROMECHANICAL TECHNICIAN: No RADIOLOGY DEPARTMENT: General X-ray: Exam(s) Completed: GI/ Procedure(s): Defecating Proctogram PERIPHERAL IV DATA: Not applicable SIGNED BY: RT Shanda(R) April 26, 2024 9:10 AM documented [facility] History of Present illness Narrative* JACKSON Underwood - 04/09/2024 8:30 AM EDT Subjective Heidi Moya is a 38 y.o. female who presents for an annual gynecologic exam. The patient denies complaints today. Patient has a strong family history of ovarian and breast cancer. Periods are regular every 28-30 days, lasting 5-7 days. Dysmenorrhea:moderate, occurring premenstrually and first 1-2 days of flow. Cyclic symptoms include bloating, breast tenderness, diarrhea, headache, irritability, and moodiness. No intermenstrual bleeding, spotting, or discharge. For patients 40-55 yo not in menopause: Patient reports the following joni/menopause symptoms: none Current contraception: none History of abnormal Pap smear: no Last pap: January 23, 2023 Family history of uterine or ovarian cancer: yes - Maternal Grandmother Regular self breast exam: yes Last mammogram: NA Last colonoscopy: NA Family history of breast cancer: yes - Maternal Grandmother age 45, Maternal Aunt age 45, Cousin age 35 Family history of colon cancer: no Depression screening PHQ-9: 0 Menstrual History: OB History 3 Para 1 Term 1 AB 2 Living 1 SAB 1 IAB Ectopic 1 Multiple Live Births 1 Menarche age: 10 Patient's last menstrual period was 03/30/2024 (exact date). The following portions of the patient's history were reviewed and updated as appropriate: allergies, current medications, past family history, past medical history, past social history, past surgicalhistory and problem list. Review of Systems Pertinent items are noted in HPI, otherwise negative. Objective Vitals: 04/09/24 0825 BP: 122/82 BP Site: Left Arm BP Postition: Sitting BP CUFF SIZE: L (13-17 inches) Weight: 112.9 kg (249 lb) Height: 162.6 cm (5' 4.02 ) General: alert, appears stated age and cooperative Heart: regular rate and rhythm Lungs: clear to auscultation bilaterally Breast: normal without suspicious masses, skin or nipple changes or axillary nodes Abdomen: soft, non-tender, without masses or organomegaly Vulva: normal, Bartholin's, Urethra, [place]'s normal Vagina: Vaginal Cuff:no Bleeding: no Discharge: no Cervix: no cervical motion tenderness and no lesions Uterus: normal size, non-tender, and normal shape and consistency Adnexa: normal adnexa, no mass/fullness/tenderness bilaterally Lymphatics: No abnormally enlarged lymph nodes. Musculoskeletal: Normal. Skin: Skin color, texture, turgor normal. No rashes or lesions Neuro: normal without focal findings, mental status, speech normal, alert and oriented x3, GRACIE and reflexes normal and symmetric Psychological: normal mood, behavior, speech, dress, and thought processes Assessment/Plan: Heidi was seen today for gynecologic exam. Diagnoses and all orders for this visit: Family history of ovarian cancer - [facility]; Future - [facility]; Future Visit for screening mammogram - Mammography screening bilateral with CAD; Future Family history of breast cancer - [facility]; Future - [facility]; Future Encounter for gynecological examination without abnormal finding Breast self exam technique reviewed and patient encouraged to perform self-exam monthly. Discussed healthy lifestyle modifications including dietary changes and exercise for weight loss Follow up as needed. Patient was also counseled breast self exam, mammography screening, colon cancer screening, and adequate intake of calcium and vitamin D. All questions answered. Patient understands and agrees with plan. Encouraged to call if questions or concerns, pt agreeable. JACKSON Underwood 04/09/24 0919 documented in this encounterPar[facility] HospitalNPR [id number] Hospital Discharge instructionsAmbulatory Orders* Referral to General Surgery Time Frame: 01/20/24, Location: None [facility] Work Phone: [phone] 931-892901-31-2024 Evaluation note* Encounter Date Diagnosis Assessment Notes Treatment Notes Treatment Clinical Notes Sep, Well adult exam (ICD-10 - [...] patient is sent home pleased, without concerns. Sep, Paresthesias (ICD-10 - R20.2) Pt agrees to MRI - discussed potential MS. Does have a family with that problem. See HPI, she has had years of intermittent lumbar issues and now w issues with paresthesias and thoracic pain/numbness. Agrees to Neurology referral as well. [facility] Other 01-30-2024 Evaluation note* Encounter Date Diagnosis Assessment Notes Treatment Notes Treatment Clinical Notes Sep, Wellness examination (ICD-10 - Z00.00) [facility] Other 05-11-2023 Evaluation note* Encounter Date Diagnosis Assessment Notes Treatment Notes Treatment Clinical Notes January, Pelvic pain (ICD-10 - R10.2) [facility] Other 01-19-2023 Evaluation note* Encounter Date Diagnosis Assessment Notes Treatment Notes Treatment Clinical Notes Sep, GERD (gastroesophageal reflux disease) (ICD-10 - K21.9) Continue Pantoprazole 40mg twice a day Follow up in 1 year Sep, Esophagitis (ICD-10 - K20.90) Sep, Dysphagia (ICD-10 - R13.10) Pt to call if symptoms return [facility] Other Evaluation note* Diagnosis Onset Date Resolution Status Food impaction of esophagus acute [facility] Work Phone: Evaluation noteNo InformationNort [place] Other evaluation noteNo assessment information available [facility] Work Phone: Evaluation note* Diagnosis Onset Date Resolution Status Abnormal brain MRI acute Inguinal lymphadenopathy acu te Lumbar pain acute Thoracic neuralgia acute [facility] Work Phone: Evaluation note* Diagnosis Pelvic floor dysfunction in female- Primary [facility]* Diagnosis Rectocele- Primary [facility]* Diagnosis 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 [facility]* Diagnosis Demyelinating disease of central nervous system (HCC)- Primary Demyelinating disease of central nervous system, unspecified Scoliosis of cervical spine, unspecified scoliosis type Paresthesia of skin Disturbance of skin sensation Abnormal MRI Other nonspecific (abnormal) findings on radiological and other examinations of body structure [facility]* Diagnosis Numbness Disturbance of skin sensation [facility]* Diagnosis 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- Primary documented in this encounter [facility] note* Diagnosis DDD (degenerative disc disease), thoracic- Primary Degeneration of thoracic or thoracolumbar intervertebral disc Numbness Disturbance of skin sensation White matter abnormality on MRI of brain Family history of rheumatoid arthritis Family history of arthritis [facility]* Diagnosis Encounter for gynecological examination without abnormal finding- Primary Visit for screening mammogram Family history of ovarian cancer Family history of malignant neoplasm of ovary Family history of breast cancer Family history of malignant neoplasm of breast [facility] Diagnosis Demyelinating disease of central nervous system (HCC) Demyelinating disease of central nervous system, unspecified Paresthesia of skin Disturbance of skin sensation Abnormal MRI Other nonspecific (abnormal) findings on radiological and other examinations of body structure documented in this encounter [facility] note* Diagnosis DDD (degenerative disc disease), thoracic- Primary Degeneration of thoracic or thoracolumbar intervertebral disc Numbness Disturbance of skin sensation White matter abnormality on MRI of brain Family history of rheumatoid arthritis Family history of arthritis documented in this encounter [facility] note* Diagnosis Spinal stenosis of cervical region with radiculopathy- Primary documented in this encounter [facility] note* Diagnosis Cerebral microvasculopathy- Primary Cerebrovascular disease, unspecified Paresthesia of skin Disturbance of skin sensation documented in this encounter [facility] general Narrative - Reported* Type Description Date Medical History seizures Medical History polycystic ovaries Surgical History tonsillectomy and adenoidectomy Surgical History wisdom teeth Surgical History CTS b/l Surgical History elbow surgery b/l Surgical History C section Hospitalization History seizures from he ad injury as a child. Has not had seizures since age 8 [facility] Other Hospital Discharge instructions Additional Instructions Follow-up with your primary care doctor Return to the ED if develop worsening symptoms or [facility] Work Phone: InstructionsNot on filedocumented in this encounter [facility] (narrative)* Outpatient Procedure (Routine) - New Request Specialty Diagnoses / Procedures Referred By Contac t Referred To Contact [facility] Diagnoses Pelvic floor dysfunction in female Procedures ADULT [place] ANORECTAL MANOMETRY ANORECTAL MANOMETRY Sherron Campa, [facility] [address] [phone] [facility] [address] [phone] Referral ID Status Reason Start Date Expiration Date Visits Requested Visits Authorized [id number] New Request Auto-Generat ed Referral 04/26/2024 04/26/[address] [facility] for referral (narrative)* Diagnostic Procedure Only (Routine) - Closed Specialty Diagnoses / Procedures Referred By Contac t Referred To Contact XR IMAGING Diagnoses 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 Procedures XR DEFECOGRAPHY RADIOLOGIC EXAM COLON SINGLE CONTRAST STUDY Mel Bingham DO [address] [id number] Xr Imaging [facility] [address] Referral ID Status Reason Start Date Expiration Date V isits Requested Visits Authorized [id number] Closed Auto-Generate d Referral 03/09/2024 04/08/[address] [facility] for referral (narrative)* Diagnostic Procedure Only (Routine) - Authorized Specialty Diagnoses / Procedures Referred By Contac t Referred To Contact XR IMAGING Diagnoses 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 Procedures XR DEFECOGRAPHY RADIOLOGIC EXAM COLON SINGLE CONTRAST STUDY Mel Bingham DO [address] [id number] [place] [address] Referral ID Status Reason Start Date Expiration Date Visits Requested Visits Authorized [id number] Authorized Auto-Generat ed Referral 03/09/2024 04/08/[address] [facility] for referral (narrative)* Consultation (Routine) - Pending Review Specialty Diagnoses / Procedures Referred By Contac t Referred To Contact Genetics Diagnoses Family history of ovarian cancer Family history of breast cancer HicLamar alexandra APRN-CNP [address] [place] [address] [facility] [address] [place] [address] Referral ID Status Reason Start Date Expiration Date Visits Requested Visits Authorized [id number] Pending Review Specialty Services Required 04/09/2024 04/09/2025 1 1 * Consultation (Routine) - Pending Review Specialty Diagnoses / Procedures Referred By Regino t Referred To Contact Genetics Diagnoses Family history of ovarian cancer Family history of breast cancer Lamar Herman APRN-CNP [address] [place] [address] [facility] [address] [place] [address] Referral ID Status Reason Start Date Expiration Date Visits Requested Visits Authorized [id number] Pending Review Specialty Services Required 04/09/2024 04/09/2025 1 1 [facility] for referral (narrative)No reason for referral information availableV[facility] Work Phone: Summary Purpose Family History No Family History Records Found Relationship Condition Age at Onset Recorded Date/T carlos grandparent Malignant neoplasm of breast Unknown Not Specified Acute Crohn's disease Unknown Relationship Condition Age at Onset Recorded Date/T carlos grandparent Malignant neoplasm of breast Unknown Not Specified Acute Crohn's disease Unknown father Heart disease Unknown History of stroke Unknown Relationship Condition Age at Onset Recorded Date/T carlos grandparent Malignant neoplasm of breast Unknown mother Acute Crohn's disease Unknown father Heart disease [...] R20.2 Chief Complaint Wellness R20.2 r29.898 r29.898 Chief Complaint Wellness R20.2 r29.898 r29.898 b27.90 e55.9 Chief Complaint R20.2 r29.898 r29.898 b27.90 e55.9 Check up Reason for Visit Abnormal brain MRI Inguinal lymphadenopathy Lumbar pain Thoracic neuralgia Chief Complaint R20.2 r29.898 r29.898 b27.90 e55.9 Check up R59.0 Reason for Visit Abnormal brain MRI Inguinal lymphadenopathy Lumbar pain Thoracic neuralgia Chief Complaint R90.82 neck pain, back pain, leg pain Chief Complaint R90.82 neck pain, back pain, leg pain [facility] follow up/ weakness, neurological pain Chief Complaint Admit Date Left shoulder pain no injury October 10:36am Chief Complaint Admit Date Left shoulder pain no injury October 10:36am food stuck in throat December 23, 2024 4:3 0pm Reason for Visit Admit Date Left shoulder pain October 23, 2024 1 0:36am Chief Complaint Admit Date Left shoulder pain no injury October 10:36am food stuck in throat December 23, 2024 4:3 0pm M25.512 - Pain in left shoulder December 8:08am CONSULT DR. KELSEY STONER LT SHOULDER LILIANA N, NX December 27, 2024 10:24am Reason for Visit Admit Date Left shoulder pain October 23, 2024 1 0:36am Internal derangement of left shoulder Ap ril 2024 10:24am Chief Complaint Admit Date food stuck in throat December 23, 2024 4:3 0pm M25.512 - Pain in left shoulder December 8:08am CONSULT DR. KELSEY STONER LT SHOULDER LILIANA N, NX December 27, 2024 10:24am Amb Documentation December 28, 2024 1:41 pm Dysphagia January 25, 2025 11:50a m Dysphagia January 25, 2025 1:03pm Reason for Visit Admit Date Internal derangement of left shoulder Ap ril 7th, 2025 10:24am Chief Complaint Admit Date food stuck in throat December 23, 2024 4:3 0pm M25.512 - Pain in left shoulder December 8:08am CONSULT DR. KELSEY STONER LT SHOULDER LILIANA N, NX December 27, 2024 10:24am Amb Documentation December 28, 2024 1:41 pm Dysphagia January 25, 2025 11:50a m Dysphagia January 25, 2025 1:03pm 3 WEEKS January 31, 2025 9:23a m Reason for Visit Admit Date Internal derangement of left shoulder Ap ril 2024 10:24am Internal derangement of left shoulder Ma y 2024 9:23am Chief Complaint Admit Date food stuck in throat December 23, 2024 4:3 0pm M25.512 - Pain in left shoulder December 8:08am CONSULT DR. KELSEY STONER LT SHOULDER LILIANA N, NX December 27, 2024 10:24am Amb Documentation December 28, 2024 1:41 pm Dysphagia January 25, 2025 11:50a m Dysphagia January 25, 2025 1:03pm 3 WEEKS January 31, 2025 9:23a m 6-8 wk follow up/EGD March 15, 2025 9:5 5am M24.812 March 17, 2025 8:00 am Reason for Visit Admit Date Internal derangement of left shoulder Ap ril 2024 10:24am Internal derangement of left shoulder Ma y 2024 9:23am Dyspepsia March 15, 2025 9:55 am Eosinophilic esophagitis March 15, 2025 9:55am Food impaction of esophagus March 15, 2 025 9:55am GERD (gastroesophageal reflux disease) [facility] 2024 9:55am Chief Complaint Admit Date Dysphagia January 25, 2025 11:50a m Dysphagia January 25, 2025 1:03pm 3 WEEKS January 31, 2025 9:23a m 6-8 wk follow up/EGD March 15, 2025 9:5 5am M24.812 March 17, 2025 8:00 am MRI RESULTS [facility] April 04, 2025 2:54 pm Reason for Visit Admit Date Internal derangement of left shoulder Ma y 12th, 2025 9:23am Dyspepsia March 15, 2025 9:55 am Eosinophilic esophagitis March 15, 2025 9:55am Food impaction of esophagus March 15 025 9:55am GERD (gastroesophageal reflux disease) J [facility] 2024 9:55am Internal derangement of left shoulder Ju ly 2024 2:54pm Chief Complaint Admit Date 6-8 wk follow up/EGD March 15, 2025 9:5 5am M24.812 March 17, 2025 8:00 am MRI RESULTS [facility] April 04, 2025 2:54 pm 8 week follow up-EOE May 10, 2025 2 :58pm Reason for Visit Admit Date Dyspepsia March 15, 2025 9:55 am Eosinophilic esophagitis March 15, 2025 9:55am Food impaction of esophagus March 15 025 9:55am GERD (gastroesophageal reflux disease) J [facility] 2024 9:55am Internal derangement of left shoulder Ju ly 2024 2:54pm Reason for Referral Specialty Diagnoses / Procedures Referred By Contac t Referred To Contact MR IMAGING Diagnoses Demyelinating disease of central nervous system (HCC) Paresthesia of skin Abnormal MRI Procedures MRI BRAIN WO/W IVCON MRI BRAIN BRAIN STEM W/O W/[place] [address] [place] [address] Mr [facility] [address] [address] Referral ID Status Reason Start Date Expiration Date Visits Requested Visits Authorized [id number] Authorized Auto-Generat ed Referral OON/Self Pay Override 08/01/2025 1 1 Specialty Diagnoses / Procedures Referred By Contnery t Referred To Contact [facility] Diagnoses Rectocele Procedures CONSULT TO PHYSICAL THERAPY PHYSICAL THERAPY EVALUATION HIGH COMPLEX 45 MINS Mel Bingham DO [address] [place] [address] [facility] [address] [address] Referral ID Status Reason Start Date Expiration Date Visits Requested Visits Authorized [id number] Pending Review Auto-Generat ed Referral 04/26/2024 04/26/2025 1 1 Reason Pt works in [employer] - paresthesias, numbness, thoracic and lumbar issues. MRI brain is pending. Diagnosis 1 Paresthesias (R20.2) Referral Organization [facility] sue Referring Provider First Name Kelsey Referring Provider Last Name Herbie Referring Provider Specialty Family [facility] Referred Organization [facility] Referred Address [address],[address] Referred Provider Specialty Neurology Referral Priority Routine Additional Source Comments INFORMATION SOURCE (unrecogn ized section and content) DATE CREATED AUTHOR 08/04/2019 Duran Juan Jose [facility] DATE CREATED AUTHOR AUTHOR'S ORGANIZ ATION 02/05/2023 [facility] DATE CREATED AUTHOR AUTHOR'S ORGANIZ ATION 04/12/2024 [facility] DATE CREATED AUTHOR AUTHOR'S ORGANIZ ATION 04/21/2024 [facility] [facility] DATE CREATED AUTHOR AUTHOR'S ORGANIZ ATION 01/10/2025 [facility] EPIC DATE CREATED AUTHOR AUTHOR'S ORGANIZ ATION 04/04/2025 [facility] DATE CREATED AUTHOR AUTHOR'S ORGANIZ ATION 06/05/2025 [facility] Care Teams (unrecognized sec tion and content) Team Status: Inactive Member Role Status Dates Kelsey tSoner MD Primary Care Provider Active Arturo Kumar MD Attending Provider Active Team Status: Inactive Member Role Status Dates Kelsey Stoner MD Primary Care Provider Active Meera Bolden MD Admit Provider, Attending Provider A ctive Bairon Saba MD Other Provider Active Team Status: Active Member Role Status Dates Kelsey Stoner MD Primary Care Provider Active Team Status: Inactive Member Role Status Dates Kelsey Stoner MD Attending Provider Active St art: October 22, 2023 End: October 22, 2023 Team Status: Inactive Member Role Status Dates Kelsey Stoner MD Primary Care Provide r, Attending Provider Active Start: November 08, 2023 End: November 08, 2023 Team Status: Active Member Role Status Dates Kelsey Stoner MD Primary Care Provide r, Attending Provider Active Start: November 17, 2023 Team Status: Inactive Member Role Status Dates Kelsey Stoner MD Primary Care Provider Active Start: November 29, 2023 End: November 29, 2023 Yasmin Ortiz DO Attending Provider Active Start: November 29, 2023 End: November 29, 2023 Team Status: Inactive Member Role Status Dates Kelsey Stoner MD Primary Care Provider Active Start: December 31, 2023 End: December 31, 2023 BOGDAN Love Attending Provider Active Start: December 31, 2023 End: December 31, 2023 Team Status: Active Member Role Status Dates Kelsey Stoner MD Primary Care Provide r, Attending Provider Active Start: January 09, 2024 Team Status: Inactive Member Role Status Dates Kelsey Stoner MD Primary Care Provider Active Start: January 14, 2024 End: January 14, 2024 Melyssa Saleem NP-C Attending Provider Active S tart: January 14, 2024 End: January 14, 2024 Team Status: Inactive Member Role Status Dates Kelsey Stoner MD Primary Care Provide r, Attending Provider Active Start: January 20, 2024 End: January 20, 2024 Team Status: Inactive Member Role Status Dates Kelsey Stoner MD Primary Care Provide r, Attending Provider Active Start: January 26, 2024 End: January 26, 2024 Sleeve Tailor Relationship Specialty Start Date End Date Roberto Browne [address] [place] [phone] Referring General Surgery 02/25/24 Sleeve Tailor Relationship Specialty Start Date End Date Roberto Browne [address] [place] [address] [address] [place] [phone] Referring General Surgery 02/25/24 Sleeve Tailor Relationship Specialty Start Date End Date Roberto Browne [address] [facility] [address] [place] [address] Referring General Surgery 02/25/24 Team Status: Inactive Member Role Status Dates Kelsey Stoner MD Primary Care Provider Active Start: May 21, 2024 End: May 21, 2024 Tania E Stout , SISAL PICKER-ENVELOPE STUFFER-C Attending Provider Active Start: May 21, 2024 End: May 21, 2024 Team Status: Inactive Member Role Status Dates Kelsey Stoner MD Primary Care Provider Active Start: May 29, 2024 End: May 29, 2024 Navjot Mendoza DO Emergency Provider Active Sta rt: May 29, 2024 End: May 29, 2024 Sarmad Mooney DO RES Active Start: May 29, 2024 End: May 29, 2024 Team Status: Inactive Member Role Status Dates Kelsey Stoner MD Primary Care Provide r, Attending Provider Active Start: June 01, 2024 End: June 01, 2024 Sleeve Tailor Relationship Specialty Start Date End Date Roberto Browne [address] [facility] [address] [place] [phone] Referring General Surgery 02/25/24 Sesar Stoutah, SISAL PICKER [address] [place] [phone] [place] Referring Team Family Medicine 06/04/24 Sleeve Tailor Relationship Specialty Start Date End Date Kelsey Stoner MD [address] [place] [phone] PCP - General Family Medicine 07/02/24 Roberto Browne [address] [phone] Referring General Surgery 02/25/24 Tania Stout, SISAL PICKER [address] [place] [phone] NI Referring Team Family Medicine 06/04/24 Sleeve Tailor Relationship Specialty Start Date End Date Kelsey Stoner MD [address] [place] [facility] [phone] PCP - General Family Medicine 11/21/23 Sleeve Tailor Relationship Specialty Start Date End Date Kelsey Stoner MD [address] [place] [phone] PCP - General Family Medicine 11/21/23 Sleeve Tailor Relationship Specialty Start Date End Date Roberto Browne [address] [facility] [address] [place] [phone] Referring General Surgery 02/25/24 Sleeve Tailor Relationship Specialty Start Date End Date Kelsey Stoner MD [address] [place] [address], [place] [phone] PCP - General Family Medicine 11/21/23 Sleeve Tailor Relationship Specialty Start Date End Date Kelsey Stoner MD [address] [place] [address], [place] [phone] PCP - General Family Medicine 11/21/23 Team Status: Inactive Member Role Status Dates Kelsey Stoner MD Primary Care Provider Active Start: October 23, 2024 End: October 23, 2024 Kristi Rowe APRN Attending Provider Active Start: October 23, 2024 End: October 23, 2024 Sleeve Tailor Relationship Specialty Start Date End Date Kelsey Stoner MD [address] [place] [phone] PCP - General Family Medicine 02/06/23 Sleeve Tailor Relationship Specialty Start Date End Date Kelsey Stoner MD [address] [place] [address], [place] [phone] PCP - General Family Medicine 07/02/24 Roberto Browne [address] [facility] [address] [place] [phone] Referring General Surgery 02/25/24 Tania Stout APRN [address] [place] [phone] NI Referring Team Family Medicine 06/04/24 Team Status: Inactive Member Role Status Dates Kelsey Stoner MD Primary Care Provider Active Start: December 23, 2024 End: December 23, 2024 Thuan Jack PA-C Emergency Provider Active Start: December 23, 2024 End: December 23, 2024 Team Status: Active Member Role Status Dates Kelsey Stoner MD Primary Care Provider Active Start: December 27, 2024 Merlin Lockhart DO Attending Provider Active S tart: December 27, 2024 Team Status: Inactive Member Role Status Dates Kelsey Stoner MD Primary Care Provider Active Start: December 27, 2024 End: December 27, 2024 Merlin Lockhart DO Attending Provider Active S tart: December 27, 2024 End: December 27, 2024 Sleeve Tailor Relationship Specialty Start Date End Date Kelsey Stoner MD [address] [place] [phone] PCP - General Family Medicine 11/21/23 Yasmin Ortiz DO [address] [place] [address] [phone] Referring Physician Neurology 07/26/24 Sleeve Tailor Relationship Specialty Start Date End Date Kelsey Stoner MD [address] [place] [phone] PCP - General Family Medicine 07/02/24 Roberto Browne [address] [facility] [address] [place] [phone] Referring General Surgery 02/25/24 Tania Stout, PRESLEY [address] [place] [phone] [place] Referring Team Family Medicine 06/04/24 Team Status: Active Member Role Status Dates Kelsey Stoner MD Primary Care Provider Active Start: December 28, 2024 Randi Willis CMA Attending Provider Active Start: December 28, 2024 Team Status: Inactive Member Role Status Dates Kelsey Stoner MD Primary Care Provider Active Start: January 25, 2025 End: January 25, 2025 Arturo Kumar MD Attending Provider Active S tart: January 25, 2025 End: January 25, 2025 Team Status: Active Member Role Status Dates Kelsey Stoner MD Primary Care Provider Active Start: January 25, 2025 Arturo Kumar MD Attending Provider, Other Provide r Active Start: January 25, 2025 Team Status: Inactive Member Role Status Dates Kelsey Stoner MD Primary Care Provider Active Start: January 31, 2025 End: January 31, 2025 Merlin Lockhart DO Attending Provider Active S tart: January 31, 2025 End: January 31, 2025 Sleeve Tailor Relationship Specialty Start Date End Date Kelsey Stoner MD [address] [place] [phone] PCP - General Family Medicine 07/02/24 Roberto Browne [address] [place] [phone] Referring General Surgery 02/25/24 Tania Stout, PRESLEY [address] [address] NI Referring Team Family Medicine 06/04/24 Team Status: Active Member Role Status Dates Kelsey Stoner MD Primary Care Provider Active Start: January 25, 2025 Arturo Kumar MD Attending Provider Active S tart: January 25, 2025 Arturo Kumar MD Other Provider Active Start : January 25, 2025 Team Status: Inactive Member Role Status Dates Kelsey Stoner MD Primary Care Provider Active Start: March 15, 2025 End: March 15, 2025 Baldo Long APRN Attending Provider Active Start: March 15, 2025 End: March 15, 2025 Team Status: Inactive Member Role Status Dates Kelsey Stoner MD Primary Care Provider Active Start: March 17, 2025 End: March 17, 2025 Merlin Lockhart DO Attending Provider Active S tart: March 17, 2025 End: March 17, 2025 Team Status: Inactive Member Role Status Dates Kelsey Stoner MD Primary Care Provider Active Start: April 04, 2025 End: April 04, 2025 Merlin Lockhart DO Attending Provider Active S tart: April 04, 2025 End: April 04, 2025 Team Status: Inactive Member Role Status Dates Kelsey Stoner MD Primary Care Provider Active Start: May 10, 2025 End: May 10, 2025 Baldo Long APRN Attending Provider Active Start: May 10, 2025 End: May 10, 2025 Sleeve Tailor Relationship Specialty Start Date End Date Kelsey Stoner MD [address] [place] [phone] PCP - General Family Medicine 07/02/24 Roberto Browne [address] [phone] Referring General Surgery 02/25/24 Tania Stout APRN [address] [place] [phone] Referring Team Family Medicine 06/04/24 Sleeve Tailor Relationship Specialty Start Date End Date Kelsey Stoner MD [address] [place] [phone] PCP - General Family Medicine 07/02/24 Roberto Browne [address] [phone] Referring General Surgery 02/25/24 Tania Stout APRN [address] [place] [phone] [place] Referring Team Family Medicine 06/04/24 REASON FOR VISIT (unrecogniz ed section and content) Reason Comments Manometry Specialty Diagnoses / Procedures Referred By Contac t Referred To Contact Colon and Rectal Surgery / COLORECTAL SURGERY Diagnoses Pelvic floor hernia pelvic floor hernia Procedures ANORECTAL MANOMETRY MANOMETRY ANORECTAL Yudith Saleh PA-C [address] [place] [address] Yudith Saleh PA-C [address] [place] [address] Referral ID Status Reason Start Date Expiration Date Visits Re quested Visits Authorized [id number] Closed 03/04/2024 09/21/2024 1 1 Reason Comments New Patient Specialty Diagnoses / Procedures Referred By Contac t Referred To Contact Colon and Rectal Surgery / COLORECTAL SURGERY Diagnoses Pelvic floor hernia pelvic floor hernia Procedures OFFICE/OUTPATIENT NEW SF MDM 15 MINUTES OFFICE/OUTPATIENT NEW LOW MDM 30 MINUTES OFFICE/OUTPATIENT NEW MODERATE MDM 45 MINUTES OFFICE/OUTPATIENT NEW HIGH MDM 60 MINUTES NEW DDI PATIENT Mel Bingham DO [address] [place] [address] Mel Bingham DO [address] [place] [address] Referral ID Status Reason Start Date Expiration Date V isits Requested Visits Authorized [id number] Authorized 03/30/2024 09/21/2024 1 99 Reason Comments Radio GI Main HB6 Specialty Diagnoses / Procedures Referred By Contac t Referred To Contact XR IMAGING Diagnoses 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 Procedures XR DEFECOGRAPHY RADIOLOGIC EXAM COLON SINGLE CONTRAST STUDY Mel Bingham, DO [address] [place] [address] Xr Imaging [place] [id number] Referral ID Status Reason Start Date Expiration Date V isits Requested Visits Authorized [id number] Closed Auto-Generate d Referral 03/09/2024 04/08/2025 1 1 Reason Comments Received Outside Medical Records Externa l referral to Neurological [facility] Reason Comments Consult Specialty Diagnoses / Procedures Referred By Contac t Referred To Contact ADULT NEUROLOGY Diagnoses Numbness or tingling Procedures OFFICE/OUTPATIENT [facility] MDM 60 MINUTES Tania Stout, SISAL PICKER [address] [place] [address] Neur Adult Main [address] [place] [phone] Referral ID Status Reason Start Date Expiration Date V isits Requested Visits Authorized [id number] Closed OON/Self Pay Override 06/11/2024 09/19/2025 1 1 Reason Comments Numbness Reason Comments Gynecologic Exam Reason Comments Radiology MRI Specialty Diagnoses / Procedures Referred By Contac t Referred To Contact MR IMAGING Diagnoses Demyelinating disease of central nervous system (HCC) Paresthesia of skin Abnormal MRI Procedures MRI BRAIN WO/W IVCON MRI BRAIN BRAIN STEM W/O W/[place] [address] [address] Phone: tel: fax: MR IMAGING [place] [id number] Referral ID Status Reason Start Date Expiration Date V isits Requested Visits Authorized [id number] Closed Auto-Generate d Referral OON/Self Pay Override 07/02/2024 08/01/2025 1 1 Reason Comments Established Patient Specialty Diagnoses / Procedures Referred By Contac t Referred To Contact Neurology / NEUROLOGY Diagnoses Demyelinating disease of central nervous system (HCC) Demyelinating disease of central nervous system Procedures OFFICE/OUTPATIENT ESTABLISHED HIGH MDM 40 MIN [place] [address] [address] Phone: tel: fax: [place] [address] [place] [address] Phone: tel: fax: Referral ID Status Reason Start Date Expiration Date Visits Re quested Visits Authorized [id number] Closed 12/29/2024 09/21/2025 1 1 Reason Comments Follow Up Specialty Diagnoses / Procedures Referred By Contac t Referred To Contact [facility] Diagnoses Follow-up exam Follow Up Procedures OFFICE/OUTPATIENT ESTABLISHED [facility] 40 [place] [address] [place] [address] Phone: tel: fax: Neurology [address] [place] [address] Phone: tel: Referral ID Status Reason Start Date Expiration Date Visits Requested Visits Authorized [id number] Authorized OON/Self Pay Override 05/18/2025 09/21/2025 99 99 Goals (unrecognized section and content) Goals may be documented in a n alternate section Source Comments (unrecognize d section and content) In the event this informatio n is protected by the Federal Confidentiality of Alcohol and Drug Abuse Patient Records regulations: The Federal rules restrict any use of the information to criminally investigate or prosecute any alcohol or drug abuse patient.[facility] the event this information is protected by the Federal Confidentiality of Alcohol and Drug Abuse Patient Records regulations: The Federal rules restrict any use of the information to criminally investigate or prosecute any alcohol or drug abuse patient.[facility] the event this information is protected by the Federal Confidentiality of Alcohol and Drug Abuse Patient Records regulations: The Federal rules restrict any use of the information to criminally investigate or prosecute any alcohol or drug abuse patient.[facility] the event this information is protected by the Federal Confidentiality of Alcohol and Drug Abuse Patient Records regulations: The Federal rules restrict any use of the information to criminally investigate or prosecute any alcohol or drug abuse patient.[facility] the event this information is protected by the Federal Confidentiality of Alcohol and Drug Abuse Patient Records regulations: The Federal rules restrict any use of the information to criminally investigate or prosecute any alcohol or drug abuse patient.[facility] the event this information is protected by the Federal Confidentiality of Alcohol and Drug Abuse Patient Records regulations: The Federal rules restrict any use of the information to criminally investigate or prosecute any alcohol or drug abuse patient.[facility] the event this information is protected by the Federal Confidentiality of Alcohol and Drug Abuse Patient Records regulations: The Federal rules restrict any use of the information to criminally investigate or prosecute any alcohol or drug abuse patient.[facility] the event this information is protected by the Federal Confidentiality of Alcohol and Drug Abuse Patient Records regulations: The Federal rules restrict any use of the information to criminally investigate or prosecute any alcohol or drug abuse patient.[facility] the event this information is protected by the Federal Confidentiality of Alcohol and Drug Abuse Patient Records regulations: The Federal rules restrict any use of the information to criminally investigate or prosecute any alcohol or drug abuse patient.[facility] the event this information is protected by the Federal Confidentiality of Alcohol and Drug Abuse Patient Records regulations: The Federal rules restrict any use of the information to criminally investigate or prosecute any alcohol or drug abuse patient.[facility] the event this information is protected by the Federal Confidentiality of Alcohol and Drug Abuse Patient Records regulations: The Federal rules restrict any use of the information to criminally investigate or prosecute any alcohol or drug abuse patient.[facility] FOR RECORDS PERTAINING TO PATIENTS WHO ARE [...] BE BASED ON THE PRIMARY CLINICAL RECORDS. [facility] [facility] provides no warranty or guarantee of the accuracy or completeness of information in this document.
[2025-06-16 07:51] LABS: Hematocrit 42.7 % (36.0-48.0); Hemoglobin 13.9 g/dL (12.0-16.0); Immature Granulocytes Abs Auto 0.01 10^3/uL (0.00-0.03); Immature Granulocytes Pct Auto 0.1 % (0.0-0.5); Lymphocytes Absolute Auto 2.2 10^3/uL (1.2-3.8); Mean Corpuscular HGB Conc 32.6 g/dL (29.9-35.2); Mean Corpuscular Hemoglobin 29.7 pg (26.7-34.0); Mean Corpuscular Volume 91.2 fL (81.0-99.0); Platelet Count 318 10^3/uL (150-450); Red Blood Count 4.68 10^6/uL (4.20-5.40); White Blood Count 8.9 10^3/uL (4.0-11.0)
[2025-06-16 08:21] LABS: Alanine Aminotransferase 22 U/L (14-59); Albumin Globulin Ratio 0.8; Albumin Level 3.4 g/dL (3.4-5.0); Alkaline Phosphatase 81 U/L (46-116); Anion Gap 13.2; Aspartate Amino Transferase 14 U/L (15-37); Blood Urea Nitrogen 14.0 mg/dL (7.0-18.0); Calcium 8.6 mg/dL (8.5-10.1); Carbon Dioxide 25.9 mmol/L (21.0-32.0); Chloride 104 mmol/L (98-107); Cholesterol 181 mg/dL (<=200); Estimated GFR (African America >60 (>=60 mL/min/1.73m^2); Estimated GFR (Non-African Ame >60 (>=60 mL/min/1.73m^2); Globulin 4.5 g/dL; Glucose 82 mg/dL (74-106); HDL Cholesterol 73 mg/dL (40-60); Potassium 4.1 mmol/L (3.5-5.1); Sodium 139 mmol/L (136-145); Total Protein 7.9 g/dL (6.4-8.2); Triglycerides 65 mg/dL (<=150); VLDL CHOLESTEROL 13.0 mg/dL
== END 2025-06-16 07:37 | disposition home or self-care (01) ==
LOC: LAB 07:38
PROVIDERS: PCP Family Medicine; Visit Provider Family Medicine
DX: Z00.00 Encounter for general adult medical examination without abnormal findings (principal); E55.9 Vitamin D deficiency, unspecified
CPT/HCPCS: 36415; 80053; 80061; 82306; 85025